=== PATIENT | male | born 1955 | race Caucasian/White ===

== ENCOUNTER 2021-03-26 07:12 | Emergency (ER) | payer MEDICARE, MEDICAID, SELFPAY ==
[2021-03-26 07:24] VITALS: BP 199/100; PULSE 78; RESP 20; TEMP 36.8; O2SAT 96; BMI 25.8
[2021-03-26 07:58] LABS: IDNOW Serial# 08D9AD1C; Strep A Nucleic Acid Negative (Negative)
--- NOTE | 2021-03-26 08:14 | ED_ITS ---
HPI - General Adult General Chief complaint: General Medical Stated complaint: Body aches/sore throat/fever Time Seen by Provider: 03/26/21 08:04 Source: patient Mode of arrival: ambulatory Limitations: no limitations History of Present Illness HPI narrative: 66 y/o male with history of HTN, noncompliant with medications who presents to the ER with body aches and pains along with sore throat that started yesterday. He lives at home with his who is COVID positive. He denies any shortness of breath or chest pain. He is here to be ?checked out? so he can maybe go to work today. complaint: Body aches and sore throat in the setting of COVID exposure. Onset (ago): day(s) (1) Location: head, mouth and back Radiation: non-radiation Severity: moderate Quality: aching Pain Consistency: constant Relieving factors: none and rest Associated symptoms: headaches and loss of appetite Treatments prior to arrival: none Related Data Allergies Allergy/AdvReac Type Severity Reaction Status Date / Time No Known Allergies Allergy Unverified 12/21/19 14:40 Review of Systems Review of Systems: Constitutional: No Fever, No Chills ENT/Mouth: + sore throat, No Rhinorrhea, No Swallowing Difficulty Eyes: No Eye Pain, No Swelling, + Redness Cardiovascular: No Chest Pain, No SOB, No Orthopnea, No Edema Respiratory: No Cough, No Sputum, No Wheezing, No dyspnea Gastrointestinal: No Nausea, No Vomiting, No Diarrhea, No abdominal Pain Genitourinary: No Dysuria, No Urinary Frequency, No Hematuria Musculoskeletal: + joint pain, + Myalgias Skin: No Skin Lesions, No rash Neuro: No Weakness, No Dizziness, + Headache Heme/Lymph: No Bruising, No Lymphadenopathy PMFSH Past Medical History Medical History (Updated 03/26/21 @ 09:19 by DMITRI Watkins) HTN (hypertension) Social History Social History Advance Directives: No Advance Directives Information Provided: No Physical Exam Vital Signs: Vital Signs: Last Vital Signs Temp 98.3 F 03/26/21 07:24 Pulse 78 03/26/21 08:15 Resp 20 03/26/21 07:24 BP 204/96 H 03/26/21 08:15 Pulse Ox 96 03/26/21 07:24 BMI result Body Mass Index 25.8 Appearance: Alert. Oriented X3. No acute distress. Eyes: Pupils equal, round and reactive to light. ENT: Pharynx with mild generalized erythema of the posterior oropharynx Neck: Normal inspection. Neck supple. CVS: Normal heart rate and rhythm. Pulses normal. Respiratory: No respiratory distress. Breath sounds normal. Skin: Skin warm and dry. Normal skin color. Normal skin turgor. No rashes. Extremities: No lower extremity edema. Neuro: Oriented X 3. No motor deficit. No sensory deficit. Course Course Course Narrative: 66-year-old male with history of hypertension, noncompliant with medications who presents to the ER with body aches and joint pains after being exposed his was COVID-19. His vital signs reveal significant hypertension with blood pressure 199/100. He is asymptomatic at this time with no chest pain, headache, vision changes. He states he does not take his blood pressure medication because he ?did note was that high. ? He does not see a doctor regularly. Repeat BP 204/96. He is stating he wants to leave and be called with the results of his COVID test. Explained the significance of his severely elevated blood pressure and need for compliance. He is declining a medical workup at this time. He states he will just take his blood pressure medication when he gets home. He was encourage follow-up with his primary care doctor. He is refusing to stay for additional workup and does not want any blood pressure medication right now. Will discharge home with plan to take his BP meds when he gets home and follow-up with his primary care doctor as soon as possible. Reevaluation(s) Reevaluation #1: Called patient with COVID positive result and result was provided to the patient. Work note provided. Medical Decision Making Lab Data Labs: Lab Results 03/26/21 03/26/21 Range/Units 07:32 07:32 Influenza Type A (PCR) NEGATIVE (Negative) Influenza Type B (PCR) NEGATIVE (Negative) RSV RNA Qual (PCR) NEGATIVE (Negative) SARS-CoV-2 RNA (RT-PCR) POSITIVE A (Negative) S. pyogenes GrpA TYLOR Negative (Negative) Critical Care Time Critical Care Time Critical Care Time: No Discharge Plan Discharge Clinical Impression: Poorly-controlled hypertension, COVID-19 Patient Disposition: Home, Self-Care Instructions: Covid-19 Viral Syndrome and Novel Coronavirus (ED) Hey/Ath, Hypertensive Crisis (ED) Additional Instructions: Given your known exposure to your who is positive for COVID, this is COVID- 19 until proven otherwise. We will call you with results of your PCR test. Do not go to work or in public while you're not feeling unwell. Take Motrin and/or Tylenol as needed for body aches and pains. Your blood pressure was extremely elevated in the emergency room today; it is very important that you take your blood pressure medications at home. Follow-up with your doctor soon as possible Stand Alone Forms: Work/School Release Interventions: ED Discharge Assessment Last Done: 03/26/21 08:20 Discharge Date/Time: 03/26/21 08:21
[2021-03-26 08:15] VITALS: BP 204/96; PULSE 78
--- NOTE | 2021-03-26 08:16 | PC.NURSE ---
denies canales or dizziness, states he takes bp meds inconsistently, education done re htn and meds and risks
[2021-03-26 08:18] LABS: Influenza A PCR NEGATIVE (Negative); Influenza B PCR NEGATIVE (Negative); Resp Syncy Virus RNA Qual PCR NEGATIVE (Negative); SARS COV2 PCR INHOUSE POSITIVE (Negative)
== END 2021-03-26 08:21 | disposition home or self-care (01) ==
PROVIDERS: Emergency Provider Emergency Medicine Emergency Medical Services; PCP Family Medicine
DX: U07.1 COVID-19 (principal); M79.10 Myalgia, unspecified site; R50.9 Fever, unspecified; M54.50 Low back pain, unspecified; R51.9 Headache, unspecified; I10 Essential (primary) hypertension
CPT/HCPCS: 0241U; 87651; 99282; 99283; 99284

== ENCOUNTER 2024-04-08 00:43 | Emergency (ER) | payer OTHER, SELFPAY ==
--- NOTE | 2024-04-08 | ECG_ITS ---
Test Reason : CHST PAIN Blood Pressure : / mmHG Vent. Rate : 076 BPM Atrial Rate : 076 BPM P-R Int : 164 ms QRS Dur : 080 ms QT Int : 410 ms P-R-T Axes : 074 021 021 degrees QTc Int : 461 ms Normal sinus rhythm Normal ECG When compared with ECG of 20-MAR-2009 21:02, No significant change was found Referred By: Generic ED Physician Electronically Signed By:XIOMY PARK MD
[2024-04-08 00:52] VITALS: BP 169/85; BP 220/120; PULSE 74; PULSE 89; RESP 14; TEMP 36.8; O2SAT 94; O2SAT 96; BMI 28.8
[2024-04-08 01:21] LABS: Basophils Absolute Auto 0.1 X10*3/uL (0.0-0.2); Eosinophils Absolute Auto 0.2 X10*3/uL (0.0-0.4); Eosinophils Percent Auto 3.4 % (0-4); Hematocrit 37.8 % (42.0-52.0); Hemoglobin 13.6 g/dl (14.0-18.0); Imm Gran Abs Auto 0.02 X10*3/uL (0.00-0.03); Imm Gran Pct Auto 0.3 % (0.0-0.4); Lymphocytes Absolute Auto 2.4 X10*3/uL (1.2-4.9); Lymphocytes Percent Auto 34.5 % (20-40); MANUAL DIFF FLAG NO; Mean Corpuscular Hemoglobin 35.2 pg (27.0-33.0); Mean Corpuscular Volume 97.9 fL (80.0-98.0); Mean Platelet Volume 9.8 fL (9.4-12.4); Monocytes Absolute Auto 0.8 X10*3/uL (0.1-1.2); Monocytes Percent Auto 11.4 % (2-11); Neutrophils Absolute Auto 3.4 x10*3/uL (2.0-8.3); Neutrophils Percent Auto 49.4 % (45-73); Platelet Count 225 X10*3/uL (160-400); Red Blood Count 3.86 X10*6/uL (4.60-5.80); Red Cell Distribution Width 12.5 % (11.0-16.0); White Blood Count 6.8 X10*3/uL (4.8-10.8)
[2024-04-08 01:43] LABS: Troponin-I High Sensitivity 4.8 ng/L (<3.5-35.0)
[2024-04-08 01:46] LABS: Albumin Level 4.1 g/dL (3.5-5.0); Anion Gap 14 (12-20); Aspartate Amino Transferase 40 U/L (5-37); Bilirubin Total 0.4 mg/dL (0.0-1.0); Blood Urea Nitrogen 19 mg/dL (9-16); Carbon Dioxide 27 mmol/L (22-29); Chloride 104 mmol/L (96-108); Creatinine Clr Calc Pharmacy 51.2; Estimated Glomerular Filt Rate 46; Glucose Random 92 mg/dL (60-115); Potassium 4.9 mmol/L (3.3-5.1); Sodium 140 mmol/L (135-145); Total Protein 8.1 g/dL (6.5-8.0)
[2024-04-08 01:52] LABS: Alanine Aminotransferase 19 U/L (0-40); Alkaline Phosphatase 67 U/L (39-117)
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
[2024-04-08 02:12] VITALS: BP 166/88; PULSE 70; RESP 16; TEMP 36.8; O2SAT 94
== END 2024-04-08 02:15 | disposition home or self-care (01) ==
PROVIDERS: Emergency Provider Internal Medicine; PCP Family Medicine
DX: I10 Essential (primary) hypertension (principal); R51.9 Headache, unspecified; F41.9 Anxiety disorder, unspecified; Z72.89 Other problems related to lifestyle; Z63.0 Problems in relationship with spouse or partner
CPT/HCPCS: 36415; 80053; 84484; 85025; 93005; 99283; 99285

== ENCOUNTER → 2024-04-08 00:57 | Outpatient (BNV) | payer OTHER, SELFPAY | PROVIDERS: Emergency Provider Internal Medicine; PCP Family Medicine; Visit Provider Internal Medicine Cardiovascular Disease | DX: R07.9 Chest pain, unspecified (principal) | CPT/HCPCS: 93010 ==

== ENCOUNTER → 2024-11-07 05:25 | Outpatient (BNV) | payer OTHER, SELFPAY | PROVIDERS: Admitting Provider Internal Medicine Pulmonary Disease; Emergency Provider Emergency Medicine; Visit Provider Radiology Diagnostic Radiology | DX: R91.8 Other nonspecific abnormal finding of lung field (principal) | CPT/HCPCS: 71045 ==

== ENCOUNTER 2024-11-07 06:10 | Inpatient (IN) | payer OTHER, SELFPAY ==
--- OUTSIDE RECORDS SUMMARY | 2024-09-14 08:24 | XMS_ITS | Continuity of Care Document ---
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 It does not include entries that were removed or entered in error. Problem Status Onset Date Problem Type Date of Resolution Comments Source Alcohol Dependence Active Condition [facility] Cocaine dependence Active Condition [facility] Delerium Tremens Active Condition [facility] Depression (SNOMED CT 10496105) Active Condition [facility] Housing adequate Active Condition [facility] Housing lack Active Condition [facility] Nicotine Dependence Active Condition [facility] Opioid Dependence Active Condition [facility] Seizure Active Condition Apr 30 04 Entered By: BARAK SANFORD Comment: alcohol WD [facility] Diagnosis: ICD-10-CM Z59.9 Problem related to housing and economic circumstances, unsp Active Diagnosis [facility] Encounters Combined list of: 1) Encounters from Department of Veterans Affairs facilities going backup to the last 18 months, not all VA inpatient encounters are included; 2) Encounters from the Department of Defense facilities going backup to 280 months. Location Location Details Encounter Type Encounter Number Reason For Visit Attending Provider ADM Date DC Date Status Disposition Source [facility] Outpatient Encounter [id number] 02/27 [facility] Outpatient [facility]counter [id number] 04/11 [facility] Out[facility]counter [id number] 05/10 [facility] PH1 ASSMT&MGMT NQHP 11-20 [id number] Diagnos is: ICD-10- CM Z59.9 Problem related to housing and economi c circums tances, unsp LUTSKY,PHY LLIS 05/11 [facility] [id number] 07/17 [facility] Out[facility]counter [id number] 08/08 [facility] CASE MANAGEMENT [id number] Diagnos is: ICD-10- CM Z59.9 Problem related to housing and economi c circums tances, unsp LUTSKY,PHY LLIS 09/01 [facility] En[facility] [id number] 09/14 [facility] CASE MANAGEMENT [id number] Diagnos is: ICD-10- CM Z59.9 Problem related to housing and economi c circums tances, unsp LUTSKY,PHY LLIS 09/14 [facility]
[2024-11-07] VITALS (47 sets, daily range): BP systolic 0–225; BP diastolic 0–136; PULSE 42–178; RESP 12–30; TEMP 33–38.6; O2SAT 51–99; BMI 23.3
--- NOTE | ~2024-11-07 | CT_ITS ---
EXAMINATION: CT CHEST WITHOUT CONTRAST CLINICAL INFORMATION: Intubated, Covid positive. Respiratory failure. COMPARISON: No prior CT. Chest x-ray dated prior day. TECHNIQUE: Multidetector volumetric CT imaging of the chest was done. Axial MIP volume rendering provided. Sagittal and coronal reformatted images were obtained. This CT examination was performed using dose optimization techniques as appropriate, variously including the following: *Automated exposure control *Adjustment of mA and/or kV according to patient size (this includes techniques or standardized protocols for targeted exams where dose is matched to indication/reason for exam; i.e. extremities or head) *Use of iterative reconstruction technique FINDINGS: Endotracheal tube is in good position, terminating approximately 5 cm above the chely. Enteric tube is in good position terminating in the gastric body. Right IJ central venous catheter is in good position with tip in the mid SVC. LUNGS: There are patchy consolidative opacities throughout both lungs, most confluent in the bilateral lower lobes where there is near complete consolidation of the right lower lobe and subtotal consolidation of the left lower lobe. There is a focus of cavitation in the superior segment of the right lower lobe measuring 1.8 cm (series 4, image 58). Patchy foci of consolidation and central cavitation are also present in the upper lobes bilaterally, numerous in number, the largest in the posterior segment left upper lobe. A prominent cavitary focus is also present in the right middle lobe, and small foci in the lingula. Notably, no pleural effusions are present. No pneumothorax is evident. The small airways appear patent within the upper lobes. There are air bronchograms in the proximal lower lobes. MEDIASTINUM: Normal thyroid, partially imaged. There are small mediastinal lymph nodes, likely reactive. The largest is a subcarinal lymph node, measuring 1.0 cm in short axis. The great vessels branch normally and the aorta is normal in caliber. The main pulmonary artery is normal in caliber. Heart size is normal. No pericardial effusion. CORONARY ARTERY CALCIFICATION: None visualized on this study. AXILLA/CHEST WALL: No lymphadenopathy. There is mild right male gynecomastia. UPPER ABDOMEN: There is a 3.8 cm cyst in the upper left kidney. There is a 3 mm nonobstructing calculus in the upper left kidney. OSSEOUS STRUCTURES: No suspicious lytic or blastic bone lesions. There are spinal degenerative changes. CT/CT chest wo IV con IMPRESSION: 1. Endotracheal tube and enteric tube in good position. 2. Extensive consolidative opacities throughout both lungs, with near complete opacification of the lower lobes bilaterally right greater than left. 3. There are numerous cavitary consolidative foci in the upper lungs, right middle lobe and lingula, as well as the superior segment right lower lobe. This would be atypical for COVID pneumonia, and most viral pneumonias in general. Consider bacterial etiologies such as Legionella, among others such as staph, Pseudomonas, Klebsiella, and atypical fungal infection such as aspergillosis. 4. There are no definite pleural effusions present, allowing for artifact on the exam. 5. There are small reactive lymph nodes in the mediastinum, also atypical for COVID pneumonia. Electronically signed by: Clarek Wyatt MD 11/08/2024 03:15 PM EDT
--- NOTE | ~2024-11-07 | XR_ITS ---
CLINICAL HISTORY: ETT placement 1 view chest x-ray Comparison: CR - XR CHEST 1V - 11/26/24 11:01 EDT CR/SR - XR CHEST 1 VIEW - 11/23/24 16:58 EDT Findings: Tip of ETT is 8 cm above the chely. Left-sided central venous catheter is present as before, tip of which is in the upper SVC. Moderate bibasilar airspace opacity is present as before. Heart size is normal. No acute fracture. IMPRESSION: Bibasilar pneumonia. This document has been electronically signed by: Kenia Padilla MD on 11/27/2024 20:31:40
--- NOTE | ~2024-11-07 | XR_ITS ---
EXAMINATION: XR CHEST (frontal view) at 16:37, 16:38 and 16:39 hours CLINICAL INFORMATION: confirm new OG tube placement COMPARISON: Radiographs on November 13, 2024 FINDINGS: Devices/Tubes/Lines: Distal sidehole marker and distal end of the orogastric tube project in the expected location of the stomach in the left upper quadrant on the last image at 1639 hours. Right and left internal jugular central venous catheters are in similar position. Endotracheal tube is partially included. Lungs: Bilateral patchy airspace opacities are similar. Pleura: No pleural effusion or pneumothorax. Heart/Mediastinum: Unchanged cardiomediastinal silhouette. Bones/Soft Tissues: No acute findings. XR/XR chest 1V IMPRESSION: 1. Distal segment of the orogastric tube projects at the expected location of the gastric lumen in the left upper quadrant on the last image at 1639 hours. 2. Similar patchy bilateral airspace opacities consistent with pneumonia. Electronically signed by: Katrin Kearney MD 11/15/2024 05:07 PM EDT
--- NOTE | ~2024-11-07 | MR_ITS ---
CLINICAL HISTORY: Persistent encephalopathy after cardiac arrest MR brain without contrast. COMPARISON: None provided. FINDINGS: Diffusion restricting ischemia present within the bilateral superior frontal lobes. There is associated increased T2/FLAIR signal. Small amount of gradient blooming present wi adjacent to the most anterior lesion on the right and left suggestive of microhemorrhage/blood products. Gradient blooming within the posterior left occipital lobe measuring 1.6 x 1.2 cm (series 10, image 29) with the adjacent increased T2/FLAIR signal. The ventricles are proportional with the degree of mild cerebral volume loss without evidence of hydrocephalus. Basilar cisterns are patent. Patchy hyperintense T2/FLAIR areas within the periventricular white matter and galarza radiata compatible with mild white matter small vessel disease. Cerebellar hemispheres and cerebellar vermis are normal. Fourth ventricle is normal. No brainstem abnormality is identified. Intracranial flow voids are patent. Visualized paranasal sinuses are clear. Fluid present within the mastoid air cells bilaterally. IMPRESSION: 1. Several foci of acute ischemia present within the superior frontal lobes bilaterally. Small amount of microhemorrhage versus hemosiderin deposition present within a couple of these lesions. 2. Lesion with internal blood products (favored) within the posterior left occipital lobe with mild adjacent T2/FLAIR increased signal. This could represent another age-indeterminate infarct although intracranial mass can not be excluded. Recommend comparison with recent CT of the head. Additional contrast enhanced MR sequences may be helpful for further characterization. This document has been electronically signed by: Yung Willson MD on 11/18/2024 14:22:49
--- NOTE | ~2024-11-07 | XR_ITS ---
CLINICAL HISTORY: PT SHOT IN LEG, UNKNOWN WHEN, clearance needed to proceed with MRI 2 view left tibia-fibula Comparison: None provided Findings No acute fracture or dislocation is identified. No metallic foreign body is seen. IMPRESSION: 1. No metallic foreign body is identified. This document has been electronically signed by: Karol Gutierrez on 11/18/2024 12:33:44
--- NOTE | ~2024-11-07 | XR_ITS ---
EXAMINATION: XR CHEST 1 VIEW HISTORY: ET tube was moved COMPARISON: Comparison is made with the prior examination dated 11/07/2024. FINDINGS: A single AP portable view of the chest performed at 8:00 AM is submitted. An endotracheal tube is noted with its tip approximately 7 cm above the chely. An orogastric tube terminates below the diaphragm. Again seen is airspace opacity in both lower lung zones. There is no pleural effusion, pneumothorax, or pulmonary vascular congestion. The heart is normal in size. The bones are intact. XR/XR chest 1V IMPRESSION: 1. Lines and tubes in place as described. 2. Airspace opacities in both lower lung zones consistent with pneumonia. Electronically signed by: Master Long MD 11/07/2024 08:26 AM EDT
--- NOTE | ~2024-11-07 | IR_ITS ---
PROCEDURE: IR INSERTION OF CENTRAL VENOUS CATHETER CLINICAL INFORMATION: Renal failure. Needs dialysis catheter. COMPARISON: None available. TECHNIQUE: Following explaining ultrasound and fluoroscopy-guided placement of right temporary dialysis catheter procedure, benefits and risk, a written consent was obtained. Patient was placed supine on fluoroscopy table and preliminary ultrasound imaging through the right neck was obtained. An optimal site was selected and marked on the skin. Marked site was cleaned and draped in usual sterile manner. 1% lidocaine was injected at puncture site. Under sterile ultrasound guidance a singlewall needle was advanced and right jugular vein above the clavicle was punctured. After obtaining venous return, thin guidewire was placed through the needle into the SVC and needle withdrawn. A 5 [place] dilator was placed over the guidewire and the guidewire was exchanged for a 0.035 J-wire. The guidewire was advanced into the IVC under fluoroscopy and the 5 [place] dilator was removed. The catheter was dilated with a 8 [place] and a 10 [place] dilator. A 12 [place] dialysis catheter was advanced over the guidewire and placed into the SVC. A single image was obtained at guidewire and the catheter tip in the SVC. The guidewire was removed and the catheter was attached to skin with 3 0 nonabsorbable nylon sutures. Both ports of the catheter were flushed with heparinized. Simple dressing applied at the puncture site. Patient tolerated procedure extremely well. No conscious sedation was utilized during exam. All elements of maximal sterile barrier technique followed including use of cap, mask, sterile gown, sterile gloves, a sterile full body drape and hand hygiene. Also followed skin preparation with 2% chlorhexidine for cutaneous antisepsis, and sterile ultrasound preparation with sterile gel and probe cover when applicable. FINDINGS/ IR/IR cvc insert non tunnel IMPRESSION: On preliminary ultrasound imaging the jugular vein has slow flow with some clots. 12 [place] 20 cm long dialysis temporary dialysis catheter placement in distal right jugular vein. The catheter is ready for use. Fluoroscopy time: 0.7 minutes. Dose: 3.412 mGy/cm. Electronically signed by: Jemal Escalante MD 12/19/2024 04:48 PM EDT
--- NOTE | ~2024-11-07 | CT_ITS ---
CLINICAL HISTORY: mental status CT Head WO Contrast COMPARISON: None provided FINDINGS: Hyperdense right frontal and bilateral frontoparietal subarachnoid hemorrhages with mild associated local sulcal effacement in the right frontal lobe. Parenchymal hemorrhage versus mass in the left occipital lobe measuring 1.1 x 0.9 cm (series 15, image 115) with adjacent edema local sulcal effacement. Diffuse cortical volume loss. Nonspecific white matter hypodensities, most commonly associated with chronic microangiopathic changes. No midline shift. No hydrocephalus. Visualized orbits are normal. Fluid in the left maxillary sinus. Clear mastoid air cells. No acute fracture. Unremarkable soft tissues. ETT and orogastric tube in place. IMPRESSION: Acute bilateral subarachnoid hemorrhages with mild associated right frontal sulcal effacement. Parenchymal hemorrhage versus mass in the left occipital lobe with adjacent edema and local sulcal effacement. Consider follow-up enhanced MRI if not worked up in the past. Nonemergent/incidental findings in the report. This document has been electronically signed by: Jorge Luis Malcolm MD on 11/28/2024 01:42:43
--- NOTE | ~2024-11-07 | XR_ITS ---
EXAMINATION: XR CHEST CLINICAL INFORMATION: left IJ dialysis line COMPARISON: November 15, 2024 TECHNIQUE: Frontal view of the chest was obtained. FINDINGS: The left-sided central venous line catheter placed via left internal jugular vein and at the innominate/SVC junction. No pneumothorax. Right-sided central venous line ends at the right atrium region. Bilateral multifocal patchy and confluent opacities extending from the perihilar region to the lower hemithoraces pronounced on the right side. Bilateral pleural effusions, small volume. Cardiomediastinal silhouette size is normal. Calcified plaque thoracic aorta. Degenerative changes in the left acromioclavicular joint. Multilevel spondylosis. XR/XR chest 1V IMPRESSION: Left-sided central venous line dialysis catheter ends at the innominate/SVC junction. No pneumothorax. Persistent pulmonary edema and bilateral small pleural effusions, new since prior exam. Electronically signed by: Yang Brantley MD 11/24/2024 08:03 AM EDT
--- NOTE | ~2024-11-07 | US_ITS ---
EXAMINATION: US ABDOMEN LIMITED HISTORY: Elevated bilirubin, ? cholestasis TECHNIQUE: Real-time grayscale ultrasound imaging of the right upper quadrant was performed and images were reviewed. COMPARISON: Correlation is made with a CT of the abdomen with contrast dated 03/20/2009. FINDINGS: Liver: The right lobe of the liver measures 18.9 cm in size. The left lobe of the liver measures 11.8 cm in size. The liver demonstrates normal homogeneous echotexture. No focal mass or intrahepatic biliary ductal dilatation is identified. There is normal hepatopedal flow in the portal vein. Gallbladder and biliary tree: There is sludge in the gallbladder. No calculi are identified. There is mild gallbladder wall thickening measuring up to 4 mm in thickness. The patient is intubated and the sonographic Rivera sign cannot be determined. The common bile duct measures 10 mm in diameter. Right Kidney: The right kidney measures 10.9 cm in length. The right kidney is unremarkable, without evidence of masses, hydronephrosis, or calculi. Pancreas: The pancreatic head, neck, and body are unremarkable. The pancreatic tail is obscured by bowel gas. Abdominal aorta and inferior vena cava: The visualized portions of the abdominal aorta and inferior vena cava are normal in caliber. There is a small amount of perihepatic ascites. US/US abdomen limited IMPRESSION: 1. Hepatomegaly. 2. Gallbladder sludge and mild gallbladder wall thickening. No evidence of cholelithiasis. Electronically signed by: Master Long MD 11/10/2024 10:50 AM EDT
--- NOTE | ~2024-11-07 | CT_ITS ---
CLINICAL HISTORY: hypoxemia CT Angiography Chest W Contrast 3D Postprocessing COMPARISON: CR - XR CHEST 1V - 11/27/24 20:03 EDT FINDINGS: No pulmonary embolism. No thoracic aortic aneurysm or dissection. Cavitary and solid lesions in the right middle lobe, lingula, and bilateral lower lobes with the largest measuring up to 7.5 x 5.2 cm in the right lower lobe, with the largest lesions containing air-fluid levels. Patchy and confluent airspace disease with areas of consolidation in the bilateral mid to lower lungs, most pronounced in the bilateral lower lobes. Bilateral cystic bronchiectasis. No pleural effusion. No pneumothorax. No cardiomegaly. No pericardial effusion. No pathologically enlarged lymph nodes. No acute fracture. Degenerative changes in the spine. Endotracheal tube in place with tip 5.6 cm above the chely. Left internal jugular central line in place with tip in the mid SVC. Right internal jugular central line in place with tip in the mid SVC. Enteric tube in place with distal portion in the stomach as far as visible. IMPRESSION: No pulmonary embolism. Bilateral cavitary pulmonary lesions, which could be due to septic emboli, a neoplastic process, infected bullae, or other etiology. Follow-up recommended. Bilateral airspace disease with areas of consolidation consistent with pneumonia. Support devices as above. See separate CT Abdomen/Pelvis report. This document has been electronically signed by: Jorge Luis Malcolm MD on 11/28/2024 01:28:11
--- NOTE | ~2024-11-07 | XR_ITS ---
EXAMINATION: XR CHEST 1 VIEW HISTORY: Status post left IJ Ruy placement COMPARISON: Comparison is made with the prior examination dated 525. FINDINGS: Two AP portable views of the chest performed at 9:51 AM are submitted. Endotracheal tube, orogastric tube, and right internal jugular central venous catheter are unchanged in position. There is been interval placement of a left internal jugular central venous catheter with its tip in the superior vena cava. Again seen are patchy airspace opacities bilaterally consistent with pneumonia. There is no pneumothorax or pleural effusion. The heart is normal in size. There is degenerative disc disease of the spine. XR/XR chest 1V IMPRESSION: 1. Lines and tubes in place as described. 2. Patchy bilateral airspace opacities consistent with pneumonia. Electronically signed by: Master Long MD 11/13/2024 10:16 AM EDT
--- NOTE | ~2024-11-07 | XR_ITS ---
CLINICAL HISTORY: line placement 1 view chest x-ray Comparison: Chest x-ray from 11/07/2024 Findings: Worsening airspace disease of the both lungs with now severe bilateral pulmonary opacities. Likely small right pleural effusion partially imaged in the [id number]. Endotracheal tube terminates in the thoracic inlet. Enteric tube courses below the diaphragm. Multiple superficial opacities again noted. Mediastinum is mostly obscured. Degenerative changes include imaged shoulders and imaged AC joints. IMPRESSION: 1. Worsening bilateral pulmonary opacities and/or airspace disease. 2. The endotracheal tube terminates in the midthoracic trachea. This document has been electronically signed by: Josse Davis MD on 11/07/2024 22:35:36
--- NOTE | ~2024-11-07 | XR_ITS ---
CLINICAL HISTORY: PT SHOT IN LEG, UNKNOWN WHEN, clearance needed to proceed with MRI 2 view left femur Comparison: None provided Findings: No acute fracture or dislocation is identified. No metallic foreign body is seen. IMPRESSION: No metallic foreign body is identified. This document has been electronically signed by: Karol Gutierrez on 11/18/2024 12:33:13
--- NOTE | ~2024-11-07 | XR_ITS ---
CLINICAL HISTORY: post intubation 1 view chest x-ray Comparison: CR - XR CHEST 1V - 11/07/24 06:25 EDT Findings: Endotracheal tube terminates at the level of the clavicular heads approximately 8 cm above the chely. Enteric tube courses below the diaphragm. Bilateral airspace consolidation, greater on the right. No pneumothorax. IMPRESSION: 1. Findings concerning for multifocal pneumonia. Endotracheal tube 8 cm above the chely. Enteric tube courses below the diaphragm. This document has been electronically signed by: Irais Nixon MD on 11/07/2024 08:54:01
--- NOTE | ~2024-11-07 | XR_ITS ---
CLINICAL HISTORY: dyspnea 1 view chest x-ray Comparison: None provided Findings: Patchy bilateral airspace disease greatest in the lung bases and slightly greater on the right than the left. No effusion or pneumothorax. Normal heart size. No acute osseous findings. IMPRESSION: 1. Bilateral airspace disease concerning for multifocal pneumonia. This document has been electronically signed by: Irais Nixon MD on 11/07/2024 08:37:58
--- NOTE | ~2024-11-07 | CT_ITS ---
CLINICAL HISTORY: ? bleeding CT Abdomen and Pelvis W Contrast COMPARISON: US/SR - US ABDOMEN LIMITED - 11/10/24 10:13 EDT FINDINGS: Detail limited by artifacts. Normal liver. Normal spleen. Left renal cyst. Subcentimeter hypodensity in the right kidney, too small to accurately characterize. Nonobstructing left renal calculus. No visible ureteral calculi. No hydronephrosis. Normal adrenal glands. Normal pancreas. No visible cholelithiasis. No biliary dilation. No evidence of bowel obstruction or colitis. Enteric tube in place with tip in the proximal duodenum. The appendix is not identified, however, no secondary signs of acute appendicitis. Poorly distended bladder. Trace ascites. No pneumoperitoneum. No lymphadenopathy. No acute fracture. Chronic appearing L3 compression fracture. Degenerative changes in the spine and hips. No abdominal aortic aneurysm. Atherosclerosis. Bilateral fat-containing inguinal hernias. IMPRESSION: Trace ascites. Enteric tube as above. Nonemergent/incidental findings above. See separate CTA Chest report. This document has been electronically signed by: Jorge Luis Malcolm MD on 11/28/2024 01:32:49
--- NOTE | ~2024-11-07 | XR_ITS ---
CLINICAL HISTORY: pneumonia 1 view chest x-ray Comparison: CR/SR - XR CHEST 1 VIEW - 11/23/24 16:58 EDT Findings: Faint scattered airspace opacities of the lung bases, improved. Cardiac and mediastinal contours are stable. Left-sided temporary hemodialysis catheter tip appears adequately positioned. No acute fracture. IMPRESSION: Persistent faint scattered airspace opacities of the lung bases, improving. This document has been electronically signed by: Nilay Morejon MD on 11/26/2024 11:40:44
--- NOTE | ~2024-11-07 | CT_ITS ---
CLINICAL HISTORY: bleed CT angiography head and neck with contrast. 3D Postprocessing. Comparison: CT/REG/SR - CT HEAD/BRAIN WO IV CON - 11/28/24 00:26 EDT Findings: Aortic arch and cervical great vessels are patent with no aneurysm, dissection, hemodynamically significant stenoses, or occlusion. Intracranial arteries are patent. No aneurysm, dissection, hemodynamically significant stenoses, or occlusion. No abnormal intracranial enhancement. The visualized thyroid gland is unremarkable. No cervical mass or fluid collection. Lung apices clear. No acute fracture. ETT 4.5 cm above the chely. OG tube and esophageal temperature probe noted. Small left maxillary sinus fluid. Small amount of bilateral frontal subarachnoid hemorrhage is in a similar distribution to the prior exam and appears slightly increased. Bilateral internal jugular large-bore venous catheter is in the SVC. IMPRESSION: 1. Widely patent head and neck CTA. 2. Small amount of bilateral frontal lobe subarachnoid hemorrhage appears slightly more prominent than the prior exam. Recommend continued follow-up. This document has been electronically signed by: Kaye Wong MD on 11/28/2024 04:57:18
--- NOTE | 2024-11-07 06:21 | ECG_ITS ---
Test Reason : SOB Blood Pressure : */* mmHG Vent. Rate : 172 BPM Atrial Rate : * BPM P-R Int : * ms QRS Dur : 74 ms QT Int : 280 ms P-R-T Axes : * 55 -82 degrees QTcB Int : 473 ms Atrial fibrillation with rapid ventricular response Nonspecific ST and T wave abnormality Abnormal ECG When compared with ECG of 08-Apr-2024 00:57, Atrial fibrillation has replaced Sinus rhythm Vent. rate has increased by 96 bpm Nonspecific T wave abnormality, worse in Inferior leads Nonspecific T wave abnormality now evident in Lateral leads Referred By: Generic ED Physician Electronically Signed By: RYAN CRUZ
[2024-11-07] MEDS: Nitroglycerin 2 % Oint 1 GM Packet 1 INCH TRANSDERMA (06:27)
[2024-11-07 06:41] LABS: Venous Blood Gas Refer to POC result
[2024-11-07 06:42] LABS: VBG HCO3 15 mmol/L (22-26); VBG O2 % Saturation 74.0 %
[2024-11-07] MEDS: Ketamine HCl/NS 50 MG/5 ML SYRINGE 160 MG IVPUSH (06:42)
[2024-11-07 06:49] LABS: Hematocrit 42.6 % (42.0-52.0); Hemoglobin 15.6 g/dl (14.0-18.0); INTERNATIONAL NORM RATIO 1.4 (0.9-1.1); Mean Corpuscular HGB Conc 36.6 g/dl (31.0-36.0); Mean Corpuscular Hemoglobin 34.7 pg (27.0-33.0); Mean Corpuscular Volume 94.9 fL (80.0-98.0); NRBC Abs Auto 0.000 X10*3/uL (0.0-0.012); NRBC Pct Auto 0.0 /100WBC (0.0-0.2); Platelet Count 201 X10*3/uL (160-400); Prothrombin Time 15.8 SEC (10.9-12.4); Red Blood Count 4.49 X10*6/uL (4.60-5.80)
[2024-11-07 06:50] LABS: WBC ABN SCTR FOR CBC 1
[2024-11-07 07:06] LABS: B Type Natriuretic Peptide 642 pg/mL (<100)
[2024-11-07 07:09] LABS: Troponin-I High Sensitivity 12.3 ng/L (<3.5-35.0)
[2024-11-07 07:21] LABS: Resp Syncy Virus RNA Qual PCR NEGATIVE (Negative); SARS COV2 PCR INHOUSE POSITIVE (Negative)
[2024-11-07 07:32] LABS: Venous Blood Gas Refer to POC result
[2024-11-07 07:34] LABS: VBG HCO3 14 mmol/L (22-26); VBG O2 % Saturation 98.0 %
[2024-11-07 07:37] LABS: Atypical Lymphs Percent Manual 1 % (0-6); Lymphocytes Percent Manual 21 % (20-40); Metamyelocytes Percent 3 %; Monocytes Percent Manual 16 % (2-11); Neutrophils Percent Manual 34 % (45-73)
--- NOTE | 2024-11-07 07:38 | PC.NURSE ---
At arrival to room just after Rosc pt is still well sedated. moddled skin around pelvis and BLE. Pupils 3mm ST on monitor
--- OUTSIDE RECORDS SUMMARY | 2024-11-07 07:42 | XMS_ITS | Encounter Summary ---
Author Organization [facility] Address [address] [place] [address] Phone Care Team Providers Care Intranet Support Name Role Phone Ishan Pablo MD Primary Care Provider Encounter Details Date Type Department Care Team (Late st Contact Info) Description 04/29/2022 Documentation Only [facility], [address] [place] [phone] Ishan Pablo MD [address] [place] [address] Social History Tobacco Use Types Packs/Day Years Used Date Smoking Tobacco: Never Assessed Sex and Gender Information Value Date Recorded Sex Assigned at Not on file Legal Sex Male 12:39 PM EST Gender Identity Not on file Sexual Orientation Not on file documented as of this encounter Plan of Treatment Not on file documented as of this encounter Visit Diagnoses Not on filedocumented in this encounter Care Teams Intranet Support Relationship Specialty Start Date End Date Ishan Pablo MD [address] [place] [phone] PCP - General Family Medicine 04/29/22 documented as of this encounter
[2024-11-07 07:45] LABS: Band Neutrophils Percent 25 % (3-5)
[2024-11-07 07:46] LABS: Burr Cells 2+ (3-5) /OIF; Large Platelet PRESENT; RBC Morphology NOTED; Smudge Cells PRESENT; Toxic Granulation PRESENT; Toxic Vacuolation PRESENT
--- NOTE | 2024-11-07 07:46 | PC.NURSE ---
repeat portable chest ordred ET tube 25 at the lip but was intended to be at 23 per respiratory.
[2024-11-07 07:48] LABS: Atypical Lymph Absolute Manual 0.1 x10*3/uL; Lymphocytes Absolute Manual 2.8 X10*3/uL (1.2-4.9); Metamyelocytes Absolute 0.4 X10*3/uL; Monocytes Absolute Manual 2.2 X10*3/uL (0.1-1.2); Neutrophils Absolute Manual 8.0 X10*3/uL (2.0-8.3); White Blood Count 13.5 X10*3/uL (4.8-10.8)
--- NOTE | 2024-11-07 07:50 | ED.SOB ---
HPI - SOB/Dyspnea General Chief Complaint: Dyspnea Stated Complaint: SOB Time Seen by Provider: 11/07/24 06:31 Source: patient and old records reviewed Mode of arrival: EMS Limitations: physical limitation (dyspnea) History of Present Illness ED Provider: Dr. Milady Gale HPI Narrative: 69-year-old male with history of methadone use, tobacco use, denying other health history presenting via private vehicle, ambulatory into the emergency department with shortness of breath, cough, fevers ongoing for the last 4 days or so. Patient is unable to give much history secondary to his clinical condition. He is profoundly short of breath and is unable to make full sentences. He denies history of heart disease or heart failure. Denies any other illicit substance use. Denies vomiting. No further information able to be obtained at this time. Related Data Previous Rx's ?Medication ?Instructions ?Recorded lisinopril 20 mg tablet 20 mg PO DAILY #90 tabs 04/08/24 Allergies Allergy/AdvReac Type Severity Reaction Status Date / Time Penicillins Allergy Unknown Verified 11/07/24 06:19 ibuprofen AdvReac Difficulty Verified 11/07/24 06:19 Breathing Review of Systems Review of Systems: Yes Unobtainable due to mental condition (Profound dyspnea) [facility] Past Medical History Attestation statement: The following information was validated with the patient. [facility] Narrative: Methadone use, quit smoking 2 years ago, denies other illicit substance or alcohol use Source: old records reviewed and nursing notes reviewed Medical History HTN (hypertension) Social History Social History Alcohol intake: current Alcohol intake frequency: 0-2 drinks per day Advance Directives: No Advance Directives Information Provided: No Do you have a plan to hurt others: No Plan Physical Exam Exam: Exam: GENERAL: Chronically ill-appearing, severe respiratory distress. SKIN: Pale, mottled extremities, cool to the touch, diaphoretic, reticular, mottled extremities. HEENT: Normocephalic, atraumatic, no stridor, EOMI. NECK: Soft, supple, full ROM, midline structures nontender, no step-offs, no deformities, no lymphadenopathy. CHEST: Heart irregularly irregular tachycardia, symmetric chest rise and fall. PULMONARY: Coarse lung sounds bilaterally, diminished at the bases, severe respiratory distress with poor air movement, no wheezes. ABDOMINAL: Soft, protuberant nontender, quiet bowel sounds in all quadrants. : Deferred. MUSCULOSKELETAL: Normal tone, full range of motion, no deformities, 1+ peripheral edema bilaterally. NEURO: Alert and oriented to person, CN II through XII intact, no focal neurologic deficits. PSYCHIATRIC: Anxious affect, appropriate demeanor. Vital Signs: Vital Signs: Last Vital Signs Temp 101.4 F H 11/07/24 06:13 Pulse 116 H 11/07/24 07:38 Resp 18 11/07/24 07:38 BP 115/66 11/07/24 07:38 Pulse Ox 96 11/07/24 07:38 O2 Del Method Mechanical Ventil ation 11/07/24 07:38 FiO2 100 11/07/24 07:38 BMI result Body Mass Index 23.3 Medications Administered Discontinued Medications Generic Name Dose Route Start Last Admin Trade Name Freq PRN Reason Stop Dose Admin Nitroglycerin 1 inch 11/07/24 06:26 11/07/24 06:27 Nitroglycerin 2 % Oint 1 Gm Packet TRANSDERMA 11/07/24 06:27 1 inch ONCE ONE Administration Medical Decision Making Medical Decision Making MDM Narrative: Patient presents in respiratory distress. Differential diagnosis includes flash pulmonary edema, COPD exacerbation, pneumothorax, pneumonia, ACS, pulmonary embolism, metabolic acidosis, among many others. The serious nature of the patient's symptoms makes this presentation complex, with potential for significant, worsening morbidity and mortality without immediate treatment/intervention. 7:10 AM 11/07/2024 (Dr. Milady Gale, D.O.) patient presents with fever, tachycardia, hypoxia and tachypnea, concern for potential respiratory infection periods sepsis alert called. Clinical picture also consistent with a volume overload with significantly elevated blood pressures, concern for potential pulmonary edema. Holding off on IV fluid administration at this point. His blood pressures are extremely elevated. Vancomycin and cefepime ordered. Immediately prior to intubation, patient's blood pressures dropped precipitously with transdermal nitroglycerin and IV nitroglycerin. He only received about 2 minutes of the IV nitroglycerin when his blood pressure dropped to 90s over 50s. At that point, patient had become rather delirious, pulling at his BiPAP mask and was unable to tolerate this. Decision was made to emergently intubate. During intubation, patient began to go into bradyarrhythmia, ultimately lost pulses and CPR was initiated. Please see code sheet for exact times and medications given. He received 1 round of epi and 2 rounds of CPR and ultimately regained pulses. At that time he did receive 2 L of IV fluid for his now low blood pressure. After this, his blood pressures went high again. Chest x-ray shows bilateral patchy infiltrates, concern for ARDS versus bilateral pneumonia. Norepinephrine was placed on hold due to transiently high blood pressures. I suspect this is likely medication driven and he will ultimately need vasopressors however at this time he is maintaining a normal blood pressure. 8:05 AM 11/07/2024 (Dr. Milady Gale, D.O.) Patient testing positive for COVID-19. Magnesium is low. Lactic acid of 11.9 likely secondary to tissue hypoxia in the setting of respiratory failure, cardiac arrest and severe sepsis. Extremities are last mottled though he remains pale. Cardiac and lung exam are unchanged. Chest x-ray shows significant volume overload. Despite this, he did receive 2 L of IV crystalloid. Concern for potential pulmonary embolism given the level of hypoxia though I suspect this could be also due to the pulmonary edema and pneumonia. We will order a CTA to evaluate this further. Case discussed with Dr. Steel, ICU on-call who agrees with plan for transfer to ICU. Patient admitted to the ICU in critical condition. Differential Diagnosis Differential Diagnoses: The differential diagnosis associated with the presentation includes (As above) Admission/Observation Consideration of admission/observation: Escalation of care including admission/observation considered Consult Healthcare Provider Management of the patient was discussed with: Family Physician (Custodial Operations Manager) Lab Data [facility] Lab Attestation statement: I reviewed the patient's lab results. 11/07/24 06:31 Labs: Lab Results 11/07/24 11/07/24 11/07/24 Range/Units 06:31 06:32 06:37 WBC 13.5 H (4.8-10.8) X10*3/uL RBC 4.49 L (4.60-5.80) X10*6/uL Hgb 15.6 (14.0-18.0) g/dl Hct 42.6 (42.0-52.0) % MCV 94.9 (80.0-98.0) fL MCH 34.7 H (27.0-33.0) pg MCHC 36.6 H (31.0-36.0) g/dl RDW 11.7 (11.0-16.0) % Plt Count 201 (160-400) X10*3/uL MPV 10.8 (9.4-12.4) fL Immature Gran % (Auto) Cancelled Neut % (Auto) Cancelled Lymph % (Auto) Cancelled [place]ain % (Auto) Cancelled Eos % (Auto) Cancelled Baso % (Auto) Cancelled Lymph # (Auto) Cancelled [place] # (Auto) Cancelled Eos # (Auto) Cancelled Baso # (Auto) Cancelled Abs Immat Gran (auto) Cancelled Absolute Neuts (auto) Cancelled Absolute Nucleated RBC 0.000 (0.0-0.012) X10*3/uL Nucleated RBC % (auto) 0.0 (0.0-0.2) /100WBC Neutrophils % (Manual) 34 L (45-73) % Band Neutrophils % 25 H (3-5) % Lymphocytes % (Manual) 21 (20-40) % Atypical Lymphs % (Man) 1 (0-6) % Monocytes % (Manual) 16 H (2-11) % Metamyelocytes % 3 % Abs Neuts (Manual) 8.0 (2.0-8.3) X10*3/uL Lymphocytes # (Manual) 2.8 (1.2-4.9) X10*3/uL Atyp Lymphs # (Manual) 0.1 x10*3/uL Monocytes # (Manual) 2.2 H (0.1-1.2) X10*3/uL Metamyelocytes # 0.4 X10*3/uL Nucleated RBCs 1 H (0-0) /100WBC Smudge Cells PRESENT Toxic Granulation PRESENT Toxic Vacuolation PRESENT WBC Morphology Comment DYSMORPHIC Platelet Estimate NORMAL (NORMAL) Large Platelets PRESENT Plt Morphology Comment NOTED RBC Morphology NOTED Nuris Cells 2+ (3-5) /OIF PT 15.8 H (10.9-12.4) SEC INR 1.4 H (0.9-1.1) VBG pH 7.36 (7.32-7.43) VBG pCO2 27 mmHg VBG pO2 49 mmHg VBG HCO3 15 L (22-26) mmol/L VBG O2 Saturation 74.0 % VBG Base Excess -7.5 mmol/L Troponin I High Sens 12.3 D (<3.5-35.0) ng/L B-Natriuretic Peptide 642 H (<100) pg/mL Influenza Type A (PCR) NEGATIVE (Negative) Influenza Type B (PCR) NEGATIVE (Negative) RSV RNA Qual (PCR) NEGATIVE (Negative) SARS-CoV-2 RNA (RT-PCR) POSITIVE A (Negative) 11/07/24 Range/Units 07:27 WBC (4.8-10.8) X10*3/uL RBC (4.60-5.80) X10*6/uL Hgb (14.0-18.0) g/dl Hct (42.0-52.0) % MCV (80.0-98.0) fL MCH (27.0-33.0) pg MCHC (31.0-36.0) g/dl RDW (11.0-16.0) % Plt Count (160-400) X10*3/uL MPV (9.4-12.4) fL Immature Gran % (Auto) Neut % (Auto) Lymph % (Auto) Swain % (Auto) Eos % (Auto) Baso % (Auto) Lymph # (Auto) Swain # (Auto) Eos # (Auto) Baso # (Auto) Abs Immat Gran (auto) Absolute Neuts (auto) Absolute Nucleated RBC (0.0-0.012) X10*3/uL Nucleated RBC % (auto) (0.0-0.2) /100WBC Neutrophils % (Manual) (45-73) % Band Neutrophils % (3-5) % Lymphocytes % (Manual) (20-40) % Atypical Lymphs % (Man) (0-6) % Monocytes % (Manual) (2-11) % Metamyelocytes % % Abs Neuts (Manual) (2.0-8.3) X10*3/uL Lymphocytes # (Manual) (1.2-4.9) X10*3/uL Atyp Lymphs # (Manual) x10*3/uL Monocytes # (Manual) (0.1-1.2) X10*3/uL Metamyelocytes # X10*3/uL Nucleated RBCs (0-0) /100WBC Smudge Cells Toxic Granulation Toxic Vacuolation WBC Morphology Comment Platelet Estimate (NORMAL) Large Platelets Plt Morphology Comment RBC Morphology Nuris Cells /OIF PT (10.9-12.4) SEC INR (0.9-1.1) VBG pH 7.10 L* (7.32-7.43) VBG pCO2 44 mmHg VBG pO2 156 mmHg VBG HCO3 14 L (22-26) mmol/L VBG O2 Saturation 98.0 % VBG Base Excess -14.9 mmol/L Troponin I High Sens (<3.5-35.0) ng/L B-Natriuretic Peptide (<100) pg/mL Influenza Type A (PCR) (Negative) Influenza Type B (PCR) (Negative) RSV RNA Qual (PCR) (Negative) SARS-CoV-2 RNA (RT-PCR) (Negative) Independent Interpretation I performed an independent interpretation of an: EKG and Plain X-Ray Interpretation: EKG at 6:22 a.m. shows atrial fibrillation with a RVR rate of 172, QTC 473, normal axis, no ST elevations or depressions to suggest ischemia, no previous for comparison Initial chest x-ray shows patchy bibasilar infiltrates, pulmonary edema versus pneumonia. Post intubation chest x-ray shows ET tube that is approximately 6 cm above the chely, OG tube passes below the diaphragm, continued diffuse infiltrates versus pulmonary edema Chronic Conditions Patient?s care impacted by: Other (History of opioid use disorder) Critical Care Time Critical Care Time Critical Care Time: Yes Total Critical Care Time: 60 Attestation: CRITICAL CARE TIME: 60 minutes of critical care time was spent in direct patient care at the bedside or in the immediate area with this patient. Critical care was necessary to treat or prevent imminent or life-threatening deterioration of the following conditions acute respiratory failure, respiratory/metabolic acidosis, transient cardiac arrest due to COVID-19 pneumonia, flash pulmonary edema. This patient is high risk for decompensation and/or . This time was spent assessing and managing the patient, interpreting labs and imaging, coordinating care with other medical providers, gathering history from either the patient, their representatives, EMS or chart review, and discussing management with ICU team. Discharge Plan Discharge Clinical Impression: COVID-19, Acute hypoxemic respiratory failure, Severe sepsis, Acute respiratory distress syndrome (ARDS), Required emergent intubation, Metabolic acidosis, Bandemia, Bilateral pneumonia Patient Disposition: Admitted As Inpatient Print Language: Italian
--- NOTE | 2024-11-07 07:57 | PC.NURSE ---
noreip drip back up at 0.05 mcg/kg/min
[2024-11-07 07:59] LABS: Alanine Aminotransferase 43 U/L (0-40); Albumin Level 2.5 g/dL (3.5-5.0); Alkaline Phosphatase 64 U/L (39-117); Anion Gap 21 (12-20); Aspartate Amino Transferase 73 U/L (5-37); Blood Urea Nitrogen 32 mg/dL (9-16); Calcium 7.6 mg/dL (8.4-10.2); Carbon Dioxide 15 mmol/L (22-29); Chloride 100 mmol/L (96-108); Creatinine Clr Calc Pharmacy 39.5; Estimated Glomerular Filt Rate 33; Magnesium 1.4 mg/dL (1.6-2.6); Potassium 3.3 mmol/L (3.3-5.1); Sodium 133 mmol/L (135-145); Total Protein 5.5 g/dL (6.5-8.0)
[2024-11-07] MEDS: vancomycin/NS 2,000 MG/500 ML PLAST..BAG 250 MG IV (07:59)
[2024-11-07] MEDS: cefEPime HCl/D5W 2 GM/50 ML PIGGYBACK IV (07:59)
[2024-11-07] MEDS: Magnesium Sulfate/H2O 2 GM/50 ML PIGGYBACK IV (08:07)
--- NOTE | 2024-11-07 08:19 | PC.NURSE ---
Pt has not moved/bucked tube since propofol was D/C's over 30 minutes ago. Propofol ran for aprox 20-30 minutes at lowest rate.
--- NOTE | 2024-11-07 08:35 | PC.NURSE ---
Rn To RN kayy Spencer in ICU.
[2024-11-07] MEDS: Sodium Bicarbonate 8.4% 50 MEQ in Dextrose 5 % 950 ML 150 MEQ IV (08:46)
--- NOTE | 2024-11-07 09:06 | PHA.MEDREC ---
Addendum entered by Mike Pritchett [facility] 11/07/24 16:49: Med rec reviewed Original Note: Pharmacy Consult ? Medication Reconciliation Pharmacy has completed the medication reconciliation. Pt intubated and cannot be spoken too at this time and pt contacts (significant other- Riri and sister- Radha) numbers are both off. Utilized claims to confirm med rec.
[2024-11-07 09:25] LABS: Reflex Lactate? Lactic Acid Added
[2024-11-07 10:42] LABS: ~Lactic Acid-LAB USE ONLY 7.9 mmol/L (0.5-2.0)
[2024-11-07 10:52] LABS: ABG HCO3 20 mmol/L (22-26); ABG O2 % Saturation 88.0 %
[2024-11-07 11:20] LABS: ABG Refer to POC result
[2024-11-07] MEDS: Albumin Human 25 % 100 ML IV ×3 (11:52→23:23)
[2024-11-07 12:04] LABS: Reflex Lactate? 2 Y
--- NOTE | 2024-11-07 12:14 | P.HPCC_ITS ---
History of Present Illness Date of Service: 11/07/24 Chief Complaint: Cardiac arrest 69-year-old gentleman with underlying hypertension, anxiety, ? ADHD, substance abuse presented on 12/08/2024 with respiratory distress requiring immediate intubation complicated by pea re-intubation cardiac arrest with return of spontaneous circulation after 2 rounds of CPR. Initial workup significant for profound hypoxemia, lactic acidosis with acute renal failure, and COVID positivity. Patient started on empiric broad-spectrum antibiotics, pressor support, and dexamethasone and admitted to the intensive care unit. Review of Systems 2 Review of Systems: Yes unobtainable due to endotracheal tube and Unobtainable due to mental condition [facility] Past Medical History Medical History HTN (hypertension) Social History Social History Alcohol intake: current Alcohol intake frequency: 0-2 drinks per day Advance Directives: No Advance Directives Information Provided: No Do you have a plan to hurt others: No Plan Meds Allergies Allergy/AdvReac Type Severity Reaction Status Date / Time Penicillins Allergy Unknown Verified 11/07/24 06:19 ibuprofen AdvReac Difficulty Verified 11/07/24 06:19 Breathing Active Medications: Current Medications Dexamethasone Sodium Phosphate (Dexamethasone Sod Phosphate 4 Mg/Ml Vial) 6 mg IVPUSH DAILY [facility] Heparin Sodium (Porcine) (Heparin Sodium,Porcine 5,000 Unit/Ml Vial) 5,000 unit SUBCUT Q8H [facility] Last Admin: 11/07/24 11:51 Dose: 5,000 unit Propofol (Diprivan) 1,000 mg in 100 mls @ 0 mls/hr IVCONT .Q0M [facility]; Protocol Last Titration: 11/07/24 07:45 Dose: 0 mcg/kg/min, 0 mls/hr Norepinephrine Bitartrate (Levophed) 8 mg in 250 mls @ 0 mls/hr IVCONT .Q0M [facility]; Protocol Last Admin: 11/07/24 07:50 Dose: 0.05 mcg/kg/min, 7.5 mls/hr Albumin Human (Kedbumin 25 %) 100 mls @ 100 mls/hr IV Q6H [facility] Stop: 11/08/24 06:29 Last Admin: 11/07/24 11:52 Dose: 100 mls/hr Piperacillin Sod/Tazobactam (Sod 3.375 gm/ Sodium Chloride) 50 mls @ 100 mls/hr IV Q6H [facility] Last Admin: 11/07/24 11:52 Dose: 100 mls/hr Pharmacy Consult (Consult Rx Vancomycin Dosing) 1 each MISCELLANE DAILY PRN PRN Reason: Consult order Sodium Bicarbonate (Sodium Bicarbonate 8.4% 50 Meq/50 Ml Syringe) 50 meq IVPUSH Q4H [facility] Stop: 11/08/24 07:31 Last Admin: 11/07/24 11:52 Dose: 50 meq Home Medications ?Medication ?Instructions ?Recorded ?Confirmed ?Last Taken ?Type amlodipine 5 mg tablet 5 mg PO DAILY 11/07/2411/07 Unknown History clonazepam 1 mg tablet 1 mg PO TID anxiety 11/07/24 11/07/24 Unknown History dextroamphetamine-amphetamine 20 1 tab PO BID 11/07/24 11/07/24 Unknown History mg tablet Physical Exam 2 Vital Signs: Vital Signs: Last Vital Signs Temp 97.7 F 11/07/24 11:00 Pulse 88 11/07/24 11:00 Resp 28 H 11/07/24 11:00 BP 109/61 11/07/24 11:00 Pulse Ox 88 L 11/07/24 11:00 O2 Del Method Mechanical Ventil ation 11/07/24 11:00 FiO2 100 11/07/24 11:28 BMI result Body Mass Index 23.3 Const: General: no acute distress and other (Sedated on ventilatory support) Eyes: Sclerae: sclerae normal EOM: EOMs intact bilaterally Neck: Neck: Yes no lymphadenopathy, Yes trachea midline and Yes supple Resp: Auscultation: crackles (Diffuse bilateral) Cardio: Rate: regular rate Rhythm: regular rhythm Heart sounds: no gallops, no murmurs and no rubs GI: Palpation (GI): Soft to palpation and Other GI palpation findings present ( Nontender) Auscultation: normal bowel sounds Extrem: General: Yes no pedal edema, No clubbing and No cyanosis Results Labs 11/07/24 06:31 11/07/24 07:23 Labs: Laboratory Results - last 24 hr 11/07/24 11/07/24 11/07/24 06:31 06:32 06:37 MCV 94.9 MCH 34.7 H MCHC 36.6 H RDW 11.7 Plt Count 201 MPV 10.8 Immature Gran % (Auto) Cancelled Neut % (Auto) Cancelled Lymph % (Auto) Cancelled [place]ccre[place] % (Auto) Cancelled Eos % (Auto) Cancelled Baso % (Auto) Cancelled Lymph # (Auto) Cancelled [place] # (Auto) Cancelled Eos # (Auto) Cancelled Baso # (Auto) Cancelled Abs Immat Gran (auto) Cancelled Absolute Neuts (auto) Cancelled Absolute Nucleated RBC 0.000 Nucleated RBC % (auto) 0.0 Neutrophils % (Manual) 34 L Band Neutrophils % 25 H Lymphocytes % (Manual) 21 Atypical Lymphs % (Man) 1 Monocytes % (Manual) 16 H Metamyelocytes % 3 Abs Neuts (Manual) 8.0 Lymphocytes # (Manual) 2.8 Atyp Lymphs # (Manual) 0.1 Monocytes # (Manual) 2.2 H Metamyelocytes # 0.4 Nucleated RBCs 1 H Smudge Cells PRESENT Toxic Granulation PRESENT Toxic Vacuolation PRESENT WBC Morphology Comment DYSMORPHIC Platelet Estimate NORMAL Large Platelets PRESENT Plt Morphology Comment NOTED RBC Morphology NOTED [place] Cells 2+ (3-5) PT 15.8 H INR 1.4 H O2 Saturation ABG pH at Pt Temp ABG pCO2 at Pt Temp ABG pO2 at Pt Temp ABG HCO3 ABG Base Excess (Actual) VBG pH 7.36 VBG pCO2 27 VBG pO2 49 VBG HCO3 15 L VBG O2 Saturation 74.0 VBG Base Excess -7.5 Anion Gap Estim Creat Clear Calc Estimated GFR Random Glucose Lactic Acid Lactic Acid F/U @ 2Hr Calcium Magnesium Total Bilirubin AST ALT Alkaline Phosphatase B-Natriuretic Peptide 642 H Total Protein Albumin Ethyl Alcohol Influenza Type A (PCR) NEGATIVE Influenza Type B (PCR) NEGATIVE RSV RNA Qual (PCR) NEGATIVE SARS-CoV-2 RNA (RT-PCR) POSITIVE A 11/07/24 11/07/24 11/07/24 07:02 07:23 07:27 MCV MCH MCHC RDW Plt Count MPV Immature Gran % (Auto) Neut % (Auto) Lymph % (Auto) Mccreary % (Auto) Eos % (Auto) Baso % (Auto) Lymph # (Auto) [place] # (Auto) Eos # (Auto) Baso # (Auto) Abs Immat Gran (auto) Absolute Neuts (auto) Absolute Nucleated RBC Nucleated RBC % (auto) Neutrophils % (Manual) Band Neutrophils % Lymphocytes % (Manual) Atypical Lymphs % (Man) Monocytes % (Manual) Metamyelocytes % Abs Neuts (Manual) Lymphocytes # (Manual) Atyp Lymphs # (Manual) Monocytes # (Manual) Metamyelocytes # Nucleated RBCs Smudge Cells Toxic Granulation Toxic Vacuolation WBC Morphology Comment Platelet Estimate Large Platelets Plt Morphology Comment RBC Morphology Nuris Cells PT INR O2 Saturation ABG pH at Pt Temp ABG pCO2 at Pt Temp ABG pO2 at Pt Temp ABG HCO3 ABG Base Excess (Actual) VBG pH 7.10 L* VBG pCO2 44 VBG pO2 156 VBG HCO3 14 L VBG O2 Saturation 98.0 VBG Base Excess -14.9 Anion Gap 21 H Estim Creat Clear Calc 39.5 Estimated GFR 33 Random Glucose 228 H Lactic Acid 11.9 H* Lactic Acid F/U @ 2Hr Calcium 7.6 L D Magnesium 1.4 L* Total Bilirubin 2.4 H AST 73 H ALT 43 H Alkaline Phosphatase 64 B-Natriuretic Peptide Total Protein 5.5 L Albumin 2.5 L Ethyl Alcohol 11 Influenza Type A (PCR) Influenza Type B (PCR) RSV RNA Qual (PCR) SARS-CoV-2 RNA (RT-PCR) 11/07/24 11/07/24 10:00 10:48 MCV MCH MCHC RDW Plt Count MPV Immature Gran % (Auto) Neut % (Auto) Lymph % (Auto) Mccreary % (Auto) Eos % (Auto) Baso % (Auto) Lymph # (Auto) Mccreary # (Auto) Eos # (Auto) Baso # (Auto) Abs Immat Gran (auto) Absolute Neuts (auto) Absolute Nucleated RBC Nucleated RBC % (auto) Neutrophils % (Manual) Band Neutrophils % Lymphocytes % (Manual) Atypical Lymphs % (Man) Monocytes % (Manual) Metamyelocytes % Abs Neuts (Manual) Lymphocytes # (Manual) Atyp Lymphs # (Manual) Monocytes # (Manual) Metamyelocytes # Nucleated RBCs Smudge Cells Toxic Granulation Toxic Vacuolation WBC Morphology Comment Platelet Estimate Large Platelets Plt Morphology Comment RBC Morphology Nuris Cells PT INR O2 Saturation 88.0 ABG pH at Pt Temp 7.08 L* ABG pCO2 at Pt Temp 67 H* ABG pO2 at Pt Temp 78 L ABG HCO3 20 L ABG Base Excess (Actual) -10.3 VBG pH VBG pCO2 VBG pO2 VBG HCO3 VBG O2 Saturation VBG Base Excess Anion Gap Estim Creat Clear Calc Estimated GFR Random Glucose Lactic Acid Lactic Acid F/U @ 2Hr 7.9 H* Calcium Magnesium Total Bilirubin AST ALT Alkaline Phosphatase B-Natriuretic Peptide Total Protein Albumin Ethyl Alcohol Influenza Type A (PCR) Influenza Type B (PCR) RSV RNA Qual (PCR) SARS-CoV-2 RNA (RT-PCR) Imaging Radiologist's Impressions: Impressions Chest X-Ray 11/07/24 08:10 IMPRESSION: 1. Lines and tubes in place as described. 2. Airspace opacities in both lower lung zones consistent with pneumonia. Electronically signed by: Master Long MD 11/07/2024 08:26 AM EDT RP Assessment and Plan (1) Metabolic acidosis: Status: Acute (2) Cardiac arrest: Status: Acute (3) Acute hypoxemic respiratory failure: Status: Acute (4) Acute kidney injury: Status: Acute (5) Acute respiratory failure with hypoxia: Status: Acute Plan Assessment: 69-year-old gentleman admitted with acute hypoxic respiratory failure with metabolic acidosis status post cardiac arrest with return of spontaneous circulation after 2 rounds of CPR. Plan: Neuro: No acute issues. Cardiac: Cardiac arrest with return of spontaneous circulation after several rounds of CPR. 2D echo is pending. Pulmonary: Acute hypoxic respiratory failure requiring essentially maximum ventilatory support. Underlying COVID-19 and possible aspiration component. Continue to titrate off as tolerated. Empiric dexamethasone. Renal: Acute renal failure with lactic metabolic acidosis. Non oliguric. Continue to monitor renal indices and urine output. IV bicarbonate support. Endo: No acute issues. GI: No acute issues. ID: Empiric broad-spectrum antibiotics. Cultures are pending. Heme/Onc: No acute issues. Psych: No acute issues. Miscellaneous: No acute issues. Prophylaxis: Heparin, famotidine Diet: NPO Critical care time spent: 90 minutes
--- NOTE | 2024-11-07 12:14 | PHA.PROG ---
Admission Date/Time: November 07, 2024 08:23 Indication: EMPIRIC Weight in k kg Adjusted body weight in Kg: [place] body weight in Kg: Obesity Dosing Indication % IBW: Serum Creatinine - Last 168 Hours 11/07/24 07:23 Creatinine 2.02 H Estimated CrCl and GFR - Last 168 Hours 11/07/24 07:23 Estim Creat Clear Calc 39.5 Estimated GFR 33 Vancomycin Loading Dose: 2000 mg Current Vancomycin Dosing Regimen: 1000 mg q24h Vancomycin Monitoring using AUC goal of 400 - 600 range with trough as surrogate marker: omk=218 trough=17.1 Date and Time for next Vancomycin Level to be drawn: 11/09/24 @0600 Pharmacist Comments on Vancomycin Plan: START AGGRESSIVELY DUE TO INDICATION, MAY REDUCE LATER IF LEVEL COMES BACK SUPRATHERAPEUTIC OR RENAL WORSENS Vancomycin dosing will take advantage of [employer] as a clinical decision support tool that uses Bayesian modeling to calculate individual patient's pharmacokinetic parameters and forecast the patient's drug concentration time course with the target goal AUC 24 range of 400 - 600 mg/L/hr.
[2024-11-07 12:52] LABS: ~Lactic Acid-LAB USE ONLY 6.3 mmol/L (0.5-2.0)
[2024-11-07 13:57] LABS: Glucose, Whole Blood 104 mg/dL (60-115)
[2024-11-07 13:57] LABS: Glucose, Whole Blood 61 mg/dL (60-115)
[2024-11-07 13:58] LABS: Glucose, Whole Blood 210 mg/dL (60-115)
[2024-11-07 15:09] LABS: VBG HCO3 23 mmol/L (22-26); VBG O2 % Saturation 87.0 %
--- NOTE | 2024-11-07 15:22 | PM.CCN ---
Critical Care Event Note Summary Date of Service: 11/07/24 Code activated: Yes Narrative: At around 03:00 p.m. patient with sudden changing read more with bradycardia deteriorating to asystole with CPR started immediately and return of spontaneous circulation obtain after 1 round of CPR. On post cardiac arrest blood gas patient with worsening combined respiratory and metabolic acidosis. Attempted to reach patient's recorded contacts including significant other and sister, however both phone numbers are not accepting phone calls. Critical Care Time (minutes): 30
[2024-11-07 15:45] LABS: Troponin-I High Sensitivity 23.4 ng/L (<3.5-35.0)
--- NOTE | 2024-11-07 17:48 | PC.NURSE ---
The patient arrived at the ICU approx. at? 0930? from ED. Neuro/Resp: intubated in the ED. Pupils reactive, does not open eyes, does not follow commands, Flaccid extremities.? Cardiac: ?S/P Cardiac arrest. on norepinephrine gtt- see MAR GI/: Unknown? LBM , +bowel sounds, OGT in place/clamp, External catheter in place, Bladder scan for 100cc, no action required. Skin:Temp: Mottle skin, bloody great toe nail bed, blanchable redness to buttock (foam DGS applied) Infectious: IV abx, cultures pending. Temp: Low grade temp? Lines:? peripheral IVs x4, IO to left lower extremity? Approx. 1450 Patient Tan down to 40?s, unable to obtain an Sp02, ETC02 8, then down to 0, pulse lost. CPR initiated, ROCS achieved after 1 round of CPR.? Approx 1530 again Tan down to 40?s, unable to obtain an Sp02, ETC02 decreasing, pulse lost. ?CPR initiated, ROCS achieved after 1 round of CPR.?
[2024-11-07 18:52] LABS: Venous Blood Gas Refer to POC result
[2024-11-07 18:53] LABS: Alanine Aminotransferase 53 U/L (0-40); Albumin Level 2.7 g/dL (3.5-5.0); Alkaline Phosphatase 50 U/L (39-117); Anion Gap 27 (12-20); Aspartate Amino Transferase 132 U/L (5-37); Blood Urea Nitrogen 41 mg/dL (9-16); Calcium 8.6 mg/dL (8.4-10.2); Carbon Dioxide 17 mmol/L (22-29); Chloride 98 mmol/L (96-108); Creatinine Clr Calc Pharmacy 25.4; Estimated Glomerular Filt Rate 20; Potassium 4.4 mmol/L (3.3-5.1); Sodium 138 mmol/L (135-145); Total Protein 5.7 g/dL (6.5-8.0)
[2024-11-07] MEDS: Chlorhexidine Gluc Oral Rinse 15 ML MOUTHWASH BUCCAL (20:11)
[2024-11-07 20:17] LABS: Venous Blood Gas Refer to POC result
[2024-11-07 20:17] LABS: VBG HCO3 26 mmol/L (22-26); VBG O2 % Saturation 87.0 %
--- NOTE | 2024-11-07 21:41 | W.PM.CCHP ---
Procedures Date of Service Date of Service: 11/07/24 Central Line Placement Right IJ: Central Line Comments: The right neck was widely prepped and draped in full sterile fashion.? Under US? guidance, the right IJ vein was cannulated on the 1st pass of the 18 g thin wall needle, with return of dark, nonpulsatile blood. ? The wire was threaded without incident.? The 16 cm x 7 Occitan triple-lumen CVC was advanced into the vein up to the hub via the Seldinger technique without incident.? There was good blood return x3.? The catheter was sutured x2 and a Biopatch and dry sterile dressing were applied. The patient tolerated the procedure well with no complications. Postop chest x-ray showed the line in good position with no pneumothorax.? The patient tolerated the procedure well with no complications. Consent for Procedure: Emergent-no informed consent obtained Time out performed: Yes Sterile Technique Used: Yes Patient placed on monitor/pulse ox: Yes MD prep: mask, gown and gloves Central line prep: Chlorhexidine scrub and sterile drapes applied Ultrasound used for placement: Yes Central line lumen inserted: triple Post procedure: sutured in place, good blood return, all ports aspirated, flushed, capped and sterile dressing applied Post procedure x-ray: tip of catheter in good position and no pneumothorax seen Patient tolerated procedure: well and no complications Complications: none
[2024-11-07] MEDS: Norepinephrine Bitartrate/NS 16 MG/250 ML PLAST..BAG 45 MG IVCONT (22:13)
[2024-11-07 22:33] LABS: Cannabinoid Screen Urine Not Detected (Not Detect)
[2024-11-08] VITALS (46 sets, daily range): BP systolic 79–148; BP diastolic 47–82; PULSE 87–137; RESP 20–29; TEMP 34.6–37.5; O2SAT 88–96; BMI 23.3
[2024-11-08] MEDS: Norepinephrine Bitartrate/NS 16 MG/250 ML PLAST..BAG 42 MG IVCONT (02:35)
--- NOTE | 2024-11-08 03:05 | PM.EVENT ---
Documented by User: Yoko Cohen NP 11/08/24 03:07 Event Note Date of Service: 11/08/24 Event Note: One set of blood cultures reported positive at 20 hours for GPC in clusters. Patient presented with severe hypoxia requiring intubation and ventilatory support possibly due to pulmonary aspiration. Will continue broad-spectrum antibiotics and repeat blood cultures and lactate. Time Spent With Patient Time: Total time managing care of this patient today ____ minutes. Documented by User: Monty Steel MD 11/08/24 09:06 Event Note Date of Service: 11/08/24
--- NOTE | 2024-11-08 03:35 | PC.NURSE ---
Upon initial assessment at 1900- pt off sedation, not following commands/tracking but attempting to open eyes and moving extremities, reaching toward ETT with R arm, asynchronous with vent. COOKIE Cohen notified, ok to restart propofol gtt- see JUN. Afib on tele, HR 90-110s. TLC to R IJ inserted by SPRAY I PAINTER, placement confirmed by pCXR. Levophed gtt changed to 2x concentrated, titrated to maintain MAP > 65. +1 BLE edema. Palpable peripheral pulses x4 extremities. Slight mottling noted. ETT #7.5, 25 cm at lip, switched ACVC+ settings, SpO2 > 88%. OGT clamped, no BM. Anuric but indwelling catheter placed per order d/t need for urine sample, hemodynamic instability, and ARF. Tmax 101.3 rectally, ice bags applied to B/L axilla. Skin overall intact- foam dressing applied to coccyx for protection. Repositioned as tolerated with isotour bed, wedges, and pillows. Family called and updated on pt status/plan of care x2. See EMR/flowsheet for further details.
[2024-11-08] MEDS: Albumin Human 25 % 100 ML IV (04:13)
[2024-11-08 04:30] LABS: Venous Blood Gas Refer to POC result
[2024-11-08 04:32] LABS: VBG HCO3 29 mmol/L (22-26); VBG O2 % Saturation 98.0 %
[2024-11-08 04:42] LABS: Albumin Level 3.2 g/dL (3.5-5.0); Anion Gap 25 (12-20); Blood Urea Nitrogen 48 mg/dL (9-16); Calcium 8.7 mg/dL (8.4-10.2); Carbon Dioxide 25 mmol/L (22-29); Chloride 96 mmol/L (96-108); Creatinine Clr Calc Pharmacy 22.0; Estimated Glomerular Filt Rate 17; Magnesium 1.7 mg/dL (1.6-2.6); Potassium 3.1 mmol/L (3.3-5.1); Sodium 143 mmol/L (135-145)
[2024-11-08 04:50] LABS: Hematocrit 36.1 % (42.0-52.0); Hemoglobin 13.2 g/dl (14.0-18.0); Mean Corpuscular HGB Conc 36.6 g/dl (31.0-36.0); Mean Corpuscular Hemoglobin 34.2 pg (27.0-33.0); Mean Corpuscular Volume 93.5 fL (80.0-98.0); NRBC Abs Auto 0.070 X10*3/uL (0.0-0.012); NRBC Pct Auto 1.1 /100WBC (0.0-0.2); PLT CLUMP 1; Red Blood Count 3.86 X10*6/uL (4.60-5.80); WBC ABN SCTR FOR CBC 1
[2024-11-08] MEDS: Potassium Chloride/H20 40 MEQ/100 ML PIGGYBACK 50 MEQ IV (05:00)
[2024-11-08 05:45] LABS: Atypical Lymphs Percent Manual 2 % (0-6); Band Neutrophils Percent 39 % (3-5); Lymphocytes Percent Manual 5 % (20-40); Metamyelocytes Percent 2 %; Monocytes Percent Manual 3 % (2-11); Neutrophils Percent Manual 48 % (45-73); Promyelocytes Percent 1 %; RBC Morphology NORMAL
[2024-11-08 05:46] LABS: Burr Cells 1+ (0-2) /OIF; Large Platelet PRESENT; Schistocytes 1+ (0-2) /OIF
[2024-11-08 05:48] LABS: Toxic Granulation PRESENT; Toxic Vacuolation PRESENT
[2024-11-08 05:49] LABS: Dohle Bodies PRES; Smudge Cells PRES
[2024-11-08 05:50] LABS: Atypical Lymph Absolute Manual 0.1 x10*3/uL; Lymphocytes Absolute Manual 0.3 X10*3/uL (1.2-4.9); Metamyelocytes Absolute 0.1 X10*3/uL; Monocytes Absolute Manual 0.2 X10*3/uL (0.1-1.2); Neutrophils Absolute Manual 5.3 X10*3/uL (2.0-8.3); Platelet Count 134 X10*3/uL (160-400); Promyelocytes Absolute 0.1 X10*3/uL; White Blood Count 6.1 X10*3/uL (4.8-10.8)
[2024-11-08] MEDS: Bumetanide 1 MG/4 ML VIAL IVPUSH (05:58)
[2024-11-08 06:20] LABS: Reflex Lactate? Lactic Acid Added
--- NOTE | 2024-11-08 07:00 | CA_ITS ---
Transthoracic Echocardiogram Patient (Last, First, Middle): Josse Mcdermott S Gender: Male Date of : 1955 Age: 69 Procedure Date: 11/08/2024 Procedure Type: Transthoracic Echocardiogram Location: ICU Height: 185.42 cm Weight: 79.83 kg BSA: 2.04 m2 Heart Rate: bpm BP: 115 / 62 mmHg [employer] Supervisor: TO Referring MD: Monty Steel MD Symptoms: s/p cardiac arrest Study Quality: Technically Difficult/Contrast ECG Rhythm: Atrial Fibrillation Conclusions: - The left ventricular systolic function is mildly decreased. The visually estimated ejection fraction is between 45-50%. - No obvious valvular pathology seen on this study. Findings Procedure Information Contrast agent, definity, is being given per protocol without apparent complications. Left Ventricle Normal left ventricular cavity size. There is normal left ventricular wall thickness. The left ventricular systolic function is mildly decreased. The visually estimated ejection fraction is between 45-50%. There is no evidence of regional wall motion abnormalities. Diastolic function is indeterminate on the basis of available data. Right Ventricle Normal right ventricular cavity size. There is normal right ventricular systolic function. Atria Both atria are normal in size. Aortic Valve There is a normal trileaflet aortic valve. There is mild calcification of the aortic valve. There is no aortic valve stenosis. There is no aortic valve regurgitation. Mitral Valve The mitral valve appears normal. There is trace mitral valve regurgitation. There is no mitral valve stenosis. Pulmonic Valve The pulmonic valve is likely normal. Tricuspid Valve There is trace tricuspid valve regurgitation. The right ventricular systolic pressure is not calculated. Great Vessels The asc aorta is normal in size. Venous The inferior vena cava is dilated and does not collapse with inspiration. (intubated) Pericardium/Pleural There is no evidence of pericardial effusion. Prior Study Comparison No prior study available for comparison. Recommendations, Care & Conclusions No obvious valvular pathology seen on this study. Measurements 2D Linear Measurements IVSd: 0.99 0.6-0.9/0.6-1.0 cm LVIDd: 3.92 3.9-5.3/4.2-5.9 cm LVIDd Index: 1.92 2.4-3.2/2.2-3.1 cm/m2 LVPWd: 0.84 0.7-1.1 cm LV Mass: 135.38 67-162/88-224 g LV Mass Index: 66.36 43-95/49-115 g/m2 LVOT Diam: 2.30 3.0+(-)1.3 cm 2D Systolic Function EF 4C: 44.50 >55% EF 2C: 55.00 >55% EF BiP: 48.90 >55% Mitral Valve MV Pk E: 0.73 MV Decel Time: 201.00 E'Lateral: 12.60 E'Medial: 6.45 E/E' Med: 11.20 E/E' Lat: 5.80 PHT: 59.00 MVA PHT: 3.73 Decel [place]: 3.63 Aortic Valve AoV Pk [place]tar: 0.89 AoV Pk Grad: 3.00 LVOT LVOT Pk [place]tar: 0.75 LVOT Mn Avtar: 0.50 LVOT VTI: 0.09 LVOT Pk Grad: 2.00 LVOT Mn Grad: 1.00 LVOT Diam: 2.30 LVOT Area: 4.15 Diastolic Function MV Pk E: 0.73 E'Medial: 6.45 E/E' Med: 11.20 E' Laterial: 12.60 E/E' Lat: 5.80 Right Ventricle TAPSE (mm): 14.70 TVS' Avtar: 11.40 Tricuspid Valve TR Pk Avtar: 2.23 TR Pk Grad: 20.00 RA Press: 15.00 RVSP: 35.00 Great Vessels Aorta Sinus of Valsalva: 3.47 2.0-3.5 cm Ao Asc: 3.50 2.1-3.4 cm Updated in Other Vendor System with Status of Final Kirk España MD electronically signed on 11/08/2024 11:09:11 AM with status of Final
[2024-11-08 07:16] LABS: ~Lactic Acid-LAB USE ONLY 7.0 mmol/L (0.5-2.0)
[2024-11-08] MEDS: Chlorhexidine Gluc Oral Rinse 15 ML MOUTHWASH BUCCAL ×3 (08:32→20:59)
[2024-11-08] MEDS: 0.9 % Sodium Chloride Flush 3 ML SYRINGE IVFLUSH ×3 (08:33→23:47)
[2024-11-08] MEDS: Norepinephrine Bitartrate/NS 16 MG/250 ML PLAST..BAG 37.5 MG IVCONT ×2 (08:55→16:00)
[2024-11-08 08:56] LABS: Reflex Lactate? 2 Y
--- NOTE | 2024-11-08 09:33 | HE.PHANOTE ---
Re: DOROTHY SCr came back at 3.62 from 2.02. Called ICU to take down bag @0824. Per RN, bag infused for ~5 minutes. Trough to be drawn today @2100 to assess safety and efficacy.
[2024-11-08 10:59] LABS: ~Lactic Acid-LAB USE ONLY 6.7 mmol/L (0.5-2.0)
--- NOTE | 2024-11-08 11:14 | MHC.CLN ---
PT MAY REQUIRE TF FOR NUTRITION SUPPORT R/T PROLONGED NPO STATUS REMAINS NPO PT IS INTUBATED AND SEDATED DISCUSSED AT ROUNDS WITH MD IF TF NEEDED; RECOMMEND PROMOTE AT MAX GOAL RATE 70ML/HR WITH 240ML FREE WATER FLUSHES Q 6 HRS TO PROVIDE 1680KCALS (2060KCALS WITH SEDATION; 26KCALS/KG), 105G PROTEIN (1.3G/KG), 2369ML TOTAL FREE WATER FROM FORMULA (30ML/KG) MONITOR TOLERANCE AND LYTES FOLLOWING FOR DIET ADVANCEMENT SEE FULL ASSESSMENT
--- NOTE | 2024-11-08 11:18 | PM.CCPN ---
Subjective Subjective Date of Service: 11/08/24 Interval History: 69-year-old gentleman with underlying hypertension, anxiety, ? ADHD, substance abuse presented on 12/08/2024 with respiratory distress requiring immediate intubation complicated by pea re-intubation cardiac arrest with return of spontaneous circulation after 2 rounds of CPR. Initial workup significant for profound hypoxemia, lactic acidosis with acute renal failure, and COVID positivity. Patient started on empiric broad-spectrum antibiotics, pressor support, and dexamethasone and admitted to the intensive care unit. Patient with 3 additional cardiac arrests on 11/07/2024, with CPR started immediately and returned spontaneous circulation achieved with an 1-2 rounds of CPR each time. Overnight with improved metabolic acidosis and slowly improving ventilator support requirements. Critical Care Time (minutes): 90 Physical Exam Vital Signs: Vital Signs: Last Vital Signs Temp 97.7 F 11/08/24 08:00 Pulse 122 H 11/08/24 11:00 Resp 29 H 11/08/24 11:00 BP 126/71 11/08/24 11:00 Pulse Ox 89 L 11/08/24 11:00 O2 Del Method Mechanical Ventil ation 11/08/24 11:00 FiO2 90 11/08/24 11:00 BMI result Body Mass Index 23.3 Const: General: no acute distress Eyes: Sclerae: sclerae normal Neck: Neck: Yes no lymphadenopathy, Yes trachea midline and Yes supple Resp: Auscultation: crackles (Diffuse bilateral) Cardio: Rate: tachycardic Rhythm: abnormal rhythm Heart sounds: no gallops, no murmurs and no rubs GI: Palpation (GI): Soft to palpation and Other GI palpation findings present ( Nontender) Auscultation: normal bowel sounds Extrem: General: No clubbing, No cyanosis and Yes edema (1+ bilateral ) Objective Data Labs 11/08/24 04:10 11/08/24 04:10 Labs: Laboratory Results - last 24 hr 11/07/24 11/07/24 11/07/24 06:20 06:56 07:20 WBC RBC Hgb Hct MCV MCH MCHC RDW Plt Count MPV Immature Gran % (Auto) Neut % (Auto) Lymph % (Auto) [place] % (Auto) Eos % (Auto) Baso % (Auto) Lymph # (Auto) [place] # (Auto) Eos # (Auto) Baso # (Auto) Abs Immat Gran (auto) Absolute Neuts (auto) Absolute Nucleated RBC Nucleated RBC % (auto) Neutrophils % (Manual) Band Neutrophils % Lymphocytes % (Manual) Atypical Lymphs % (Man) Monocytes % (Manual) Metamyelocytes % Promyelocytes % Abs Neuts (Manual) Lymphocytes # (Manual) Atyp Lymphs # (Manual) Monocytes # (Manual) Metamyelocytes # Promyelocytes # Nucleated RBCs Smudge Cells Toxic Granulation Toxic Vacuolation Dohle Bodies Platelet Estimate Large Platelets Plt Morphology Comment RBC Morphology [place] Cells Schistocytes Smear Path Review Hold Purple Top VBG pH VBG pCO2 VBG pO2 VBG HCO3 VBG O2 Saturation VBG Base Excess Sodium Potassium Chloride Carbon Dioxide Anion Gap BUN Creatinine Estim Creat Clear Calc Estimated GFR POC Glucose 104 61 210 H Random Glucose Lactic Acid Lactic Acid F/U @ 2Hr Lactic Acid F/U @ 4Hr Calcium Phosphorus Magnesium Total Bilirubin AST ALT Alkaline Phosphatase Troponin I High Sens Total Protein Albumin Urine Opiates Screen Ur Buprenorphine Scrn Ur Oxycodone Screen Urine Methadone Screen Urine Fentanyl Screen Ur Barbiturates Screen Ur Phencyclidine Scrn Ur Amphetamines Screen U Benzodiazepines Scrn Urine Cocaine Screen U Marijuana (THC) Screen 11/07/24 11/07/24 11/07/24 12:23 15:03 15:05 WBC RBC Hgb Hct MCV MCH MCHC RDW Plt Count MPV Immature Gran % (Auto) Neut % (Auto) Lymph % (Auto) [place] % (Auto) Eos % (Auto) Baso % (Auto) Lymph # (Auto) [place] # (Auto) Eos # (Auto) Baso # (Auto) Abs Immat Gran (auto) Absolute Neuts (auto) Absolute Nucleated RBC Nucleated RBC % (auto) Neutrophils % (Manual) Band Neutrophils % Lymphocytes % (Manual) Atypical Lymphs % (Man) Monocytes % (Manual) Metamyelocytes % Promyelocytes % Abs Neuts (Manual) Lymphocytes # (Manual) Atyp Lymphs # (Manual) Monocytes # (Manual) Metamyelocytes # Promyelocytes # Nucleated RBCs Smudge Cells Toxic Granulation Toxic Vacuolation Dohle Bodies Platelet Estimate Large Platelets Plt Morphology Comment RBC Morphology Nuris Cells Schistocytes Smear Path Review Hold Purple Top SEE NOTE VBG pH 7.08 L* VBG pCO2 77 VBG pO2 73 VBG HCO3 23 VBG O2 Saturation 87.0 VBG Base Excess -7.7 Sodium Potassium Chloride Carbon Dioxide Anion Gap BUN Creatinine Estim Creat Clear Calc Estimated GFR POC Glucose Random Glucose Lactic Acid Lactic Acid F/U @ 2Hr Lactic Acid F/U @ 4Hr 6.3 H* Calcium Phosphorus Magnesium Total Bilirubin AST ALT Alkaline Phosphatase Troponin I High Sens 23.4 D Total Protein Albumin Urine Opiates Screen Ur Buprenorphine Scrn Ur Oxycodone Screen Urine Methadone Screen Urine Fentanyl Screen Ur Barbiturates Screen Ur Phencyclidine Scrn Ur Amphetamines Screen U Benzodiazepines Scrn Urine Cocaine Screen U Marijuana (THC) Screen 11/07/24 11/07/24 11/07/24 17:50 20:13 21:54 WBC RBC Hgb Hct MCV MCH MCHC RDW Plt Count MPV Immature Gran % (Auto) Neut % (Auto) Lymph % (Auto) [place] % (Auto) Eos % (Auto) Baso % (Auto) Lymph # (Auto) [place] # (Auto) Eos # (Auto) Baso # (Auto) Abs Immat Gran (auto) Absolute Neuts (auto) Absolute Nucleated RBC Nucleated RBC % (auto) Neutrophils % (Manual) Band Neutrophils % Lymphocytes % (Manual) Atypical Lymphs % (Man) Monocytes % (Manual) Metamyelocytes % Promyelocytes % Abs Neuts (Manual) Lymphocytes # (Manual) Atyp Lymphs # (Manual) Monocytes # (Manual) Metamyelocytes # Promyelocytes # Nucleated RBCs Smudge Cells Toxic Granulation Toxic Vacuolation Dohle Bodies Platelet Estimate Large Platelets Plt Morphology Comment RBC Morphology Nuris Cells Schistocytes Smear Path Review Hold Purple Top VBG pH 7.24 L VBG pCO2 60 VBG pO2 61 VBG HCO3 26 VBG O2 Saturation 87.0 VBG Base Excess -1.9 Sodium 138 Potassium 4.4 D Chloride 98 Carbon Dioxide 17 L Anion Gap 27 H BUN 41 H Creatinine 3.14 H Estim Creat Clear Calc 25.4 Estimated GFR 20 POC Glucose Random Glucose 178 H Lactic Acid Lactic Acid F/U @ 2Hr Lactic Acid F/U @ 4Hr Calcium 8.6 D Phosphorus Magnesium Total Bilirubin 3.5 H AST 132 H ALT 53 H Alkaline Phosphatase 50 Troponin I High Sens Total Protein 5.7 L Albumin 2.7 L Urine Opiates Screen Not Detected Ur Buprenorphine Scrn Not Detected Ur Oxycodone Screen Not Detected Urine Methadone Screen Positive H Urine Fentanyl Screen POSITIVE H Ur Barbiturates Screen Not Detected Ur Phencyclidine Scrn Not Detected Ur Amphetamines Screen Not Detected U Benzodiazepines Scrn Not Detected Urine Cocaine Screen POSITIVE H U Marijuana (THC) Screen Not Detected 11/08/24 11/08/24 11/08/24 04:10 04:22 06:52 WBC 6.1 RBC 3.86 L Hgb 13.2 L Hct 36.1 L MCV 93.5 MCH 34.2 H MCHC 36.6 H RDW 11.8 Plt Count 134 L D MPV 11.7 Immature Gran % (Auto) Cancelled Neut % (Auto) Cancelled Lymph % (Auto) Cancelled [place] % (Auto) Cancelled Eos % (Auto) Cancelled Baso % (Auto) Cancelled Lymph # (Auto) Cancelled [place] # (Auto) Cancelled Eos # (Auto) Cancelled Baso # (Auto) Cancelled Abs Immat Gran (auto) Cancelled Absolute Neuts (auto) Cancelled Absolute Nucleated RBC 0.070 H Nucleated RBC % (auto) 1.1 H Neutrophils % (Manual) 48 Band Neutrophils % 39 H Lymphocytes % (Manual) 5 L Atypical Lymphs % (Man) 2 Monocytes % (Manual) 3 Metamyelocytes % 2 Promyelocytes % 1 Abs Neuts (Manual) 5.3 Lymphocytes # (Manual) 0.3 L Atyp Lymphs # (Manual) 0.1 Monocytes # (Manual) 0.2 Metamyelocytes # 0.1 Promyelocytes # 0.1 Nucleated RBCs 2 H Smudge Cells PRES Toxic Granulation PRESENT Toxic Vacuolation PRESENT Dohle Bodies PRES Platelet Estimate DECREASED Large Platelets PRESENT Plt Morphology Comment NOTED RBC Morphology NORMAL [place] Cells 1+ (0-2) Schistocytes 1+ (0-2) Smear Path Review SEE NOTE Hold Purple Top VBG pH 7.36 VBG pCO2 50 VBG pO2 97 VBG HCO3 29 H VBG O2 Saturation 98.0 VBG Base Excess 3.0 Sodium 143 Potassium 3.1 L D Chloride 96 Carbon Dioxide 25 Anion Gap 25 H BUN 48 H Creatinine 3.62 H Estim Creat Clear Calc 22.0 Estimated GFR 17 POC Glucose Random Glucose 60 Lactic Acid 7.4 H* Lactic Acid F/U @ 2Hr 7.0 H* Lactic Acid F/U @ 4Hr Calcium 8.7 Phosphorus 5.5 H Magnesium 1.7 Total Bilirubin AST ALT Alkaline Phosphatase Troponin I High Sens Total Protein Albumin 3.2 L Urine Opiates Screen Ur Buprenorphine Scrn Ur Oxycodone Screen Urine Methadone Screen Urine Fentanyl Screen Ur Barbiturates Screen Ur Phencyclidine Scrn Ur Amphetamines Screen U Benzodiazepines Scrn Urine Cocaine Screen U Marijuana (THC) Screen 11/08/24 10:29 WBC RBC Hgb Hct MCV MCH MCHC RDW Plt Count MPV Immature Gran % (Auto) Neut % (Auto) Lymph % (Auto) [place] % (Auto) Eos % (Auto) Baso % (Auto) Lymph # (Auto) [place] # (Auto) Eos # (Auto) Baso # (Auto) Abs Immat Gran (auto) Absolute Neuts (auto) Absolute Nucleated RBC Nucleated RBC % (auto) Neutrophils % (Manual) Band Neutrophils % Lymphocytes % (Manual) Atypical Lymphs % (Man) Monocytes % (Manual) Metamyelocytes % Promyelocytes % Abs Neuts (Manual) Lymphocytes # (Manual) Atyp Lymphs # (Manual) Monocytes # (Manual) Metamyelocytes # Promyelocytes # Nucleated RBCs Smudge Cells Toxic Granulation Toxic Vacuolation Dohle Bodies Platelet Estimate Large Platelets Plt Morphology Comment RBC Morphology Nuris Cells Schistocytes Smear Path Review Hold Purple Top VBG pH VBG pCO2 VBG pO2 VBG HCO3 VBG O2 Saturation VBG Base Excess Sodium Potassium Chloride Carbon Dioxide Anion Gap BUN Creatinine Estim Creat Clear Calc Estimated GFR POC Glucose Random Glucose Lactic Acid Lactic Acid F/U @ 2Hr Lactic Acid F/U @ 4Hr 6.7 H* Calcium Phosphorus Magnesium Total Bilirubin AST ALT Alkaline Phosphatase Troponin I High Sens Total Protein Albumin Urine Opiates Screen Ur Buprenorphine Scrn Ur Oxycodone Screen Urine Methadone Screen Urine Fentanyl Screen Ur Barbiturates Screen Ur Phencyclidine Scrn Ur Amphetamines Screen U Benzodiazepines Scrn Urine Cocaine Screen U Marijuana (THC) Screen Microbiology Microbiology Results: Microbiology 11/07/24 07:01 Blood - Venous Blood Culture - Preliminary Prelim: GPC Gram Stain only 11/07/24 07:02 Blood - Venous Blood Culture - Preliminary Prelim: GPC Gram Stain only Progress Note: A&P Assessment and plan (1) Acute kidney injury: Status: Acute (2) Cardiac arrest: Status: Acute (3) Acute hypoxemic respiratory failure: Status: Acute (4) Polysubstance abuse: Status: Acute (5) Acute respiratory failure with hypoxia: Status: Acute (6) COVID-19: Status: Acute Plan Assessment: 69-year-old gentleman admitted with acute hypoxic respiratory failure with metabolic acidosis status post cardiac arrest with return of spontaneous circulation after 2 rounds of CPR, with hospital course complicated 3 additional cardiac arrest, all with successful resuscitation. Plan: Neuro: Likely underlying ischemic encephalopathy from multiple cardiac arrests, tolerating ventilatory support without sedation, intermittently moves all 4 extremities spontaneously. Cardiac: Multiple cardiac arrests with return of spontaneous circulation after several rounds of CPR. 2D echo is pending. Pulmonary: Acute hypoxic respiratory failure requiring essentially maximum ventilatory support. Underlying COVID-19 and possible aspiration component. Continue to titrate off as tolerated. Empiric dexamethasone. Renal: Acute renal failure with improved lactic metabolic acidosis, likely from ischemic ATN. Oliguric. Continue to monitor renal indices and urine output. Endo: No acute issues. GI: No acute issues. ID: Empiric broad-spectrum antibiotics. Cultures are pending. Heme/Onc: No acute issues. Psych: No acute issues. Miscellaneous: Underlying polysubstance abuse. Prophylaxis: Heparin, famotidine Diet: NPO Critical care time spent: 90 minutes Quality Stroke Does the patient have a stroke diagnosis?: No VTE Prior VTE?: No VTE Risk Level:: Medical - moderate - high VTE Device Contraindication: Treatment Not Indicated VTE Drug Contraindication: N/A - Med Ordered
--- NOTE | 2024-11-08 11:45 | HO.SKINPHOTO ---
Location: chest skin tear Location: Location:
[2024-11-08 12:34] LABS: Glucose, Whole Blood 61 mg/dL (60-115)
[2024-11-08 13:57] LABS: Glucose, Whole Blood 152 mg/dL (60-115)
--- NOTE | 2024-11-08 15:02 | MHC.CM.PN ---
Pt intubated, unable to engage in CM intake assessment. This CM placed call to pts significant other Riri, message left. Riri called back and said I am driving, I will call you back. No return call received from Riri for quite some time. This CM placed second call to Riri, message left, awaiting return call. EMR reviewed and per MD rounds, pt intubated and s/p cardiac arrest with code x 4, also covid +. No HCP on file.
--- NOTE | 2024-11-08 15:31 | PC.NURSE ---
Assumed care @ 0700? Neuro: Sedated,? propofol- per JUN. does not open eyes, does not follow commands, Moves lower extremities weakly (passive ROM performed). Resp: Ventilatory support? Cardiac: ?S/P Cardiac arrest 11/07. on norepinephrine 2x concentrated gtt per JUN GI/: Unknown? LBM, +bowel sounds, OGT in place/clamp, NPO, POC Q6HR, Approx. @ noon,? POC 61, one amp of D50 given,? rechecked POC 151. Goode catheter in place, No urine output for the last [address] Steel made aware.? Skin:Temp: Impaired skin integrity, see skin assessment (foam DGS applied) Infectious: IV abx Temp: Afebrile Lines: TLC right IJ, peripheral IVs
[2024-11-08] MEDS: fentaNYL citrate/NS 1,000 MCG/100 ML PLAST..BAG 5 MCG IVCONT (19:45)
[2024-11-08] MEDS: Norepinephrine Bitartrate/NS 16 MG/250 ML PLAST..BAG 45 MG IVCONT (20:59)
[2024-11-08 21:39] LABS: Anion Gap 25 (12-20); Blood Urea Nitrogen 60 mg/dL (9-16); Calcium 8.0 mg/dL (8.4-10.2); Carbon Dioxide 26 mmol/L (22-29); Chloride 98 mmol/L (96-108); Creatinine Clr Calc Pharmacy 18.4; Estimated Glomerular Filt Rate 14; Magnesium 1.9 mg/dL (1.6-2.6); Potassium 4.4 mmol/L (3.3-5.1); Sodium 145 mmol/L (135-145)
--- NOTE | 2024-11-08 21:43 | HE.PHANOTE ---
Re Vanco 1000mg dose was stopped after ~5min this morning once spike in SCr was noted. Not accounting for any residual vanc given, trough was 18.9 after ~37H from loading dose. Will start 500mg q24h for now, recheck tomorrow night at 2100.
[2024-11-08] MEDS: Calcium Chloride 1 GM/10 ML SYRINGE IVPUSH (21:56)
[2024-11-09] VITALS (37 sets, daily range): BP systolic 96–138; BP diastolic 56–75; PULSE 105–135; RESP 26–123; TEMP 35–36.7; O2SAT 92–95; BMI 23.3
[2024-11-09 00:09] LABS: Glucose, Whole Blood 59 mg/dL (60-115)
[2024-11-09 00:31] LABS: Glucose, Whole Blood 163 mg/dL (60-115)
[2024-11-09] MEDS: Norepinephrine Bitartrate/NS 16 MG/250 ML PLAST..BAG 45 MG IVCONT ×3 (01:57→12:24)
[2024-11-09 05:41] LABS: VBG HCO3 26 mmol/L (22-26); VBG O2 % Saturation 86.0 %
[2024-11-09 05:44] LABS: Venous Blood Gas Refer to POC result
[2024-11-09 05:49] LABS: Hematocrit 33.5 % (42.0-52.0); Hemoglobin 12.1 g/dl (14.0-18.0); Mean Corpuscular HGB Conc 36.1 g/dl (31.0-36.0); Mean Corpuscular Hemoglobin 34.8 pg (27.0-33.0); Mean Corpuscular Volume 96.3 fL (80.0-98.0); NRBC Abs Auto 0.280 X10*3/uL (0.0-0.012); Platelet Count 130 X10*3/uL (160-400); Red Blood Count 3.48 X10*6/uL (4.60-5.80)
[2024-11-09 05:59] LABS: NRBC Pct Auto 1.3 /100WBC (0.0-0.2); WBC ABN SCTR FOR CBC 1
[2024-11-09 06:09] LABS: Alanine Aminotransferase 59 U/L (0-40); Albumin Level 2.9 g/dL (3.5-5.0); Alkaline Phosphatase 31 U/L (39-117); Anion Gap 26 (12-20); Aspartate Amino Transferase 150 U/L (5-37); Blood Urea Nitrogen 68 mg/dL (9-16); Calcium 8.3 mg/dL (8.4-10.2); Carbon Dioxide 24 mmol/L (22-29); Chloride 99 mmol/L (96-108); Creatinine Clr Calc Pharmacy 16.8; Estimated Glomerular Filt Rate 12; Magnesium 1.9 mg/dL (1.6-2.6); Potassium 4.3 mmol/L (3.3-5.1); Sodium 145 mmol/L (135-145); Total Protein 5.7 g/dL (6.5-8.0)
[2024-11-09 06:14] LABS: Glucose, Whole Blood 82 mg/dL (60-115)
[2024-11-09 06:18] LABS: Band Neutrophils Percent 46 % (3-5); Lymphocytes Percent Manual 1 % (20-40); Monocytes Percent Manual 1 % (2-11); Neutrophils Percent Manual 52 % (45-73)
[2024-11-09 06:19] LABS: RBC Morphology NORMAL
[2024-11-09 06:20] LABS: Burr Cells 2+ (3-5) /OIF; Large Platelet PRESENT; Smudge Cells PRESENT; Tear Drop Cells 1+ (0-2) /OIF; Toxic Granulation PRESENT; Toxic Vacuolation PRESENT
[2024-11-09 06:21] LABS: Lymphocytes Absolute Manual 0.2 X10*3/uL (1.2-4.9); Monocytes Absolute Manual 0.2 X10*3/uL (0.1-1.2); Neutrophils Absolute Manual 21.9 X10*3/uL (2.0-8.3); White Blood Count 22.3 X10*3/uL (4.8-10.8)
[2024-11-09] MEDS: 0.9 % Sodium Chloride Flush 3 ML SYRINGE IVFLUSH ×3 (08:15→23:40)
[2024-11-09] MEDS: Chlorhexidine Gluc Oral Rinse 15 ML MOUTHWASH BUCCAL ×3 (08:23→21:08)
--- NOTE | 2024-11-09 10:09 | MHC.CM.PN ---
Pt intubated in ICU after cardiac arrest x 3. Pt's prognosis remains undetermined at this time. 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 CM to follow for finalization of d/c planning.
--- NOTE | 2024-11-09 10:46 | HO.WOUND ---
Addendum entered by Geraldine Melvin RN 11/09/24 10:52: Chest Skin Tear secondary to Manish during CPR. Clean and moist wound bed - current appropriate treatment in place with xeroform and gauze. Use skin prep prior to adhesive application to protect from further skin injury to fragile tissue given patient clinical picture. Chest skin Tear - Cleanse with normal saline, pat dry. ?Applyskin prep to periwound apply Xeroform secure with gauze and tape. Change Daily. ? Avoid Adhesive application to skin - when necessary, apply skin prep prior.? Original Note: Wound Consult: Initial 69yr old?male admitted to [facility] [place] [facility] on 11/07/24 - See progress notes and H&P for detailed history.? Wound consult placed for Bilateral great toes.? Patient is critically ill and remains in ICU. See chart for details but given patients current clinical picture he is a risk of acute skin failure and skin injury. All Pressure relief measures are currently employed and no pressure injury concerns per direct care team at this time. The bilateral toes are noted for thickened dry brittle nailes. The great toe nails appear to be missing unclear of causation. Bilateral Great Toes Etiology: ?Unclear causation Wound Bed: dried scabbed wound / nail beds Drainage / Odor: dried to edges Gloria wound: ?intact - dry brittle thickened toe nails Goals of Treatment: ? Keep covered and dry. Recommendations: 1. Turn and Reposition every 2 hours and as needed for patient comfort.? Use pillows or wedges to support off loading positions. Wedges and Heel boot protectors in use. 2. Off Load all bony prominences with use of pillows and heel boots if needed.? Apply Preventative foams where needed. ?Preventative foam to sacrum in place. 3. Monitor for incontinence and moisture control, use barrier creams when needed for prevention and treatment. 4. Provide adequate and supplemental nutrition.? Nutrition following. 5. Continue low air loss mattress - Isotour in use. 6. When applicable maintain blood glucose levels per Providers order. Bilateral Great Toes - Cleans with Betadine, allow to dry. Cover with dry gauze. Change every 3 days. Re-consult wound care Nurse for wound deterioration or wound changes.
[2024-11-09] MEDS: Albumin Human 25 % 100 ML IV ×3 (11:03→21:08)
[2024-11-09] MEDS: fentaNYL citrate/NS 1,000 MCG/100 ML PLAST..BAG 5 MCG IVCONT (11:05)
[2024-11-09 11:57] LABS: Glucose, Whole Blood 68 mg/dL (60-115)
--- NOTE | 2024-11-09 12:43 | PM.CCPN ---
Subjective Subjective Date of Service: 11/09/24 Interval History: 69-year-old gentleman with underlying hypertension, anxiety, ? ADHD, substance abuse presented on 12/08/2024 with respiratory distress requiring immediate intubation complicated by pea re-intubation cardiac arrest with return of spontaneous circulation after 2 rounds of CPR. Initial workup significant for profound hypoxemia, lactic acidosis with acute renal failure, and COVID positivity. Patient started on empiric broad-spectrum antibiotics, pressor support, and dexamethasone and admitted to the intensive care unit. Patient with 3 additional cardiac arrests on 11/07/2024, with CPR started immediately and returned spontaneous circulation achieved with an 1-2 rounds of CPR each time. CT chest with evidence of bibasilar pneumonia, cavitary on the right. Blood cultures growing MSSA. Now with stabilized, but still high ventilatory support requirements. No events overnight. Critical Care Time (minutes): 60 Physical Exam Vital Signs: Vital Signs: Last Vital Signs Temp 97.7 F 11/09/24 12:00 Pulse 125 H 11/09/24 12:24 Resp 28 H 11/09/24 12:00 BP 102/59 L 11/09/24 12:24 Pulse Ox 93 11/09/24 12:00 O2 Del Method Mechanical Ventil ation 11/09/24 12:00 FiO2 80 11/09/24 12:00 BMI result Body Mass Index 23.3 Const: General: no acute distress and other (Sedated on ventilatory support) Eyes: Sclerae: sclerae normal EOM: EOMs intact bilaterally Neck: Neck: Yes no lymphadenopathy, Yes trachea midline and Yes supple Resp: Auscultation: crackles (Bilateral) Cardio: Rate: tachycardic Rhythm: regular rhythm Heart sounds: no gallops, no murmurs and no rubs GI: Palpation (GI): Soft to palpation and Other GI palpation findings present ( Nontender) Auscultation: normal bowel sounds Extrem: General: No clubbing, No cyanosis and Yes edema (1+ bilateral) Objective Data Labs 11/09/24 05:33 11/09/24 05:33 Labs: Laboratory Results - last 24 hr 11/08/24 11/08/24 11/08/24 13:20 20:54 20:54 WBC RBC Hgb Hct MCV MCH MCHC RDW Plt Count MPV Immature Gran % (Auto) Neut % (Auto) Lymph % (Auto) [place] % (Auto) Eos % (Auto) Baso % (Auto) Lymph # (Auto) [place] # (Auto) Eos # (Auto) Baso # (Auto) Abs Immat Gran (auto) Absolute Neuts (auto) Absolute Nucleated RBC Nucleated RBC % (auto) Neutrophils % (Manual) Band Neutrophils % Lymphocytes % (Manual) Monocytes % (Manual) Abs Neuts (Manual) Lymphocytes # (Manual) Monocytes # (Manual) Smudge Cells Toxic Granulation Toxic Vacuolation Platelet Estimate Large Platelets Plt Morphology Comment RBC Morphology Tear Drop Cells Nuris Cells VBG pH VBG pCO2 VBG pO2 VBG HCO3 VBG O2 Saturation VBG Base Excess Sodium 145 Potassium 4.4 D Chloride 98 Carbon Dioxide 26 Anion Gap 25 H BUN 60 H Creatinine 4.34 H* Estim Creat Clear Calc 18.4 Estimated GFR 14 POC Glucose 152 H Random Glucose 83 Calcium 8.0 L D Phosphorus 6.7 H Magnesium 1.9 Cancelled Total Bilirubin AST ALT Alkaline Phosphatase Total Protein Albumin Random Vancomycin 18.9 11/09/24 11/09/24 11/09/24 00:06 00:27 05:33 WBC 22.3 H RBC 3.48 L Hgb 12.1 L Hct 33.5 L MCV 96.3 MCH 34.8 H MCHC 36.1 H RDW 12.5 Plt Count 130 L MPV 12.1 Immature Gran % (Auto) Cancelled Neut % (Auto) Cancelled Lymph % (Auto) Cancelled [place] % (Auto) Cancelled Eos % (Auto) Cancelled Baso % (Auto) Cancelled Lymph # (Auto) Cancelled [place] # (Auto) Cancelled Eos # (Auto) Cancelled Baso # (Auto) Cancelled Abs Immat Gran (auto) Cancelled Absolute Neuts (auto) Cancelled Absolute Nucleated RBC 0.280 H Nucleated RBC % (auto) 1.3 H Neutrophils % (Manual) 52 Band Neutrophils % 46 H Lymphocytes % (Manual) 1 L Monocytes % (Manual) 1 L Abs Neuts (Manual) 21.9 H Lymphocytes # (Manual) 0.2 L Monocytes # (Manual) 0.2 Smudge Cells PRESENT Toxic Granulation PRESENT Toxic Vacuolation PRESENT Platelet Estimate DECREASED Large Platelets PRESENT Plt Morphology Comment NOTED RBC Morphology NORMAL Tear Drop Cells 1+ (0-2) [place] Cells 2+ (3-5) VBG pH VBG pCO2 VBG pO2 VBG HCO3 VBG O2 Saturation VBG Base Excess Sodium 145 Potassium 4.3 Chloride 99 Carbon Dioxide 24 Anion Gap 26 H BUN 68 H Creatinine 4.74 H* Estim Creat Clear Calc 16.8 Estimated GFR 12 POC Glucose 59 L* 163 H Random Glucose 86 Calcium 8.3 L Phosphorus 5.8 H Magnesium 1.9 Total Bilirubin 5.6 H AST 150 H ALT 59 H Alkaline Phosphatase 31 L Total Protein 5.7 L Albumin 2.9 L Random Vancomycin 11/09/24 11/09/24 11/09/24 05:37 05:46 11:53 WBC RBC Hgb Hct MCV MCH MCHC RDW Plt Count MPV Immature Gran % (Auto) Neut % (Auto) Lymph % (Auto) [place] % (Auto) Eos % (Auto) Baso % (Auto) Lymph # (Auto) [place] # (Auto) Eos # (Auto) Baso # (Auto) Abs Immat Gran (auto) Absolute Neuts (auto) Absolute Nucleated RBC Nucleated RBC % (auto) Neutrophils % (Manual) Band Neutrophils % Lymphocytes % (Manual) Monocytes % (Manual) Abs Neuts (Manual) Lymphocytes # (Manual) Monocytes # (Manual) Smudge Cells Toxic Granulation Toxic Vacuolation Platelet Estimate Large Platelets Plt Morphology Comment RBC Morphology Tear Drop Cells [place] Cells VBG pH 7.36 VBG pCO2 46 VBG pO2 65 VBG HCO3 26 VBG O2 Saturation 86.0 VBG Base Excess 0.6 Sodium Potassium Chloride Carbon Dioxide Anion Gap BUN Creatinine Estim Creat Clear Calc Estimated GFR POC Glucose 82 68 Random Glucose Calcium Phosphorus Magnesium Total Bilirubin AST ALT Alkaline Phosphatase Total Protein Albumin Random Vancomycin Microbiology Microbiology Results: Microbiology 11/08/24 04:10 Blood - Venous Blood Culture - Preliminary Prelim: GPC Gram Stain only 11/07/24 07:02 Blood - Venous Blood Culture - Preliminary Staphylococcus aureus 11/07/24 07:01 Blood - Venous Blood Culture - Preliminary Staphylococcus aureus 11/08/24 04:10 Blood - Venous Blood Culture - Preliminary No growth after 24 hours. Progress Note: A&P Assessment and plan (1) MSSA bacteremia: Status: Acute (2) Acute respiratory failure with hypoxia: Status: Acute (3) Bilateral pneumonia: Status: Acute (4) Acute hypoxemic respiratory failure: Status: Acute (5) COVID-19: Status: Acute (6) Acute kidney injury: Status: Acute (7) Cardiac arrest: Status: Acute (8) Polysubstance abuse: Status: Acute Plan Assessment: 69-year-old gentleman admitted with acute hypoxic respiratory failure with metabolic acidosis status post cardiac arrest with return of spontaneous circulation after 2 rounds of CPR, with hospital course complicated 3 additional cardiac arrest, all with successful resuscitation. Plan: Neuro: Likely underlying ischemic encephalopathy from multiple cardiac arrests, tolerating ventilatory support without sedation, intermittently moves all 4 extremities spontaneously. Cardiac: Multiple cardiac arrests with return of spontaneous circulation after several rounds of CPR. 2D echo is pending. Pulmonary: Acute hypoxic respiratory failure requiring essentially maximum ventilatory support. Underlying COVID-19 and possible aspiration component. Continue to titrate off as tolerated. Empiric dexamethasone. Bibasilar pneumonia, cavitary on the right. Renal: Acute renal failure with improved lactic metabolic acidosis, likely from ischemic ATN. Essentially anuric. Continue to monitor renal indices and urine output. Endo: No acute issues. GI: No acute issues. ID: MSSA bacteremia, continue empiric antibiotics. Heme/Onc: No acute issues. Psych: No acute issues. Miscellaneous: Underlying polysubstance abuse. Prophylaxis: Heparin, famotidine Diet: NPO Critical care time spent: 60 minutes Quality Stroke Does the patient have a stroke diagnosis?: No VTE Prior VTE?: No VTE Risk Level:: Medical - moderate - high VTE Device Contraindication: Treatment Not Indicated VTE Drug Contraindication: N/A - Med Ordered
[2024-11-09] MEDS: NOREPINEPHRINE BITARTRATE IVCONT ×3 (13:40→23:40)
[2024-11-09] MEDS: DEXTROSE 5% IVCONT ×3 (13:40→23:40)
--- NOTE | 2024-11-09 14:33 | P.CDIM_ITS ---
PROVIDER RESPONSE TEXT: To clarify, the appropriate diagnosis supported by the clinical indicators: Acute QUERY TEXT: PHYSICIAN'S DOCUMENTATION REQUEST Date of Query: 11/09/2024 11:37 AM EDT Patient Name: Josse Mcdermott Admit Date: 11/07/2024 Dear Monty Steel MD, A review of the medical record indicates additional documentation may be needed. Please review below and update the documentation accordingly. Clinical Indicators: patient noted to have lactic metabolic acidosis Clarify which of the following accurately represents the acuity of the lactic acidosis. Possible options might include: Acute Acute on chronic Compensated Chronic stable condition Remission Other (explain) Clinically unable to determine (explain) Thank you, Fern Mendes RN Use of terms such as suspected, likely, concern for, or probable (associated with a specific diagnosis that is being evaluated, monitored, or treated as if it exists) are acceptable and can be coded in the inpatient setting, when documented at the time of discharge. Please use your independent medical judgment in providing your response. THIS QUERY IS PART OF THE PERMANENT MEDICAL RECORD
[2024-11-09 15:53] LABS: Glucose, Whole Blood 125 mg/dL (60-115)
[2024-11-09 18:29] LABS: Glucose, Whole Blood 131 mg/dL (60-115)
[2024-11-09 23:51] LABS: Glucose, Whole Blood 132 mg/dL (60-115)
[2024-11-10] VITALS (46 sets, daily range): BP systolic 112–157; BP diastolic 63–92; PULSE 98–129; RESP 21–28; TEMP 35–36.8; O2SAT 91–96; BMI 25.6
[2024-11-10] MEDS: Albumin Human 25 % 100 ML IV (03:30)
[2024-11-10] MEDS: NOREPINEPHRINE BITARTRATE IVCONT ×3 (05:13→21:08)
[2024-11-10] MEDS: fentaNYL citrate/NS 1,000 MCG/100 ML PLAST..BAG 5 MCG IVCONT (05:13)
[2024-11-10] MEDS: DEXTROSE 5% IVCONT ×3 (05:13→21:08)
[2024-11-10 05:37] LABS: Hematocrit 26.9 % (42.0-52.0); Mean Corpuscular Volume 94.4 fL (80.0-98.0); NRBC Abs Auto 0.350 X10*3/uL (0.0-0.012); Red Blood Count 2.85 X10*6/uL (4.60-5.80)
[2024-11-10 05:38] LABS: NRBC Pct Auto 1.1 /100WBC (0.0-0.2); WBC ABN SCTR FOR CBC 1; White Blood Count 30.6 X10*3/uL (4.8-10.8)
[2024-11-10 05:40] LABS: VBG HCO3 23 mmol/L (22-26); VBG O2 % Saturation 85.0 %
[2024-11-10 05:53] LABS: Hemoglobin 9.5 g/dl (14.0-18.0); Mean Corpuscular HGB Conc 35.3 g/dl (31.0-36.0); Mean Corpuscular Hemoglobin 33.3 pg (27.0-33.0); Platelet Count 95 X10*3/uL (160-400)
[2024-11-10 05:59] LABS: Band Neutrophils Percent 20 % (3-5); Lymphocytes Absolute Manual 1.2 X10*3/uL (1.2-4.9); Lymphocytes Percent Manual 4 % (20-40); Neutrophils Absolute Manual 29.4 X10*3/uL (2.0-8.3); Neutrophils Percent Manual 76 % (45-73)
[2024-11-10 06:01] LABS: Large Platelet PRESENT; RBC Morphology NOTED
[2024-11-10 06:02] LABS: Polychromasia 1+ (0-2) /OIF; Target Cells 1+ (5-14) /OIF; Tear Drop Cells 1+ (0-2) /OIF; Toxic Granulation PRESENT; Toxic Vacuolation PRESENT
[2024-11-10 06:04] LABS: Alanine Aminotransferase 41 U/L (0-40); Albumin Level 3.9 g/dL (3.5-5.0); Alkaline Phosphatase 49 U/L (39-117); Anion Gap 29 (12-20); Aspartate Amino Transferase 88 U/L (5-37); Blood Urea Nitrogen 99 mg/dL (9-16); Calcium 8.4 mg/dL (8.4-10.2); Carbon Dioxide 23 mmol/L (22-29); Chloride 97 mmol/L (96-108); Creatinine Clr Calc Pharmacy 14.2; Estimated Glomerular Filt Rate 10; Magnesium 2.4 mg/dL (1.6-2.6); Potassium 4.1 mmol/L (3.3-5.1); Sodium 145 mmol/L (135-145); Total Protein 6.4 g/dL (6.5-8.0)
--- NOTE | 2024-11-10 06:47 | HE.PHANOTE ---
RE: VANCO Patients renal function continues to decline. Trough came back at 23.3. Holding 11/10 dose. Will continue to monitor daily. Ordered trough for 11/11 @0600 to reevaluate.
[2024-11-10 07:37] LABS: Venous Blood Gas Refer to POC result
[2024-11-10] MEDS: 0.9 % Sodium Chloride Flush 3 ML SYRINGE IVFLUSH ×2 (08:00→15:30)
[2024-11-10] MEDS: Chlorhexidine Gluc Oral Rinse 15 ML MOUTHWASH BUCCAL ×3 (08:00→20:09)
--- NOTE | 2024-11-10 10:55 | P.CDIM_ITS ---
PROVIDER RESPONSE TEXT: To clarify, the appropriate diagnosis supported by the clinical indicators: Sepsis is/was present and is a clinical diagnosis QUERY TEXT: PHYSICIAN'S DOCUMENTATION REQUEST Date of Query: 11/10/2024 10:08 AM EDT Patient Name: Josse Mcdermott Admit Date: 11/07/2024 Dear Monty Steel MD, A review of the medical record indicates additional documentation may be needed. Please review below and update the documentation accordingly. Documentation on progress note dated 11/07/24 included the diagnosis of Severe Sepsis. The patient's infectious clinical indicators include: bands 20% WBC 13.5 temperature 101.4 pulse 116 respiratory rate 28 lactic acid 11.9 COVID + Critical Care Progress note 11/09/24 states MSSA bacteremia, continue empiric antibiotics Recognized standard criteria for this condition and other infectious definitions includes: Bacteremia Abnormal laboratory test - does not indicate a clinically ill patient Sepsis Systemic manifestations of infection, with 2 or more SIRS criteria which include: Fever > 100.4?F or hypothermia < 96.8?F Leukocytosis - WBC > 12,000 or leukopenia, WBC < 4,000, or > 10% bands Tachycardia- > 90 beats/minute Tachypnea- RR > 20 breaths/minute or PaCO2 < 32mmHg Source: [employer] Manual 2013 Documentation should include the known or suspected organism, and the underlying infection, such as UTI or pneumonia Severe Sepsis Sepsis with associated acute organ dysfunction, such as renal or respiratory failure Documentation should indicate the association between the sepsis and the organ dysfunction Septic Shock Severe sepsis with associated with circulatory failure, evidenced by hypotension and hypoperfusion Based on the above information and the recognized standard for sepsis, could you please clarify if this diagnoses is still accurate and reflective of the patient's condition to ensure quality of the medical record. Sepsis is/was present and is a clinical diagnosis After study, Sepsis has been ruled out Bacteremia Other (explain) Clinically unable to determine (explain) Thank you, Fern Mendes RN Use of terms such as suspected, likely, concern for, or probable (associated with a specific diagnosis that is being evaluated, monitored, or treated as if it exists) are acceptable and can be coded in the inpatient setting, when documented at the time of discharge. Please use your independent medical judgment in providing your response. THIS QUERY IS PART OF THE PERMANENT MEDICAL RECORD
[2024-11-10 11:23] LABS: Glucose, Whole Blood 162 mg/dL (60-115)
--- NOTE | 2024-11-10 12:09 | P.PNCC_ITS ---
Subjective Subjective Date of Service: 11/10/24 Interval History: 69-year-old gentleman with underlying hypertension, anxiety, ? ADHD, substance abuse presented on 12/08/2024 with respiratory distress requiring immediate intubation complicated by pea re-intubation cardiac arrest with return of spontaneous circulation after 2 rounds of CPR. Initial workup significant for profound hypoxemia, lactic acidosis with acute renal failure, and COVID positivity. Patient started on empiric broad-spectrum antibiotics, pressor support, and dexamethasone and admitted to the intensive care unit. Patient with 3 additional cardiac arrests on 11/07/2024, with CPR started immediately and returned spontaneous circulation achieved with an 1-2 rounds of CPR each time. CT chest with evidence of bibasilar pneumonia, cavitary on the right. Blood cultures growing MSSA. Now with stabilized, but still high ventilatory support requirements, though improving slowly. No events overnight. Worsening renal function and rising bilirubin. Critical Care Time (minutes): 60 Physical Exam 2 Vital Signs: Vital Signs: Last Vital Signs Temp 98.1 F 11/10/24 11:00 Pulse 112 H 11/10/24 11:00 Resp 23 H 11/10/24 11:00 BP 142/86 H 11/10/24 11:00 Pulse Ox 92 11/10/24 11:00 O2 Del Method Mechanical Ventil ation 11/10/24 11:00 FiO2 50 11/10/24 11:28 BMI result Body Mass Index 25.6 Const: General: no acute distress and other (Sedated on ventilatory support) Eyes: Sclerae: sclerae normal EOM: EOMs intact bilaterally Neck: Neck: Yes no lymphadenopathy, Yes trachea midline and Yes supple Resp: Auscultation: crackles (Bilateral) Cardio: Rate: tachycardic Rhythm: regular rhythm Heart sounds: no gallops, no murmurs and no rubs GI: Palpation (GI): Soft to palpation and Other GI palpation findings present ( Nontender) Auscultation: normal bowel sounds Extrem: General: No clubbing, No cyanosis and Yes edema (1+ bilateral) Objective Data Labs 11/10/24 05:30 11/10/24 05:30 Labs: Laboratory Results - last 24 hr 11/09/24 11/09/24 11/09/24 13:42 18:26 21:09 WBC RBC Hgb Hct MCV MCH MCHC RDW Plt Count MPV Immature Gran % (Auto) Neut % (Auto) Lymph % (Auto) [place] % (Auto) Eos % (Auto) Baso % (Auto) Lymph # (Auto) [place] # (Auto) Eos # (Auto) Baso # (Auto) Abs Immat Gran (auto) Absolute Neuts (auto) Absolute Nucleated RBC Nucleated RBC % (auto) Neutrophils % (Manual) Band Neutrophils % Lymphocytes % (Manual) Abs Neuts (Manual) Lymphocytes # (Manual) Toxic Granulation Toxic Vacuolation Platelet Estimate Large Platelets Plt Morphology Comment RBC Morphology Polychromasia Target Cells Tear Drop Cells VBG pH VBG pCO2 VBG pO2 VBG HCO3 VBG O2 Saturation VBG Base Excess Sodium Potassium Chloride Carbon Dioxide Anion Gap BUN Creatinine Estim Creat Clear Calc Estimated GFR POC Glucose 125 H 131 H Random Glucose Calcium Phosphorus Magnesium Total Bilirubin AST ALT Alkaline Phosphatase Total Protein Albumin Random Vancomycin 22.8 H 11/09/24 11/10/24 11/10/24 23:41 05:30 05:35 WBC 30.6 H* RBC 2.85 L Hgb 9.5 L D Hct 26.9 L MCV 94.4 MCH 33.3 H MCHC 35.3 RDW 12.9 Plt Count 95 L D MPV 11.9 Immature Gran % (Auto) Cancelled Neut % (Auto) Cancelled Lymph % (Auto) Cancelled [place] % (Auto) Cancelled Eos % (Auto) Cancelled Baso % (Auto) Cancelled Lymph # (Auto) Cancelled [place] # (Auto) Cancelled Eos # (Auto) Cancelled Baso # (Auto) Cancelled Abs Immat Gran (auto) Cancelled Absolute Neuts (auto) Cancelled Absolute Nucleated RBC 0.350 H Nucleated RBC % (auto) 1.1 H Neutrophils % (Manual) 76 H Band Neutrophils % 20 H Lymphocytes % (Manual) 4 L Abs Neuts (Manual) 29.4 H Lymphocytes # (Manual) 1.2 Toxic Granulation PRESENT Toxic Vacuolation PRESENT Platelet Estimate SLIGHTLY DECREASED Large Platelets PRESENT Plt Morphology Comment NOTED RBC Morphology NOTED Polychromasia 1+ (0-2) Target Cells 1+ (5-14) Tear Drop Cells 1+ (0-2) VBG pH 7.39 VBG pCO2 38 VBG pO2 65 VBG HCO3 23 VBG O2 Saturation 85.0 VBG Base Excess -0.8 Sodium 145 Potassium 4.1 Chloride 97 Carbon Dioxide 23 Anion Gap 29 H BUN 99 H Creatinine 5.59 H* Estim Creat Clear Calc 14.2 Estimated GFR 10 POC Glucose 132 H Random Glucose 155 H Calcium 8.4 Phosphorus 4.5 Magnesium 2.4 Total Bilirubin 7.1 H AST 88 H ALT 41 H Alkaline Phosphatase 49 Total Protein 6.4 L Albumin 3.9 Random Vancomycin 23.3 H 11/10/24 11:19 WBC RBC Hgb Hct MCV MCH MCHC RDW Plt Count MPV Immature Gran % (Auto) Neut % (Auto) Lymph % (Auto) [place] % (Auto) Eos % (Auto) Baso % (Auto) Lymph # (Auto) [place] # (Auto) Eos # (Auto) Baso # (Auto) Abs Immat Gran (auto) Absolute Neuts (auto) Absolute Nucleated RBC Nucleated RBC % (auto) Neutrophils % (Manual) Band Neutrophils % Lymphocytes % (Manual) Abs Neuts (Manual) Lymphocytes # (Manual) Toxic Granulation Toxic Vacuolation Platelet Estimate Large Platelets Plt Morphology Comment RBC Morphology Polychromasia Target Cells Tear Drop Cells VBG pH VBG pCO2 VBG pO2 VBG HCO3 VBG O2 Saturation VBG Base Excess Sodium Potassium Chloride Carbon Dioxide Anion Gap BUN Creatinine Estim Creat Clear Calc Estimated GFR POC Glucose 162 H Random Glucose Calcium Phosphorus Magnesium Total Bilirubin AST ALT Alkaline Phosphatase Total Protein Albumin Random Vancomycin Microbiology Microbiology Results: Microbiology 11/07/24 07:02 Blood - Venous Blood Culture - Final Staphylococcus aureus Coag negative Staphylococcus 11/08/24 04:10 Blood - Venous Blood Culture - Final Staphylococcus aureus 11/08/24 04:10 Blood - Venous Blood Culture - Final Staphylococcus aureus 11/07/24 07:01 Blood - Venous Blood Culture - Final Staphylococcus aureus Progress Note: A&P Assessment and plan (1) Polysubstance abuse: Status: Acute (2) Cardiac arrest: Status: Acute (3) Acute kidney injury: Status: Acute (4) COVID-19: Status: Acute (5) MSSA bacteremia: Status: Acute (6) Acute hypoxemic respiratory failure: Status: Acute (7) Bilateral pneumonia: Status: Acute Plan Assessment: 69-year-old gentleman admitted with acute hypoxic respiratory failure with metabolic acidosis status post cardiac arrest with return of spontaneous circulation after 2 rounds of CPR, with hospital course complicated 3 additional cardiac arrest, all with successful resuscitation. Plan: Neuro: Likely underlying ischemic encephalopathy from multiple cardiac arrests, tolerating ventilatory support without sedation, intermittently moves all 4 extremities spontaneously. Cardiac: Multiple cardiac arrests with return of spontaneous circulation after several rounds of CPR. 2D echo with mildly decreased systolic function. Pulmonary: Acute hypoxic respiratory failure initially requiring essentially maximum ventilatory support, now improving slowly. Underlying COVID-19 and possible aspiration component. Continue to titrate off as tolerated. Empiric dexamethasone. Bibasilar pneumonia, cavitary on the right. Renal: Acute renal failure with improved lactic metabolic acidosis, likely from ischemic ATN. Essentially anuric. Continue to monitor renal indices and urine output. Endo: No acute issues. GI: No acute issues. ID: MSSA bacteremia, continue empiric antibiotics. If cultures continue to remain positive, may require ANAMARIA for endocarditis evaluation. Heme/Onc: No acute issues. Psych: No acute issues. Miscellaneous: Underlying polysubstance abuse. Prophylaxis: Heparin, famotidine Diet: NPO Critical care time spent: 60 minutes Quality Stroke Does the patient have a stroke diagnosis?: No VTE Prior VTE?: No VTE Risk Level:: Medical - moderate - high VTE Device Contraindication: Treatment Not Indicated VTE Drug Contraindication: N/A - Med Ordered
--- NOTE | 2024-11-10 12:20 | MHC.CLN ---
F/U REMAINS NPO PT REMAINS INTUBATED AND SEDATED DISCUSSED AT ROUNDS WITH MD IF TF NEEDED; RECOMMEND NEPRO AT MAX GOAL RATE 30ML/HR WITH 240ML FREE WATER FLUSHES Q 4 HRS TO PROVIDE 1296KCALS (1930KCALS WITH SEDATION; 24KCALS/KG), 58G PROTEIN, 1963ML TOTAL FREE WATER FROM FORMULA AND FLUSHES (25ML/KG) MONITOR TOLERANCE AND LYTES FOLLOWING FOR DIET ADVANCEMENT
--- NOTE | 2024-11-10 14:36 | MHC.CM.PN ---
PT REMAINS IN ICU ON VENTILATORY/PRESSOR SUPPORT. CM WILL CONTINUE TO FOLLOW
[2024-11-10 17:50] LABS: Glucose, Whole Blood 143 mg/dL (60-115)
--- NOTE | 2024-11-10 18:35 | PC.NURSE ---
Assumed care of patient 0700. Patient is mechanically vented and sedated. FiO2 requirements decreasing and weaned from 60% down to 50% this shift. PEEP decreased from 12.0 to 10.0. Vasopressor requirements decreased - levophed 16mg/250ml gtt decreased from 0.5 mcg/kg/min to 0.3 mcg/kg/min. RUQ ultrasound completed. Significant other Riri updated via phone.
[2024-11-11] VITALS (58 sets, daily range): BP systolic 81–148; BP diastolic 49–91; PULSE 90–117; RESP 21–34; TEMP 34.6–36.8; O2SAT 90–11892; BMI 25.3
[2024-11-11 00:50] LABS: Glucose, Whole Blood 124 mg/dL (60-115)
[2024-11-11 05:32] LABS: VBG HCO3 22 mmol/L (22-26); VBG O2 % Saturation 81.0 %
[2024-11-11 05:33] LABS: Venous Blood Gas Refer to POC result
[2024-11-11 05:43] LABS: Hematocrit 29.1 % (42.0-52.0); Hemoglobin 10.7 g/dl (14.0-18.0); Mean Corpuscular HGB Conc 36.8 g/dl (31.0-36.0); Mean Corpuscular Hemoglobin 34.6 pg (27.0-33.0); Mean Corpuscular Volume 94.2 fL (80.0-98.0); NRBC Abs Auto 0.480 X10*3/uL (0.0-0.012); NRBC Pct Auto 1.9 /100WBC (0.0-0.2); Platelet Count 92 X10*3/uL (160-400); Red Blood Count 3.09 X10*6/uL (4.60-5.80); WBC ABN SCTR FOR CBC 1
[2024-11-11 05:44] LABS: White Blood Count 25.8 X10*3/uL (4.8-10.8)
[2024-11-11 06:02] LABS: Band Neutrophils Percent 5 % (3-5); Lymphocytes Absolute Manual 0.3 X10*3/uL (1.2-4.9); Lymphocytes Percent Manual 1 % (20-40); Monocytes Absolute Manual 0.5 X10*3/uL (0.1-1.2); Monocytes Percent Manual 2 % (2-11); Neutrophils Absolute Manual 25.0 X10*3/uL (2.0-8.3); Neutrophils Percent Manual 92 % (45-73)
[2024-11-11 06:03] LABS: Large Platelet PRESENT; RBC Morphology NOTED
[2024-11-11 06:04] LABS: Dohle Bodies PRESENT; Polychromasia 1+ (0-2) /OIF; Target Cells 1+ (5-14) /OIF; Tear Drop Cells 1+ (0-2) /OIF; Toxic Granulation PRESENT; Toxic Vacuolation PRESENT
[2024-11-11 06:16] LABS: Alanine Aminotransferase 45 U/L (0-40); Albumin Level 3.2 g/dL (3.5-5.0); Alkaline Phosphatase 91 U/L (39-117); Anion Gap 28 (12-20); Aspartate Amino Transferase 107 U/L (5-37); Calcium 8.4 mg/dL (8.4-10.2); Carbon Dioxide 22 mmol/L (22-29); Chloride 96 mmol/L (96-108); Creatinine Clr Calc Pharmacy 11.9; Estimated Glomerular Filt Rate 8; Magnesium 2.9 mg/dL (1.6-2.6); Potassium 4.9 mmol/L (3.3-5.1); Sodium 141 mmol/L (135-145); Total Protein 6.3 g/dL (6.5-8.0)
--- NOTE | 2024-11-11 06:26 | HE.ICUCC ---
ICU Critical Care Nursing Note Neuro: RASS -4. Weak cough, absent gag. Does not open eyes or?follow commands. Weakly grimaces with oral care. Flaccid extremities. Pupils 2mm equal/ reactive. Propofol and Fentanyl gtts titrated and infusing per JUN.? Cardiac: Afib on tele, HR 100-120s. Able to titrate down on Levophed gtt per JUN.? Resp: On ACVC+ settings. FiO2 50%. SpO2 >90%. Upon auscultation,? lungs diminished throughout?with inspiratory rhonchi to the right lower lobe. No inline secretions.? GI/: Tube feeds started at 0000 per COOKIE Cohen. Infusing at goal rate of 10mls/hr. No S/S of intolerance. Hypoactive bowel sounds. No BM.?Patient remains anuric, [employer] Noel aware. 0300 Bladder scan: 46mLs.?
[2024-11-11 06:31] LABS: Blood Urea Nitrogen 134 mg/dL (9-16)
--- NOTE | 2024-11-11 06:37 | HE.PHANOTE ---
VANCO DOSE ADJUSTMENT BASED ON SCR AND TROUGH OF 21.2 DOSE HELD FOR 11/11. FOLLOW UP LEVEL 11/12 @ 0700
[2024-11-11] MEDS: 0.9 % Sodium Chloride Flush 3 ML SYRINGE IVFLUSH ×4 (07:31→23:47)
[2024-11-11] MEDS: Chlorhexidine Gluc Oral Rinse 15 ML MOUTHWASH BUCCAL ×3 (08:49→20:00)
--- NOTE | 2024-11-11 10:50 | PM.CCPN ---
Subjective Subjective Date of Service: 11/11/24 Interval History: 69-year-old gentleman with underlying hypertension, anxiety, ? ADHD, substance abuse presented on 12/08/2024 with respiratory distress requiring immediate intubation complicated by pea re-intubation cardiac arrest with return of spontaneous circulation after 2 rounds of CPR. Initial workup significant for profound hypoxemia, lactic acidosis with acute renal failure, and COVID positivity. Patient started on empiric broad-spectrum antibiotics, pressor support, and dexamethasone and admitted to the intensive care unit. Patient with 3 additional cardiac arrests on 11/07/2024, with CPR started immediately and returned spontaneous circulation achieved with an 1-2 rounds of CPR each time. CT chest with evidence of bibasilar pneumonia, cavitary on the right. Blood cultures growing MSSA. Now with stabilized, but still high ventilatory support requirements, though improving slowly. No events overnight. Ventilator support requirements continue to improve. Critical Care Time (minutes): 60 Physical Exam Vital Signs: Vital Signs: Last Vital Signs Temp 97.9 F 11/11/24 10:00 Pulse 95 11/11/24 10:00 Resp 21 H 11/11/24 10:00 BP 118/63 11/11/24 10:00 Pulse Ox 93 11/11/24 10:00 O2 Del Method Mechanical Ventil ation 11/11/24 10:00 FiO2 50 11/11/24 10:00 BMI result Body Mass Index 25.3 Const: General: no acute distress and other (Sedated on ventilatory support) Eyes: Sclerae: sclerae normal EOM: EOMs intact bilaterally Neck: Neck: Yes no lymphadenopathy, Yes trachea midline and Yes supple Resp: Auscultation: crackles (Bilateral) Cardio: Rate: tachycardic Rhythm: regular rhythm Heart sounds: no gallops, no murmurs and no rubs GI: Palpation (GI): Soft to palpation and Other GI palpation findings present ( Nontender) Auscultation: normal bowel sounds Extrem: General: No clubbing, No cyanosis and Yes edema (1+ bilateral) Objective Data Labs 11/11/24 05:24 11/11/24 05:24 Labs: Laboratory Results - last 24 hr 11/10/24 11/10/24 11/10/24 11:19 17:45 23:57 WBC RBC Hgb Hct MCV MCH MCHC RDW Plt Count MPV Immature Gran % (Auto) Neut % (Auto) Lymph % (Auto) [place] % (Auto) Eos % (Auto) Baso % (Auto) Lymph # (Auto) [place] # (Auto) Eos # (Auto) Baso # (Auto) Abs Immat Gran (auto) Absolute Neuts (auto) Absolute Nucleated RBC Nucleated RBC % (auto) Neutrophils % (Manual) Band Neutrophils % Lymphocytes % (Manual) Monocytes % (Manual) Abs Neuts (Manual) Lymphocytes # (Manual) Monocytes # (Manual) Nucleated RBCs Toxic Granulation Toxic Vacuolation Dohle Bodies Platelet Estimate Large Platelets Plt Morphology Comment RBC Morphology Polychromasia Target Cells Tear Drop Cells VBG pH VBG pCO2 VBG pO2 VBG HCO3 VBG O2 Saturation VBG Base Excess Sodium Potassium Chloride Carbon Dioxide Anion Gap BUN Creatinine Estim Creat Clear Calc Estimated GFR POC Glucose 162 H 143 H 124 H Random Glucose Calcium Phosphorus Magnesium Total Bilirubin AST ALT Alkaline Phosphatase Total Protein Albumin Random Vancomycin 11/11/24 11/11/24 05:24 05:28 WBC 25.8 H RBC 3.09 L Hgb 10.7 L Hct 29.1 L MCV 94.2 MCH 34.6 H MCHC 36.8 H RDW 13.3 Plt Count 92 L MPV 12.3 Immature Gran % (Auto) Cancelled Neut % (Auto) Cancelled Lymph % (Auto) Cancelled [place] % (Auto) Cancelled Eos % (Auto) Cancelled Baso % (Auto) Cancelled Lymph # (Auto) Cancelled [place] # (Auto) Cancelled Eos # (Auto) Cancelled Baso # (Auto) Cancelled Abs Immat Gran (auto) Cancelled Absolute Neuts (auto) Cancelled Absolute Nucleated RBC 0.480 H Nucleated RBC % (auto) 1.9 H Neutrophils % (Manual) 92 H Band Neutrophils % 5 Lymphocytes % (Manual) 1 L Monocytes % (Manual) 2 Abs Neuts (Manual) 25.0 H Lymphocytes # (Manual) 0.3 L Monocytes # (Manual) 0.5 Nucleated RBCs 4 H Toxic Granulation PRESENT Toxic Vacuolation PRESENT Dohle Bodies PRESENT Platelet Estimate SLIGHTLY DECREASED Large Platelets PRESENT Plt Morphology Comment NOTED RBC Morphology NOTED Polychromasia 1+ (0-2) Target Cells 1+ (5-14) Tear Drop Cells 1+ (0-2) VBG pH 7.34 VBG pCO2 40 VBG pO2 62 VBG HCO3 22 VBG O2 Saturation 81.0 VBG Base Excess -3.0 Sodium 141 Potassium 4.9 Chloride 96 Carbon Dioxide 22 Anion Gap 28 H BUN 134 H Creatinine 6.70 H* Estim Creat Clear Calc 11.9 Estimated GFR 8 POC Glucose Random Glucose 151 H Calcium 8.4 Phosphorus 6.1 H Magnesium 2.9 H Total Bilirubin 9.7 H AST 107 H ALT 45 H Alkaline Phosphatase 91 Total Protein 6.3 L Albumin 3.2 L Random Vancomycin 21.2 H Microbiology Microbiology Results: Microbiology 11/07/24 07:02 Blood - Venous Blood Culture - Final Staphylococcus aureus Coag negative Staphylococcus 11/08/24 04:10 Blood - Venous Blood Culture - Final Staphylococcus aureus 11/08/24 04:10 Blood - Venous Blood Culture - Final Staphylococcus aureus 11/07/24 07:01 Blood - Venous Blood Culture - Final Staphylococcus aureus Progress Note: A&P Assessment and plan (1) Hyperbilirubinemia: Status: Acute (2) Polysubstance abuse: Status: Acute (3) Cardiac arrest: Status: Acute (4) Acute kidney injury: Status: Acute (5) MSSA bacteremia: Status: Acute (6) Acute hypoxemic respiratory failure: Status: Acute (7) Bilateral pneumonia: Status: Acute Plan Assessment: 69-year-old gentleman admitted with acute hypoxic respiratory failure with metabolic acidosis status post cardiac arrest with return of spontaneous circulation after 2 rounds of CPR, with hospital course complicated 3 additional cardiac arrest, all with successful resuscitation. Plan: Neuro: Likely underlying ischemic encephalopathy from multiple cardiac arrests, tolerating ventilatory support without sedation, intermittently moves all 4 extremities spontaneously. Cardiac: Multiple cardiac arrests with return of spontaneous circulation after several rounds of CPR. 2D echo with mildly decreased systolic function. Pulmonary: Acute hypoxic respiratory failure initially requiring essentially maximum ventilatory support, now improving slowly. Underlying COVID-19 and possible aspiration component. Continue to titrate off as tolerated. Empiric dexamethasone. Bibasilar pneumonia, cavitary on the right. Renal: Acute renal failure with improved lactic metabolic acidosis, likely from ischemic ATN. Essentially anuric. Continue to monitor renal indices and urine output. Endo: No acute issues. GI: Hyperbilirubinemia, likely secondary to cholestasis. Abdominal ultrasound with evidence of gallbladder sludge. ID: MSSA bacteremia, continue empiric antibiotics. If cultures continue to remain positive, may require ANAMARIA for endocarditis evaluation. Heme/Onc: No acute issues. Psych: No acute issues. Miscellaneous: Underlying polysubstance abuse. Prophylaxis: Heparin, famotidine Diet: Tube feeds Critical care time spent: 60 minutes Quality Stroke Does the patient have a stroke diagnosis?: No VTE Prior VTE?: No VTE Risk Level:: Medical - moderate - high VTE Device Contraindication: Treatment Not Indicated VTE Drug Contraindication: N/A - Med Ordered
[2024-11-11] MEDS: DEXTROSE 5% IVCONT ×2 (11:02→16:36)
[2024-11-11] MEDS: NOREPINEPHRINE BITARTRATE IVCONT ×2 (11:02→16:36)
--- NOTE | 2024-11-11 11:20 | PC.NURSE ---
Addendum entered by Adán Carey RN 11/11/24 15:36: Breathing trial cessation at 15:20 for patient rest related to tachypnea >30 respirations per min. Propofol and Fentanyl titrated per MAR for vent synchrony. Addendum entered by Adán Carey RN 11/11/24 11:59: Began awakening trial with first sedation titration at 11:07(see MAR). breathing trial initiated at 11:55, RT and RN at bedside. Patient taking spontaneous breaths satting 93%, end tidal 27, with sufficient tidal volumes greater than 450, and remains tachypneic (20-30 respirations/min). PSV on 01/12 at 50%. see vent assessment. Original Note: assumed care 0700 on 11/11/24, patient stable, mechanically vented and sedated, weak cough, minimal gag, flaccid extremities, PERRL at 3mm, facial grimaces with care. afib on tele (between 90s and 120), breathing is tachypneic but relaxed, abdomen is round and semi-firm with hypoactive bowels, anuric with male incontinence wrap, last bladder scanned earlier this morning with less then 50mls in bladder, see skin charting, unable to follow commands or make purposeful movement, maintaining tube feed at 10cc/hr, no gastric residual this morning at 0800. per MD patient not a candidate for extbation today, but attempt SAT and SBT. currently in the process of weening sedation for SAT and SBT, respiratory called to ICU. in last 24 hours patient pressor requirements with vast improvement (see MAR), O2 needs down to 50%, peep weened from 12 to 10.
--- NOTE | 2024-11-11 11:34 | HO.SKINPHOTO ---
Location: Right Upper Chest/Clavicle Category: Skin Tear Dressing: Xeroform, Dry Gauze, and Tegaderm
--- NOTE | 2024-11-11 12:53 | MHC.CM.PN ---
Pt continues care in ICU: on vent support following cardiac arrest x3: Renal status worsening - nephrology to follow. Pt from home prior to admission: d/c plan undetermined d/t pt's fragile condition. CM to follow
[2024-11-11 13:23] LABS: Glucose, Whole Blood 145 mg/dL (60-115)
[2024-11-11] MEDS: fentaNYL citrate/NS 1,000 MCG/100 ML PLAST..BAG 5 MCG IVCONT ×2 (16:50)
[2024-11-11 18:12] LABS: Glucose, Whole Blood 157 mg/dL (60-115)
[2024-11-12] VITALS (48 sets, daily range): BP systolic 80–141; BP diastolic 43–75; PULSE 89–112; RESP 20–34; TEMP 34.9–36.9; O2SAT 92–97; BMI 25.4
[2024-11-12 00:11] LABS: Glucose, Whole Blood 165 mg/dL (60-115)
[2024-11-12 05:42] LABS: VBG HCO3 16 mmol/L (22-26); VBG O2 % Saturation 86.0 %
[2024-11-12 05:46] LABS: Hematocrit 28.8 % (42.0-52.0); Hemoglobin 10.7 g/dl (14.0-18.0); Mean Corpuscular HGB Conc 37.2 g/dl (31.0-36.0); Mean Corpuscular Hemoglobin 35.1 pg (27.0-33.0); Mean Corpuscular Volume 94.4 fL (80.0-98.0); NRBC Abs Auto 0.390 X10*3/uL (0.0-0.012); Red Blood Count 3.05 X10*6/uL (4.60-5.80); White Blood Count 21.7 X10*3/uL (4.8-10.8)
[2024-11-12 05:58] LABS: NRBC Pct Auto 1.8 /100WBC (0.0-0.2); Platelet Count 93 X10*3/uL (160-400)
[2024-11-12 06:20] LABS: Alanine Aminotransferase 64 U/L (0-40); Albumin Level 2.9 g/dL (3.5-5.0); Alkaline Phosphatase 148 U/L (39-117); Anion Gap 34 (12-20); Aspartate Amino Transferase 148 U/L (5-37); Blood Urea Nitrogen 193 mg/dL (9-16); Calcium 8.0 mg/dL (8.4-10.2); Carbon Dioxide 17 mmol/L (22-29); Chloride 97 mmol/L (96-108); Creatinine Clr Calc Pharmacy 10.3; Estimated Glomerular Filt Rate 7; Magnesium 3.5 mg/dL (1.6-2.6); Potassium 6.0 mmol/L (3.3-5.1); Sodium 142 mmol/L (135-145); Total Protein 6.2 g/dL (6.5-8.0)
[2024-11-12 06:30] LABS: Venous Blood Gas Refer to POC result
--- NOTE | 2024-11-12 06:37 | PC.NURSE ---
Neuro:?RASS -4. Weak cough, absent gag. Does not open eyes or?follow commands. Weakly grimaces with oral care and repositioning. Flaccid extremities. Pupils 2mm equal/ reactive. Propofol and Fentanyl gtts titrated and infusing per JUN. Cardiac: Afib on tele, HR 90-120s. Able to titrate down on Levophed gtt per JUN.? Resp: On ACVC+ settings. FiO2 50%. SpO2 >90%. Tachpyneic, RR 22-28. Upon auscultation, lungs diminished throughout?with inspiratory rhonchi to the right lower lobe. No inline secretions. ETT mauro changed with RT. GI/: Tube feeds infusing at goal rate of 10mls/hr via OGT. No S/S of intolerance. Abd?round and semi-firm. Hypoactive bowel sounds. No BM, [employer] Noel notified, Dulcolax suppository given per JUN.? Male incontinence wrap?in place. Patient incontinent of small amount of bright yellow urine at approximately 2000. Bladder scanned at 0300 for 49mls.? Integumentary/Musculoskeletal: Patient cool, clammy and edematous. Interdry applied to bilateral axillary areas. Dressings to the chest and bilateral great toes changed.? See EMR for further details.?
[2024-11-12 06:46] LABS: Atypical Lymph Absolute Manual 0.2 x10*3/uL; Atypical Lymphs Percent Manual 1 % (0-6); Band Neutrophils Percent 6 % (3-5); Lymphocytes Absolute Manual 0.4 X10*3/uL (1.2-4.9); Lymphocytes Percent Manual 2 % (20-40); Monocytes Absolute Manual 0.4 X10*3/uL (0.1-1.2); Monocytes Percent Manual 2 % (2-11); Neutrophils Absolute Manual 20.2 X10*3/uL (2.0-8.3); Neutrophils Percent Manual 87 % (45-73); Promyelocytes Absolute 0.4 X10*3/uL; Promyelocytes Percent 2 %
[2024-11-12 06:47] LABS: Burr Cells 1+ (0-2) /OIF; Large Platelet PRESENT; RBC Morphology NOTED; Tear Drop Cells 2+ (3-5) /OIF
[2024-11-12 06:48] LABS: Dohle Bodies PRESENT; Polychromasia 1+ (0-2) /OIF; Smudge Cells PRESENT; Toxic Granulation PRESENT; Toxic Vacuolation PRESENT
[2024-11-12] MEDS: 0.9 % Sodium Chloride Flush 3 ML SYRINGE IVFLUSH ×3 (07:29→23:55)
[2024-11-12] MEDS: Albumin Human 25 % 50 ML 100 ML IV ×2 (07:30→08:01)
[2024-11-12] MEDS: Chlorhexidine Gluc Oral Rinse 15 ML MOUTHWASH BUCCAL ×3 (08:01→19:16)
[2024-11-12 08:03] LABS: Ammonia 54 umol/L (13-55)
--- NOTE | 2024-11-12 08:35 | HE.PHANOTE ---
VANCO DOSE HELD TROUGH STILL 20.4. DOSE HELD 11/12. NEXT LEVEL 11/13 @ 0600
--- NOTE | 2024-11-12 11:13 | PM.CCPN ---
Subjective Subjective Date of Service: 11/12/24 Interval History: 69-year-old gentleman with underlying hypertension, anxiety, ? ADHD, substance abuse presented on 12/08/2024 with respiratory distress requiring immediate intubation complicated by pea re-intubation cardiac arrest with return of spontaneous circulation after 2 rounds of CPR. Initial workup significant for profound hypoxemia, lactic acidosis with acute renal failure, and COVID positivity. Patient started on empiric broad-spectrum antibiotics, pressor support, and dexamethasone and admitted to the intensive care unit. Patient with 3 additional cardiac arrests on 11/07/2024, with CPR started immediately and returned spontaneous circulation achieved with an 1-2 rounds of CPR each time. CT chest with evidence of bibasilar pneumonia, cavitary on the right. Blood cultures growing MSSA. Now with stabilized, but still high ventilatory support requirements, though improving slowly. No events overnight. Renal function and hyperbilirubinemia continue to worsen. Critical Care Time (minutes): 60 Physical Exam Vital Signs: Vital Signs: Last Vital Signs Temp 98.2 F 11/12/24 11:00 Pulse 105 H 11/12/24 11:00 Resp 28 H 11/12/24 11:00 BP 122/65 11/12/24 11:00 Pulse Ox 94 11/12/24 11:00 O2 Del Method Mechanical Ventil ation 11/12/24 11:00 FiO2 50 11/12/24 11:02 BMI result Body Mass Index 25.4 Const: General: no acute distress and other (Sedated on ventilatory support) Eyes: Sclerae: sclerae normal Neck: Neck: Yes no lymphadenopathy, Yes trachea midline and Yes supple Resp: Auscultation: crackles (Bilateral) Cardio: Rate: tachycardic Rhythm: regular rhythm Heart sounds: no gallops, no murmurs and no rubs GI: Palpation (GI): Soft to palpation and Other GI palpation findings present ( Nontender) Auscultation: normal bowel sounds Extrem: General: No clubbing, No cyanosis and Yes edema (1+ bilateral) Objective Data Labs 11/12/24 05:36 11/12/24 05:36 Labs: Laboratory Results - last 24 hr 11/11/24 11/11/24 11/11/24 12:55 18:07 23:56 WBC RBC Hgb Hct MCV MCH MCHC RDW Plt Count MPV Immature Gran % (Auto) Neut % (Auto) Lymph % (Auto) [place] % (Auto) Eos % (Auto) Baso % (Auto) Lymph # (Auto) [place] # (Auto) Eos # (Auto) Baso # (Auto) Abs Immat Gran (auto) Absolute Neuts (auto) Absolute Nucleated RBC Nucleated RBC % (auto) Neutrophils % (Manual) Band Neutrophils % Lymphocytes % (Manual) Atypical Lymphs % (Man) Monocytes % (Manual) Promyelocytes % Abs Neuts (Manual) Lymphocytes # (Manual) Atyp Lymphs # (Manual) Monocytes # (Manual) Promyelocytes # Nucleated RBCs Smudge Cells Toxic Granulation Toxic Vacuolation Dohle Bodies Platelet Estimate Large Platelets Plt Morphology Comment RBC Morphology Polychromasia Tear Drop Cells [place] Cells VBG pH VBG pCO2 VBG pO2 VBG HCO3 VBG O2 Saturation VBG Base Excess Sodium Potassium Chloride Carbon Dioxide Anion Gap BUN Creatinine Estim Creat Clear Calc Estimated GFR POC Glucose 145 H 157 H 165 H Random Glucose Calcium Phosphorus Magnesium Total Bilirubin AST ALT Alkaline Phosphatase Ammonia Total Protein Albumin Random Vancomycin 11/12/24 11/12/24 11/12/24 05:36 05:38 07:13 WBC 21.7 H RBC 3.05 L Hgb 10.7 L Hct 28.8 L MCV 94.4 MCH 35.1 H MCHC 37.2 H RDW 13.6 Plt Count 93 L MPV 12.5 H Immature Gran % (Auto) Cancelled Neut % (Auto) Cancelled Lymph % (Auto) Cancelled [place] % (Auto) Cancelled Eos % (Auto) Cancelled Baso % (Auto) Cancelled Lymph # (Auto) Cancelled [place] # (Auto) Cancelled Eos # (Auto) Cancelled Baso # (Auto) Cancelled Abs Immat Gran (auto) Cancelled Absolute Neuts (auto) Cancelled Absolute Nucleated RBC 0.390 H Nucleated RBC % (auto) 1.8 H Neutrophils % (Manual) 87 H Band Neutrophils % 6 H Lymphocytes % (Manual) 2 L Atypical Lymphs % (Man) 1 Monocytes % (Manual) 2 Promyelocytes % 2 Abs Neuts (Manual) 20.2 H Lymphocytes # (Manual) 0.4 L Atyp Lymphs # (Manual) 0.2 Monocytes # (Manual) 0.4 Promyelocytes # 0.4 Nucleated RBCs 4 H Smudge Cells PRESENT Toxic Granulation PRESENT Toxic Vacuolation PRESENT Dohle Bodies PRESENT Platelet Estimate DECREASED Large Platelets PRESENT Plt Morphology Comment NOTED RBC Morphology NOTED Polychromasia 1+ (0-2) Tear Drop Cells 2+ (3-5) [place] Cells 1+ (0-2) VBG pH 7.34 VBG pCO2 30 VBG pO2 66 VBG HCO3 16 L VBG O2 Saturation 86.0 VBG Base Excess -7.9 Sodium 142 Potassium 6.0 H* D Chloride 97 Carbon Dioxide 17 L Anion Gap 34 H BUN 193 H Creatinine 7.72 H* Estim Creat Clear Calc 10.3 Estimated GFR 7 POC Glucose Random Glucose 181 H Calcium 8.0 L Phosphorus 8.3 H Magnesium 3.5 H* Total Bilirubin 10.6 H AST 148 H ALT 64 H Alkaline Phosphatase 148 H Ammonia 54 Total Protein 6.2 L Albumin 2.9 L Random Vancomycin 20.4 H Microbiology Microbiology Results: Microbiology 11/10/24 11:13 Blood - Venous Blood Culture - Preliminary No growth after 24 hours. 11/10/24 11:13 Blood - Venous Blood Culture - Preliminary No growth after 24 hours. 11/07/24 07:02 Blood - Venous Blood Culture - Final Staphylococcus aureus Coag negative Staphylococcus 11/08/24 04:10 Blood - Venous Blood Culture - Final Staphylococcus aureus 11/08/24 04:10 Blood - Venous Blood Culture - Final Staphylococcus aureus 11/07/24 07:01 Blood - Venous Blood Culture - Final Staphylococcus aureus Progress Note: A&P Assessment and plan (1) Polysubstance abuse: Status: Acute (2) Cardiac arrest: Status: Acute (3) Hyperbilirubinemia: Status: Acute (4) Acute kidney injury: Status: Acute (5) MSSA bacteremia: Status: Acute (6) Acute hypoxemic respiratory failure: Status: Acute (7) Bilateral pneumonia: Status: Acute Plan Assessment: 69-year-old gentleman admitted with acute hypoxic respiratory failure with metabolic acidosis status post cardiac arrest with return of spontaneous circulation after 2 rounds of CPR, with hospital course complicated 3 additional cardiac arrest, all with successful resuscitation. Plan: Neuro: Likely underlying ischemic encephalopathy from multiple cardiac arrests, tolerating ventilatory support without sedation, intermittently moves all 4 extremities spontaneously. Cardiac: Multiple cardiac arrests with return of spontaneous circulation after several rounds of CPR. 2D echo with mildly decreased systolic function. Pulmonary: Acute hypoxic respiratory failure initially requiring essentially maximum ventilatory support, now improving slowly. Underlying COVID-19 and possible aspiration component. Continue to titrate off as tolerated. Completed dexamethasone course. Bibasilar pneumonia, cavitary on the right. Renal: Acute renal failure with improved lactic metabolic acidosis, likely from ischemic ATN. Essentially anuric. Continue to monitor renal indices and urine output. Will likely require hemodialysis. Endo: No acute issues. GI: Hyperbilirubinemia, likely secondary to cholestasis. Abdominal ultrasound with evidence of gallbladder sludge. ID: MSSA bacteremia, switching antibiotics to ceftriaxone. If cultures continue to remain positive, may require ANAMARIA for endocarditis evaluation. Heme/Onc: No acute issues. Psych: No acute issues. Miscellaneous: Underlying polysubstance abuse. Prophylaxis: Heparin, famotidine Diet: Tube feeds Critical care time spent: 60 minutes Quality Stroke Does the patient have a stroke diagnosis?: No VTE Prior VTE?: No VTE Risk Level:: Medical - moderate - high VTE Device Contraindication: Treatment Not Indicated VTE Drug Contraindication: N/A - Med Ordered
[2024-11-12 12:07] LABS: Glucose, Whole Blood 159 mg/dL (60-115)
[2024-11-12] MEDS: fentaNYL citrate/NS 1,000 MCG/100 ML PLAST..BAG 5 MCG IVCONT (12:34)
[2024-11-12] MEDS: NOREPINEPHRINE BITARTRATE IVCONT (16:06)
[2024-11-12] MEDS: DEXTROSE 5% IVCONT (16:06)
[2024-11-12 18:14] LABS: Glucose, Whole Blood 175 mg/dL (60-115)
--- NOTE | 2024-11-12 19:14 | HO.SKINPHOTO ---
Location: Left Groin Category: MASD Location: Right Groin Category: MASD
[2024-11-12] MEDS: fentaNYL citrate/NS 1,000 MCG/100 ML PLAST..BAG 20 MCG IVCONT (19:15)
[2024-11-12 23:58] LABS: Glucose, Whole Blood 182 mg/dL (60-115)
[2024-11-13] VITALS (43 sets, daily range): BP systolic 76–154; BP diastolic 45–86; PULSE 66–117; RESP 20–26; TEMP 34.7–36.9; O2SAT 86–96; BMI 25.9
[2024-11-13] MEDS: fentaNYL citrate/NS 1,000 MCG/100 ML PLAST..BAG 7.5 MCG IVCONT ×2 (04:55→17:50)
[2024-11-13 05:52] LABS: VBG HCO3 14 mmol/L (22-26); VBG O2 % Saturation 93.0 %
[2024-11-13 05:55] LABS: Venous Blood Gas Refer to POC result
[2024-11-13 06:19] LABS: Hematocrit 28.3 % (42.0-52.0); Hemoglobin 10.5 g/dl (14.0-18.0); Mean Corpuscular HGB Conc 37.1 g/dl (31.0-36.0); Mean Corpuscular Hemoglobin 36.1 pg (27.0-33.0); Mean Corpuscular Volume 97.3 fL (80.0-98.0); NRBC Abs Auto 0.300 X10*3/uL (0.0-0.012); PLT CLUMP 1; Red Blood Count 2.91 X10*6/uL (4.60-5.80)
[2024-11-13 06:20] LABS: NRBC Pct Auto 1.2 /100WBC (0.0-0.2)
[2024-11-13 06:21] LABS: Platelet Count 110 X10*3/uL (160-400); White Blood Count 25.5 X10*3/uL (4.8-10.8)
[2024-11-13 06:28] LABS: Alanine Aminotransferase 88 U/L (0-40); Albumin Level 2.7 g/dL (3.5-5.0); Alkaline Phosphatase 230 U/L (39-117); Anion Gap 40 (12-20); Aspartate Amino Transferase 184 U/L (5-37); Calcium 8.0 mg/dL (8.4-10.2); Carbon Dioxide 11 mmol/L (22-29); Chloride 99 mmol/L (96-108); Creatinine Clr Calc Pharmacy 9.1; Estimated Glomerular Filt Rate 6; Magnesium 4.3 mg/dL (1.6-2.6); Potassium 7.7 mmol/L (3.3-5.1); Sodium 142 mmol/L (135-145); Total Protein 6.3 g/dL (6.5-8.0)
[2024-11-13 06:36] LABS: Blood Urea Nitrogen 242 mg/dL (9-16)
[2024-11-13] MEDS: Calcium Gluconate/NaCl,Iso-Osm 1 GM/50 ML PLAST..BAG IV (06:45)
[2024-11-13 06:59] LABS: Glucose, Whole Blood 173 mg/dL (60-115)
[2024-11-13 07:08] LABS: Band Neutrophils Percent 3 % (3-5); Lymphocytes Absolute Manual 0.5 X10*3/uL (1.2-4.9); Lymphocytes Percent Manual 2 % (20-40); Metamyelocytes Absolute 0.8 X10*3/uL; Metamyelocytes Percent 3 %; Monocytes Absolute Manual 0.5 X10*3/uL (0.1-1.2); Monocytes Percent Manual 2 % (2-11); Myelocytes Absolute 0.3 X10*/uL; Myelocytes Percent 1 %; Neutrophils Absolute Manual 23.5 X10*3/uL (2.0-8.3); Neutrophils Percent Manual 89 % (45-73)
[2024-11-13 07:15] LABS: Macrocytosis 1+ (5-14) /OIF; Polychromasia 1+ (0-2) /OIF; RBC Morphology NOTED
[2024-11-13 07:16] LABS: Large Platelet PRESENT; Toxic Vacuolation PRESENT
[2024-11-13] MEDS: 0.9 % Sodium Chloride Flush 3 ML SYRINGE IVFLUSH ×2 (08:15→15:43)
[2024-11-13] MEDS: Chlorhexidine Gluc Oral Rinse 15 ML MOUTHWASH BUCCAL ×3 (08:15→20:19)
--- NOTE | 2024-11-13 10:22 | PM.CCPN ---
Subjective Subjective Date of Service: 11/13/24 Interval History: 69-year-old gentleman with underlying hypertension, anxiety, ? ADHD, substance abuse presented on 12/08/2024 with respiratory distress requiring immediate intubation complicated by pea re-intubation cardiac arrest with return of spontaneous circulation after 2 rounds of CPR. Initial workup significant for profound hypoxemia, lactic acidosis with acute renal failure, and COVID positivity. Patient started on empiric broad-spectrum antibiotics, pressor support, and dexamethasone and admitted to the intensive care unit. Patient with 3 additional cardiac arrests on 11/07/2024, with CPR started immediately and returned spontaneous circulation achieved with an 1-2 rounds of CPR each time. CT chest with evidence of bibasilar pneumonia, cavitary on the right. Blood cultures growing MSSA. Now with stabilized, but still high ventilatory support requirements, though improving slowly. No events overnight. Renal function and hyperbilirubinemia continue to worsen. Requires hemodialysis today. Critical Care Time (minutes): 60 Physical Exam Vital Signs: Vital Signs: Last Vital Signs Temp 96.6 F L 11/13/24 09:00 Pulse 68 11/13/24 09:00 Resp 21 H 11/13/24 09:00 BP 128/54 L 11/13/24 09:00 Pulse Ox 94 11/13/24 09:00 O2 Del Method Mechanical Ventil ation 11/13/24 09:00 FiO2 45 11/13/24 09:00 BMI result Body Mass Index 25.9 Const: General: no acute distress and other (Sedated on ventilatory support) Eyes: Sclerae: sclerae normal Neck: Neck: Yes no lymphadenopathy, Yes trachea midline and Yes supple Resp: Auscultation: crackles (Bilateral) Cardio: Rate: regular rate Rhythm: regular rhythm Heart sounds: no gallops, no murmurs and no rubs GI: Palpation (GI): Soft to palpation and Other GI palpation findings present ( Nontender) Auscultation: normal bowel sounds Extrem: General: Yes no pedal edema, No clubbing and No cyanosis Objective Data Labs 11/13/24 05:36 11/13/24 05:36 Labs: Laboratory Results - last 24 hr 11/12/24 11/12/24 11/12/24 12:04 17:38 23:54 WBC RBC Hgb Hct MCV MCH MCHC RDW Plt Count MPV Immature Gran % (Auto) Neut % (Auto) Lymph % (Auto) [place] % (Auto) Eos % (Auto) Baso % (Auto) Lymph # (Auto) [place] # (Auto) Eos # (Auto) Baso # (Auto) Abs Immat Gran (auto) Absolute Neuts (auto) Absolute Nucleated RBC Nucleated RBC % (auto) Neutrophils % (Manual) Band Neutrophils % Lymphocytes % (Manual) Monocytes % (Manual) Metamyelocytes % Myelocytes % Abs Neuts (Manual) Lymphocytes # (Manual) Monocytes # (Manual) Metamyelocytes # Myelocytes # Nucleated RBCs Toxic Vacuolation Platelet Estimate Large Platelets Plt Morphology Comment RBC Morphology Polychromasia Macrocytosis VBG pH VBG pCO2 VBG pO2 VBG HCO3 VBG O2 Saturation VBG Base Excess Sodium Potassium Chloride Carbon Dioxide Anion Gap BUN Creatinine Estim Creat Clear Calc Estimated GFR POC Glucose 159 H 175 H 182 H Random Glucose Calcium Phosphorus Magnesium Total Bilirubin AST ALT Alkaline Phosphatase Total Protein Albumin 11/13/24 11/13/24 11/13/24 05:36 05:47 06:13 WBC 25.5 H RBC 2.91 L Hgb 10.5 L Hct 28.3 L MCV 97.3 MCH 36.1 H MCHC 37.1 H RDW 13.7 Plt Count 110 L MPV 13.5 H Immature Gran % (Auto) Cancelled Neut % (Auto) Cancelled Lymph % (Auto) Cancelled [place] % (Auto) Cancelled Eos % (Auto) Cancelled Baso % (Auto) Cancelled Lymph # (Auto) Cancelled [place] # (Auto) Cancelled Eos # (Auto) Cancelled Baso # (Auto) Cancelled Abs Immat Gran (auto) Cancelled Absolute Neuts (auto) Cancelled Absolute Nucleated RBC 0.300 H Nucleated RBC % (auto) 1.2 H Neutrophils % (Manual) 89 H Band Neutrophils % 3 Lymphocytes % (Manual) 2 L Monocytes % (Manual) 2 Metamyelocytes % 3 Myelocytes % 1 Abs Neuts (Manual) 23.5 H Lymphocytes # (Manual) 0.5 L Monocytes # (Manual) 0.5 Metamyelocytes # 0.8 Myelocytes # 0.3 Nucleated RBCs 1 H Toxic Vacuolation PRESENT Platelet Estimate DECREASED Large Platelets PRESENT Plt Morphology Comment NOTED RBC Morphology NOTED Polychromasia 1+ (0-2) Macrocytosis 1+ (5-14) VBG pH 7.28 L VBG pCO2 29 VBG pO2 80 VBG HCO3 14 L VBG O2 Saturation 93.0 VBG Base Excess -11.0 Sodium 142 Potassium 7.7 H* D Chloride 99 Carbon Dioxide 11 L Anion Gap 40 H BUN 242 H Creatinine 8.75 H* Estim Creat Clear Calc 9.1 Estimated GFR 6 POC Glucose 173 H Random Glucose 182 H Calcium 8.0 L Phosphorus 10.7 H Magnesium 4.3 H* Total Bilirubin 11.9 H AST 184 H ALT 88 H Alkaline Phosphatase 230 H Total Protein 6.3 L Albumin 2.7 L Microbiology Microbiology Results: Microbiology 11/10/24 11:13 Blood - Venous Blood Culture - Preliminary No growth after 48 hours. 11/10/24 11:13 Blood - Venous Blood Culture - Preliminary No growth after 48 hours. 11/07/24 07:02 Blood - Venous Blood Culture - Final Staphylococcus aureus Coag negative Staphylococcus 11/08/24 04:10 Blood - Venous Blood Culture - Final Staphylococcus aureus 11/08/24 04:10 Blood - Venous Blood Culture - Final Staphylococcus aureus 11/07/24 07:01 Blood - Venous Blood Culture - Final Staphylococcus aureus Progress Note: A&P Assessment and plan (1) Polysubstance abuse: Status: Acute (2) Cardiac arrest: Status: Acute (3) Hyperbilirubinemia: Status: Acute (4) Acute kidney injury: Status: Acute (5) MSSA bacteremia: Status: Acute (6) Acute hypoxemic respiratory failure: Status: Acute (7) Bilateral pneumonia: Status: Acute Plan Assessment: 69-year-old gentleman admitted with acute hypoxic respiratory failure with metabolic acidosis status post cardiac arrest with return of spontaneous circulation after 2 rounds of CPR, with hospital course complicated 3 additional cardiac arrest, all with successful resuscitation. Plan: Neuro: Likely underlying ischemic encephalopathy from multiple cardiac arrests, intermittently moves all 4 extremities spontaneously. Cardiac: Multiple cardiac arrests with return of spontaneous circulation after several rounds of CPR. 2D echo with mildly decreased systolic function. Pulmonary: Acute hypoxic respiratory failure initially requiring essentially maximum ventilatory support, now improving slowly. Underlying COVID-19 and possible aspiration component. Continue to titrate off as tolerated. Completed dexamethasone course. Bibasilar pneumonia, cavitary on the right. Renal: Acute renal failure with improved lactic metabolic acidosis, likely from ischemic ATN. Essentially anuric. Continue to monitor renal indices and urine output. Nephrology service care consulted for hemodialysis. Endo: No acute issues. GI: Hyperbilirubinemia, likely secondary to cholestasis. Abdominal ultrasound with evidence of gallbladder sludge. ID: MSSA bacteremia, switching antibiotics to ceftriaxone. If cultures continue to remain positive, may require ANAMARIA for endocarditis evaluation. Heme/Onc: No acute issues. Psych: No acute issues. Miscellaneous: Underlying polysubstance abuse. Prophylaxis: Heparin, famotidine Diet: Tube feeds Critical care time spent: 60 minutes excluding separately billable procedures Quality Stroke Does the patient have a stroke diagnosis?: No VTE Prior VTE?: No VTE Risk Level:: Medical - moderate - high VTE Device Contraindication: Treatment Not Indicated VTE Drug Contraindication: N/A - Med Ordered
--- NOTE | 2024-11-13 10:25 | W.PM.CCHP ---
Procedures Date of Service Date of Service: 11/13/24 Central Line Placement Left IJ: Central Line Comments: Patient with worsening metabolic acidosis and significant hyperkalemia requiring emergent hemodialysis. Emergent left internal jugular double-lumen hemodialysis catheter placed under ultrasound guidance and usual sterile conditions with no immediate complications. Line position verified on chest x-ray.
--- NOTE | 2024-11-13 10:56 | PM.CNNEP ---
History of Present Illness Reason for Consult Consult date: 11/13/24 Chief Complaint Chief complaint: Cardiac arrest History of Present Illness Narrative: 69 y/o male with a history of HTN, anxiety, substance abuse presented 11/07/24 with respiratory distress requiring intubation. Has had 4 cardiac arrests during this hospital stay, one prior to intubation, 1-3 rounds of CPR for each arrest before acheiving rosc. CT suggests right cavitary pneumonia; blood cultures +mssa. Nephrology consulted for acute renal failure requiring dialysis. creatinine 2.02 on presentation, previous creatinine available prior to hospitalization 1.52 in April 2024. Creatinine steadily increasing from presentation. Today, 11/13 is 8.75. BUN is 242. Hyperkalemia 7.7, magnesium 4.3, serum bicarb 11. Patient is not making urine. Per [facility] review patient has been making anywhere from 0ml to 40ml of urine daily since arrival. Has been incontinent of stool several times. remains intubated, sedated and on vasopressors. Review of Systems Review of Systems Yes unobtainable due to endotracheal tube, Unobtainable due to mental condition and Unobtainable due to mental status PMFSH Past Medical History Medical History HTN (hypertension) Social History Social History Household Members: Unknown / Unable to assess Housing: Unknown / Unable to assess Alcohol intake: current Alcohol intake frequency: 0-2 drinks per day Patient Tobacco Use Status: Tobacco use Unknown Currently Displaying Signs/Symptoms of Drug Intoxication Withdrawal: No Advance Directives: No Advance Directives Information Provided: No Do you have a plan to hurt others: No Plan Meds Allergies Allergy/AdvReac Type Severity Reaction Status Date / Time Penicillins Allergy Unknown Verified 11/07/24 06:19 ibuprofen AdvReac Difficulty Verified 11/07/24 06:19 Breathing Active Medications: Current Medications Ceftriaxone Sodium (Ceftriaxone Sodium 2 Gm Vial) 2 gm IVPUSH Q24H [facility] Last Admin: 11/13/24 10:41 Dose: 2 gm Chlorhexidine Gluconate (Chlorhexidine Gluc Oral Rinse 15 Ml Mouthwash) 15 ml BUCCAL TID [facility] Last Admin: 11/13/24 08:15 Dose: 15 ml Dextrose (Dextrose 50 % 25 Gm/50 Ml Syringe) 25 gm IVPUSH Q15M PRN PRN Reason: per Hypoglycemia Standing Ord. Last Admin: 11/09/24 12:24 Dose: 25 gm Famotidine (Famotidine/Pf 20 Mg/2 Ml Vial) 20 mg IVPUSH DAILY [facility] Last Admin: 11/13/24 08:15 Dose: 20 mg Heparin Sodium (Porcine) (Heparin Sodium,Porcine 5,000 Unit/Ml Vial) 5,000 unit SUBCUT Q8H [facility] Last Admin: 11/13/24 08:15 Dose: 5,000 unit Heparin Sodium (Porcine) (Heparin Sodium,Porcine 5,000 Unit/Ml Vial) 5,000 unit INTRACATH ONCE ONE Stop: 11/14/24 11:01 Propofol (Diprivan) 1,000 mg in 100 mls @ 0 mls/hr IVCONT .Q0M [facility]; Protocol Last Admin: 11/13/24 08:15 Dose: 30 mcg/kg/min, 14.4 mls/hr Fentanyl (Sublimaze/Ns) 1,000 mcg in 100 mls @ 0 mls/hr IVCONT .Q0M [facility]; Protocol Last Admin: 11/13/24 04:55 Dose: 75 mcg/hr, 7.5 mls/hr Norepinephrine Bitartrate 16 (mg/ Dextrose) 250 mls @ 0 mls/hr IVCONT .Q0M [facility]; Protocol Last Titration: 11/12/24 22:01 Dose: 0.15 mcg/kg/min, 11.25 mls/hr Naloxone HCl (Naloxone Hcl 0.4 Mg/Ml Vial) 0.2 mg IVPUSH Q2M PRN PRN Reason: Excessive sedation or RR < 8 Sodium Chloride (0.9 % Sodium Chloride Flush 3 Ml Syringe) 3 ml IVFLUSH QSHIFT [facility] Last Admin: 11/13/24 08:15 Dose: 3 ml Home Medications ?Medication ?Instructions ?Recorded ?Confirmed ?Last Taken ?Type amlodipine 5 mg tablet 5 mg PO DAILY 11/07/24 11/07/24 Unknown History clonazepam 1 mg tablet 1 mg PO TID anxiety 11/07/24 11/07/24 Unknown History dextroamphetamine-amphetamine 20 1 tab PO BID 11/07/24 11/07/24 Unknown History mg tablet Physical Exam Vital Signs: Last Vital Signs Temp 96.8 F 11/13/24 10:00 Pulse 66 11/13/24 10:00 Resp 21 H 11/13/24 10:00 BP 121/50 L 11/13/24 10:00 Pulse Ox 93 11/13/24 10:00 O2 Del Method Mechanical Ventilation 11/13/24 10:00 FiO2 45 11/13/24 10:00 BMI result Body Mass Index 25.9 Const Other: intubated and sedated. Resp Other: ventilator 45% fiO2 Auscultation: rhonchi Cardio Rate: regular rate Rhythm: regular rhythm Heart sounds: S1 normal heart sound present and S2 normal heart sound present GI Palpation (GI): Soft to palpation and nontender Skin Rashes: no rashes Extrem General: Yes edema (bilateral hand edema, no lower extremity edema. ) Results Lab Results 11/13/24 05:36 11/13/24 05:36 Lab results: Chemistry 11/11/24 11/12/24 11/13/24 05:24 05:36 05:36 Sodium 141 142 142 Potassium 4.9 6.0 H* D 7.7 H* D Carbon Dioxide 22 17 L 11 L BUN 134 H 193 H 242 H Creatinine 6.70 H* 7.72 H* 8.75 H* Calcium 8.4 8.0 L 8.0 L Phosphorus 6.1 H 8.3 H 10.7 H Hematology 11/11/24 11/12/24 11/13/24 05:24 05:36 05:36 WBC 25.8 H 21.7 H 25.5 H Hgb 10.7 L 10.7 L 10.5 L Plt Count 92 L 93 L 110 L Assessment and Plan (1) Acute renal failure: Qualifiers: Acute renal failure type: unspecified Qualified Code(s): N17.9 - Acute kidney failure, unspecified Status: Acute (2) Metabolic acidosis: Status: Acute (3) Hyperkalemia: Status: Acute Plan Acute renal failure likely multifactorial with severe metablic acidosis and hyperkalemia ischemic ATN from hypotension mssa bactermia and sepsis likely contributing as well to tubular injury vacomycin-related injury also likely given elevated levels of vancomycin cannot rule out GN, AIN- will check UA, urine protein/creatinine ratio and urine eosinophils if patient makes any urine; will also check serum complement levels will check CK to rule out rhabdomyolisis patient has anemia and thrombocytopenia- will check haptoglobin and LDH patient will need urgent dialysis for uremia, anuria, hyperkalemia and severe metabolic acidosis- patient has been given insulin, dextrose and calcium gluconate for immediate treatment of hyperkalemia. 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 Line has already been placed by ICU attending- left IJ. Will run even today, 3 hours of treatment at low blood flow rate as tolerated. Will dialyze again tomorrow morning. Discussed with Dr Brandon. Procedures Date of Service Date of Service: 11/13/24
--- NOTE | 2024-11-13 11:03 | MHC.CLN ---
F/U PT REMAINS INTUBATED AND SEDATED DISCUSSED AT ROUNDS WITH MARILUZ PENDING NEPRO TF RUNNING AT 10ML/HR RECOMMEND NEPRO AT MAX GOAL RATE 30ML/HR WITH 240ML FREE WATER FLUSHES Q 4 HRS TO PROVIDE 1296KCALS (1676KCALS WITH SEDATION; 21KCALS/KG), 58G PROTEIN, 1963ML TOTAL FREE WATER FROM FORMULA AND FLUSHES (25ML/KG) MONITOR TOLERANCE AND LYTES
[2024-11-13 11:20] LABS: Glucose, Whole Blood 158 mg/dL (60-115)
--- NOTE | 2024-11-13 15:37 | MHC.CM.PN ---
PT REMAINS IN ICU ON VENTILATORY SUPPORT AND REQUIRING NEW EMERGENT HD. CM WILL CONTINUE TO FOLLOW FOR PLAN.
[2024-11-13] MEDS: NOREPINEPHRINE BITARTRATE IVCONT (16:48)
[2024-11-13] MEDS: DEXTROSE 5% IVCONT (16:48)
[2024-11-13 18:14] LABS: Glucose, Whole Blood 120 mg/dL (60-115)
[2024-11-13 20:46] LABS: Mean Corpuscular Volume 95.3 fL (80.0-98.0)
[2024-11-13 20:48] LABS: Hematocrit 28.5 % (42.0-52.0); Hemoglobin 10.6 g/dl (14.0-18.0); Mean Corpuscular HGB Conc 37.2 g/dl (31.0-36.0); Mean Corpuscular Hemoglobin 35.5 pg (27.0-33.0); NRBC Abs Auto 0.360 X10*3/uL (0.0-0.012); PLT CLUMP 1; Red Blood Count 2.99 X10*6/uL (4.60-5.80)
[2024-11-13] MEDS: Norepinephrine Bitartrate/NS 16 MG/250 ML PLAST..BAG 17.54 MG IVCONT (20:54)
[2024-11-13 21:05] LABS: NRBC Pct Auto 1.4 /100WBC (0.0-0.2); PLT ABN DIST 1
[2024-11-13 21:06] LABS: Albumin Level 2.8 g/dL (3.5-5.0); Anion Gap 31 (12-20); Calcium 8.5 mg/dL (8.4-10.2); Carbon Dioxide 21 mmol/L (22-29); Chloride 97 mmol/L (96-108); Creatinine Clr Calc Pharmacy 11.9; Estimated Glomerular Filt Rate 8; Magnesium 3.1 mg/dL (1.6-2.6); Potassium 5.8 mmol/L (3.3-5.1); Sodium 143 mmol/L (135-145); White Blood Count 25.2 X10*3/uL (4.8-10.8)
[2024-11-13 21:07] LABS: Platelet Count 107 X10*3/uL (160-400)
[2024-11-13 21:24] LABS: Blood Urea Nitrogen 155 mg/dL (9-16)
[2024-11-14] VITALS (46 sets, daily range): BP systolic 77–161; BP diastolic 45–88; PULSE 74–141; RESP 12–122; TEMP 35–38.3; O2SAT 90–98; BMI 26.2
[2024-11-14 00:22] LABS: Glucose, Whole Blood 96 mg/dL (60-115)
[2024-11-14] MEDS: 0.9 % Sodium Chloride Flush 3 ML SYRINGE IVFLUSH ×3 (00:41→16:30)
[2024-11-14 05:29] LABS: VBG HCO3 20 mmol/L (22-26); VBG O2 % Saturation 74.0 %
[2024-11-14 05:53] LABS: Hematocrit 28.6 % (42.0-52.0); Hemoglobin 10.6 g/dl (14.0-18.0); Mean Corpuscular HGB Conc 37.1 g/dl (31.0-36.0); Mean Corpuscular Hemoglobin 35.1 pg (27.0-33.0); Mean Corpuscular Volume 94.7 fL (80.0-98.0); NRBC Abs Auto 0.340 X10*3/uL (0.0-0.012); Platelet Count 113 X10*3/uL (160-400); Red Blood Count 3.02 X10*6/uL (4.60-5.80); White Blood Count 23.1 X10*3/uL (4.8-10.8)
[2024-11-14 05:54] LABS: NRBC Pct Auto 1.5 /100WBC (0.0-0.2); PLT ABN DIST 1
[2024-11-14 06:17] LABS: Band Neutrophils Percent 2 % (3-5); Basophilic Stippling 1+ (0-2) /OIF; Lymphocytes Absolute Manual 1.2 X10*3/uL (1.2-4.9); Lymphocytes Percent Manual 5 % (20-40); Metamyelocytes Absolute 0.2 X10*3/uL; Metamyelocytes Percent 1 %; Monocytes Absolute Manual 0.9 X10*3/uL (0.1-1.2); Monocytes Percent Manual 4 % (2-11); Neutrophils Absolute Manual 20.8 X10*3/uL (2.0-8.3); Neutrophils Percent Manual 88 % (45-73); Ovalocytes 1+ (5-14) /OIF; Polychromasia 1+ (0-2) /OIF; RBC Morphology NOTED; Target Cells 1+ (5-14) /OIF; Tear Drop Cells 1+ (0-2) /OIF
[2024-11-14 06:18] LABS: Burr Cells 1+ (0-2) /OIF
[2024-11-14 06:19] LABS: Dohle Bodies PRESENT; Large Platelet PRESENT; Toxic Vacuolation PRESENT
[2024-11-14 06:29] LABS: Alanine Aminotransferase 120 U/L (0-40); Albumin Level 2.6 g/dL (3.5-5.0); Alkaline Phosphatase 363 U/L (39-117); Anion Gap 33 (12-20); Aspartate Amino Transferase 225 U/L (5-37); Calcium 8.1 mg/dL (8.4-10.2); Carbon Dioxide 18 mmol/L (22-29); Chloride 99 mmol/L (96-108); Creatinine Clr Calc Pharmacy 10.8; Estimated Glomerular Filt Rate 7; Magnesium 3.4 mg/dL (1.6-2.6); Potassium 6.5 mmol/L (3.3-5.1); Sodium 143 mmol/L (135-145); Total Protein 6.2 g/dL (6.5-8.0)
[2024-11-14 07:13] LABS: Blood Urea Nitrogen 173 mg/dL (9-16)
[2024-11-14] MEDS: fentaNYL citrate/NS 1,000 MCG/100 ML PLAST..BAG 10 MCG IVCONT ×2 (07:22→16:56)
[2024-11-14] MEDS: Albumin Human 25 % 100 ML IV ×3 (07:54→20:32)
[2024-11-14 08:28] LABS: Venous Blood Gas Refer to POC result
--- NOTE | 2024-11-14 09:40 | W.PM.DNNEP ---
Subjective Subjective Date of Service: 11/14/24 This patient was seen during dialysis. Interval history: Patient here with respiratory failure requiring intubation- cavitary penumonia, lactic acidosis, MSSA bacteremia, covid+, on vasopressor support. Following for renal failure requiring dialysis. patient is intubated/sedated on vasopressor support, dialysis session just started. received first session of HD yesterday afternoon, second this a.m.- K 6.5 this a.m. Pt remains anuric. Physical Exam Vital Signs: Vital Signs: Last Vital Signs Temp 100.4 F 11/14/24 08:00 Pulse 121 H 11/14/24 09:28 Resp 32 H 11/14/24 08:00 BP 87/51 L 11/14/24 09:28 Pulse Ox 97 11/14/24 08:00 O2 Del Method Mechanical Ventil ation 11/14/24 08:00 FiO2 50 11/14/24 08:07 BMI result Body Mass Index 26.2 Const: Other: intubated and sedated. Resp: Other: ventilator 45% fiO2 Auscultation: rhonchi Cardio: Rate: regular rate Rhythm: regular rhythm Heart sounds: S1 normal heart sound present and S2 normal heart sound present GI: Palpation (GI): Soft to palpation and nontender Skin: Rashes: no rashes Extrem: General: Yes edema (bilateral hand edema, no lower extremity edema. ) Assessment & Plan Assessment and plan (1) Acute renal failure: Status: Acute (2) Metabolic acidosis: Status: Acute (3) Hyperkalemia: Status: Acute Plan Acute renal failure likely multifactorial with severe metablic acidosis and hyperkalemia septic and ischemic ATN vacomycin-related injury also likely given elevated levels of vancomycin cannot rule out GN, AIN- will check UA, urine protein/creatinine ratio and urine eosinophils if patient makes any urine serum complement levels pending will check CK unremarkable patient has anemia and thrombocytopenia- LDH elevated at 588, though haptoglobin is normal, unlikely hemolytic anemia patient will need continued dialysis for uremia, anuria, hyperkalemia and management of metabolic acidosis. left IJ temporary HD catheter in place. H&H 10.6 & 28.6, no indication for procrit at this time patient fluid balance positive- have been running even given hypotension, will attempt to remove fluid tomorrow if blood pressure tolerates. metabolic acidosis correcting with HD Discussed with Dr Brandon. Time Spent With Patient Time: Total time managing care of this patient today ____ minutes. Procedures Date of Service Date of Service: 11/14/24
[2024-11-14] MEDS: Chlorhexidine Gluc Oral Rinse 15 ML MOUTHWASH BUCCAL ×3 (09:51→20:31)
--- NOTE | 2024-11-14 10:17 | PM.CCPN ---
Subjective Subjective Date of Service: 11/14/24 Interval History: 69-year-old gentleman with underlying hypertension, anxiety, ? ADHD, substance abuse presented on 12/08/2024 with respiratory distress requiring immediate intubation complicated by pea re-intubation cardiac arrest with return of spontaneous circulation after 2 rounds of CPR. Initial workup significant for profound hypoxemia, lactic acidosis with acute renal failure, and COVID positivity. Patient started on empiric broad-spectrum antibiotics, pressor support, and dexamethasone and admitted to the intensive care unit. Patient with 3 additional cardiac arrests on 11/07/2024, with CPR started immediately and returned spontaneous circulation achieved with an 1-2 rounds of CPR each time. CT chest with evidence of bibasilar pneumonia, cavitary on the right. Blood cultures growing MSSA. Now with improving ventilatory requirements, however with development of HARSH likely secondary to ATN initiated on hemodialysis on 11/13/2024. Also, with rising hyperbilirubinemia. No events overnight. Critical Care Time (minutes): 60 Physical Exam Vital Signs: Vital Signs: Last Vital Signs Temp 99.0 F 11/14/24 09:00 Pulse 121 H 11/14/24 09:28 Resp 25 H 11/14/24 09:00 BP 87/51 L 11/14/24 09:28 Pulse Ox 98 11/14/24 09:00 O2 Del Method Mechanical Ventil ation 11/14/24 09:00 FiO2 50 11/14/24 09:00 BMI result Body Mass Index 26.2 Const: General: no acute distress and other (Sedated on ventilatory support) HEENT: Head: Yes atraumatic Eyes: General: appearance normal, both eyes and all related structures Sclerae: sclerae normal Neck: Neck: Yes supple Lymphatic: no lymphadenopathy noted Resp: Auscultation: crackles (Mild bilateral) Cardio: Rate: tachycardic Rhythm: regular rhythm Heart sounds: no gallops, no murmurs and no rubs GI: Palpation (GI): Soft to palpation and Other GI palpation findings present ( Nontender) Auscultation: normal bowel sounds Skin: General skin exam: other ( warm) Extrem: General: No clubbing, No cyanosis and Yes edema (1+ bilateral) Objective Data Labs 11/14/24 05:10 11/14/24 05:10 Labs: Laboratory Results - last 24 hr 11/13/24 11/13/2411/13/25 11:14 12:56 17:59 WBC RBC Hgb Hct MCV MCH MCHC RDW Plt Count MPV Immature Gran % (Auto) Neut % (Auto) Lymph % (Auto) [place] % (Auto) Eos % (Auto) Baso % (Auto) Lymph # (Auto) [place] # (Auto) Eos # (Auto) Baso # (Auto) Abs Immat Gran (auto) Absolute Neuts (auto) Absolute Nucleated RBC Nucleated RBC % (auto) Neutrophils % (Manual) Band Neutrophils % Lymphocytes % (Manual) Monocytes % (Manual) Metamyelocytes % Abs Neuts (Manual) Lymphocytes # (Manual) Monocytes # (Manual) Metamyelocytes # Toxic Vacuolation Dohle Bodies Platelet Estimate Large Platelets Plt Morphology Comment RBC Morphology Polychromasia Basophilic Stippling Target Cells Tear Drop Cells Ovalocytes Nuris Cells VBG pH VBG pCO2 VBG pO2 VBG HCO3 VBG O2 Saturation VBG Base Excess Sodium Potassium Chloride Carbon Dioxide Anion Gap BUN Creatinine Estim Creat Clear Calc Estimated GFR POC Glucose 158 H 120 H Random Glucose Haptoglobin 226 Calcium Phosphorus Magnesium Total Bilirubin AST ALT Alkaline Phosphatase Lactate Dehydrogenase 588 H Total Creatine Kinase 94 Total Protein Albumin 11/13/24 11/14/24 11/14/24 20:01 00:18 05:10 WBC 25.2 H 23.1 H RBC 2.99 L 3.02 L Hgb 10.6 L 10.6 L Hct 28.5 L 28.6 L MCV 95.3 94.7 MCH 35.5 H 35.1 H MCHC 37.2 H 37.1 H RDW 14.4 13.9 Plt Count 107 L 113 L MPV 13.1 H 13.3 H Immature Gran % (Auto) Cancelled Neut % (Auto) Cancelled Lymph % (Auto) Cancelled [place] % (Auto) Cancelled Eos % (Auto) Cancelled Baso % (Auto) Cancelled Lymph # (Auto) Cancelled [place] # (Auto) Cancelled Eos # (Auto) Cancelled Baso # (Auto) Cancelled Abs Immat Gran (auto) Cancelled Absolute Neuts (auto) Cancelled Absolute Nucleated RBC 0.360 H 0.340 H Nucleated RBC % (auto) 1.4 H 1.5 H Neutrophils % (Manual) 88 H Band Neutrophils % 2 L Lymphocytes % (Manual) 5 L Monocytes % (Manual) 4 Metamyelocytes % 1 Abs Neuts (Manual) 20.8 H Lymphocytes # (Manual) 1.2 Monocytes # (Manual) 0.9 Metamyelocytes # 0.2 Toxic Vacuolation PRESENT Dohle Bodies PRESENT Platelet Estimate SLIGHTLY DECREASED Large Platelets PRESENT Plt Morphology Comment NOTED RBC Morphology NOTED Polychromasia 1+ (0-2) Basophilic Stippling 1+ (0-2) Target Cells 1+ (5-14) Tear Drop Cells 1+ (0-2) Ovalocytes 1+ (5-14) [place] Cells 1+ (0-2) VBG pH VBG pCO2 VBG pO2 VBG HCO3 VBG O2 Saturation VBG Base Excess Sodium 143 143 Potassium 5.8 H D 6.5 H* Chloride 97 99 Carbon Dioxide 21 L 18 L Anion Gap 31 H 33 H BUN 155 H 173 H Creatinine 6.67 H* 7.35 H* Estim Creat Clear Calc 11.9 10.8 Estimated GFR 8 7 POC Glucose 96 Random Glucose 121 H 99 Haptoglobin Calcium 8.5 D 8.1 L Phosphorus 8.1 H 8.2 H Magnesium 3.1 H 3.4 H Total Bilirubin 13.2 H AST 225 H ALT 120 H Alkaline Phosphatase 363 H Lactate Dehydrogenase Total Creatine Kinase Total Protein 6.2 L Albumin 2.8 L 2.6 L 11/14/24 05:26 WBC RBC Hgb Hct MCV MCH MCHC RDW Plt Count MPV Immature Gran % (Auto) Neut % (Auto) Lymph % (Auto) [place] % (Auto) Eos % (Auto) Baso % (Auto) Lymph # (Auto) [place] # (Auto) Eos # (Auto) Baso # (Auto) Abs Immat Gran (auto) Absolute Neuts (auto) Absolute Nucleated RBC Nucleated RBC % (auto) Neutrophils % (Manual) Band Neutrophils % Lymphocytes % (Manual) Monocytes % (Manual) Metamyelocytes % Abs Neuts (Manual) Lymphocytes # (Manual) Monocytes # (Manual) Metamyelocytes # Toxic Vacuolation Dohle Bodies Platelet Estimate Large Platelets Plt Morphology Comment RBC Morphology Polychromasia Basophilic Stippling Target Cells Tear Drop Cells Ovalocytes [place] Cells VBG pH 7.35 VBG pCO2 35 VBG pO2 51 VBG HCO3 20 L VBG O2 Saturation 74.0 VBG Base Excess -4.6 Sodium Potassium Chloride Carbon Dioxide Anion Gap BUN Creatinine Estim Creat Clear Calc Estimated GFR POC Glucose Random Glucose Haptoglobin Calcium Phosphorus Magnesium Total Bilirubin AST ALT Alkaline Phosphatase Lactate Dehydrogenase Total Creatine Kinase Total Protein Albumin Microbiology Microbiology Results: Microbiology 11/10/24 11:13 Blood - Venous Blood Culture - Preliminary No growth after 48 hours. 11/10/24 11:13 Blood - Venous Blood Culture - Preliminary No growth after 48 hours. 11/07/24 07:02 Blood - Venous Blood Culture - Final Staphylococcus aureus Coag negative Staphylococcus 11/08/24 04:10 Blood - Venous Blood Culture - Final Staphylococcus aureus 11/08/24 04:10 Blood - Venous Blood Culture - Final Staphylococcus aureus 11/07/24 07:01 Blood - Venous Blood Culture - Final Staphylococcus aureus Progress Note: A&P Assessment and plan (1) Polysubstance abuse: Status: Acute (2) Cardiac arrest: Status: Acute (3) Hyperbilirubinemia: Status: Acute (4) Acute kidney injury: Status: Acute (5) MSSA bacteremia: Status: Acute (6) Acute hypoxemic respiratory failure: Status: Acute (7) Bilateral pneumonia: Status: Acute Plan Assessment: 69-year-old gentleman admitted with acute hypoxic respiratory failure with metabolic acidosis status post cardiac arrest with return of spontaneous circulation after 2 rounds of CPR, with hospital course complicated 3 additional cardiac arrest, all with successful resuscitation. Plan: Neuro: Likely underlying ischemic encephalopathy from multiple cardiac arrests, intermittently moves all 4 extremities spontaneously. Cardiac: Multiple cardiac arrests with return of spontaneous circulation after several rounds of CPR. 2D echo with mildly decreased systolic function. Pulmonary: Acute hypoxic respiratory failure initially requiring essentially maximum ventilatory support, now improving slowly. Underlying COVID-19 and possible aspiration component. Continue to titrate off as tolerated. Completed dexamethasone course. Bibasilar pneumonia, cavitary on the right. Renal: Acute renal failure with improved lactic metabolic acidosis, likely from ischemic ATN. Essentially anuric. Continue to monitor renal indices and urine output. Nephrology service care appreciated. Continue hemodialysis support. Endo: No acute issues. GI: Hyperbilirubinemia, likely secondary to cholestasis. Abdominal ultrasound with evidence of gallbladder sludge. ID: MSSA bacteremia, continue ceftriaxone. Heme/Onc: No acute issues. Psych: No acute issues. Miscellaneous: Underlying polysubstance abuse. Prophylaxis: Heparin, famotidine Diet: Tube feeds Critical care time spent: 60 minutes Quality Stroke Does the patient have a stroke diagnosis?: No VTE Prior VTE?: No VTE Risk Level:: Medical - moderate - high VTE Device Contraindication: Treatment Not Indicated VTE Drug Contraindication: N/A - Med Ordered
--- NOTE | 2024-11-14 10:41 | MHC.CLN ---
F/U PT REMAINS INTUBATED AND SEDATED DISCUSSED AT ROUNDS WITH -HD STARTED YESTERDAY NEPRO TF RUNNING AT 10ML/HR RECOMMEND NEPRO AT MAX GOAL RATE 30ML/HR WITH 240ML FREE WATER FLUSHES Q 4 HRS TO PROVIDE 1296KCALS (1676KCALS WITH SEDATION; 21KCALS/KG), 58G PROTEIN, 1963ML TOTAL FREE WATER FROM FORMULA AND FLUSHES (25ML/KG) MONITOR TOLERANCE AND LYTES
[2024-11-14 11:31] LABS: Glucose, Whole Blood 101 mg/dL (60-115)
[2024-11-14] MEDS: Norepinephrine Bitartrate/NS 16 MG/250 ML PLAST..BAG 20.88 MG IVCONT (11:57)
--- NOTE | 2024-11-14 16:40 | PC.NURSE ---
Assumed care of patient at 15:00 pm. Titrated Levo down, see flow sheet, currently at 0.12 (MAP in goal range). O2 sat initially 95%. Spoke to MD regarding titrating oxygen down (goal 88-92%). He said that Resp could continue to do that. Spoke to RT Jose. He titrated FI02 from 40% to 30%. Sats 92%, within goal range. Repositioned, tolerated well.
[2024-11-14 17:45] LABS: Glucose, Whole Blood 108 mg/dL (60-115)
[2024-11-14] MEDS: Acetaminophen Oral Liquid 650 MG/20.3 ML SOLUTION PO (20:31)
[2024-11-14 20:39] LABS: Albumin Level 2.8 g/dL (3.5-5.0); Anion Gap 25 (12-20); Blood Urea Nitrogen 113 mg/dL (9-16); Calcium 8.1 mg/dL (8.4-10.2); Carbon Dioxide 24 mmol/L (22-29); Chloride 96 mmol/L (96-108); Creatinine Clr Calc Pharmacy 14.6; Estimated Glomerular Filt Rate 11; Magnesium 2.7 mg/dL (1.6-2.6); Potassium 6.1 mmol/L (3.3-5.1); Sodium 139 mmol/L (135-145)
[2024-11-15] VITALS (43 sets, daily range): BP systolic 88–159; BP diastolic 37–70; PULSE 87–107; RESP 22–108; TEMP 34.7–38.5; O2SAT 85–96; BMI 25.7
[2024-11-15 00:02] LABS: Glucose, Whole Blood 128 mg/dL (60-115)
[2024-11-15] MEDS: 0.9 % Sodium Chloride Flush 3 ML SYRINGE IVFLUSH ×3 (00:30→16:24)
[2024-11-15] MEDS: Albumin Human 25 % 100 ML IV ×4 (01:27→20:41)
[2024-11-15] MEDS: fentaNYL citrate/NS 1,000 MCG/100 ML PLAST..BAG 10 MCG IVCONT (01:54)
[2024-11-15 04:20] LABS: HBS Num1 0.16 mIU/mL (0-7.99); HBc Num1 11.04 S/CO (0.00-0.79); HBsAGNum1 0.29 S/CO (0.00-0.99); Hepatitis B Surface Antigen Negative (Negative); ~Hepatitis B Surface Antibody NONREACTIVE (Nonreactive)
[2024-11-15 05:13] LABS: HBc Num2 11.02 S/CO; HBc Num3 11.15 S/CO
[2024-11-15 05:56] LABS: Venous Blood Gas Refer to POC result
[2024-11-15 05:58] LABS: VBG HCO3 23 mmol/L (22-26)
[2024-11-15 06:22] LABS: Hematocrit 21.6 % (42.0-52.0); Imm Gran Abs Auto 0.81 X10*3/uL (0.00-0.03); Imm Gran Pct Auto 4.9 % (0.0-0.4); Lymphocytes Absolute Auto 0.9 X10*3/uL (1.2-4.9); MANUAL DIFF FLAG SCAN; Mean Corpuscular Volume 95.2 fL (80.0-98.0); NRBC Abs Auto 0.130 X10*3/uL (0.0-0.012); NRBC Pct Auto 0.8 /100WBC (0.0-0.2); PLT CLUMP 1; Red Blood Count 2.27 X10*6/uL (4.60-5.80); SCAN SMEAR FLAG 1
[2024-11-15 06:30] LABS: Alanine Aminotransferase 98 U/L (0-40); Albumin Level 3.0 g/dL (3.5-5.0); Alkaline Phosphatase 493 U/L (39-117); Anion Gap 30 (12-20); Aspartate Amino Transferase 218 U/L (5-37); Calcium 8.1 mg/dL (8.4-10.2); Carbon Dioxide 18 mmol/L (22-29); Chloride 98 mmol/L (96-108); Creatinine Clr Calc Pharmacy 12.8; Estimated Glomerular Filt Rate 9; Magnesium 3.0 mg/dL (1.6-2.6); Potassium 5.8 mmol/L (3.3-5.1); Sodium 140 mmol/L (135-145); Total Protein 6.3 g/dL (6.5-8.0)
[2024-11-15 06:44] LABS: Blood Urea Nitrogen 130 mg/dL (9-16)
[2024-11-15 07:05] LABS: Hemoglobin 7.3 g/dl (14.0-18.0)
[2024-11-15 07:06] LABS: Mean Corpuscular HGB Conc 33.8 g/dl (31.0-36.0); Mean Corpuscular Hemoglobin 32.2 pg (27.0-33.0)
[2024-11-15 07:07] LABS: Platelet Count 95 X10*3/uL (160-400); White Blood Count 16.5 X10*3/uL (4.8-10.8)
[2024-11-15] MEDS: Chlorhexidine Gluc Oral Rinse 15 ML MOUTHWASH BUCCAL ×3 (07:58→20:40)
--- NOTE | 2024-11-15 09:35 | W.PM.DNNEP ---
Subjective Subjective Date of Service: 11/15/24 This patient was seen during dialysis. Interval history: Patient here with respiratory failure requiring intubation- cavitary penumonia, lactic acidosis, MSSA bacteremia, covid+, on vasopressor support. Following for renal failure requiring dialysis, started 11/13. patient is intubated/sedated on vasopressor support, dialysis session just started. Patient receiving third dialysis session today, attempting to pull fluid off as BP tolerates. pt remains anuric. Physical Exam Vital Signs: Vital Signs: Last Vital Signs Temp 100.0 F 11/15/24 09:00 Pulse 100 11/15/24 09:00 Resp 26 H 11/15/24 09:00 BP 130/49 L 11/15/24 09:00 Pulse Ox 89 L 11/15/24 09:00 O2 Del Method Mechanical Ventil ation 11/15/24 09:00 O2 Flow Rate 30 11/15/24 09:00 FiO2 30 11/15/24 08:08 BMI result Body Mass Index 25.7 Const: Other: intubated and sedated. Resp: Auscultation: crackles Cardio: Rate: regular rate Rhythm: regular rhythm Heart sounds: S1 normal heart sound present and S2 normal heart sound present GI: Palpation (GI): Soft to palpation and nontender Skin: Rashes: no rashes Extrem: General: Yes edema (bilateral hand edema, trace LE edema. ) Assessment & Plan Assessment and plan (1) Acute renal failure: Status: Acute (2) Metabolic acidosis: Status: Acute (3) Hyperkalemia: Status: Acute Plan Acute renal failure likely multifactorial with severe metablic acidosis and hyperkalemia septic and ischemic ATN vacomycin-related injury also likely given elevated levels of vancomycin cannot rule out GN, AIN- will check UA, urine protein/creatinine ratio and urine eosinophils if patient makes any urine serum complement levels pending will check CK unremarkable patient has anemia and thrombocytopenia- LDH elevated at 588, though haptoglobin is normal will check for schistocytes given hyperbilirubinemia patient will need continued dialysis for uremia, anuria, hyperkalemia and management of metabolic acidosis. left IJ temporary HD catheter in place. H&H dropped to 7.3&21 from 10.6 & 28.6 yesterday; may be dilutional, consider bleeding workup patient fluid balance positive- will attempt to remove fluid today and tomorrow as blood pressure tolerates metabolic acidosis correcting with HD Discussed with Dr Brandon. Time Spent With Patient Time: Total time managing care of this patient today ____ minutes. Procedures Date of Service Date of Service: 11/15/24
[2024-11-15 09:53] LABS: Band Neutrophils Percent 1 % (3-5); Lymphocytes Absolute Manual 1.0 X10*3/uL (1.2-4.9); Lymphocytes Percent Manual 6 % (20-40); Monocytes Absolute Manual 0.7 X10*3/uL (0.1-1.2); Monocytes Percent Manual 4 % (2-11); Neutrophils Absolute Manual 14.9 X10*3/uL (2.0-8.3); Neutrophils Percent Manual 89 % (45-73)
--- NOTE | 2024-11-15 09:56 | P.PNCC_ITS ---
Subjective Subjective Date of Service: 11/15/24 Interval History: 69-year-old gentleman with underlying hypertension, anxiety, ? ADHD, substance abuse presented on 12/08/2024 with respiratory distress requiring immediate intubation complicated by pea re-intubation cardiac arrest with return of spontaneous circulation after 2 rounds of CPR. Initial workup significant for profound hypoxemia, lactic acidosis with acute renal failure, and COVID positivity. Patient started on empiric broad-spectrum antibiotics, pressor support, and dexamethasone and admitted to the intensive care unit. Patient with 3 additional cardiac arrests on 11/07/2024, with CPR started immediately and returned spontaneous circulation achieved with an 1-2 rounds of CPR each time. CT chest with evidence of bibasilar pneumonia, cavitary on the right. Blood cultures growing MSSA. Now with improving ventilatory requirements, however with development of HARSH likely secondary to ATN initiated on hemodialysis on 11/13/2024. Also, with rising hyperbilirubinemia. No events overnight. Ventilator support requirements continue to improve. Critical Care Time (minutes): 45 Physical Exam 2 Vital Signs: Vital Signs: Last Vital Signs Temp 100.0 F 11/15/24 09:00 Pulse 100 11/15/24 09:00 Resp 26 H 11/15/24 09:00 BP 130/49 L 11/15/24 09:00 Pulse Ox 89 L 11/15/24 09:00 O2 Del Method Mechanical Ventil ation 11/15/24 09:00 O2 Flow Rate 30 11/15/24 09:00 FiO2 30 11/15/24 08:08 BMI result Body Mass Index 25.7 Const: General: no acute distress and other (Sedated on ventilatory support) Eyes: Sclerae: scleral abnormal (Icteric) Neck: Neck: Yes no lymphadenopathy, Yes trachea midline and Yes supple Resp: Auscultation: crackles (Bilateral) Cardio: Rate: tachycardic Rhythm: regular rhythm Heart sounds: no gallops, no murmurs and no rubs GI: Palpation (GI): Soft to palpation and Other GI palpation findings present ( Nontender) Auscultation: normal bowel sounds Extrem: General: No clubbing, No cyanosis and Yes edema (1+ bilateral) Objective Data Labs 11/15/24 05:16 11/15/24 05:16 Labs: Laboratory Results - last 24 hr 11/13/24 11/14/24 11/14/24 12:56 05:10 11:25 WBC RBC Hgb Hct MCV MCH MCHC RDW Plt Count MPV Immature Gran % (Auto) Neut % (Auto) Lymph % (Auto) [place] % (Auto) Eos % (Auto) Baso % (Auto) Lymph # (Auto) [place] # (Auto) Eos # (Auto) Baso # (Auto) Abs Immat Gran (auto) Absolute Neuts (auto) Absolute Nucleated RBC Nucleated RBC % (auto) Smear Tech's Comments VBG pH VBG pCO2 VBG pO2 VBG HCO3 VBG O2 Saturation VBG Base Excess Sodium Potassium Chloride Carbon Dioxide Anion Gap BUN Creatinine 7.35 H* Estim Creat Clear Calc Estimated GFR POC Glucose 101 Random Glucose Calcium Phosphorus Magnesium Total Bilirubin AST ALT Alkaline Phosphatase Total Protein Albumin Complement C3 75 L Complement C4 16 Hep Bs Antigen Hep Bs Antibody Hep B Core Total Ab 11/14/24 11/14/24 11/14/24 14:22 17:35 19:45 WBC RBC Hgb Hct MCV MCH MCHC RDW Plt Count MPV Immature Gran % (Auto) Neut % (Auto) Lymph % (Auto) [place] % (Auto) Eos % (Auto) Baso % (Auto) Lymph # (Auto) [place] # (Auto) Eos # (Auto) Baso # (Auto) Abs Immat Gran (auto) Absolute Neuts (auto) Absolute Nucleated RBC Nucleated RBC % (auto) Smear Tech's Comments VBG pH VBG pCO2 VBG pO2 VBG HCO3 VBG O2 Saturation VBG Base Excess Sodium 139 Potassium 6.1 H* Chloride 96 Carbon Dioxide 24 Anion Gap 25 H BUN 113 H Creatinine 5.45 H* Estim Creat Clear Calc 14.6 Estimated GFR 11 POC Glucose 108 Random Glucose 111 Calcium 8.1 L Phosphorus 7.2 H Magnesium 2.7 H Total Bilirubin AST ALT Alkaline Phosphatase Total Protein Albumin 2.8 L Complement C3 Complement C4 Hep Bs Antigen Negative Hep Bs Antibody NONREACTIVE Hep B Core Total Ab Reactive 11/14/24 11/15/24 11/15/24 23:54 05:16 05:54 WBC 16.5 H RBC 2.27 L D Hgb 7.3 L D Hct 21.6 L D MCV 95.2 MCH 32.2 MCHC 33.8 RDW 13.2 Plt Count 95 L MPV 14.0 H Immature Gran % (Auto) 4.9 H Neut % (Auto) 85.9 H Lymph % (Auto) 5.5 L [place] % (Auto) 3.3 Eos % (Auto) 0.2 Baso % (Auto) 0.2 Lymph # (Auto) 0.9 L [place] # (Auto) 0.5 Eos # (Auto) 0.0 Baso # (Auto) 0.0 Abs Immat Gran (auto) 0.81 H Absolute Neuts (auto) 14.2 H Absolute Nucleated RBC 0.130 H Nucleated RBC % (auto) 0.8 H Smear Tech's Comments VERIFIED VBG pH 7.57 H VBG pCO2 25 VBG pO2 144 VBG HCO3 23 VBG O2 Saturation Not Reportable VBG Base Excess 2.4 Sodium 140 Potassium 5.8 H Chloride 98 Carbon Dioxide 18 L Anion Gap 30 H BUN 130 H Creatinine 6.23 H* Estim Creat Clear Calc 12.8 Estimated GFR 9 POC Glucose 128 H Random Glucose 115 Calcium 8.1 L Phosphorus 7.1 H Magnesium 3.0 H Total Bilirubin 14.1 H AST 218 H ALT 98 H Alkaline Phosphatase 493 H Total Protein 6.3 L Albumin 3.0 L Complement C3 Complement C4 Hep Bs Antigen Hep Bs Antibody Hep B Core Total Ab Microbiology Microbiology Results: Microbiology 11/10/24 11:13 Blood - Venous Blood Culture - Preliminary No growth after 48 hours. 11/10/24 11:13 Blood - Venous Blood Culture - Preliminary No growth after 48 hours. 11/07/24 07:02 Blood - Venous Blood Culture - Final Staphylococcus aureus Coag negative Staphylococcus 11/08/24 04:10 Blood - Venous Blood Culture - Final Staphylococcus aureus 11/08/24 04:10 Blood - Venous Blood Culture - Final Staphylococcus aureus 11/07/24 07:01 Blood - Venous Blood Culture - Final Staphylococcus aureus Progress Note: A&P Assessment and plan (1) Polysubstance abuse: Status: Acute (2) Cardiac arrest: Status: Acute (3) Hyperbilirubinemia: Status: Acute (4) Acute kidney injury: Status: Acute (5) COVID-19: Status: Acute (6) MSSA bacteremia: Status: Acute (7) Acute hypoxemic respiratory failure: Status: Acute (8) Bilateral pneumonia: Status: Acute Plan Assessment: 69-year-old gentleman admitted with acute hypoxic respiratory failure with metabolic acidosis status post cardiac arrest with return of spontaneous circulation after 2 rounds of CPR, with hospital course complicated 3 additional cardiac arrest, all with successful resuscitation. Plan: Neuro: Likely underlying ischemic encephalopathy from multiple cardiac arrests, intermittently moves all 4 extremities spontaneously. Cardiac: Multiple cardiac arrests with return of spontaneous circulation after several rounds of CPR. 2D echo with mildly decreased systolic function. Pulmonary: Acute hypoxic respiratory failure initially requiring essentially maximum ventilatory support. Underlying COVID-19 and possible aspiration component. Continue to titrate off as tolerated. Completed dexamethasone course. Bibasilar pneumonia, cavitary on the right. Ventilator support requirements continue to improve. Renal: Acute renal failure with improved lactic metabolic acidosis, likely from ischemic ATN. Essentially anuric. Continue to monitor renal indices and urine output. Nephrology service care appreciated. Continue hemodialysis support. Endo: No acute issues. GI: Hyperbilirubinemia, likely secondary to cholestasis. Abdominal ultrasound with evidence of gallbladder sludge. ID: MSSA bacteremia, continue ceftriaxone. Heme/Onc: No acute issues. Psych: No acute issues. Miscellaneous: Underlying polysubstance abuse. Prophylaxis: Heparin, famotidine Diet: Tube feeds Critical care time spent: 45 minutes Quality Stroke Does the patient have a stroke diagnosis?: No VTE Prior VTE?: No VTE Risk Level:: Medical - moderate - high VTE Device Contraindication: Treatment Not Indicated VTE Drug Contraindication: N/A - Med Ordered
--- NOTE | 2024-11-15 09:57 | MHC.CM.PN ---
EMR REVIEWED, PT W/MULTIPLE CARDIAC ARRESTS REMAINS VENTED, SEDATED AND ON PRESSORS, CM WILL CONT TO FOLLOW DC NEEDS.
[2024-11-15 09:59] LABS: Polychromasia 1+ (0-2) /OIF; RBC Morphology NOTED; Target Cells 1+ (5-14) /OIF
--- NOTE | 2024-11-15 10:21 | MHC.CLN ---
F/U PT REMAINS INTUBATED AND SEDATED DISCUSSED AT ROUNDS WITH MARILUZ TO CONTINUE NEPRO TF RUNNING AT 30ML/HR RECOMMEND NEPRO AT MAX GOAL RATE 40ML/HR WITH 300ML FREE WATER FLUSHES Q 6 HRS TO PROVIDE 1728KCALS (2108KCALS WITH SEDATION; 26KCALS/KG), 78G PROTEIN, 1898ML TOTAL FREE WATER FROM FORMULA AND FLUSHES (24ML/KG) MONITOR TOLERANCE AND LYTES
[2024-11-15 12:30] LABS: Glucose, Whole Blood 106 mg/dL (60-115)
[2024-11-15] MEDS: Norepinephrine Bitartrate/NS 16 MG/250 ML PLAST..BAG 2.51 MG IVCONT (15:40)
[2024-11-15 17:37] LABS: Glucose, Whole Blood 86 mg/dL (60-115)
--- NOTE | 2024-11-15 19:14 | PC.NURSE ---
Assumed care of patient 0700 Patient dialysis session ongoing. Levophed requirements increased during session but able to titrate back down per protocol when dialysis complete. 2.6 L fluid removed total. Session ended approx 09:40. ETT [place] changed with RT. ETT 7.5, 25@lip. FiO2 requirements increased to 40%. OG tube sluggish and feels occluded. Tube feeds paused 12:30. Notified MD and trouble shooting performed with warm water, push pull motion, without improvement. OG tube removed and New OG tube placed. CXR verified placement and okay to use per MD. Tube feeds resumed 16:30. Patient passed 2 large bowel movements today, dark brown and liquid. Turned and repositioned Q2HR, high fall precautions in place.
[2024-11-15 21:35] LABS: OBS Int Ctl Valid YES; OBS1 POSITIVE (NEGATIVE)
[2024-11-16] VITALS (42 sets, daily range): BP systolic 76–167; BP diastolic 41–73; PULSE 79–109; RESP 22–32; TEMP 34.6–38.7; O2SAT 81–100; BMI 25.7
[2024-11-16 00:12] LABS: Glucose, Whole Blood 92 mg/dL (60-115)
[2024-11-16] MEDS: 0.9 % Sodium Chloride Flush 3 ML SYRINGE IVFLUSH ×3 (00:26→15:18)
[2024-11-16] MEDS: Albumin Human 25 % 100 ML IV (01:56)
[2024-11-16 04:15] LABS: Resp Syncy Virus RNA Qual PCR NEGATIVE (Negative); SARS COV2 PCR INHOUSE POSITIVE (Negative)
[2024-11-16 05:43] LABS: VBG HCO3 23 mmol/L (22-26); VBG O2 % Saturation 76.0 %
[2024-11-16 05:45] LABS: Venous Blood Gas Refer to POC result
[2024-11-16 06:03] LABS: MANUAL DIFF FLAG NO
--- NOTE | 2024-11-16 06:15 | PM.EVENT ---
Documented by User: Selma Lyle NP 11/16/24 06:16 Event Note Date of Service: 11/16/24 Event Note: Hypotension related to dialysis. No evidence of septic shock Time Spent With Patient Time: Total time managing care of this patient today ____ minutes. Documented by User: Monty Steel MD 11/16/24 10:02 Event Note Date of Service: 11/16/24
[2024-11-16] MEDS: Acetaminophen Oral Liquid 650 MG/20.3 ML SOLUTION PO (06:23)
[2024-11-16 06:29] LABS: Alanine Aminotransferase 86 U/L (0-40); Albumin Level 3.5 g/dL (3.5-5.0); Alkaline Phosphatase 457 U/L (39-117); Anion Gap 27 (12-20); Aspartate Amino Transferase 171 U/L (5-37); Blood Urea Nitrogen 113 mg/dL (9-16); Calcium 8.7 mg/dL (8.4-10.2); Carbon Dioxide 22 mmol/L (22-29); Chloride 96 mmol/L (96-108); Creatinine Clr Calc Pharmacy 13.2; Estimated Glomerular Filt Rate 9; Magnesium 2.7 mg/dL (1.6-2.6); Potassium 4.5 mmol/L (3.3-5.1); Sodium 140 mmol/L (135-145); Total Protein 6.6 g/dL (6.5-8.0)
[2024-11-16 06:32] LABS: Hemoglobin 7.5 g/dl (14.0-18.0); Imm Gran Abs Auto 0.42 X10*3/uL (0.00-0.03); Imm Gran Pct Auto 2.8 % (0.0-0.4); Lymphocytes Absolute Auto 0.5 X10*3/uL (1.2-4.9); Mean Corpuscular HGB Conc 37.5 g/dl (31.0-36.0); Mean Corpuscular Hemoglobin 35.2 pg (27.0-33.0); Mean Corpuscular Volume 93.9 fL (80.0-98.0); NRBC Abs Auto 0.060 X10*3/uL (0.0-0.012); NRBC Pct Auto 0.4 /100WBC (0.0-0.2); Platelet Count 103 X10*3/uL (160-400); Red Blood Count 2.13 X10*6/uL (4.60-5.80); White Blood Count 14.9 X10*3/uL (4.8-10.8)
[2024-11-16 06:37] LABS: Hematocrit 20.0 % (42.0-52.0)
--- NOTE | 2024-11-16 07:12 | PC.NURSE ---
Upon initial assessment at approximately 1900: Patient intubated. Sedation remains off since 954. Positive cough, minimal gag. Spontaneously opens eyes, does not track speaker. Does not follow commands. Grimaces with care. Flaccid extremities. Pupils 4mm equal/ reactive, yellow sclera.?Afib on tele, HR 90-110s. MAP >65. Nonpitting edema to bilateral upper extremities. Levophed remains paused, MAP >65. On ACVC+ settings, FiO2 decreased from 40% to 30% to maintain SpO2 99-92% per order. Lungs diminished throughout with coarse crackles to the right lower lobe. Moderate amount of thin clear oral secretions. No inline secretions. Nepro infusing via OGT, no s/s of intolerance. Abd large/round, positive bowel sounds. Incontinent of liquid dark brown stool. Occult Stool positive, INSURANCE PRODUCER Valdo aware. Per INSURANCE PRODUCER, hold SubQ Heparin.?Anuric, male incontinent wrap in place.?TMax 101.3, ice packs in place, PO Tylenol given at approx. 0600. Patient jaundice. Multiple skin integrity concerns, see skin assessment. Approximately 0515: Patient incontinent of stool. When turning patient on side for patient care, SpO2 down to 70s, HR down to 70s, and SBP 80s. Patient placed supine and elevated HOB. COOKIE Lyle notified. Unable to perform patient care/ reposition due to hemodynamically instability. Levophed gtt restarted per JUN. Approximately 0530: Dialysis nurse at bedside to initiate iHD. Bed locked and in lowest position. See EMR/ Flowsheet for further details. Report given to oncoming RN at 0645.
[2024-11-16] MEDS: Chlorhexidine Gluc Oral Rinse 15 ML MOUTHWASH BUCCAL ×3 (08:06→20:03)
[2024-11-16 09:09] LABS: Hepatitis B Core Antibody IgM NON-REACTIVE (NON-REACTIVE)
--- NOTE | 2024-11-16 10:04 | W.PM.DNNEP ---
Subjective Subjective Date of Service: 11/16/24 This patient was seen during dialysis. Interval history: Patient here with respiratory failure requiring intubation- cavitary penumonia, lactic acidosis, MSSA bacteremia, covid+, on vasopressor support. Following for renal failure requiring dialysis, started 11/13. patient is intubated/sedated on vasopressor support, dialysis session just started. Patient receiving dialysis session today, pt remains hypervolemic so attempting to pull fluid off more fluid today as BP tolerates. pt remains anuric. Physical Exam Vital Signs: Vital Signs: Last Vital Signs Temp 100.0 F 11/16/24 09:00 Pulse 109 H 11/16/24 09:00 Resp 26 H 11/16/24 09:00 BP 118/56 L 11/16/24 09:00 Pulse Ox 87 L 11/16/24 09:00 O2 Del Method Mechanical Ventil ation 11/16/24 09:00 O2 Flow Rate 30 11/15/24 09:00 FiO2 30 11/16/24 09:00 BMI result Body Mass Index 25.7 Const: Other: intubated; sedation paused, eyes open but not responsive to verbal stimuli. Resp: Auscultation: crackles Cardio: Rate: regular rate Rhythm: regular rhythm Heart sounds: S1 normal heart sound present and S2 normal heart sound present GI: Palpation (GI): Soft to palpation and nontender Skin: Rashes: no rashes Extrem: General: Yes edema (bilateral trace hand edema, trace LE edema. ) Assessment & Plan Assessment and plan (1) Acute renal failure: Status: Acute (2) Metabolic acidosis: Status: Acute (3) Hyperkalemia: Status: Acute Plan Acute renal failure likely multifactorial with severe metablic acidosis and hyperkalemia septic and ischemic ATN vacomycin-related injury also likely given elevated levels of vancomycin cannot rule out GN, AIN- will check UA, urine protein/creatinine ratio and urine eosinophils if patient makes any urine will check CK unremarkable patient has anemia and thrombocytopenia, hyperbilirubinemia- LDH elevated at 588, though haptoglobin is normal. no schistocytes patient will need continued dialysis for continued uremia, anuria left IJ temporary HD catheter in place. H&H stable from yesterday 7.3&21 to today 7.5 & 20, though had dropped from 10.6 & 28.6 11/14; will give 20K units procrit today, though should consider bleeding workup as well, as renal failure unlikely to solely explain drop in H&H patient fluid balance positive- will attempt to remove fluid today and tomorrow as blood pressure tolerates metabolic acidosis and hyperkalemia correcting with HD Discussed with Dr Brandon. Time Spent With Patient Time: Total time managing care of this patient today ____ minutes. Procedures Date of Service Date of Service: 11/16/24
--- NOTE | 2024-11-16 10:18 | P.PNCC_ITS ---
Subjective Subjective Date of Service: 11/16/24 Interval History: 69-year-old gentleman with underlying hypertension, anxiety, ? ADHD, substance abuse presented on 12/08/2024 with respiratory distress requiring immediate intubation complicated by pea re-intubation cardiac arrest with return of spontaneous circulation after 2 rounds of CPR. Initial workup significant for profound hypoxemia, lactic acidosis with acute renal failure, and COVID positivity. Patient started on empiric broad-spectrum antibiotics, pressor support, and dexamethasone and admitted to the intensive care unit. Patient with 3 additional cardiac arrests on 11/07/2024, with CPR started immediately and returned spontaneous circulation achieved with an 1-2 rounds of CPR each time. CT chest with evidence of bibasilar pneumonia, cavitary on the right. Blood cultures growing MSSA. Now with improving ventilatory requirements, however with development of HARSH likely secondary to ATN initiated on hemodialysis on 11/13/2024. Also, with rising hyperbilirubinemia. No events overnight. Critical Care Time (minutes): 45 Physical Exam 2 Vital Signs: Vital Signs: Last Vital Signs Temp 100.6 F H 11/16/24 10:00 Pulse 93 11/16/24 10:00 Resp 27 H 11/16/24 10:00 BP 112/62 11/16/24 10:00 Pulse Ox 92 11/16/24 10:00 O2 Del Method Mechanical Ventil ation 11/16/24 10:00 O2 Flow Rate 30 11/15/24 09:00 FiO2 30 11/16/24 10:00 BMI result Body Mass Index 25.7 Const: General: no acute distress and other (Sedated on ventilatory support) Eyes: Sclerae: scleral abnormal (Icteric) Neck: Neck: Yes no lymphadenopathy, Yes trachea midline and Yes supple Resp: Auscultation: clear to auscultation bilaterally Cardio: Rate: tachycardic Rhythm: regular rhythm Heart sounds: no gallops, no murmurs and no rubs GI: Palpation (GI): Soft to palpation and Other GI palpation findings present ( Nontender) Auscultation: normal bowel sounds Extrem: General: No clubbing, No cyanosis and Yes edema (1+ bilateral) Objective Data Labs 11/16/24 05:33 11/16/24 05:33 Labs: Laboratory Results - last 24 hr 08/12/25 08/13/25 08/13/25 14:22 05:16 12:25 WBC RBC Hgb Hct MCV MCH MCHC RDW Plt Count MPV Immature Gran % (Auto) Neut % (Auto) Lymph % (Auto) [place] % (Auto) Eos % (Auto) Baso % (Auto) Lymph # (Auto) [place] # (Auto) Eos # (Auto) Baso # (Auto) Abs Immat Gran (auto) Absolute Neuts (auto) Absolute Nucleated RBC Nucleated RBC % (auto) Smear Path Review SEE NOTE VBG pH VBG pCO2 VBG pO2 VBG HCO3 VBG O2 Saturation VBG Base Excess Sodium Potassium Chloride Carbon Dioxide Anion Gap BUN Creatinine Estim Creat Clear Calc Estimated GFR POC Glucose 106 Random Glucose Calcium Phosphorus Magnesium Total Bilirubin AST ALT Alkaline Phosphatase Total Protein Albumin Stool Occult Blood Hep B Core IgM Ab NON-REACTIVE Influenza Type A (PCR) Influenza Type B (PCR) RSV RNA Qual (PCR) SARS-CoV-2 RNA (RT-PCR) Blood Type Antibody Screen 11/15/24 11/15/24 11/15/24 17:28 21:25 23:59 WBC RBC Hgb Hct MCV MCH MCHC RDW Plt Count MPV Immature Gran % (Auto) Neut % (Auto) Lymph % (Auto) [place] % (Auto) Eos % (Auto) Baso % (Auto) Lymph # (Auto) [place] # (Auto) Eos # (Auto) Baso # (Auto) Abs Immat Gran (auto) Absolute Neuts (auto) Absolute Nucleated RBC Nucleated RBC % (auto) Smear Path Review VBG pH VBG pCO2 VBG pO2 VBG HCO3 VBG O2 Saturation VBG Base Excess Sodium Potassium Chloride Carbon Dioxide Anion Gap BUN Creatinine Estim Creat Clear Calc Estimated GFR POC Glucose 86 92 Random Glucose Calcium Phosphorus Magnesium Total Bilirubin AST ALT Alkaline Phosphatase Total Protein Albumin Stool Occult Blood POSITIVE Hep B Core IgM Ab Influenza Type A (PCR) Influenza Type B (PCR) RSV RNA Qual (PCR) SARS-CoV-2 RNA (RT-PCR) Blood Type Antibody Screen 11/16/24 11/16/24 11/16/24 03:20 05:33 05:39 WBC 14.9 H RBC 2.13 L Hgb 7.5 L Hct 20.0 L* MCV 93.9 MCH 35.2 H MCHC 37.5 H RDW 14.1 Plt Count 103 L MPV 14.2 H Immature Gran % (Auto) 2.8 H Neut % (Auto) 89.9 H Lymph % (Auto) 3.3 L [place] % (Auto) 3.2 Eos % (Auto) 0.6 Baso % (Auto) 0.2 Lymph # (Auto) 0.5 L [place] # (Auto) 0.5 Eos # (Auto) 0.1 Baso # (Auto) 0.0 Abs Immat Gran (auto) 0.42 H Absolute Neuts (auto) 13.4 H Absolute Nucleated RBC 0.060 H Nucleated RBC % (auto) 0.4 H Smear Path Review VBG pH 7.50 H VBG pCO2 29 VBG pO2 51 VBG HCO3 23 VBG O2 Saturation 76.0 VBG Base Excess 0.8 Sodium 140 Potassium 4.5 D Chloride 96 Carbon Dioxide 22 Anion Gap 27 H BUN 113 H Creatinine 6.05 H* Estim Creat Clear Calc 13.2 Estimated GFR 9 POC Glucose Random Glucose 118 H Calcium 8.7 D Phosphorus 7.5 H Magnesium 2.7 H Total Bilirubin 16.5 H AST 171 H ALT 86 H Alkaline Phosphatase 457 H Total Protein 6.6 Albumin 3.5 Stool Occult Blood Hep B Core IgM Ab Influenza Type A (PCR) NEGATIVE Influenza Type B (PCR) NEGATIVE RSV RNA Qual (PCR) NEGATIVE SARS-CoV-2 RNA (RT-PCR) POSITIVE A Blood Type O Positive Antibody Screen NEGATIVE Microbiology Microbiology Results: Microbiology 11/10/24 11:13 Blood - Venous Blood Culture - Final No growth after 5 days. 11/10/24 11:13 Blood - Venous Blood Culture - Final No growth after 5 days. 11/07/24 07:02 Blood - Venous Blood Culture - Final Staphylococcus aureus Coag negative Staphylococcus 11/08/24 04:10 Blood - Venous Blood Culture - Final Staphylococcus aureus 11/08/24 04:10 Blood - Venous Blood Culture - Final Staphylococcus aureus 11/07/24 07:01 Blood - Venous Blood Culture - Final Staphylococcus aureus Progress Note: A&P Assessment and plan (1) Polysubstance abuse: Status: Acute (2) Cardiac arrest: Status: Acute (3) Hyperbilirubinemia: Status: Acute (4) Acute kidney injury: Status: Acute (5) COVID-19: Status: Acute (6) MSSA bacteremia: Status: Acute (7) Acute hypoxemic respiratory failure: Status: Acute (8) Bilateral pneumonia: Status: Acute (9) Acute respiratory failure with hypoxia: Status: Acute Plan Assessment: 69-year-old gentleman admitted with acute hypoxic respiratory failure with metabolic acidosis status post cardiac arrest with return of spontaneous circulation after 2 rounds of CPR, with hospital course complicated 3 additional cardiac arrest, all with successful resuscitation. Plan: Neuro: Likely underlying ischemic encephalopathy from multiple cardiac arrests, intermittently moves all 4 extremities spontaneously. Though, with no awakenings with pressure support 12 yet, if continues to remain encephalopathic with BUN under 100, will consider MRI brain. Cardiac: Multiple cardiac arrests with return of spontaneous circulation after several rounds of CPR. 2D echo with mildly decreased systolic function. Pulmonary: Acute hypoxic respiratory failure initially requiring essentially maximum ventilatory support. Underlying COVID-19 and possible aspiration component. Continue to titrate off as tolerated. Completed dexamethasone course. Bibasilar pneumonia, cavitary on the right. Ventilator support requirements continue to improve. Renal: Acute renal failure with improved lactic metabolic acidosis, likely from ischemic ATN. Essentially anuric. Continue to monitor renal indices and urine output. Nephrology service care appreciated. Continue hemodialysis support. Endo: No acute issues. GI: Hyperbilirubinemia, likely secondary to cholestasis. Abdominal ultrasound with evidence of gallbladder sludge. ID: MSSA bacteremia, continue ceftriaxone. Heme/Onc: No acute issues. Psych: No acute issues. Miscellaneous: Underlying polysubstance abuse. Prophylaxis: Heparin, famotidine Diet: Tube feeds Critical care time spent: 45 minutes Quality Stroke Does the patient have a stroke diagnosis?: No VTE Prior VTE?: No VTE Risk Level:: Medical - moderate - high VTE Device Contraindication: Treatment Not Indicated VTE Drug Contraindication: N/A - Med Ordered
[2024-11-16 12:08] LABS: Glucose, Whole Blood 147 mg/dL (60-115)
[2024-11-16 17:06] LABS: Glucose, Whole Blood 131 mg/dL (60-115)
[2024-11-16] MEDS: Norepinephrine Bitartrate/NS 16 MG/250 ML PLAST..BAG IVCONT (17:24)
[2024-11-16 18:26] LABS: Glucose, Whole Blood 138 mg/dL (60-115)
[2024-11-16 20:38] LABS: Albumin Level 3.2 g/dL (3.5-5.0); Anion Gap 23 (12-20); Blood Urea Nitrogen 78 mg/dL (9-16); Calcium 8.8 mg/dL (8.4-10.2); Carbon Dioxide 24 mmol/L (22-29); Chloride 95 mmol/L (96-108); Creatinine Clr Calc Pharmacy 16.5; Estimated Glomerular Filt Rate 12; Magnesium 2.5 mg/dL (1.6-2.6); Potassium 4.1 mmol/L (3.3-5.1); Sodium 138 mmol/L (135-145)
[2024-11-16 20:47] LABS: Hemoglobin 8.0 g/dl (14.0-18.0); NRBC Abs Auto 0.030 X10*3/uL (0.0-0.012); NRBC Pct Auto 0.2 /100WBC (0.0-0.2); SCAN SMEAR FLAG 1
[2024-11-16 20:49] LABS: Hematocrit 21.4 % (42.0-52.0); Imm Gran Abs Auto 0.37 X10*3/uL (0.00-0.03); Imm Gran Pct Auto 2.1 % (0.0-0.4); Lymphocytes Absolute Auto 0.5 X10*3/uL (1.2-4.9); MANUAL DIFF FLAG SCAN; Mean Corpuscular HGB Conc 37.4 g/dl (31.0-36.0); Mean Corpuscular Hemoglobin 34.9 pg (27.0-33.0); Mean Corpuscular Volume 93.4 fL (80.0-98.0); PLT CLUMP 1; Red Blood Count 2.29 X10*6/uL (4.60-5.80)
[2024-11-16 21:19] LABS: PLT ABN DIST 1
[2024-11-16 21:21] LABS: Platelet Count 132 X10*3/uL (160-400); White Blood Count 17.2 X10*3/uL (4.8-10.8)
[2024-11-17] VITALS (43 sets, daily range): BP systolic 71–144; BP diastolic 42–76; PULSE 82–115; RESP 21–31; TEMP 34.3–38.6; O2SAT 90–97
[2024-11-17 00:01] LABS: Glucose, Whole Blood 147 mg/dL (60-115)
[2024-11-17] MEDS: 0.9 % Sodium Chloride Flush 3 ML SYRINGE IVFLUSH ×4 (00:22→20:15)
[2024-11-17 04:41] LABS: VBG HCO3 24 mmol/L (22-26); VBG O2 % Saturation 71.0 %
[2024-11-17 04:43] LABS: Venous Blood Gas Refer to POC result
[2024-11-17 04:59] LABS: Hemoglobin 8.0 g/dl (14.0-18.0); Mean Corpuscular Hemoglobin 34.8 pg (27.0-33.0); NRBC Abs Auto 0.020 X10*3/uL (0.0-0.012); NRBC Pct Auto 0.1 /100WBC (0.0-0.2); Red Blood Count 2.30 X10*6/uL (4.60-5.80); SCAN SMEAR FLAG 1
[2024-11-17 05:01] LABS: Hematocrit 21.5 % (42.0-52.0); Imm Gran Abs Auto 0.51 X10*3/uL (0.00-0.03); Imm Gran Pct Auto 2.7 % (0.0-0.4); Lymphocytes Absolute Auto 0.6 X10*3/uL (1.2-4.9); MANUAL DIFF FLAG SCAN; Mean Corpuscular HGB Conc 37.2 g/dl (31.0-36.0); Mean Corpuscular Volume 93.5 fL (80.0-98.0); Platelet Count 156 X10*3/uL (160-400); White Blood Count 18.7 X10*3/uL (4.8-10.8)
[2024-11-17 05:22] LABS: PLT ABN DIST 1
[2024-11-17 05:25] LABS: Alanine Aminotransferase 96 U/L (0-40); Albumin Level 3.0 g/dL (3.5-5.0); Alkaline Phosphatase 485 U/L (39-117); Anion Gap 25 (12-20); Aspartate Amino Transferase 159 U/L (5-37); Blood Urea Nitrogen 95 mg/dL (9-16); Calcium 8.7 mg/dL (8.4-10.2); Carbon Dioxide 21 mmol/L (22-29); Chloride 94 mmol/L (96-108); Creatinine Clr Calc Pharmacy 14.6; Estimated Glomerular Filt Rate 10; Magnesium 2.6 mg/dL (1.6-2.6); Potassium 4.1 mmol/L (3.3-5.1); Sodium 136 mmol/L (135-145); Total Protein 6.8 g/dL (6.5-8.0)
[2024-11-17] MEDS: Chlorhexidine Gluc Oral Rinse 15 ML MOUTHWASH BUCCAL ×3 (08:05→20:14)
--- NOTE | 2024-11-17 10:32 | P.PNCC_ITS ---
Subjective Subjective Date of Service: 11/17/24 Interval History: 69-year-old gentleman with underlying hypertension, anxiety, ? ADHD, substance abuse presented on 12/08/2024 with respiratory distress requiring immediate intubation complicated by pea re-intubation cardiac arrest with return of spontaneous circulation after 2 rounds of CPR. Initial workup significant for profound hypoxemia, lactic acidosis with acute renal failure, and COVID positivity. Patient started on empiric broad-spectrum antibiotics, pressor support, and dexamethasone and admitted to the intensive care unit. Patient with 3 additional cardiac arrests on 11/07/2024, with CPR started immediately and returned spontaneous circulation achieved with an 1-2 rounds of CPR each time. CT chest with evidence of bibasilar pneumonia, cavitary on the right. Blood cultures growing MSSA. Now with improving ventilatory requirements, however with development of HARSH likely secondary to ATN initiated on hemodialysis on 11/13/2024. Hyperbilirubinemia appears to have plateaued. Now with poor arousal with sedation vacation. Critical Care Time (minutes): 60 Physical Exam 2 Vital Signs: Vital Signs: Last Vital Signs Temp 96.8 F 11/17/24 10:00 Pulse 109 H 11/17/24 10:00 Resp 24 H 11/17/24 10:00 BP 103/57 L 11/17/24 10:00 Pulse Ox 91 L 11/17/24 10:00 O2 Del Method Mechanical Ventil ation 11/17/24 10:00 O2 Flow Rate 30 11/15/24 09:00 FiO2 35 11/17/24 10:00 BMI result Body Mass Index 25.7 Const: General: no acute distress and other (Sedated on ventilatory support) Eyes: Sclerae: sclerae normal Neck: Neck: Yes no lymphadenopathy, Yes trachea midline and Yes supple Resp: Auscultation: clear to auscultation bilaterally Cardio: Rate: regular rate Rhythm: regular rhythm Heart sounds: no gallops, no murmurs and no rubs GI: Palpation (GI): Soft to palpation and Other GI palpation findings present ( Nontender) Auscultation: normal bowel sounds Extrem: General: No clubbing, No cyanosis and Yes edema (Trace bilateral) Objective Data Labs 11/17/24 04:34 11/17/24 04:34 Labs: Laboratory Results - last 24 hr 11/16/24 11/16/24 11/16/24 12:03 16:45 18:22 WBC RBC Hgb Hct MCV MCH MCHC RDW Plt Count MPV Immature Gran % (Auto) Neut % (Auto) Lymph % (Auto) [place] % (Auto) Eos % (Auto) Baso % (Auto) Lymph # (Auto) [place] # (Auto) Eos # (Auto) Baso # (Auto) Abs Immat Gran (auto) Absolute Neuts (auto) Absolute Nucleated RBC Nucleated RBC % (auto) Smear Tech's Comments VBG pH VBG pCO2 VBG pO2 VBG HCO3 VBG O2 Saturation VBG Base Excess Sodium Potassium Chloride Carbon Dioxide Anion Gap BUN Creatinine Estim Creat Clear Calc Estimated GFR POC Glucose 147 H 131 H 138 H Random Glucose Calcium Phosphorus Magnesium Total Bilirubin AST ALT Alkaline Phosphatase Total Protein Albumin 11/16/24 11/16/24 11/17/24 20:05 23:53 04:34 WBC 17.2 H 18.7 H RBC 2.29 L 2.30 L Hgb 8.0 L 8.0 L Hct 21.4 L 21.5 L MCV 93.4 93.5 MCH 34.9 H 34.8 H MCHC 37.4 H 37.2 H RDW 14.8 15.5 Plt Count 132 L D 156 L MPV 13.3 H 13.6 H Immature Gran % (Auto) 2.1 H 2.7 H Neut % (Auto) 90.6 H 89.7 H Lymph % (Auto) 3.0 L 3.3 L [place] % (Auto) 3.4 3.4 Eos % (Auto) 0.8 0.7 Baso % (Auto) 0.1 0.2 Lymph # (Auto) 0.5 L 0.6 L [place] # (Auto) 0.6 0.6 Eos # (Auto) 0.1 0.1 Baso # (Auto) 0.0 0.0 Abs Immat Gran (auto) 0.37 H 0.51 H Absolute Neuts (auto) 15.6 H 16.8 H Absolute Nucleated RBC 0.030 H 0.020 H Nucleated RBC % (auto) 0.2 0.1 Smear Tech's Comments VERIFIED VERIFIED VBG pH VBG pCO2 VBG pO2 VBG HCO3 VBG O2 Saturation VBG Base Excess Sodium 138 136 Potassium 4.1 4.1 Chloride 95 L 94 L Carbon Dioxide 24 21 L Anion Gap 23 H 25 H BUN 78 H 95 H Creatinine 4.82 H* 5.46 H* Estim Creat Clear Calc 16.5 14.6 Estimated GFR 12 10 POC Glucose 147 H Random Glucose 143 H 128 H Calcium 8.8 8.7 Phosphorus 6.8 H 8.2 H Magnesium 2.5 2.6 Total Bilirubin 15.9 H AST 159 H ALT 96 H Alkaline Phosphatase 485 H Total Protein 6.8 Albumin 3.2 L 3.0 L 11/17/24 04:37 WBC RBC Hgb Hct MCV MCH MCHC RDW Plt Count MPV Immature Gran % (Auto) Neut % (Auto) Lymph % (Auto) [place] % (Auto) Eos % (Auto) Baso % (Auto) Lymph # (Auto) [place] # (Auto) Eos # (Auto) Baso # (Auto) Abs Immat Gran (auto) Absolute Neuts (auto) Absolute Nucleated RBC Nucleated RBC % (auto) Smear Tech's Comments VBG pH 7.54 H VBG pCO2 27 VBG pO2 46 VBG HCO3 24 VBG O2 Saturation 71.0 VBG Base Excess 2.4 Sodium Potassium Chloride Carbon Dioxide Anion Gap BUN Creatinine Estim Creat Clear Calc Estimated GFR POC Glucose Random Glucose Calcium Phosphorus Magnesium Total Bilirubin AST ALT Alkaline Phosphatase Total Protein Albumin Microbiology Microbiology Results: Microbiology 11/10/24 11:13 Blood - Venous Blood Culture - Final No growth after 5 days. 11/10/24 11:13 Blood - Venous Blood Culture - Final No growth after 5 days. 11/07/24 07:02 Blood - Venous Blood Culture - Final Staphylococcus aureus Coag negative Staphylococcus 11/08/24 04:10 Blood - Venous Blood Culture - Final Staphylococcus aureus 11/08/24 04:10 Blood - Venous Blood Culture - Final Staphylococcus aureus 11/07/24 07:01 Blood - Venous Blood Culture - Final Staphylococcus aureus Progress Note: A&P Assessment and plan (1) Polysubstance abuse: Status: Acute (2) Cardiac arrest: Status: Acute (3) Hyperbilirubinemia: Status: Acute (4) Acute kidney injury: Status: Acute (5) MSSA bacteremia: Status: Acute (6) Acute hypoxemic respiratory failure: Status: Acute (7) Bilateral pneumonia: Status: Acute Plan Assessment: 69-year-old gentleman admitted with acute hypoxic respiratory failure with metabolic acidosis status post cardiac arrest with return of spontaneous circulation after 2 rounds of CPR, with hospital course complicated 3 additional cardiac arrest, all with successful resuscitation. Plan: Neuro: Likely underlying ischemic encephalopathy from multiple cardiac arrests, intermittently moves all 4 extremities spontaneously. Though, with no awakenings with pressure support 12 yet, if continues to remain encephalopathic with BUN under 100, will consider MRI brain. Cardiac: Multiple cardiac arrests with return of spontaneous circulation after several rounds of CPR. 2D echo with mildly decreased systolic function. Pulmonary: Acute hypoxic respiratory failure initially requiring essentially maximum ventilatory support. Underlying COVID-19 and possible aspiration component. Continue to titrate off as tolerated. Completed dexamethasone course. Bibasilar pneumonia, cavitary on the right. Ventilator support requirements continue to improve. Renal: Acute renal failure with improved lactic metabolic acidosis, likely from ischemic ATN. Essentially anuric. Continue to monitor renal indices and urine output. Nephrology service care appreciated. Continue hemodialysis support. Endo: No acute issues. GI: Hyperbilirubinemia, likely secondary to cholestasis, appears to have plateaued. Abdominal ultrasound with evidence of gallbladder sludge. ID: MSSA bacteremia, continue ceftriaxone. Heme/Onc: No acute issues. Psych: No acute issues. Miscellaneous: Underlying polysubstance abuse. Prophylaxis: Heparin, famotidine Diet: Tube feeds Critical care time spent: 60 minutes Quality Stroke Does the patient have a stroke diagnosis?: No VTE Prior VTE?: No VTE Risk Level:: Medical - moderate - high VTE Device Contraindication: Treatment Not Indicated VTE Drug Contraindication: N/A - Med Ordered
--- NOTE | 2024-11-17 10:51 | MHC.CLN ---
F/U PT REMAINS INTUBATED AND SEDATED DISCUSSED AT ROUNDS WITH MARILUZ TO CONTINUE CONTINUE NEPRO AT MAX GOAL RATE 40ML/HR WITH 300ML FREE WATER FLUSHES Q 6 HRS TO PROVIDE 1728KCALS (2108KCALS WITH SEDATION; 26KCALS/KG), 78G PROTEIN, 1898ML TOTAL FREE WATER FROM FORMULA AND FLUSHES (24ML/KG) MONITOR TOLERANCE AND LYTES RD CAN BE REACHED DURING OFF HOURS VIA TIGER CONNECT IF NEEDED
[2024-11-17 12:06] LABS: Glucose, Whole Blood 106 mg/dL (60-115)
--- NOTE | 2024-11-17 12:59 | P.PNNPD_ITS ---
Subjective Subjective Date of Service: 11/17/24 This patient was seen during dialysis. Interval history: Patient here with respiratory failure requiring intubation- cavitary penumonia, lactic acidosis, MSSA bacteremia, covid+, on vasopressor support. Following for renal failure requiring dialysis, started 11/13. patient is intubated, sedation has been off, pt's eyes are open but is not responsive to voice. Pt receiving dialysis session today, and plan for HD t omorrow, off Wednesday. pt remains hypervolemic so attempting to pull fluid off more fluid today as BP tolerates. pt remains anuric. Though of note had 600mL of stool output. Physical Exam Vital Signs: Vital Signs: Last Vital Signs Temp 95.7 F L 11/17/24 12:00 Pulse 100 11/17/24 12:05 Resp 25 H 11/17/24 12:00 BP 71/47 L 11/17/24 12:05 Pulse Ox 93 11/17/24 12:00 O2 Del Method Mechanical Ventil ation 11/17/24 12:00 O2 Flow Rate 30 11/15/24 09:00 FiO2 35 11/17/24 12:00 BMI result Body Mass Index 25.7 Const: Other: intubated; sedation paused, eyes open but not responsive to verbal stimuli. Resp: Auscultation: crackles Cardio: Rate: regular rate Rhythm: regular rhythm Heart sounds: S1 normal heart sound present and S2 normal heart sound present GI: Palpation (GI): Soft to palpation and nontender Skin: Rashes: no rashes Extrem: General: Yes edema (bilateral trace hand edema, no LE edema. ) Assessment & Plan Assessment and plan (1) Acute renal failure: Status: Acute (2) Metabolic acidosis: Status: Acute (3) Hyperkalemia: Status: Acute Plan Acute renal failure likely multifactorial with severe metablic acidosis and hyperkalemia septic and ischemic ATN vacomycin-related injury also likely given elevated levels of vancomycin cannot rule out GN, AIN- will check UA, urine protein/creatinine ratio and urine eosinophils if patient makes any urine will check CK unremarkable patient has anemia and thrombocytopenia, hyperbilirubinemia- LDH elevated at 588, though haptoglobin is normal. no schistocytes complements fairly unremarkable patient will need continued dialysis for continued uremia, anuria - will dialyze today, and tomorrow, 11/18. Will take HD break on Wednesday, 11/19 and re-evaluate Wednesday. left IJ temporary HD catheter in place. H&H stable from yesterday 8.0 &21, 20K units of procrit yesterday patient fluid balance positive- will attempt to remove fluid today and tomorrow as blood pressure tolerates metabolic acidosis and hyperkalemia correcting with HD Discussed with Dr Brandon. Time Spent With Patient Time: Total time managing care of this patient today ____ minutes. Procedures Date of Service Date of Service: 11/17/24
--- NOTE | 2024-11-17 16:17 | MHC.CM.PN ---
EMR REVIEWED, PT W/MULTIPLE CARDIAC ARRESTS REMAINS VENTED, SEDATED AND ON PRESSORS, NOW RECEIVING DAILY HD, CM WILL CONT TO FOLLOW DC NEEDS.
[2024-11-17] MEDS: Norepinephrine Bitartrate/NS 16 MG/250 ML PLAST..BAG 5.85 MG IVCONT (17:13)
[2024-11-17 17:54] LABS: Glucose, Whole Blood 151 mg/dL (60-115)
--- NOTE | 2024-11-17 19:31 | PC.NURSE ---
Assumed care of patient 0700. Patient had dialysis session and increasing vasopressor requirements in session. Levophed gtt titrated per protocol, see MAR. Pt remains neurologically unchanged. Positive cough, positive gag, does not track, does not follow commands, eyes open at baseline PERRLA. Fecal managment system in place and patent. Stool color looks improved to light brown color, no signs of GI bleeding this shift. Patient is tolerating tube feeds well per orders.
[2024-11-17 19:50] LABS: MANUAL DIFF FLAG NO
[2024-11-17 19:58] LABS: Hematocrit 22.1 % (42.0-52.0); Hemoglobin 8.2 g/dl (14.0-18.0); Imm Gran Abs Auto 0.46 X10*3/uL (0.00-0.03); Imm Gran Pct Auto 2.4 % (0.0-0.4); Lymphocytes Absolute Auto 0.8 X10*3/uL (1.2-4.9); Mean Corpuscular HGB Conc 37.1 g/dl (31.0-36.0); Mean Corpuscular Hemoglobin 34.2 pg (27.0-33.0); Mean Corpuscular Volume 92.1 fL (80.0-98.0); NRBC Abs Auto 0.030 X10*3/uL (0.0-0.012); NRBC Pct Auto 0.2 /100WBC (0.0-0.2); Platelet Count 193 X10*3/uL (160-400); Red Blood Count 2.40 X10*6/uL (4.60-5.80); White Blood Count 18.9 X10*3/uL (4.8-10.8)
[2024-11-17 20:19] LABS: Albumin Level 3.1 g/dL (3.5-5.0); Anion Gap 21 (12-20); Blood Urea Nitrogen 58 mg/dL (9-16); Calcium 8.6 mg/dL (8.4-10.2); Carbon Dioxide 22 mmol/L (22-29); Chloride 95 mmol/L (96-108); Creatinine Clr Calc Pharmacy 19.9; Estimated Glomerular Filt Rate 15; Magnesium 2.4 mg/dL (1.6-2.6); Potassium 4.3 mmol/L (3.3-5.1); Sodium 134 mmol/L (135-145)
[2024-11-17] MEDS: Albumin Human 25 % 100 ML IV (20:41)
--- NOTE | 2024-11-17 22:00 | PC.NURSE ---
Addendum entered by Jessie Monk RN 11/18/24 06:21: per MANAGER SOLUTION stop prop at 0530, pt resting eyes closed. plan of care continues. Original Note: Pt intubated without sedation, desating to 86-87%, RR 30, pt moving head opening eyes, PRN Fent admin as order with little effect cont to desat, RT to bedside pt lavaged no secretions back, MANAGER SOLUTION made aware, new order 1 MG versed admin as ordered, Rt increased peep to 10 O2 to 40%, with little effect pt continues to desat and move head with increased WOB. Repo for comfort with no effect. Per MANAGER SOLUTION give Fent and new order for additional 1 MG versed, admin as ordered, pt remains 86-87% per MANAGER SOLUTION start Prop at 10. admin as ordered with good effect pt resting with eyes closed, sats 90-92% plan of care continues.
[2024-11-18] VITALS (40 sets, daily range): BP systolic 76–166; BP diastolic 48–73; PULSE 76–121; RESP 20–33; TEMP 35–38.7; O2SAT 90–98; BMI 25.9
[2024-11-18 00:21] LABS: Glucose, Whole Blood 108 mg/dL (60-115)
[2024-11-18] MEDS: Albumin Human 25 % 100 ML IV ×3 (01:52→14:16)
[2024-11-18 04:37] LABS: VBG HCO3 23 mmol/L (22-26); VBG O2 % Saturation 67.0 %
[2024-11-18 04:52] LABS: Hemoglobin 7.3 g/dl (14.0-18.0); NRBC Abs Auto 0.020 X10*3/uL (0.0-0.012); NRBC Pct Auto 0.1 /100WBC (0.0-0.2); SCAN SMEAR FLAG 1
[2024-11-18 04:54] LABS: Imm Gran Abs Auto 0.27 X10*3/uL (0.00-0.03); Imm Gran Pct Auto 1.7 % (0.0-0.4); Lymphocytes Absolute Auto 0.8 X10*3/uL (1.2-4.9); MANUAL DIFF FLAG SCAN; Mean Corpuscular HGB Conc 37.1 g/dl (31.0-36.0); Mean Corpuscular Hemoglobin 34.9 pg (27.0-33.0); Mean Corpuscular Volume 94.3 fL (80.0-98.0); PLT CLUMP 1; Red Blood Count 2.09 X10*6/uL (4.60-5.80)
[2024-11-18 05:22] LABS: Albumin Level 3.6 g/dL (3.5-5.0); Alkaline Phosphatase 420 U/L (39-117); Anion Gap 29 (12-20); Aspartate Amino Transferase 130 U/L (5-37); Blood Urea Nitrogen 78 mg/dL (9-16); Calcium 8.8 mg/dL (8.4-10.2); Carbon Dioxide 20 mmol/L (22-29); Chloride 91 mmol/L (96-108); Creatinine Clr Calc Pharmacy 16.1; Estimated Glomerular Filt Rate 12; Magnesium 2.5 mg/dL (1.6-2.6); PLT ABN DIST 1; Platelet Count 188 X10*3/uL (160-400); Potassium 4.3 mmol/L (3.3-5.1); Sodium 136 mmol/L (135-145); Total Protein 7.8 g/dL (6.5-8.0); White Blood Count 15.9 X10*3/uL (4.8-10.8)
[2024-11-18 05:23] LABS: Hematocrit 19.7 % (42.0-52.0)
[2024-11-18 06:05] LABS: Alanine Aminotransferase 87 U/L (0-40)
[2024-11-18] MEDS: 0.9 % Sodium Chloride Flush 3 ML SYRINGE IVFLUSH ×3 (08:00→23:56)
[2024-11-18] MEDS: Chlorhexidine Gluc Oral Rinse 15 ML MOUTHWASH BUCCAL ×3 (08:02→20:23)
[2024-11-18 08:58] LABS: Venous Blood Gas Refer to POC result
--- NOTE | 2024-11-18 10:13 | P.PNCC_ITS ---
Subjective Subjective Date of Service: 11/18/24 Interval History: 69-year-old gentleman with underlying hypertension, anxiety, ? ADHD, substance abuse presented on 12/08/2024 with respiratory distress requiring immediate intubation complicated by pea re-intubation cardiac arrest with return of spontaneous circulation after 2 rounds of CPR. Initial workup significant for profound hypoxemia, lactic acidosis with acute renal failure, and COVID positivity. Patient started on empiric broad-spectrum antibiotics, pressor support, and dexamethasone and admitted to the intensive care unit. Patient with 3 additional cardiac arrests on 11/07/2024, with CPR started immediately and returned spontaneous circulation achieved with an 1-2 rounds of CPR each time. CT chest with evidence of bibasilar pneumonia, cavitary on the right. Blood cultures growing MSSA. Now with improving ventilatory requirements, however with development of HARSH likely secondary to ATN initiated on hemodialysis on 11/13/2024. Hyperbilirubinemia appears to have plateaued. Now with poor arousal with sedation vacation. Critical Care Time (minutes): 60 Physical Exam 2 Vital Signs: Vital Signs: Last Vital Signs Temp 100.0 F 11/18/24 09:00 Pulse 91 11/18/24 09:00 Resp 22 H 11/18/24 09:00 BP 148/58 H 11/18/24 09:00 Pulse Ox 96 11/18/24 09:00 O2 Del Method Mechanical Ventil ation 11/18/24 09:00 O2 Flow Rate 30 11/15/24 09:00 FiO2 40 11/18/24 09:00 BMI result Body Mass Index 25.9 Const: General: no acute distress and other (Sedated on ventilatory support) Eyes: Sclerae: sclerae normal EOM: EOMs intact bilaterally Neck: Neck: Yes no lymphadenopathy, Yes trachea midline and Yes supple Resp: Auscultation: clear to auscultation bilaterally Cardio: Rate: regular rate Rhythm: regular rhythm Heart sounds: no gallops, no murmurs and no rubs GI: Palpation (GI): Soft to palpation and Other GI palpation findings present ( Nontender) Auscultation: normal bowel sounds Extrem: General: No clubbing, No cyanosis and Yes edema (Trace bilateral) Objective Data Labs 11/18/24 04:24 11/18/24 04:24 Labs: Laboratory Results - last 24 hr 11/17/24 11/17/24 11/17/24 12:01 17:47 19:37 WBC 18.9 H RBC 2.40 L Hgb 8.2 L Hct 22.1 L MCV 92.1 MCH 34.2 H MCHC 37.1 H RDW 15.9 Plt Count 193 MPV 13.4 H Immature Gran % (Auto) 2.4 H Neut % (Auto) 87.8 H Lymph % (Auto) 4.2 L [place] % (Auto) 4.8 Eos % (Auto) 0.6 Baso % (Auto) 0.2 Lymph # (Auto) 0.8 L [place] # (Auto) 0.9 Eos # (Auto) 0.1 Baso # (Auto) 0.0 Abs Immat Gran (auto) 0.46 H Absolute Neuts (auto) 16.6 H Absolute Nucleated RBC 0.030 H Nucleated RBC % (auto) 0.2 Smear Tech's Comments VBG pH VBG pCO2 VBG pO2 VBG HCO3 VBG O2 Saturation VBG Base Excess Sodium 134 L Potassium 4.3 Chloride 95 L Carbon Dioxide 22 Anion Gap 21 H BUN 58 H Creatinine 4.01 H* Estim Creat Clear Calc 19.9 Estimated GFR 15 POC Glucose 106 151 H Random Glucose 138 H Calcium 8.6 Phosphorus 7.6 H Magnesium 2.4 Total Bilirubin AST ALT Alkaline Phosphatase Total Protein Albumin 3.1 L 11/18/24 11/18/24 11/18/24 00:15 04:24 04:32 WBC 15.9 H RBC 2.09 L Hgb 7.3 L Hct 19.7 L* MCV 94.3 MCH 34.9 H MCHC 37.1 H RDW 16.3 H Plt Count 188 MPV 13.1 H Immature Gran % (Auto) 1.7 H Neut % (Auto) 87.4 H Lymph % (Auto) 4.7 L [place] % (Auto) 5.2 Eos % (Auto) 0.9 Baso % (Auto) 0.1 Lymph # (Auto) 0.8 L [place] # (Auto) 0.8 Eos # (Auto) 0.2 Baso # (Auto) 0.0 Abs Immat Gran (auto) 0.27 H Absolute Neuts (auto) 13.9 H Absolute Nucleated RBC 0.020 H Nucleated RBC % (auto) 0.1 Smear Tech's Comments VERIFIED VBG pH 7.58 H VBG pCO2 25 VBG pO2 42 VBG HCO3 23 VBG O2 Saturation 67.0 VBG Base Excess 2.8 Sodium 136 Potassium 4.3 Chloride 91 L Carbon Dioxide 20 L Anion Gap 29 H BUN 78 H Creatinine 4.96 H* Estim Creat Clear Calc 16.1 Estimated GFR 12 POC Glucose 108 Random Glucose 129 H Calcium 8.8 Phosphorus 8.6 H Magnesium 2.5 Total Bilirubin 12.8 H AST 130 H ALT 87 H Alkaline Phosphatase 420 H Total Protein 7.8 Albumin 3.6 Microbiology Microbiology Results: Microbiology 11/10/24 11:13 Blood - Venous Blood Culture - Final No growth after 5 days. 11/10/24 11:13 Blood - Venous Blood Culture - Final No growth after 5 days. 11/07/24 07:02 Blood - Venous Blood Culture - Final Staphylococcus aureus Coag negative Staphylococcus 11/08/24 04:10 Blood - Venous Blood Culture - Final Staphylococcus aureus 11/08/24 04:10 Blood - Venous Blood Culture - Final Staphylococcus aureus 11/07/24 07:01 Blood - Venous Blood Culture - Final Staphylococcus aureus Progress Note: A&P Assessment and plan (1) Polysubstance abuse: Status: Acute (2) Cardiac arrest: Status: Acute (3) Hyperbilirubinemia: Status: Acute (4) Acute kidney injury: Status: Acute (5) MSSA bacteremia: Status: Acute (6) Acute hypoxemic respiratory failure: Status: Acute (7) Bilateral pneumonia: Status: Acute Plan Assessment: 69-year-old gentleman admitted with acute hypoxic respiratory failure with metabolic acidosis status post cardiac arrest with return of spontaneous circulation after 2 rounds of CPR, with hospital course complicated 3 additional cardiac arrest, all with successful resuscitation. Plan: Neuro: Likely underlying ischemic encephalopathy from multiple cardiac arrests, intermittently moves all 4 extremities spontaneously. Poor arousal with sedation vacation, will obtain MRI brain. Cardiac: Multiple cardiac arrests with return of spontaneous circulation after several rounds of CPR. 2D echo with mildly decreased systolic function. Pulmonary: Acute hypoxic respiratory failure initially requiring essentially maximum ventilatory support. Underlying COVID-19 and possible aspiration component. Continue to titrate off as tolerated. Completed dexamethasone course. Bibasilar pneumonia, cavitary on the right. Ventilator support requirements continue to improve. Renal: Acute renal failure with improved lactic metabolic acidosis, likely from ischemic ATN. Essentially anuric. Continue to monitor renal indices and urine output. Nephrology service care appreciated. Continue hemodialysis support. Endo: No acute issues. GI: Hyperbilirubinemia, likely secondary to cholestasis, improving. Abdominal ultrasound with evidence of gallbladder sludge. ID: MSSA bacteremia, continue ceftriaxone. Heme/Onc: No acute issues. Psych: No acute issues. Miscellaneous: Underlying polysubstance abuse. Prophylaxis: Heparin, famotidine Diet: Tube feeds Critical care time spent: 60 minutes Quality Stroke Does the patient have a stroke diagnosis?: No VTE Prior VTE?: No VTE Risk Level:: Medical - moderate - high VTE Device Contraindication: Treatment Not Indicated VTE Drug Contraindication: N/A - Med Ordered
[2024-11-18 13:29] LABS: Glucose, Whole Blood 123 mg/dL (60-115)
[2024-11-18] MEDS: Norepinephrine Bitartrate/NS 16 MG/250 ML PLAST..BAG 4.18 MG IVCONT (17:19)
[2024-11-18 18:13] LABS: Glucose, Whole Blood 112 mg/dL (60-115)
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
[2024-11-18 20:37] LABS: Hematocrit 21.7 % (42.0-52.0); Hemoglobin 8.0 g/dl (14.0-18.0); Imm Gran Abs Auto 0.27 X10*3/uL (0.00-0.03); Imm Gran Pct Auto 1.5 % (0.0-0.4); Lymphocytes Absolute Auto 0.5 X10*3/uL (1.2-4.9); Mean Corpuscular HGB Conc 36.9 g/dl (31.0-36.0); Mean Corpuscular Hemoglobin 34.5 pg (27.0-33.0); Mean Corpuscular Volume 93.5 fL (80.0-98.0); NRBC Abs Auto 0.000 X10*3/uL (0.0-0.012); NRBC Pct Auto 0.0 /100WBC (0.0-0.2); Platelet Count 223 X10*3/uL (160-400); Red Blood Count 2.32 X10*6/uL (4.60-5.80); SCAN SMEAR FLAG 1; White Blood Count 17.9 X10*3/uL (4.8-10.8)
[2024-11-18 20:38] LABS: MANUAL DIFF FLAG SCAN
[2024-11-18 21:00] LABS: Anion Gap 23 (12-20); Blood Urea Nitrogen 26 mg/dL (9-16); Calcium 9.5 mg/dL (8.4-10.2); Carbon Dioxide 24 mmol/L (22-29); Chloride 94 mmol/L (96-108); Creatinine Clr Calc Pharmacy 37.1; Estimated Glomerular Filt Rate 31; Magnesium 2.2 mg/dL (1.6-2.6); Potassium 3.4 mmol/L (3.3-5.1); Sodium 138 mmol/L (135-145)
[2024-11-19] VITALS (47 sets, daily range): BP systolic 89–137; BP diastolic 45–68; PULSE 79–106; RESP 14–32; TEMP 34.7–38.8; O2SAT 92–98; BMI 25.5
[2024-11-19 00:27] LABS: Glucose, Whole Blood 168 mg/dL (60-115)
[2024-11-19 04:41] LABS: MANUAL DIFF FLAG NO
[2024-11-19 04:43] LABS: Hemoglobin 7.3 g/dl (14.0-18.0); Imm Gran Abs Auto 0.24 X10*3/uL (0.00-0.03); Imm Gran Pct Auto 1.6 % (0.0-0.4); Lymphocytes Absolute Auto 0.5 X10*3/uL (1.2-4.9); Mean Corpuscular HGB Conc 35.3 g/dl (31.0-36.0); Mean Corpuscular Hemoglobin 33.8 pg (27.0-33.0); Mean Corpuscular Volume 95.8 fL (80.0-98.0); NRBC Abs Auto 0.020 X10*3/uL (0.0-0.012); NRBC Pct Auto 0.1 /100WBC (0.0-0.2); Platelet Count 247 X10*3/uL (160-400); Red Blood Count 2.16 X10*6/uL (4.60-5.80); White Blood Count 14.7 X10*3/uL (4.8-10.8)
[2024-11-19 04:46] LABS: VBG HCO3 29 mmol/L (22-26); VBG O2 % Saturation 60.0 %
[2024-11-19 05:05] LABS: Hematocrit 20.7 % (42.0-52.0)
[2024-11-19 05:08] LABS: Alanine Aminotransferase 79 U/L (0-40); Albumin Level 4.0 g/dL (3.5-5.0); Alkaline Phosphatase 415 U/L (39-117); Anion Gap 23 (12-20); Aspartate Amino Transferase 107 U/L (5-37); Blood Urea Nitrogen 50 mg/dL (9-16); Calcium 9.1 mg/dL (8.4-10.2); Carbon Dioxide 23 mmol/L (22-29); Chloride 96 mmol/L (96-108); Creatinine Clr Calc Pharmacy 22.1; Estimated Glomerular Filt Rate 17; Magnesium 2.4 mg/dL (1.6-2.6); Potassium 3.8 mmol/L (3.3-5.1); Sodium 138 mmol/L (135-145); Total Protein 8.7 g/dL (6.5-8.0)
[2024-11-19 07:16] LABS: Venous Blood Gas Refer to POC result
[2024-11-19] MEDS: 0.9 % Sodium Chloride Flush 3 ML SYRINGE IVFLUSH ×2 (08:38→17:59)
[2024-11-19] MEDS: Chlorhexidine Gluc Oral Rinse 15 ML MOUTHWASH BUCCAL ×3 (08:38→21:06)
--- NOTE | 2024-11-19 10:10 | PM.CCPN ---
Subjective Subjective Date of Service: 11/19/24 Interval History: 69-year-old gentleman with underlying hypertension, anxiety, ? ADHD, substance abuse presented on 12/08/2024 with respiratory distress requiring immediate intubation complicated by pea re-intubation cardiac arrest with return of spontaneous circulation after 2 rounds of CPR. Initial workup significant for profound hypoxemia, lactic acidosis with acute renal failure, and COVID positivity. Patient started on empiric broad-spectrum antibiotics, pressor support, and dexamethasone and admitted to the intensive care unit. Patient with 3 additional cardiac arrests on 11/07/2024, with CPR started immediately and returned spontaneous circulation achieved with an 1-2 rounds of CPR each time. CT chest with evidence of bibasilar pneumonia, cavitary on the right. Blood cultures growing MSSA. Now with improving ventilatory requirements, however with development of HARSH likely secondary to ATN initiated on hemodialysis on 11/13/2024. Hyperbilirubinemia appears to have plateaued. Now with poor arousal with sedation vacation - MRI brain on 11/18/2024 subacute/acute bilateral infarcts. Anoro events overnight. Critical Care Time (minutes): 60 Physical Exam Vital Signs: Vital Signs: Last Vital Signs Temp 96.6 F L 11/19/24 09:00 Pulse 95 11/19/24 09:00 Resp 24 H 11/19/24 09:00 BP 118/54 L 11/19/24 09:00 Pulse Ox 92 11/19/24 09:00 O2 Del Method Mechanical Ventil ation 11/19/24 09:00 O2 Flow Rate 30 11/15/24 09:00 FiO2 40 11/19/24 09:00 BMI result Body Mass Index 25.5 Const: General: no acute distress Eyes: Sclerae: sclerae normal Neck: Neck: Yes no lymphadenopathy, Yes trachea midline and Yes supple Resp: Auscultation: clear to auscultation bilaterally Cardio: Rate: regular rate Rhythm: regular rhythm Heart sounds: no gallops, no murmurs and no rubs GI: Palpation (GI): Soft to palpation and Other GI palpation findings present ( Nontender) Auscultation: normal bowel sounds Extrem: General: Yes no pedal edema, No clubbing and No cyanosis Objective Data Labs 11/19/24 04:13 11/19/24 04:13 Labs: Laboratory Results - last 24 hr 11/18/24 11/18/2425 13:26 18:10 20:29 WBC 17.9 H RBC 2.32 L Hgb 8.0 L Hct 21.7 L MCV 93.5 MCH 34.5 H MCHC 36.9 H RDW 17.0 H Plt Count 223 MPV 12.8 H Immature Gran % (Auto) 1.5 H Neut % (Auto) 90.1 H Lymph % (Auto) 3.0 L [place] % (Auto) 4.7 Eos % (Auto) 0.6 Baso % (Auto) 0.1 Lymph # (Auto) 0.5 L [place] # (Auto) 0.8 Eos # (Auto) 0.1 Baso # (Auto) 0.0 Abs Immat Gran (auto) 0.27 H Absolute Neuts (auto) 16.2 H Absolute Nucleated RBC 0.000 Nucleated RBC % (auto) 0.0 Smear Tech's Comments VERIFIED VBG pH VBG pCO2 VBG pO2 VBG HCO3 VBG O2 Saturation VBG Base Excess Sodium 138 Potassium 3.4 D Chloride 94 L Carbon Dioxide 24 Anion Gap 23 H BUN 26 H Creatinine 2.15 H Estim Creat Clear Calc 37.1 Estimated GFR 31 POC Glucose 123 H 112 Random Glucose 123 H Calcium 9.5 D Phosphorus 3.5 Magnesium 2.2 Total Bilirubin AST ALT Alkaline Phosphatase Total Protein Albumin 11/19/24 11/19/24 11/19/24 00:23 04:13 04:43 WBC 14.7 H RBC 2.16 L Hgb 7.3 L Hct 20.7 L* MCV 95.8 MCH 33.8 H MCHC 35.3 RDW 17.3 H Plt Count 247 MPV 12.5 H Immature Gran % (Auto) 1.6 H Neut % (Auto) 86.9 H Lymph % (Auto) 3.7 L [place] % (Auto) 7.1 Eos % (Auto) 0.5 Baso % (Auto) 0.2 Lymph # (Auto) 0.5 L [place] # (Auto) 1.1 Eos # (Auto) 0.1 Baso # (Auto) 0.0 Abs Immat Gran (auto) 0.24 H Absolute Neuts (auto) 12.8 H Absolute Nucleated RBC 0.020 H Nucleated RBC % (auto) 0.1 Smear Tech's Comments VBG pH 7.47 H VBG pCO2 39 VBG pO2 43 VBG HCO3 29 H VBG O2 Saturation 60.0 VBG Base Excess 5.4 Sodium 138 Potassium 3.8 Chloride 96 Carbon Dioxide 23 Anion Gap 23 H BUN 50 H Creatinine 3.61 H Estim Creat Clear Calc 22.1 Estimated GFR 17 POC Glucose 168 H Random Glucose 145 H Calcium 9.1 Phosphorus 7.0 H Magnesium 2.4 Total Bilirubin 9.7 H AST 107 H ALT 79 H Alkaline Phosphatase 415 H Total Protein 8.7 H Albumin 4.0 Microbiology Microbiology Results: Microbiology 11/10/24 11:13 Blood - Venous Blood Culture - Final No growth after 5 days. 11/10/24 11:13 Blood - Venous Blood Culture - Final No growth after 5 days. 11/07/24 07:02 Blood - Venous Blood Culture - Final Staphylococcus aureus Coag negative Staphylococcus 11/08/24 04:10 Blood - Venous Blood Culture - Final Staphylococcus aureus 11/08/24 04:10 Blood - Venous Blood Culture - Final Staphylococcus aureus 11/07/24 07:01 Blood - Venous Blood Culture - Final Staphylococcus aureus Progress Note: A&P Assessment and plan (1) CVA (cerebral vascular accident): Status: Acute (2) Polysubstance abuse: Status: Acute (3) Cardiac arrest: Status: Acute (4) Hyperbilirubinemia: Status: Acute (5) Acute kidney injury: Status: Acute (6) MSSA bacteremia: Status: Acute (7) Acute hypoxemic respiratory failure: Status: Acute (8) Bilateral pneumonia: Status: Acute Plan Assessment: 69-year-old gentleman admitted with acute hypoxic respiratory failure with metabolic acidosis status post cardiac arrest with return of spontaneous circulation after 2 rounds of CPR, with hospital course complicated 3 additional cardiac arrest, all with successful resuscitation. Plan: Neuro: Likely underlying ischemic encephalopathy from multiple cardiac arrests, intermittently moves all 4 extremities spontaneously. Poor arousal with sedation vacation, MRI brain with bilateral acute/subacute infarcts. Will request Neurology input. Cardiac: Multiple cardiac arrests with return of spontaneous circulation after several rounds of CPR. 2D echo with mildly decreased systolic function. Pulmonary: Acute hypoxic respiratory failure initially requiring essentially maximum ventilatory support. Underlying COVID-19 and possible aspiration component. Continue to titrate off as tolerated. Completed dexamethasone course. Bibasilar pneumonia, cavitary on the right. Ventilator support requirements continue to improve. Renal: Acute renal failure with improved lactic metabolic acidosis, likely from ischemic ATN. Essentially anuric. Continue to monitor renal indices and urine output. Nephrology service care appreciated. Continue hemodialysis support. Endo: No acute issues. GI: Hyperbilirubinemia, likely secondary to cholestasis, improving. Abdominal ultrasound with evidence of gallbladder sludge. ID: MSSA bacteremia, continue ceftriaxone. Heme/Onc: No acute issues. Psych: No acute issues. Miscellaneous: Underlying polysubstance abuse. Prophylaxis: Heparin, famotidine Diet: Tube feeds Critical care time spent: 60 minutes Quality Stroke Does the patient have a stroke diagnosis?: No VTE Prior VTE?: No VTE Risk Level:: Medical - moderate - high VTE Device Contraindication: Treatment Not Indicated VTE Drug Contraindication: N/A - Med Ordered
[2024-11-19 12:08] LABS: Glucose, Whole Blood 156 mg/dL (60-115)
[2024-11-19] MEDS: Norepinephrine Bitartrate/NS 16 MG/250 ML PLAST..BAG 10.86 MG IVCONT (16:42)
--- NOTE | 2024-11-19 17:34 | PC.NURSE ---
Assumed care at 0700. Upon initial assessment, pt remains intubated with levophed drip. Pt responds to painful stimuli, opens eyes spontaneously but does not track and does not follow commands. Extremities flaccid. At 1200 assessment, pt appears more responsive: raising eyebrows, opening/closing mouth upon command, appears to occasionally answer yes/no questions with nods and shakes of head. At 1600, pt was unresponsive to questions and did not follow commands. See assessments and MAR for further details. Pt repositioned q2hr as tolerated. Fall & safety precautions in place. Care plan continues.
[2024-11-19 17:44] LABS: Glucose, Whole Blood 145 mg/dL (60-115)
[2024-11-19 18:24] LABS: Glucose, Whole Blood 145 mg/dL (60-115)
[2024-11-19 19:39] LABS: MANUAL DIFF FLAG NO
[2024-11-19 19:42] LABS: Imm Gran Abs Auto 0.21 X10*3/uL (0.00-0.03); Imm Gran Pct Auto 1.8 % (0.0-0.4); Lymphocytes Absolute Auto 0.8 X10*3/uL (1.2-4.9); Mean Corpuscular HGB Conc 35.1 g/dl (31.0-36.0); Mean Corpuscular Hemoglobin 34.0 pg (27.0-33.0); Mean Corpuscular Volume 97.0 fL (80.0-98.0); NRBC Abs Auto 0.000 X10*3/uL (0.0-0.012); NRBC Pct Auto 0.0 /100WBC (0.0-0.2); Platelet Count 276 X10*3/uL (160-400); Red Blood Count 2.00 X10*6/uL (4.60-5.80); White Blood Count 11.5 X10*3/uL (4.8-10.8)
[2024-11-19 19:47] LABS: Hematocrit 19.4 % (42.0-52.0); Hemoglobin 6.8 g/dl (14.0-18.0)
[2024-11-19 20:02] LABS: Albumin Level 3.5 g/dL (3.5-5.0); Anion Gap 25 (12-20); Blood Urea Nitrogen 82 mg/dL (9-16); Calcium 8.9 mg/dL (8.4-10.2); Carbon Dioxide 20 mmol/L (22-29); Chloride 95 mmol/L (96-108); Creatinine Clr Calc Pharmacy 16.1; Estimated Glomerular Filt Rate 12; Magnesium 2.4 mg/dL (1.6-2.6); Potassium 4.3 mmol/L (3.3-5.1); Sodium 136 mmol/L (135-145)
--- NOTE | 2024-11-19 20:03 | PM.EVENT ---
Documented by User: Selma Lyle NP 11/19/24 20:07 Event Note Date of Service: 11/19/24 Event Note: Patient H&H 6.8/19.4, no blood consent in chart, attempted to contact partner Riri Menezes [phone] voicemail full, not accepting call/ disconnected. Contact sister Radha Mcgee listed as secondary contact, , but unable to leave voicemail. Will order x 1 unit pRBC per emergency protocol Time Spent With Patient Time: Total time managing care of this patient today ____ minutes. Documented by User: Monty Steel MD 11/20/24 13:20 Event Note Date of Service: 11/20/24
[2024-11-20] VITALS (32 sets, daily range): BP systolic 99–138; BP diastolic 44–83; PULSE 81–103; RESP 21–34; TEMP 34.7–38.6; O2SAT 91–97; BMI 23.0
[2024-11-20] MEDS: 0.9 % Sodium Chloride Flush 3 ML SYRINGE IVFLUSH ×3 (00:09→15:29)
[2024-11-20 05:14] LABS: VBG HCO3 19 mmol/L (22-26); VBG O2 % Saturation 74.0 %
[2024-11-20 05:15] LABS: Venous Blood Gas Refer to POC result
[2024-11-20 05:26] LABS: MANUAL DIFF FLAG NO
[2024-11-20 05:29] LABS: Hematocrit 22.3 % (42.0-52.0); Hemoglobin 7.8 g/dl (14.0-18.0); Imm Gran Abs Auto 0.20 X10*3/uL (0.00-0.03); Imm Gran Pct Auto 1.9 % (0.0-0.4); Lymphocytes Absolute Auto 0.8 X10*3/uL (1.2-4.9); Mean Corpuscular HGB Conc 35.0 g/dl (31.0-36.0); Mean Corpuscular Hemoglobin 33.6 pg (27.0-33.0); Mean Corpuscular Volume 96.1 fL (80.0-98.0); NRBC Abs Auto 0.000 X10*3/uL (0.0-0.012); NRBC Pct Auto 0.0 /100WBC (0.0-0.2); Platelet Count 284 X10*3/uL (160-400); Red Blood Count 2.32 X10*6/uL (4.60-5.80); White Blood Count 10.5 X10*3/uL (4.8-10.8)
[2024-11-20 05:44] LABS: Glucose, Whole Blood 113 mg/dL (60-115)
[2024-11-20 05:51] LABS: Alanine Aminotransferase 68 U/L (0-40); Albumin Level 3.4 g/dL (3.5-5.0); Alkaline Phosphatase 387 U/L (39-117); Anion Gap 27 (12-20); Aspartate Amino Transferase 92 U/L (5-37); Blood Urea Nitrogen 100 mg/dL (9-16); Calcium 8.6 mg/dL (8.4-10.2); Carbon Dioxide 18 mmol/L (22-29); Chloride 95 mmol/L (96-108); Creatinine Clr Calc Pharmacy 13.9; Estimated Glomerular Filt Rate 10; Magnesium 2.5 mg/dL (1.6-2.6); Potassium 4.0 mmol/L (3.3-5.1); Sodium 136 mmol/L (135-145); Total Protein 8.5 g/dL (6.5-8.0)
--- NOTE | 2024-11-20 06:34 | PC.NURSE ---
Critical Care Nursing Note Assumed care of the patient at 1900. Patient mechanically ventilated, sedation vacation, RASS -1.? The patient with a positive cough and gag, grimaces and clamps down when oral care is performed, tracks intermittently, does not follow commands. AFib on telemetry. Levophed gtt titrated to maintain MAP goal >65. Tube feeding running at goal rate of 40ml/hr. One unit PRBC administered during shift.
--- NOTE | 2024-11-20 08:37 | PM.CCPN ---
Subjective Subjective Date of Service: 11/20/24 Interval History: No new events, continues to be on ventilator support Critical Care Time (minutes): 35 Physical Exam Vital Signs: Vital Signs: Last Vital Signs Temp 100.9 F H 11/20/24 08:00 Pulse 97 11/20/24 08:00 Resp 27 H 11/20/24 08:00 BP 117/57 L 11/20/24 08:00 Pulse Ox 93 11/20/24 08:00 O2 Del Method Mechanical Ventil ation 11/20/24 08:00 O2 Flow Rate 30 11/15/24 09:00 FiO2 35 11/20/24 08:00 BMI result Body Mass Index 23.0 General: acute distress, ill appearing and tired appearing Nutritional Appearance: well nourished and overweight Eyes: appearance normal, both eyes and all related structures; Alignment and Position: alignment normal and position normal Neck: No lymphadenopathy, no thyromegaly Resp: bilateral air entry equal, occasional added sounds present Cardio: Regular rate, regular rhythm; Heart sounds: S1 normal heart sound present and S2 normal heart sound present GI: soft, nontender, no guarding, no hepatosplenomegaly : bladder normal to inspection, bladder normal to palpation, no renal angle tenderness Skin: no rashes or lesions noted and elasticity normal Neuro: might be possibly tracking, mild movement of the leg Objective Data Labs 11/20/24 05:06 11/20/24 05:07 Labs: Laboratory Results - last 24 hr 11/19/24 11/19/24 11/19/24 12:01 17:37 18:16 WBC RBC Hgb Hct MCV MCH MCHC RDW Plt Count MPV Immature Gran % (Auto) Neut % (Auto) Lymph % (Auto) [place] % (Auto) Eos % (Auto) Baso % (Auto) Lymph # (Auto) [place] # (Auto) Eos # (Auto) Baso # (Auto) Abs Immat Gran (auto) Absolute Neuts (auto) Absolute Nucleated RBC Nucleated RBC % (auto) VBG pH VBG pCO2 VBG pO2 VBG HCO3 VBG O2 Saturation VBG Base Excess Sodium Potassium Chloride Carbon Dioxide Anion Gap BUN Creatinine Estim Creat Clear Calc Estimated GFR POC Glucose 156 H 145 H 145 H Random Glucose Calcium Phosphorus Magnesium Total Bilirubin AST ALT Alkaline Phosphatase Total Protein Albumin Blood Type Antibody Screen Crossmatch 11/19/24 11/19/24 11/20/24 19:33 20:24 00:12 WBC 11.5 H RBC 2.00 L Hgb 6.8 L* Hct 19.4 L* MCV 97.0 MCH 34.0 H MCHC 35.1 RDW 17.5 H Plt Count 276 MPV 12.3 Immature Gran % (Auto) 1.8 H Neut % (Auto) 82.3 H Lymph % (Auto) 6.7 L [place] % (Auto) 8.3 Eos % (Auto) 0.7 Baso % (Auto) 0.2 Lymph # (Auto) 0.8 L [place] # (Auto) 1.0 Eos # (Auto) 0.1 Baso # (Auto) 0.0 Abs Immat Gran (auto) 0.21 H Absolute Neuts (auto) 9.5 H Absolute Nucleated RBC 0.000 Nucleated RBC % (auto) 0.0 VBG pH VBG pCO2 VBG pO2 VBG HCO3 VBG O2 Saturation VBG Base Excess Sodium 136 Potassium 4.3 Chloride 95 L Carbon Dioxide 20 L Anion Gap 25 H BUN 82 H Creatinine 4.94 H* Estim Creat Clear Calc 16.1 Estimated GFR 12 POC Glucose 113 Random Glucose 122 H Calcium 8.9 Phosphorus 9.9 H Magnesium 2.4 Total Bilirubin AST ALT Alkaline Phosphatase Total Protein Albumin 3.5 Blood Type O Positive Antibody Screen NEGATIVE Crossmatch See Detail 11/20/24 11/20/24 11/20/24 05:06 05:07 05:10 WBC 10.5 RBC 2.32 L Hgb 7.8 L Hct 22.3 L MCV 96.1 MCH 33.6 H MCHC 35.0 RDW 17.1 H Plt Count 284 MPV 12.1 Immature Gran % (Auto) 1.9 H Neut % (Auto) 79.1 H Lymph % (Auto) 7.8 L [place] % (Auto) 9.8 Eos % (Auto) 1.3 Baso % (Auto) 0.1 Lymph # (Auto) 0.8 L [place] # (Auto) 1.0 Eos # (Auto) 0.1 Baso # (Auto) 0.0 Abs Immat Gran (auto) 0.20 H Absolute Neuts (auto) 8.3 Absolute Nucleated RBC 0.000 Nucleated RBC % (auto) 0.0 VBG pH 7.49 H VBG pCO2 25 VBG pO2 48 VBG HCO3 19 L VBG O2 Saturation 74.0 VBG Base Excess -2.1 Sodium 136 Potassium 4.0 Chloride 95 L Carbon Dioxide 18 L Anion Gap 27 H BUN 100 H Creatinine 5.68 H* Estim Creat Clear Calc 13.9 Estimated GFR 10 POC Glucose Random Glucose 123 H Calcium 8.6 Phosphorus 10.7 H Magnesium 2.5 Total Bilirubin 6.3 H AST 92 H ALT 68 H Alkaline Phosphatase 387 H Total Protein 8.5 H Albumin 3.4 L Blood Type Antibody Screen Crossmatch Microbiology Microbiology Results: Microbiology 11/10/24 11:13 Blood - Venous Blood Culture - Final No growth after 5 days. 11/10/24 11:13 Blood - Venous Blood Culture - Final No growth after 5 days. 11/07/24 07:02 Blood - Venous Blood Culture - Final Staphylococcus aureus Coag negative Staphylococcus 11/08/24 04:10 Blood - Venous Blood Culture - Final Staphylococcus aureus 11/08/24 04:10 Blood - Venous Blood Culture - Final Staphylococcus aureus 11/07/24 07:01 Blood - Venous Blood Culture - Final Staphylococcus aureus Progress Note: A&P Assessment and plan (1) Polysubstance abuse: Status: Acute (2) Cardiac arrest: Status: Acute (3) Acute kidney injury: Status: Acute (4) Acute hypoxemic respiratory failure: Status: Acute (5) CVA (cerebral vascular accident): Status: Acute (6) Bilateral pneumonia: Status: Acute Plan 69-year-old gentleman with underlying hypertension, anxiety, ? ADHD, substance abuse presented on 12/08/2024 with respiratory distress requiring immediate intubation complicated by pea re-intubation cardiac arrest with return of spontaneous circulation after 2 rounds of CPR. Initial workup significant for profound hypoxemia, lactic acidosis with acute renal failure, and COVID positivity. Patient started on empiric broad-spectrum antibiotics, pressor support, and dexamethasone and admitted to the intensive care unit. Patient with 3 additional cardiac arrests on 11/07/2024, with CPR started immediately and returned spontaneous circulation achieved with an 1-2 rounds of CPR each time. CT chest with evidence of bibasilar pneumonia, cavitary on the right. Blood cultures growing MSSA. Now with improving ventilatory requirements, however with development of HARSH likely secondary to ATN initiated on hemodialysis on 11/13/2024. Hyperbilirubinemia appears to have plateaued. Now with poor arousal with sedation vacation - MRI brain on 11/18/2024 subacute/acute bilateral infarcts. Neuro: Acute encephalopathy possibly due to bilateral infarcts unsure if embolic or secondary to COVID off sedation since 11/15/2024, very mildly responsive UDS positive for cocaine, fentanyl, methadone Close neurological status monitoring in the ICU every hour Cardiac: Cardiogenic Shock: Possibly secondary to postive pressure ventilation On Levophed support, titrate Levophed to keep map above 65 mm Hg Respiratory: Acute hypoxemic respiratory failure due to pulmonary infarcts, bibasilar pneumonia Currently on ventilator support On PRVC mode FiO2 35%,PEEP 8, TV 420, RR 20 Peak pressures and plateau pressures are under the curve Ventilator management bundle with head end elevation, aspiration precaution, chlorhexidine mouthwash, daily awakening trials, daily spontaneous breathing trials GI: on tube feeds Renal: Acute kidney injury possibly secondary to ATN from cardiac arrest Receiving renal replacement therapy almost every day since the past week We will closely monitor I's and O's Avoid nephrotoxic medications Heme: Chronic anemia, closely monitor H&H, transfuse for hemoglobin less than 7 grams/deciliter received an unit of PRBC transfusion overnight Endocrine: Blood sugars under control Sliding scale insulin as needed Infectious disease: Initial 2 sets of blood cultures positive for MSSA, repeat blood culture negative on 11/10/2024 Musculoskeletal: Decubitus ulcer prevention protocol Lines: Right IJ TLC placed on 11/07/2024 - will take it off once we have peripherals Left IJ hemodialysis on 11/13/2024 Prophylaxis: Heparin, famotidine Quality Stroke Does the patient have a stroke diagnosis?: No VTE Prior VTE?: No VTE Risk Level:: Medical - moderate - high VTE Device Contraindication: Treatment Not Indicated VTE Drug Contraindication: N/A - Med Ordered
[2024-11-20] MEDS: Chlorhexidine Gluc Oral Rinse 15 ML MOUTHWASH BUCCAL ×3 (08:44→20:58)
--- NOTE | 2024-11-20 09:57 | MHC.CLN ---
F/U PT REMAINS INTUBATED DISCUSSED AT ROUNDS WITH MARILUZ TO CONTINUE CONTINUE NEPRO AT MAX GOAL RATE 40ML/HR WITH 300ML FREE WATER FLUSHES Q 6 HRS TO PROVIDE 1728KCALS (22KCALS/KG), 78G PROTEIN, 1898ML TOTAL FREE WATER FROM FORMULA AND FLUSHES (24ML/KG) MONITOR TOLERANCE AND LYTES
--- NOTE | 2024-11-20 10:06 | PM.NEUROCN ---
History of Present Illness Data of Consult Service Date: 11/20/24 Primary Care Provider: Ishan Pablo MD [facility] Reason for consult: Abnormal MRI of brain 69-year-old gentleman with underlying hypertension, anxiety, ? ADHD, substance abuse presented on 12/08/2024 with respiratory distress requiring immediate intubation complicated by pea re-intubation cardiac arrest with return of spontaneous circulation after 2 rounds of CPR. Initial workup significant for profound hypoxemia, lactic acidosis with acute renal failure, and COVID positivity. An MRI of brain was done that revealed abnormalities prompting this consultation. Patient was still intubated. Review of Systems Review of Systems: Could not be done with him PMFSH Past Medical History Medical History HTN (hypertension) Social History Social History Household Members: Unknown / Unable to assess Housing: Unknown / Unable to assess Alcohol intake: current Alcohol intake frequency: 0-2 drinks per day Patient Tobacco Use Status: Tobacco use Unknown Currently Displaying Signs/Symptoms of Drug Intoxication Withdrawal: No Advance Directives: No Advance Directives Information Provided: No Do you have a plan to hurt others: No Plan Meds Allergies Allergy/AdvReac Type Severity Reaction Status Date / Time Penicillins Allergy Unknown Verified 11/07/24 06:19 ibuprofen AdvReac Difficulty Verified 11/07/24 06:19 Breathing Active Medications: Current Medications Ceftriaxone Sodium (Ceftriaxone Sodium 2 Gm Vial) 2 gm IVPUSH Q24H [facility] Last Admin: 11/19/24 11:52 Dose: 2 gm Chlorhexidine Gluconate (Chlorhexidine Gluc Oral Rinse 15 Ml Mouthwash) 15 ml BUCCAL TID [facility] Last Admin: 11/20/24 08:44 Dose: 15 ml Dextrose (Dextrose 50 % 25 Gm/50 Ml Syringe) 25 gm IVPUSH Q15M PRN PRN Reason: per Hypoglycemia Standing Ord. Last Admin: 11/09/24 12:24 Dose: 25 gm Famotidine (Famotidine/Pf 20 Mg/2 Ml Vial) 20 mg IVPUSH DAILY [facility] Last Admin: 11/20/24 08:44 Dose: 20 mg Fentanyl (Fentanyl Citrate/Pf 100 Mcg/2 Ml Vial) 50 mcg IVPUSH Q2H PRN; Protocol PRN Reason: Ventilator synchrony Last Admin: 11/18/24 20:24 Dose: 50 mcg Heparin Sodium (Porcine) (Heparin Sodium,Porcine 5,000 Unit/Ml Vial) 5,000 unit SUBCUT Q8H [facility] Last Admin: 11/20/24 08:43 Dose: 5,000 unit Norepinephrine Bitartrate (Levophed) 16 mg in 250 mls @ 0 mls/hr IVCONT .Q0M [facility]; Protocol Last Titration: 11/19/24 23:36 Dose: 0.11 mcg/kg/min, 9.19 mls/hr Modafinil (Modafinil 100 Mg Tablet) 200 mg PO DAILY [facility] Naloxone HCl (Naloxone Hcl 0.4 Mg/Ml Vial) 0.2 mg IVPUSH Q2M PRN PRN Reason: Excessive sedation or RR < 8 Sodium Chloride (0.9 % Sodium Chloride Flush 3 Ml Syringe) 3 ml IVFLUSH QSHIFT [facility] Last Admin: 11/20/24 07:58 Dose: 3 ml Home Medications ?Medication ?Instructions ?Recorded ?Confirmed ?Last Taken ?Type amlodipine 5 mg tablet 5 mg PO DAILY 11/07/24 11/07/24 Unknown History clonazepam 1 mg tablet 1 mg PO TID anxiety 11/07/24 11/07/24 Unknown History dextroamphetamine-amphetamine 20 1 tab PO BID 11/07/24 11/07/24 Unknown History mg tablet Physical Exam Vital Signs: Vital Signs: Last Vital Signs Temp 100.9 F H 11/20/24 08:00 Pulse 97 11/20/24 08:00 Resp 27 H 11/20/24 08:00 BP 117/57 L 11/20/24 08:00 Pulse Ox 93 11/20/24 08:00 O2 Del Method Mechanical Ventil ation 11/20/24 08:00 O2 Flow Rate 30 11/15/24 09:00 FiO2 35 11/20/24 09:58 BMI result Body Mass Index 23.0 Neuro: Other: He is little bit drowsy with eyes open. He did not make particular eye contact. There were spontaneous eye movements in horizontal direction. Visual newell could not be reliably checked. He was not responding to verbal or painful stimuli in in any meaningful way. There was no abnormal posturing. Plantars were flexor. Deep tendon reflexes were absent. Pupils were about 3-4 mm round reactive. Results Labs 11/20/24 05:06 11/20/24 05:07 Labs: Short CBC 11/19/24 11/20/24 Range/Units 19:33 05:06 WBC 11.5 H 10.5 (4.8-10.8) X10*3/uL Hgb 6.8 L* 7.8 L (14.0-18.0) g/dl Hct 19.4 L* 22.3 L (42.0-52.0) % Plt Count 276 284 (160-400) X10*3/uL BMP 11/19/24 11/20/24 19:33 05:07 Sodium 136 136 Potassium 4.3 4.0 Chloride 95 L 95 L Carbon Dioxide 20 L 18 L BUN 82 H 100 H Creatinine 4.94 H* 5.68 H* Calcium 8.9 8.6 Liver Function 11/19/24 11/20/24 Range/Units 19:33 05:07 Total Bilirubin 6.3 H (0.0-1.0) mg/dL AST 92 H (5-37) U/L ALT 68 H (0-40) U/L Alkaline Phosphatase 387 H (39-117) U/L Albumin 3.5 3.4 L (3.5-5.0) g/dL MRI of brain revealed patchy area of bilateral border zone supra tentorial areas of restricted diffusion. Microbiology Microbiology Results: Microbiology 11/10/24 11:13 Blood - Venous Blood Culture - Final No growth after 5 days. 11/10/24 11:13 Blood - Venous Blood Culture - Final No growth after 5 days. 11/07/24 07:02 Blood - Venous Blood Culture - Final Staphylococcus aureus Coag negative Staphylococcus 11/08/24 04:10 Blood - Venous Blood Culture - Final Staphylococcus aureus 11/08/24 04:10 Blood - Venous Blood Culture - Final Staphylococcus aureus 11/07/24 07:01 Blood - Venous Blood Culture - Final Staphylococcus aureus Assessment and Plan (1) Encephalopathy: Qualifiers: Encephalopathy type: anoxic Qualified Code(s): G93.1 - Anoxic brain damage, not elsewhere classified Status: Acute 69 years old man who probably has multifactorial encephalopathy with major component from anoxic injury. As far as areas of abnormalities are noted on brain MRI, there are in border zone area and relatively mild, typically happening with hypoperfusion of brain. There real significance is that they indicate level of hypoperfusion brain was exposed to, which typically could result in anoxic brain injury. His examination does not correspond to these lesions in his worse than what is noted on MRI. No specific treatment for these lesion is available and maintenance of perfusion and other medical care is recommended. Procedures Date of Service Date of Service: 11/20/24
[2024-11-20 12:15] LABS: Glucose, Whole Blood 142 mg/dL (60-115)
--- NOTE | 2024-11-20 13:17 | MHC.CM.PN ---
Pt continues care in ICU: now on HD: 11/18 MRI showed multiple infarcts vs mass. No sedation: plan is to trial extubation in 24 - 48 hours. Pt will likely need placement following extubation. CM to follow for finalization of d/c needs.
[2024-11-20] MEDS: Norepinephrine Bitartrate/NS 16 MG/250 ML PLAST..BAG 9.19 MG IVCONT (17:59)
--- NOTE | 2024-11-20 19:54 | PC.NURSE ---
Patient status unchanged today. Still off sedation. Showing some purposeful movements via nodding and shaking head. extremities totally flaccid. Able to track finger on patients right side of vision, but unable to track finger on patients left side of head.
[2024-11-21] VITALS (52 sets, daily range): BP systolic 77–150; BP diastolic 37–96; PULSE 89–134; RESP 17–31; TEMP 34.6–38.7; O2SAT 89–100; BMI 23.1
[2024-11-21 00:10] LABS: Glucose, Whole Blood 103 mg/dL (60-115)
[2024-11-21] MEDS: 0.9 % Sodium Chloride Flush 3 ML SYRINGE IVFLUSH ×3 (00:58→14:46)
[2024-11-21 04:40] LABS: VBG HCO3 15 mmol/L (22-26); VBG O2 % Saturation 82.0 %
[2024-11-21 04:44] LABS: MANUAL DIFF FLAG NO
[2024-11-21 04:45] LABS: Hematocrit 21.9 % (42.0-52.0); Hemoglobin 7.5 g/dl (14.0-18.0); Imm Gran Abs Auto 0.10 X10*3/uL (0.00-0.03); Imm Gran Pct Auto 1.1 % (0.0-0.4); Lymphocytes Absolute Auto 0.8 X10*3/uL (1.2-4.9); Mean Corpuscular HGB Conc 34.2 g/dl (31.0-36.0); Mean Corpuscular Hemoglobin 33.5 pg (27.0-33.0); Mean Corpuscular Volume 97.8 fL (80.0-98.0); NRBC Abs Auto 0.000 X10*3/uL (0.0-0.012); NRBC Pct Auto 0.0 /100WBC (0.0-0.2); Platelet Count 312 X10*3/uL (160-400); Red Blood Count 2.24 X10*6/uL (4.60-5.80); White Blood Count 9.1 X10*3/uL (4.8-10.8)
[2024-11-21 04:51] LABS: Venous Blood Gas Refer to POC result
[2024-11-21 07:16] LABS: Alanine Aminotransferase 70 U/L (0-40); Albumin Level 2.9 g/dL (3.5-5.0); Alkaline Phosphatase 380 U/L (39-117); Anion Gap 31 (12-20); Aspartate Amino Transferase 127 U/L (5-37); Blood Urea Nitrogen 130 mg/dL (9-16); Calcium 8.1 mg/dL (8.4-10.2); Carbon Dioxide 13 mmol/L (22-29); Chloride 93 mmol/L (96-108); Creatinine Clr Calc Pharmacy 10.6; Estimated Glomerular Filt Rate 7; Magnesium 2.7 mg/dL (1.6-2.6); Potassium 5.7 mmol/L (3.3-5.1); Sodium 131 mmol/L (135-145); Total Protein 8.6 g/dL (6.5-8.0)
[2024-11-21 08:08] LABS: HIV Num 1 0.08 S/CO (0.00-0.99)
[2024-11-21 08:18] LABS: Syphilis Screen Nonreactive (Nonreactive)
--- NOTE | 2024-11-21 08:39 | PM.CCPN ---
Subjective Subjective Date of Service: 11/21/24 Interval History: No new events overnight; mental status slightly improved On ventilator support, pressure support since yesterday Critical Care Time (minutes): 35 Physical Exam Vital Signs: Vital Signs: Last Vital Signs Temp 100.9 F H 11/21/24 08:00 Pulse 101 H 11/21/24 08:00 Resp 28 H 11/21/24 08:00 BP 106/55 L 11/21/24 08:00 Pulse Ox 94 11/21/24 08:00 O2 Del Method Mechanical Ventil ation 11/21/24 08:00 O2 Flow Rate 30 11/15/24 09:00 FiO2 35 11/21/24 08:00 BMI result Body Mass Index 23.1 General: Elderly male in severe acute distress, ill appearing and tired appearing Nutritional Appearance: well nourished and overweight Eyes: appearance normal, both eyes and all related structures; Alignment and Position: alignment normal and position normal Neck: No lymphadenopathy, no thyromegaly Resp: bilateral air entry equal, occasional added sounds present Cardio: Regular rate, regular rhythm; Heart sounds: S1 normal heart sound present and S2 normal heart sound present GI: soft, nontender, no guarding, no hepatosplenomegaly : bladder normal to inspection, bladder normal to palpation, no renal angle tenderness Skin: no rashes or lesions noted and elasticity normal Neuro: Significant hemineglect, opens eyes and possibly tracks Objective Data Labs 11/21/24 04:01 11/21/24 06:08 Labs: Laboratory Results - last 24 hr 11/20/24 11/20/24 11/21/24 12:00 23:52 04:01 WBC 9.1 RBC 2.24 L Hgb 7.5 L Hct 21.9 L MCV 97.8 MCH 33.5 H MCHC 34.2 RDW 16.9 H Plt Count 312 MPV 11.7 Immature Gran % (Auto) 1.1 H Neut % (Auto) 80.5 H Lymph % (Auto) 8.6 L [place] % (Auto) 8.5 Eos % (Auto) 1.2 Baso % (Auto) 0.1 Lymph # (Auto) 0.8 L [place] # (Auto) 0.8 Eos # (Auto) 0.1 Baso # (Auto) 0.0 Abs Immat Gran (auto) 0.10 H Absolute Neuts (auto) 7.3 Absolute Nucleated RBC 0.000 Nucleated RBC % (auto) 0.0 VBG pH VBG pCO2 VBG pO2 VBG HCO3 VBG O2 Saturation VBG Base Excess Sodium Potassium Chloride Carbon Dioxide Anion Gap BUN Creatinine Estim Creat Clear Calc Estimated GFR POC Glucose 142 H 103 Random Glucose Calcium Phosphorus Magnesium Total Bilirubin AST ALT Alkaline Phosphatase Total Protein Albumin T.pallidum Ab (EIA) Nonreactive HIV 1&2 Ab/P24 Ag 4thGn Nonreactive 11/21/24 11/21/24 04:36 06:08 WBC RBC Hgb Hct MCV MCH MCHC RDW Plt Count MPV Immature Gran % (Auto) Neut % (Auto) Lymph % (Auto) [place] % (Auto) Eos % (Auto) Baso % (Auto) Lymph # (Auto) [place] # (Auto) Eos # (Auto) Baso # (Auto) Abs Immat Gran (auto) Absolute Neuts (auto) Absolute Nucleated RBC Nucleated RBC % (auto) VBG pH 7.44 H VBG pCO2 23 VBG pO2 56 VBG HCO3 15 L VBG O2 Saturation 82.0 VBG Base Excess -6.6 Sodium 131 L Potassium 5.7 H D Chloride 93 L Carbon Dioxide 13 L Anion Gap 31 H BUN 130 H Creatinine 7.45 H* Estim Creat Clear Calc 10.6 Estimated GFR 7 POC Glucose Random Glucose 116 H Calcium 8.1 L Phosphorus 13.0 H Magnesium 2.7 H Total Bilirubin 4.3 H AST 127 H ALT 70 H Alkaline Phosphatase 380 H Total Protein 8.6 H Albumin 2.9 L T.pallidum Ab (EIA) HIV 1&2 Ab/P24 Ag 4thGn Microbiology Microbiology Results: Microbiology 11/10/24 11:13 Blood - Venous Blood Culture - Final No growth after 5 days. 11/10/24 11:13 Blood - Venous Blood Culture - Final No growth after 5 days. 11/07/24 07:02 Blood - Venous Blood Culture - Final Staphylococcus aureus Coag negative Staphylococcus 11/08/24 04:10 Blood - Venous Blood Culture - Final Staphylococcus aureus 11/08/24 04:10 Blood - Venous Blood Culture - Final Staphylococcus aureus 11/07/24 07:01 Blood - Venous Blood Culture - Final Staphylococcus aureus Progress Note: A&P Assessment and plan (1) Polysubstance abuse: Status: Acute (2) Hyperbilirubinemia: Status: Acute (3) Acute kidney injury: Status: Acute (4) Acute hypoxemic respiratory failure: Status: Acute (5) Acute respiratory distress syndrome (ARDS): Status: Acute (6) Bilateral pneumonia: Status: Acute Plan 69-year-old gentleman with underlying hypertension, anxiety, ? ADHD, substance abuse presented on 12/08/2024 with respiratory distress requiring immediate intubation complicated by pea re-intubation cardiac arrest with return of spontaneous circulation after 2 rounds of CPR. Initial workup significant for profound hypoxemia, lactic acidosis with acute renal failure, and COVID positivity. Patient started on empiric broad-spectrum antibiotics, pressor support, and dexamethasone and admitted to the intensive care unit. Patient with 3 additional cardiac arrests on 11/07/2024, with CPR started immediately and returned spontaneous circulation achieved with an 1-2 rounds of CPR each time. CT chest with evidence of bibasilar pneumonia, cavitary on the right. Blood cultures growing MSSA. Now with improving ventilatory requirements, however with development of HARSH likely secondary to ATN initiated on hemodialysis on 11/13/2024. Hyperbilirubinemia appears to have plateaued. Now with poor arousal with sedation vacation - MRI brain on 11/18/2024 subacute/acute bilateral infarcts. Neuro: Acute encephalopathy possibly due to bilateral infarcts unsure if embolic or secondary to COVID off sedation since 11/15/2024, opens eyes and possibly tracts, has significant neuro deficit including vera-neglect. We will know once he is extubated On modafinil for neurostimulation UDS positive for cocaine, fentanyl, methadone Close neurological status monitoring in the ICU every hour Cardiac: Cardiogenic Shock: Possibly secondary to postive pressure ventilation On Levophed support, titrate Levophed to keep map above 65 mm Hg Respiratory: Acute hypoxemic respiratory failure due to pulmonary infarcts, bibasilar pneumonia Currently on ventilator support On pressure support 17/08 since yesterday, will reduce the support and get weaning parameters and possibly extubate today. No secretions. Peak pressures and plateau pressures are under the curve Ventilator management bundle with head end elevation, aspiration precaution, chlorhexidine mouthwash, daily awakening trials, daily spontaneous breathing trials GI: on tube feeds Transaminitis: Possibly part of multiorgan failure from cardiac arrest bilirubin 4.3, down from peak of 16.3 Hepatitis panel, HIV negative We will monitor Renal: Acute kidney injury possibly secondary to ATN from cardiac arrest Undergoing hemodialysis session this morning with UF of about 4-5 L. he received 5 sessions of hemodialysis last week We will closely monitor I's and O's Avoid nephrotoxic medications Hyperkalemia: Should improve with renal replacement therapy Heme: Chronic anemia, closely monitor H&H, transfuse for hemoglobin less than 7 grams/deciliter received an unit of PRBC transfusion overnight on 11/20/2024 Endocrine: Blood sugars under control Sliding scale insulin as needed Infectious disease: Initial 2 sets of blood cultures positive for MSSA, repeat blood culture negative on 11/10/2024 Musculoskeletal: Decubitus ulcer prevention protocol Lines: Right IJ TLC placed on 11/07/2024 - we will place Left IJ hemodialysis on 11/13/2024 Prophylaxis: Heparin, famotidine Total critical care time spent is about 40 minutes on managing this critically ill patient with multiple organ failures. Time spent is on ventilator management, sedation management, vasopressor management, managing patient's hemodialysis in this hemodynamically unstable patient, review of labs and images at this time is excluding any procedural time Quality Stroke Does the patient have a stroke diagnosis?: No VTE Prior VTE?: No VTE Risk Level:: Medical - moderate - high VTE Device Contraindication: Treatment Not Indicated VTE Drug Contraindication: N/A - Med Ordered
[2024-11-21] MEDS: Chlorhexidine Gluc Oral Rinse 15 ML MOUTHWASH BUCCAL ×3 (10:09→20:34)
--- NOTE | 2024-11-21 11:41 | MHC.CLN ---
F/U PT REMAINS INTUBATED DISCUSSED AT ROUNDS WITH -HD TO CONTINUE REVIEWED LABS-NOTED HYPONATREMIA CONTINUE NEPRO AT MAX GOAL RATE 40ML/HR WITH TO PROVIDE 1728KCALS (22KCALS/KG), 78G PROTEIN, 698ML FREE WATER FROM FORMULA D/C 300ML FREE WATER FLUSHES Q 6 HRS R/T LOW NA MONITOR TOLERANCE AND LYTES
[2024-11-21 11:57] LABS: Glucose, Whole Blood 117 mg/dL (60-115)
[2024-11-21] MEDS: Norepinephrine Bitartrate/NS 16 MG/250 ML PLAST..BAG 35.92 MG IVCONT (14:04)
--- NOTE | 2024-11-21 15:50 | MHC.CM.PN ---
Pt remains on vent support and HD: mental status slightly improved: pt will need STR following prolonged ICU stay: Referrals to be made once his condition and prognosis are better known.
[2024-11-21 18:23] LABS: Glucose, Whole Blood 218 mg/dL (60-115)
[2024-11-21] MEDS: Norepinephrine Bitartrate/NS 16 MG/250 ML PLAST..BAG 24.22 MG IVCONT (21:51)
[2024-11-22] VITALS (41 sets, daily range): BP systolic 88–137; BP diastolic 51–70; PULSE 94–115; RESP 20–35; TEMP 34.8–37.7; O2SAT 90–97; BMI 22.7
[2024-11-22 00:06] LABS: Glucose, Whole Blood 184 mg/dL (60-115)
[2024-11-22] MEDS: 0.9 % Sodium Chloride Flush 3 ML SYRINGE IVFLUSH ×4 (00:20→22:36)
--- NOTE | 2024-11-22 01:08 | HO.SKINPHOTO ---
Location: Left [place]ekbone Location: Right Cheekbone
[2024-11-22 05:16] LABS: VBG HCO3 23 mmol/L (22-26); VBG O2 % Saturation 71.0 %
[2024-11-22 05:18] LABS: MANUAL DIFF FLAG NO
[2024-11-22 05:19] LABS: Hematocrit 22.5 % (42.0-52.0); Hemoglobin 7.7 g/dl (14.0-18.0); Imm Gran Abs Auto 0.08 X10*3/uL (0.00-0.03); Imm Gran Pct Auto 0.9 % (0.0-0.4); Lymphocytes Absolute Auto 0.8 X10*3/uL (1.2-4.9); Mean Corpuscular HGB Conc 34.2 g/dl (31.0-36.0); Mean Corpuscular Hemoglobin 34.5 pg (27.0-33.0); Mean Corpuscular Volume 100.9 fL (80.0-98.0); NRBC Abs Auto 0.000 X10*3/uL (0.0-0.012); NRBC Pct Auto 0.0 /100WBC (0.0-0.2); Platelet Count 351 X10*3/uL (160-400); Red Blood Count 2.23 X10*6/uL (4.60-5.80); White Blood Count 8.9 X10*3/uL (4.8-10.8)
[2024-11-22 05:32] LABS: Venous Blood Gas Refer to POC result
[2024-11-22 05:40] LABS: Alanine Aminotransferase 67 U/L (0-40); Albumin Level 3.2 g/dL (3.5-5.0); Alkaline Phosphatase 357 U/L (39-117); Anion Gap 27 (12-20); Aspartate Amino Transferase 83 U/L (5-37); Blood Urea Nitrogen 89 mg/dL (9-16); Calcium 8.6 mg/dL (8.4-10.2); Carbon Dioxide 21 mmol/L (22-29); Chloride 94 mmol/L (96-108); Creatinine Clr Calc Pharmacy 14.2; Estimated Glomerular Filt Rate 10; Magnesium 2.5 mg/dL (1.6-2.6); Potassium 3.8 mmol/L (3.3-5.1); Sodium 138 mmol/L (135-145); Total Protein 9.4 g/dL (6.5-8.0)
--- NOTE | 2024-11-22 06:28 | PC.NURSE ---
Assumed care 0, pt remains intubated. Off sedation, tolerating with some discomfort. On PSV settings - see vent assessment. RR 20-30s, pt thrashing head from side to side with care.? Dilaudid 0.5 mg IVP administered with some effectiveness?- see MAR.? MAP > 65, Levophed titrated per JUN. New skin injury noted to bilateral cheekbones, see wound photo. ETT securement?device changed?and repositioned?by RT.?
--- NOTE | 2024-11-22 08:34 | PM.CCPN ---
Subjective Subjective Date of Service: 11/22/24 Interval History: Continues to be on ventilator support, pressure support for the past 48 hours Critical Care Time (minutes): 35 Physical Exam Vital Signs: Vital Signs: Last Vital Signs Temp 97.2 F 11/22/24 08:00 Pulse 104 H 11/22/24 08:00 Resp 31 H 11/22/24 08:00 BP 134/64 11/22/24 08:00 Pulse Ox 92 11/22/24 08:00 O2 Del Method Mechanical Ventil ation 11/22/24 08:00 O2 Flow Rate 30 11/15/24 09:00 FiO2 35 11/22/24 08:00 BMI result Body Mass Index 22.7 General: Elderly male in save acute distress, ill appearing and tired appearing Nutritional Appearance: well nourished and under weight Eyes: appearance normal, both eyes and all related structures; Alignment and Position: alignment normal and position normal Neck: No lymphadenopathy, no thyromegaly Resp: bilateral air entry equal, occasional added sounds present Cardio: Regular rate, regular rhythm; Heart sounds: S1 normal heart sound present and S2 normal heart sound present GI: soft, nontender, no guarding, no hepatosplenomegaly : bladder normal to inspection, bladder normal to palpation, no renal angle tenderness Skin: no rashes or lesions noted and elasticity normal Neuro: Opens eyes, tracks people but does not follow commands Objective Data Labs 11/22/24 04:58 11/22/24 04:58 Labs: Laboratory Results - last 24 hr 11/21/24 11/21/24 11/21/24 11:53 18:13 23:54 WBC RBC Hgb Hct MCV MCH MCHC RDW Plt Count MPV Immature Gran % (Auto) Neut % (Auto) Lymph % (Auto) [place] % (Auto) Eos % (Auto) Baso % (Auto) Lymph # (Auto) [place] # (Auto) Eos # (Auto) Baso # (Auto) Abs Immat Gran (auto) Absolute Neuts (auto) Absolute Nucleated RBC Nucleated RBC % (auto) VBG pH VBG pCO2 VBG pO2 VBG HCO3 VBG O2 Saturation VBG Base Excess Sodium Potassium Chloride Carbon Dioxide Anion Gap BUN Creatinine Estim Creat Clear Calc Estimated GFR POC Glucose 117 H 218 H 184 H Random Glucose Calcium Phosphorus Magnesium Total Bilirubin AST ALT Alkaline Phosphatase Total Protein Albumin 11/22/24 11/22/24 04:58 05:12 WBC 8.9 RBC 2.23 L Hgb 7.7 L Hct 22.5 L MCV 100.9 H MCH 34.5 H MCHC 34.2 RDW 16.7 H Plt Count 351 MPV 11.4 Immature Gran % (Auto) 0.9 H Neut % (Auto) 79.1 H Lymph % (Auto) 8.4 L [place] % (Auto) 10.4 Eos % (Auto) 1.0 Baso % (Auto) 0.2 Lymph # (Auto) 0.8 L [place] # (Auto) 0.9 Eos # (Auto) 0.1 Baso # (Auto) 0.0 Abs Immat Gran (auto) 0.08 H Absolute Neuts (auto) 7.1 Absolute Nucleated RBC 0.000 Nucleated RBC % (auto) 0.0 VBG pH 7.51 H VBG pCO2 29 VBG pO2 46 VBG HCO3 23 VBG O2 Saturation 71.0 VBG Base Excess 1.5 Sodium 138 Potassium 3.8 D Chloride 94 L Carbon Dioxide 21 L Anion Gap 27 H BUN 89 H Creatinine 5.55 H* Estim Creat Clear Calc 14.2 Estimated GFR 10 POC Glucose Random Glucose 184 H Calcium 8.6 D Phosphorus 9.8 H Magnesium 2.5 Total Bilirubin 3.7 H AST 83 H ALT 67 H Alkaline Phosphatase 357 H Total Protein 9.4 H Albumin 3.2 L Microbiology Microbiology Results: Microbiology 11/10/24 11:13 Blood - Venous Blood Culture - Final No growth after 5 days. 11/10/24 11:13 Blood - Venous Blood Culture - Final No growth after 5 days. 11/07/24 07:02 Blood - Venous Blood Culture - Final Staphylococcus aureus Coag negative Staphylococcus 11/08/24 04:10 Blood - Venous Blood Culture - Final Staphylococcus aureus 11/08/24 04:10 Blood - Venous Blood Culture - Final Staphylococcus aureus 11/07/24 07:01 Blood - Venous Blood Culture - Final Staphylococcus aureus Progress Note: A&P Assessment and plan (1) Polysubstance abuse: Status: Acute (2) Cardiac arrest: Status: Acute (3) Acute kidney injury: Status: Acute (4) Acute hypoxemic respiratory failure: Status: Acute (5) Acute respiratory distress syndrome (ARDS): Status: Acute Plan 69-year-old gentleman with underlying hypertension, anxiety, ? ADHD, substance abuse presented on 11/07/2024 with respiratory distress requiring immediate intubation complicated by pea re-intubation cardiac arrest with return of spontaneous circulation after 2 rounds of CPR. Initial workup significant for profound hypoxemia, lactic acidosis with acute renal failure, and COVID positivity. Patient started on empiric broad-spectrum antibiotics, pressor support, and dexamethasone and admitted to the intensive care unit. Patient with 3 additional cardiac arrests on 11/07/2024, with CPR started immediately and returned spontaneous circulation achieved with an 1-2 rounds of CPR each time. CT chest with evidence of bibasilar pneumonia, cavitary on the right. Blood cultures growing MSSA. Now with improving ventilatory requirements, however with development of HARSH likely secondary to ATN initiated on hemodialysis on 11/13/2024. Hyperbilirubinemia appears to have plateaued. Now with poor arousal with sedation vacation - MRI brain on 11/18/2024 subacute/acute bilateral infarcts. Neuro: Acute encephalopathy possibly due to bilateral infarcts unsure if embolic or secondary to COVID off sedation since 11/15/2024, opens eyes and possibly tracts, has significant neuro deficit including vera-neglect. We will know once he is extubated On modafinil for neurostimulation UDS positive for cocaine, fentanyl, methadone Close neurological status monitoring in the ICU every hour Cardiac: Cardiogenic Shock: Possibly secondary to postive pressure ventilation On Levophed support, titrate Levophed to keep map above 65 mm Hg Respiratory: Acute hypoxemic respiratory failure due to pulmonary infarcts, bibasilar pneumonia Currently on ventilator support On pressure support 15/5 since past 48 hours. Given his very poor neurological status he we will always be a high-risk for intubation. He will never be perfectly ready for extubation, however we might try giving him a trial of extubation. Peak pressures and plateau pressures are under the curve Ventilator management bundle with head end elevation, aspiration precaution, chlorhexidine mouthwash, daily awakening trials, daily spontaneous breathing trials GI: on tube feeds, free water flushes witheld due to anuria and volume status Transaminitis: Possibly part of multiorgan failure from cardiac arrest- all the liver function slowly improving with every passing day bilirubin 3.7 down from peak of 16.3 Hepatitis panel, HIV negative We will monitor Renal: Acute kidney injury possibly secondary to ATN from cardiac arrest Received hemodialysis with 4 L UF yesterday still remains anuric We will closely monitor I's and O's Avoid nephrotoxic medications Heme: Chronic anemia, closely monitor H&H, transfuse for hemoglobin less than 7 grams/deciliter received an unit of PRBC transfusion overnight on 11/20/2024 Endocrine: Blood sugars under control Sliding scale insulin as needed Infectious disease: Initial 2 sets of blood cultures positive for MSSA, repeat blood culture negative on 11/10/2024 Musculoskeletal: Decubitus ulcer prevention protocol Lines: Right IJ TLC placed on 11/07/2024 Left IJ hemodialysis on 11/13/2024 Prophylaxis: Heparin, famotidine Quality Stroke Does the patient have a stroke diagnosis?: No VTE Prior VTE?: No VTE Risk Level:: Medical - moderate - high VTE Device Contraindication: Treatment Not Indicated VTE Drug Contraindication: N/A - Med Ordered
[2024-11-22] MEDS: Chlorhexidine Gluc Oral Rinse 15 ML MOUTHWASH BUCCAL (08:51)
[2024-11-22] MEDS: Norepinephrine Bitartrate/NS 16 MG/250 ML PLAST..BAG 17.54 MG IVCONT (10:27)
--- NOTE | 2024-11-22 10:31 | MHC.CLN ---
F/U PT REMAINS INTUBATED DISCUSSED AT ROUNDS WITH MARILUZ TO CONTINUE CONTINUE NEPRO AT MAX GOAL RATE 40ML/HR PROVIDEs 1728KCALS (22KCALS/KG), 78G PROTEIN, 698ML FREE WATER FROM FORMULA HOLDING FREE WATER FLUSHES AT THIS TIME MONITOR TOLERANCE AND LYTES
--- NOTE | 2024-11-22 11:02 | MHC.CM.PN ---
EMR REVIEWED, PT REMAINS ON [facility]ENT AND PRESSORS, PT MAY NEED GUARDIANSHIP/CONSERVATORSHIP, CM WILL CONT TO FOLLOW DC NEEDS.
[2024-11-22 12:11] LABS: Glucose, Whole Blood 140 mg/dL (60-115)
--- NOTE | 2024-11-22 13:57 | PC.RT ---
Pt control extubated by RT. Pt completed weaning parameters over the last 2 days. Pt had a positive cuff leak and was able to track with eyes and nod head. MD order verified. No stridor noted post extubation. Pt on 3L NC, SATs 92%. Pt appears comfortable at this time, will continue to monitor in ICU.
--- NOTE | 2024-11-22 14:58 | PC.NURSE ---
Assumed care of patient 0700. Patient on PSV overnight and sedation vacation. PSV weaned to PSV 5, PEEP 5.0, FiO2 30%. Patient nods yes/no to answer some questions. Tracks voices, makes eye contact to right and left of his body. Extremities remain flaccid. Per MD, patient extubated 13:55 to 3L NC. Patient sitting up high fowlers in bed for aspiration precautions. High fall precautions in place. Patient able to state name Josse and water. Patient does not follow eyes in 6 cardinal newell of gaze on command upon extubation. TLC right IJ and dialysis cathter Left IJ dressings changed with sterile technique.
[2024-11-22 17:44] LABS: Glucose, Whole Blood 122 mg/dL (60-115)
[2024-11-22] MEDS: Norepinephrine Bitartrate/NS 16 MG/250 ML PLAST..BAG 12.53 MG IVCONT (22:33)
[2024-11-23] VITALS (40 sets, daily range): BP systolic 74–134; BP diastolic 36–74; PULSE 100–125; RESP 23–31; TEMP 36.2–37.4; O2SAT 82–98; BMI 22.6
[2024-11-23 00:02] LABS: Glucose, Whole Blood 107 mg/dL (60-115)
[2024-11-23 04:27] LABS: VBG HCO3 19 mmol/L (22-26); VBG O2 % Saturation 62.0 %
[2024-11-23 04:59] LABS: MANUAL DIFF FLAG NO
[2024-11-23 05:01] LABS: Hematocrit 22.0 % (42.0-52.0); Hemoglobin 7.3 g/dl (14.0-18.0); Imm Gran Abs Auto 0.06 X10*3/uL (0.00-0.03); Imm Gran Pct Auto 0.7 % (0.0-0.4); Lymphocytes Absolute Auto 0.9 X10*3/uL (1.2-4.9); Mean Corpuscular HGB Conc 33.2 g/dl (31.0-36.0); Mean Corpuscular Hemoglobin 34.0 pg (27.0-33.0); Mean Corpuscular Volume 102.3 fL (80.0-98.0); NRBC Abs Auto 0.000 X10*3/uL (0.0-0.012); NRBC Pct Auto 0.0 /100WBC (0.0-0.2); Platelet Count 376 X10*3/uL (160-400); Red Blood Count 2.15 X10*6/uL (4.60-5.80); White Blood Count 8.6 X10*3/uL (4.8-10.8)
[2024-11-23 05:25] LABS: Venous Blood Gas Refer to POC result
[2024-11-23 05:40] LABS: Alanine Aminotransferase 56 U/L (0-40); Albumin Level 2.9 g/dL (3.5-5.0); Alkaline Phosphatase 239 U/L (39-117); Anion Gap 32 (12-20); Aspartate Amino Transferase 85 U/L (5-37); Blood Urea Nitrogen 120 mg/dL (9-16); Calcium 8.5 mg/dL (8.4-10.2); Carbon Dioxide 16 mmol/L (22-29); Chloride 97 mmol/L (96-108); Creatinine Clr Calc Pharmacy 10.6; Estimated Glomerular Filt Rate 7; Magnesium 2.8 mg/dL (1.6-2.6); Potassium 5.1 mmol/L (3.3-5.1); Sodium 140 mmol/L (135-145); Total Protein 9.6 g/dL (6.5-8.0)
[2024-11-23 05:54] LABS: Glucose, Whole Blood 102 mg/dL (60-115)
--- NOTE | 2024-11-23 08:38 | P.PNCC_ITS ---
Subjective Subjective Date of Service: 11/23/24 Interval History: Extubated yesterday, on Levophed for vasopressor support Critical Care Time (minutes): 35 Physical Exam 2 Vital Signs: Vital Signs: Last Vital Signs Temp 99.4 F 11/23/24 04:00 Pulse 108 H 11/23/24 08:00 Resp 25 H 11/23/24 08:00 BP 123/58 L 11/23/24 08:00 Pulse Ox 90 L 11/23/24 08:00 O2 Del Method Oxymask 11/23/24 08:00 O2 Flow Rate 4 11/23/24 08:00 FiO2 90 11/22/24 18:00 BMI result Body Mass Index 22.6 General: Elderly male, in severe distress, poorly responsive Nutritional Appearance: Chronically malnourished and underweight Eyes: appearance normal, both eyes and all related structures; Alignment and Position: alignment normal and position normal Neck: No lymphadenopathy, no thyromegaly Resp: bilateral air entry equal, occasional added sounds present Cardio: Regular rate, regular rhythm; Heart sounds: S1 normal heart sound present and S2 normal heart sound present GI: soft, nontender, no guarding, no hepatosplenomegaly : bladder normal to inspection, bladder normal to palpation, no renal angle tenderness Skin: no rashes or lesions noted and elasticity normal Neuro: Opens his eyes, tracks, does not move his extremities Objective Data Labs 11/23/24 04:06 11/23/24 04:06 Labs: Laboratory Results - last 24 hr 11/22/24 11/22/24 11/22/24 12:07 17:32 23:54 WBC RBC Hgb Hct MCV MCH MCHC RDW Plt Count MPV Immature Gran % (Auto) Neut % (Auto) Lymph % (Auto) [place] % (Auto) Eos % (Auto) Baso % (Auto) Lymph # (Auto) [place] # (Auto) Eos # (Auto) Baso # (Auto) Abs Immat Gran (auto) Absolute Neuts (auto) Absolute Nucleated RBC Nucleated RBC % (auto) VBG pH VBG pCO2 VBG pO2 VBG HCO3 VBG O2 Saturation VBG Base Excess Sodium Potassium Chloride Carbon Dioxide Anion Gap BUN Creatinine Estim Creat Clear Calc Estimated GFR POC Glucose 140 H 122 H 107 Random Glucose Calcium Phosphorus Magnesium Total Bilirubin AST ALT Alkaline Phosphatase Total Protein Albumin 11/23/24 11/23/24 11/23/24 04:06 04:22 05:39 WBC 8.6 RBC 2.15 L Hgb 7.3 L Hct 22.0 L MCV 102.3 H MCH 34.0 H MCHC 33.2 RDW 15.9 Plt Count 376 MPV 11.2 Immature Gran % (Auto) 0.7 H Neut % (Auto) 78.5 H Lymph % (Auto) 10.1 L [place] % (Auto) 9.1 Eos % (Auto) 1.4 Baso % (Auto) 0.2 Lymph # (Auto) 0.9 L [place] # (Auto) 0.8 Eos # (Auto) 0.1 Baso # (Auto) 0.0 Abs Immat Gran (auto) 0.06 H Absolute Neuts (auto) 6.8 Absolute Nucleated RBC 0.000 Nucleated RBC % (auto) 0.0 VBG pH 7.51 H VBG pCO2 24 VBG pO2 44 VBG HCO3 19 L VBG O2 Saturation 62.0 VBG Base Excess -2.1 Sodium 140 Potassium 5.1 D Chloride 97 Carbon Dioxide 16 L Anion Gap 32 H BUN 120 H Creatinine 7.31 H* Estim Creat Clear Calc 10.6 Estimated GFR 7 POC Glucose 102 Random Glucose 101 Calcium 8.5 Phosphorus 11.9 H Magnesium 2.8 H Total Bilirubin 3.2 H AST 85 H ALT 56 H Alkaline Phosphatase 239 H Total Protein 9.6 H Albumin 2.9 L Microbiology Microbiology Results: Microbiology 11/10/24 11:13 Blood - Venous Blood Culture - Final No growth after 5 days. 11/10/24 11:13 Blood - Venous Blood Culture - Final No growth after 5 days. 11/07/24 07:02 Blood - Venous Blood Culture - Final Staphylococcus aureus Coag negative Staphylococcus 11/08/24 04:10 Blood - Venous Blood Culture - Final Staphylococcus aureus 11/08/24 04:10 Blood - Venous Blood Culture - Final Staphylococcus aureus 11/07/24 07:01 Blood - Venous Blood Culture - Final Staphylococcus aureus Progress Note: A&P Assessment and plan (1) Polysubstance abuse: Status: Acute (2) Cardiac arrest: Status: Acute (3) Acute kidney injury: Status: Acute (4) Acute renal failure: Status: Acute (5) Acute respiratory distress syndrome (ARDS): Status: Acute (6) Acute hypoxemic respiratory failure: Status: Acute Plan 69-year-old gentleman with underlying hypertension, anxiety, ? ADHD, substance abuse presented on 11/07/2024 with respiratory distress requiring immediate intubation complicated by pea re-intubation cardiac arrest with return of spontaneous circulation after 2 rounds of CPR. Initial workup significant for profound hypoxemia, lactic acidosis with acute renal failure, and COVID positivity. Patient started on empiric broad-spectrum antibiotics, pressor support, and dexamethasone and admitted to the intensive care unit. Patient with 3 additional cardiac arrests on 11/07/2024, with CPR started immediately and returned spontaneous circulation achieved with an 1-2 rounds of CPR each time. CT chest with evidence of bibasilar pneumonia, cavitary on the right. Blood cultures growing MSSA. Now with improving ventilatory requirements, however with development of HARSH likely secondary to ATN initiated on hemodialysis on 11/13/2024. Hyperbilirubinemia appears to have plateaued. Now with poor arousal with sedation vacation - MRI brain on 11/18/2024 subacute/acute bilateral infarcts. Neuro: Acute encephalopathy possibly due to bilateral infarcts unsure if embolic or secondary to COVID off sedation since 11/15/2024, opens eyes and possibly tracts, has significant neuro deficit including vera-neglect. On modafinil for neurostimulation UDS positive for cocaine, fentanyl, methadone Close neurological status monitoring in the ICU every hour Cardiac: Cardiogenic Shock: We will give him albumin 200 cc, would not give him more fluid as he is oliguric and needing renal replacement therapy. On Levophed support, titrate Levophed to keep map above 65 mm Hg Respiratory: Acute hypoxemic respiratory failure due to pulmonary cavitations, bibasilar pneumonia Extubated yesterday, remains a high-risk for aspiration and re-intubation GI: on tube feeds, free water flushes witheld due to anuria and volume status Transaminitis: Possibly part of multiorgan failure from cardiac arrest- all the liver function slowly improving everyday bilirubin 3.2 down from peak of 16.3 Hepatitis panel, HIV negative We will monitor Renal: Acute kidney injury possibly secondary to ATN from cardiac arrest We will plan for hemodialysis session today with 4 L UF still remains anuric, continues to need renal replacement therapy We will closely monitor I's and O's Avoid nephrotoxic medications Heme: Chronic anemia, closely monitor H&H, transfuse for hemoglobin less than 7 grams/deciliter We will transfuse a unit of blood with dialysis as it might help him weaning off pressors received an unit of PRBC transfusion overnight on 11/20/2024 Endocrine: Blood sugars under control Sliding scale insulin as needed Infectious disease: Initial 2 sets of blood cultures positive for MSSA, repeat blood culture negative on 11/10/2024 Musculoskeletal: Decubitus ulcer prevention protocol Lines: Right IJ TLC placed on 11/07/2024 Left IJ hemodialysis on 11/13/2024 Prophylaxis: Heparin, famotidine Quality Stroke Does the patient have a stroke diagnosis?: No VTE Prior VTE?: No VTE Risk Level:: Medical - moderate - high VTE Device Contraindication: Treatment Not Indicated VTE Drug Contraindication: N/A - Med Ordered
[2024-11-23] MEDS: 0.9 % Sodium Chloride Flush 3 ML SYRINGE IVFLUSH ×2 (08:46→16:29)
[2024-11-23] MEDS: Albumin Human 25 % 100 ML 133.33 ML IV ×2 (09:28→10:40)
[2024-11-23 11:58] LABS: Glucose, Whole Blood 92 mg/dL (60-115)
[2024-11-23] MEDS: Alteplase Cath Clear 2 MG/2 ML VIAL 2.4 MG INTRACATH (14:10)
--- NOTE | 2024-11-23 14:27 | P.CDIM_ITS ---
PROVIDER RESPONSE TEXT: To clarify, the appropriate diagnosis supported by the clinical indicators: Clinically unable to determine (explain): normal BMI QUERY TEXT: PHYSICIAN'S DOCUMENTATION REQUEST Date of Query: 11/23/2024 02:12 PM EDT Patient Name: Josse Mcdermott Admit Date: 11/07/2024 Dear Navdeep Farrell MD, A review of the medical record indicates additional documentation may be needed. Please review below and update the documentation accordingly. Documentation includes the diagnosis of malnourished. Additional clinical indicators from the record include: underweight and malnourished per Critical care progress note 11/23/24 BMI 22.6 If possible, please provide additional specificity regarding the severity of the malnutrition using the above information: Mild Moderate Severe Other (explain) Clinically unable to determine (explain) Thank you, Fern Mendes RN Use of terms such as suspected, likely, concern for, or probable (associated with a specific diagnosis that is being evaluated, monitored, or treated as if it exists) are acceptable and can be coded in the inpatient setting, when documented at the time of discharge. Please use your independent medical judgment in providing your response. THIS QUERY IS PART OF THE PERMANENT MEDICAL RECORD
--- NOTE | 2024-11-23 14:48 | MHC.CM.PN ---
Pt has been extubated and is able to follow some commands but remains a poor historian at this time. Pt will be referred to SNF for post acute care needs including HD and post CVA rehab. He may require a guardian if he does not regain the ability to state his needs/appoint a proxy. CM to follow.
[2024-11-23] MEDS: Acetylcysteine 10 % 400 MG/4 ML VIAL INHALE ×2 (15:13→20:48)
[2024-11-23] MEDS: Albuterol Sulfate (0.083%) 2.5 MG/3 ML VIAL.NEB INHALE ×2 (15:13→20:48)
--- NOTE | 2024-11-23 15:42 | MHC.SLORD ---
Speech Language Pathology Order Status: MAGNETO SPECIALIST attempted X2 s/p 24 hr. extubation (>13:00) to complete initial swallow assessment. Per RN, RT patient requiring ample suctioning/not managing secretions/ not doing well today. Recommended deferring Eval to 11/24. MAGNETO SPECIALIST will continue to follow.
--- NOTE | 2024-11-23 16:00 | HE.ICUCC ---
ICU Critical Care Nursing Note: Shift eval 7am - 4pm ? Neuro: Alert, garbled/mumbled speech. Only oriented to self. Will nod/shake head to questions, not appropriately. Occasional right upward gaze. Patient flaccid, but when manipulating arms, patient does become slightly rigid. Will not follow directions. Weak cough/gag. Cardiac/GI//Respiratory: Resp: Patient was on 4 liters oxymask throughout day, but at approx 1330, when dialysis started, patient desat to low 80's and increase RR, increase WOB - had to go up to 15 liters for approx an hour. RT called to bedside, nasal trumpet inserted, nasopharyngeal suctioned for copious amt clear sputum with good effect. Titrated O2 back down to 4 liters. Provider aware of respiratory status. AM labs, Low H&H - Plan to give one unit RBC during dialysis - unable to contact sister (next of kin) for consent - Dr Farrell ordered as med nec/emergency release. Sister phone not in service at this time. Ok to give via central line while waiting for dialysis to restart. Increase need for vasopressor: HR 90s to 120's afib. Had to titrate levophed up at start of dialysis (approx 1340 - see MAR for titrations)in order to maintain map > 65. Dr Farrell aware of increase pressor need and episode of hypoxia during dialysis. Dialysis cath issue: Order for dialysis today, but temp dialysis catheter in left IJ did not work. cash teller attempted to use cathflo to fix catheter issue, but did not work. Dr Farrell plan to replace central line in RIJ and dialysis cath with a new temp catheter with pigtail. Patient anuric. Patient remains NPO, pending swallow eval from speech and hearing. Patient not managing secretions. Good cough. Speech and hearing came to see patient, but agreed to come back to reassess tomorrow r/t respiratory decompensation and mental status. Dr Farrell order to keep NPO. Fecal mgmt system in place. Skin intact around rectum. Integumentary/Musculoskeletal: Repos Q2H when stable. Full bath and linen change done. During respiratory decomp, unable to reposition. Psychosocial (family etc.): Significant other, Riri, called unit - updated about mental status and current health condition. See above about inability to contact sister. Report given to Es REYES at change of shift.
--- NOTE | 2024-11-23 16:49 | W.PM.CCHP ---
Procedures Date of Service Date of Service: 11/23/24 Central Line Placement triple lumen Hemodialysis catheter placement: Consent for Procedure: Emergent-no informed consent obtained Time out performed: Yes Sterile Technique Used: Yes Patient placed on monitor/pulse ox: Yes prep: mask, gown and gloves Central line prep: Povidone-Iodine 1% and Chlorhexidine scrub Local anesthesia used: lidocaine 1% Amount of anesthesia used (ml): 10 Ultrasound used for placement: Yes Central line lumen inserted: triple Post procedure: sutured in place, good blood return, all ports aspirated, flushed, capped and sterile dressing applied Post procedure x-ray: tip of catheter in good position and no pneumothorax seen Patient tolerated procedure: well and no complications
[2024-11-23 17:38] LABS: Glucose, Whole Blood 121 mg/dL (60-115)
[2024-11-23 18:23] LABS: Glucose, Whole Blood 115 mg/dL (60-115)
--- NOTE | 2024-11-23 19:14 | PC.NURSE ---
Assumed care of this patient at 16:00. Pt remains afib on tele, sustaining 90's to 110's. MD aware. No distress noted. Continues on levophed, titrated per MAR. Shortly after assuming care, Dr. Farrell presented to bedside to replace dialysis catheter. Time out and safety measures performed. placed a 20cm/12fr HD catheter with pigtail to the left IJ. CXR was obtained with MD verbal order given to this contract technical writer okay to use. Once MD okay to use was given, washer carcass resumed dialysis, currently ongoing at 19:00 shift change. PRBC infusing on assuming care. Transfusion completed without issue. Pt continues on oxymask with spo2 maintained per co2 retaininer protocol per MD order in place. Pt continues to require frequent suctioning via recently placed left nasal trumpet. Continues with patent and intact fecal management tube system. Brown liquid stool noted in appliance. Anuric on HD. Safety measures in place. Please see shift assessment, worklist, and MAR for full details. Handoff report given to oncoming RN.
[2024-11-23 21:58] LABS: Resp Syncy Virus RNA Qual PCR NEGATIVE (Negative); SARS COV2 PCR INHOUSE NEGATIVE (Negative)
[2024-11-23] MEDS: Norepinephrine Bitartrate/NS 16 MG/250 ML PLAST..BAG 10.86 MG IVCONT (23:57)
[2024-11-24] VITALS (30 sets, daily range): BP systolic 91–133; BP diastolic 53–73; PULSE 105–131; RESP 17–39; TEMP 36.3–37.9; O2SAT 91–98; BMI 20.6
[2024-11-24 00:09] LABS: Glucose, Whole Blood 110 mg/dL (60-115)
[2024-11-24] MEDS: Albuterol Sulfate (0.083%) 2.5 MG/3 ML VIAL.NEB INHALE ×4 (03:16→20:51)
[2024-11-24] MEDS: Acetylcysteine 10 % 400 MG/4 ML VIAL INHALE ×4 (03:16→20:51)
[2024-11-24 04:44] LABS: VBG HCO3 20 mmol/L (22-26); VBG O2 % Saturation 70.0 %
[2024-11-24 04:59] LABS: MANUAL DIFF FLAG NO
[2024-11-24 05:00] LABS: Hematocrit 25.0 % (42.0-52.0); Hemoglobin 8.1 g/dl (14.0-18.0); Imm Gran Abs Auto 0.07 X10*3/uL (0.00-0.03); Imm Gran Pct Auto 0.8 % (0.0-0.4); Lymphocytes Absolute Auto 0.8 X10*3/uL (1.2-4.9); Mean Corpuscular HGB Conc 32.4 g/dl (31.0-36.0); Mean Corpuscular Hemoglobin 32.5 pg (27.0-33.0); Mean Corpuscular Volume 100.4 fL (80.0-98.0); NRBC Abs Auto 0.020 X10*3/uL (0.0-0.012); NRBC Pct Auto 0.2 /100WBC (0.0-0.2); Platelet Count 330 X10*3/uL (160-400); Red Blood Count 2.49 X10*6/uL (4.60-5.80); White Blood Count 8.9 X10*3/uL (4.8-10.8)
[2024-11-24 05:09] LABS: Venous Blood Gas Refer to POC result
[2024-11-24 05:23] LABS: Alanine Aminotransferase 47 U/L (0-40); Albumin Level 3.7 g/dL (3.5-5.0); Alkaline Phosphatase 188 U/L (39-117); Anion Gap 27 (12-20); Aspartate Amino Transferase 63 U/L (5-37); Blood Urea Nitrogen 103 mg/dL (9-16); Calcium 9.1 mg/dL (8.4-10.2); Carbon Dioxide 18 mmol/L (22-29); Chloride 99 mmol/L (96-108); Creatinine Clr Calc Pharmacy 11.9; Estimated Glomerular Filt Rate 9; Magnesium 2.5 mg/dL (1.6-2.6); Potassium 4.1 mmol/L (3.3-5.1); Sodium 140 mmol/L (135-145); Total Protein 9.7 g/dL (6.5-8.0)
[2024-11-24 06:07] LABS: Glucose, Whole Blood 117 mg/dL (60-115)
--- NOTE | 2024-11-24 08:33 | P.PNCC_ITS ---
Subjective Subjective Date of Service: 11/24/24 Interval History: No new events, underwent hemodialysis yesterday On Levophed for vasopressor support Critical Care Time (minutes): 35 Physical Exam 2 Vital Signs: Vital Signs: Last Vital Signs Temp 100.1 F 11/24/24 08:00 Pulse 131 H 11/24/24 08:00 Resp 35 H 11/24/24 08:00 BP 122/72 11/24/24 08:00 Pulse Ox 96 11/24/24 08:00 O2 Del Method Oxymask 11/24/24 08:00 O2 Flow Rate 6 11/24/24 08:00 FiO2 90 11/22/24 18:00 BMI result Body Mass Index 20.6 General: Elderly male acute distress, ill appearing and tired appearing Nutritional Appearance: well nourished and overweight Eyes: appearance normal, both eyes and all related structures; Alignment and Position: alignment normal and position normal Neck: No lymphadenopathy, no thyromegaly Resp: bilateral air entry equal, occasional added sounds present Cardio: Regular rate, regular rhythm; Heart sounds: S1 normal heart sound present and S2 normal heart sound present GI: soft, nontender, no guarding, no hepatosplenomegaly : bladder normal to inspection, bladder normal to palpation, no renal angle tenderness Skin: no rashes or lesions noted and elasticity normal Neuro: Moves his head track around, has hemianopia Objective Data Labs 11/24/24 04:42 11/24/24 04:42 Labs: Laboratory Results - last 24 hr 11/23/24 11/23/24 11/23/24 08:20 11:54 16:59 WBC RBC Hgb Hct MCV MCH MCHC RDW Plt Count MPV Immature Gran % (Auto) Neut % (Auto) Lymph % (Auto) [place] % (Auto) Eos % (Auto) Baso % (Auto) Lymph # (Auto) [place] # (Auto) Eos # (Auto) Baso # (Auto) Abs Immat Gran (auto) Absolute Neuts (auto) Absolute Nucleated RBC Nucleated RBC % (auto) VBG pH VBG pCO2 VBG pO2 VBG HCO3 VBG O2 Saturation VBG Base Excess Sodium Potassium Chloride Carbon Dioxide Anion Gap BUN Creatinine Estim Creat Clear Calc Estimated GFR POC Glucose 92 121 H Random Glucose Calcium Phosphorus Magnesium Total Bilirubin AST ALT Alkaline Phosphatase Total Protein Albumin Influenza Type A (PCR) Influenza Type B (PCR) RSV RNA Qual (PCR) SARS-CoV-2 RNA (RT-PCR) Blood Type O Positive Antibody Screen NEGATIVE Crossmatch See Detail 11/23/24 11/23/24 11/23/24 18:17 21:00 23:54 WBC RBC Hgb Hct MCV MCH MCHC RDW Plt Count MPV Immature Gran % (Auto) Neut % (Auto) Lymph % (Auto) [place] % (Auto) Eos % (Auto) Baso % (Auto) Lymph # (Auto) [place] # (Auto) Eos # (Auto) Baso # (Auto) Abs Immat Gran (auto) Absolute Neuts (auto) Absolute Nucleated RBC Nucleated RBC % (auto) VBG pH VBG pCO2 VBG pO2 VBG HCO3 VBG O2 Saturation VBG Base Excess Sodium Potassium Chloride Carbon Dioxide Anion Gap BUN Creatinine Estim Creat Clear Calc Estimated GFR POC Glucose 115 110 Random Glucose Calcium Phosphorus Magnesium Total Bilirubin AST ALT Alkaline Phosphatase Total Protein Albumin Influenza Type A (PCR) NEGATIVE Influenza Type B (PCR) NEGATIVE RSV RNA Qual (PCR) NEGATIVE SARS-CoV-2 RNA (RT-PCR) NEGATIVE Blood Type Antibody Screen Crossmatch 11/24/24 11/24/24 11/24/24 04:40 04:42 05:53 WBC 8.9 RBC 2.49 L Hgb 8.1 L Hct 25.0 L MCV 100.4 H MCH 32.5 MCHC 32.4 RDW 16.5 H Plt Count 330 MPV 10.7 Immature Gran % (Auto) 0.8 H Neut % (Auto) 80.1 H Lymph % (Auto) 9.0 L [place] % (Auto) 9.0 Eos % (Auto) 0.9 Baso % (Auto) 0.2 Lymph # (Auto) 0.8 L [place] # (Auto) 0.8 Eos # (Auto) 0.1 Baso # (Auto) 0.0 Abs Immat Gran (auto) 0.07 H Absolute Neuts (auto) 7.1 Absolute Nucleated RBC 0.020 H Nucleated RBC % (auto) 0.2 VBG pH 7.47 H VBG pCO2 27 VBG pO2 48 VBG HCO3 20 L VBG O2 Saturation 70.0 VBG Base Excess -2.1 Sodium 140 Potassium 4.1 Chloride 99 Carbon Dioxide 18 L Anion Gap 27 H BUN 103 H Creatinine 6.48 H* Estim Creat Clear Calc 11.9 Estimated GFR 9 POC Glucose 117 H Random Glucose 117 H Calcium 9.1 D Phosphorus 9.1 H Magnesium 2.5 Total Bilirubin 3.4 H AST 63 H ALT 47 H Alkaline Phosphatase 188 H Total Protein 9.7 H Albumin 3.7 Influenza Type A (PCR) Influenza Type B (PCR) RSV RNA Qual (PCR) SARS-CoV-2 RNA (RT-PCR) Blood Type Antibody Screen Crossmatch Microbiology Microbiology Results: Microbiology 11/10/24 11:13 Blood - Venous Blood Culture - Final No growth after 5 days. 11/10/24 11:13 Blood - Venous Blood Culture - Final No growth after 5 days. 11/07/24 07:02 Blood - Venous Blood Culture - Final Staphylococcus aureus Coag negative Staphylococcus 11/08/24 04:10 Blood - Venous Blood Culture - Final Staphylococcus aureus 11/08/24 04:10 Blood - Venous Blood Culture - Final Staphylococcus aureus 11/07/24 07:01 Blood - Venous Blood Culture - Final Staphylococcus aureus Progress Note: A&P Assessment and plan (1) Polysubstance abuse: Status: Acute (2) Cardiac arrest: Status: Acute (3) Acute kidney injury: Status: Acute (4) Acute renal failure: Status: Acute (5) CVA (cerebral vascular accident): Status: Acute (6) Acute hypoxemic respiratory failure: Status: Acute (7) Acute respiratory distress syndrome (ARDS): Status: Acute Plan 69-year-old gentleman with underlying hypertension, anxiety, ? ADHD, substance abuse presented on 11/07/2024 with respiratory distress requiring immediate intubation complicated by pea re-intubation cardiac arrest with return of spontaneous circulation after 2 rounds of CPR. Initial workup significant for profound hypoxemia, lactic acidosis with acute renal failure, and COVID positivity. Patient started on empiric broad-spectrum antibiotics, pressor support, and dexamethasone and admitted to the intensive care unit. Patient with 3 additional cardiac arrests on 11/07/2024, with CPR started immediately and returned spontaneous circulation achieved with an 1-2 rounds of CPR each time. CT chest with evidence of bibasilar pneumonia, cavitary on the right. Blood cultures growing MSSA. Now with improving ventilatory requirements, however with development of HARSH likely secondary to ATN initiated on hemodialysis on 11/13/2024. Hyperbilirubinemia appears to have plateaued. Now with poor arousal with sedation vacation - MRI brain on 11/18/2024 subacute/acute bilateral infarcts. Neuro: Acute encephalopathy possibly due to bilateral infarcts unsure if embolic or secondary to COVID opens eyes and possibly tracts, has significant neuro deficit including vera- neglect, doesnt speak anything On modafinil for neurostimulation UDS positive for cocaine, fentanyl, methadone Close neurological status monitoring in the ICU every hour Cardiac: Cardiogenic Shock: On Levophed support, titrate Levophed to keep map above 65 mm Hg Bedside echo showing close to normal LV systolic function, small RV, collapsing IVCs. So UF on dialysis was reduced yesterday Respiratory: Acute hypoxemic respiratory failure due to pulmonary cavitations, bibasilar pneumonia Extubated on 11/22/2024, remains a high-risk for aspiration and re-intubation GI: poor swallow will do NG tube and add tube feeds Hyperphosphatemia: will add sevelamer 1600mg TID will reduce phos in diet Transaminitis: Possibly part of multiorgan failure from cardiac arrest- all the liver function slowly improving everyday bilirubin 3.2 down from peak of 16.3 Hepatitis panel, HIV negative We will monitor Renal: Acute kidney injury possibly secondary to ATN from cardiac arrest still remains anuric, continues to need renal replacement therapy T//. We will closely monitor I's and O's Avoid nephrotoxic medications Heme: Chronic anemia, closely monitor H&H, transfuse for hemoglobin less than 7 grams/deciliter received an unit of PRBC transfusion overnight on 11/20/2024 and on 11/23/2024 Endocrine: Blood sugars under control Sliding scale insulin as needed Infectious disease: Initial 2 sets of blood cultures positive for MSSA, repeat blood culture negative on 11/10/2024 Musculoskeletal: Decubitus ulcer prevention protocol Lines: Right IJ TLC placed on 11/07/2024- will take out Left IJ triple lumen hemodialysis on 11/23/2024 Prophylaxis: Heparin, famotidine Quality Stroke Does the patient have a stroke diagnosis?: No VTE Prior VTE?: No VTE Risk Level:: Medical - moderate - high VTE Device Contraindication: Treatment Not Indicated VTE Drug Contraindication: N/A - Med Ordered
[2024-11-24] MEDS: 0.9 % Sodium Chloride Flush 3 ML SYRINGE IVFLUSH ×3 (08:38→15:39)
--- NOTE | 2024-11-24 10:37 | MHC.CLN ---
F/U PT EXTUBATED 11/22 DISCUSSED AT ROUNDS WITH MD-PLAN FOR NGT PLACEMENT TODAY RECOMMEND NEPRO AT MAX GOAL RATE 50ML/HR TO PROVIDE 2160KCALS (27KCALS/KG), 97.2G PROTEIN (1.2G/KG), 872ML FREE WATER FROM FORMULA HOLDING FREE WATER FLUSHES AT THIS TIME MONITOR TOLERANCE AND LYTES
[2024-11-24 12:11] LABS: Glucose, Whole Blood 119 mg/dL (60-115)
--- NOTE | 2024-11-24 13:16 | PC.NURSE ---
P: Alteration in Gastrointestinal Function I: See nursing documentation and MD orders E: Pt lethargic and not following commands. Unable to participate in swallow eval by nursing. Attempt made to place NG tube with negative affect. Dr Farrell aware; PPN ordered. P: Alteration in Tissue Perfusion I: See nursing documentation and MD orders E: Pt on levo for MAP goals. Unable to give midodrine as pt is NPO and unable to place NG tube. Continue to assess BP goals and needs.
--- NOTE | 2024-11-24 14:01 | MHC.CM.PN ---
Addendum entered by Jennifer Roblero 11/24/24 14:04: Received call from Riri, pt's partner requesting a letter to be sent to [place] [address] stating the dates pt has been inpatient. Pt failed to show on 11/21 and a warrant has been issued. Letter faxed to [phone] Original Note: Pt continues on pressor support and HD: alert not oriented x4 : vera neglect and not able to consistently follow commands or track. Pt will need guardianship as he has no HCP on file. Pt has a girl friend, Riri who has been involved that may be able to serve : pt reportedly has an estranged sister: unknown name/address/contact info. D/C plan will involve placement to STR vs LTACH. Will pursue legal guardianship as part of pt's d/c plan.
[2024-11-24 17:51] LABS: Glucose, Whole Blood 113 mg/dL (60-115)
--- NOTE | 2024-11-24 18:19 | MHC.SLORD ---
Speech Language Pathology Order Status: Swallow eval deferred. Per RN, patient lethargic, not following commands, and not consistently tracking. Paitent was unable to participate in swallow eval by nursing. RN attempted to place NG tube with negative affect therefore PPN was ordered. CHECKROOM CHIEF to evaluate when appropriate.
[2024-11-24 23:58] LABS: Glucose, Whole Blood 106 mg/dL (60-115)
[2024-11-25] VITALS (42 sets, daily range): BP systolic 79–140; BP diastolic 37–81; PULSE 110–146; RESP 20–34; TEMP 36.1–38.6; O2SAT 92–100; BMI 20.6
[2024-11-25] MEDS: Norepinephrine Bitartrate/NS 16 MG/250 ML PLAST..BAG 4.18 MG IVCONT (00:11)
[2024-11-25] MEDS: Albuterol Sulfate (0.083%) 2.5 MG/3 ML VIAL.NEB INHALE ×4 (03:24→20:52)
[2024-11-25] MEDS: Acetylcysteine 10 % 400 MG/4 ML VIAL INHALE ×4 (03:24→20:52)
[2024-11-25 05:18] LABS: VBG HCO3 15 mmol/L (22-26); VBG O2 % Saturation 84.0 %
[2024-11-25 05:20] LABS: Venous Blood Gas Refer to POC result
[2024-11-25 05:38] LABS: MANUAL DIFF FLAG NO
[2024-11-25 05:41] LABS: Hematocrit 26.0 % (42.0-52.0); Hemoglobin 8.4 g/dl (14.0-18.0); Imm Gran Abs Auto 0.07 X10*3/uL (0.00-0.03); Imm Gran Pct Auto 0.8 % (0.0-0.4); Lymphocytes Absolute Auto 1.2 X10*3/uL (1.2-4.9); Mean Corpuscular HGB Conc 32.3 g/dl (31.0-36.0); Mean Corpuscular Hemoglobin 33.1 pg (27.0-33.0); Mean Corpuscular Volume 102.4 fL (80.0-98.0); NRBC Abs Auto 0.000 X10*3/uL (0.0-0.012); NRBC Pct Auto 0.0 /100WBC (0.0-0.2); Platelet Count 321 X10*3/uL (160-400); Red Blood Count 2.54 X10*6/uL (4.60-5.80); White Blood Count 9.0 X10*3/uL (4.8-10.8)
[2024-11-25 06:06] LABS: Alanine Aminotransferase 45 U/L (0-40); Albumin Level 3.5 g/dL (3.5-5.0); Alkaline Phosphatase 169 U/L (39-117); Anion Gap 33 (12-20); Aspartate Amino Transferase 65 U/L (5-37); Calcium 9.2 mg/dL (8.4-10.2); Carbon Dioxide 15 mmol/L (22-29); Chloride 102 mmol/L (96-108); Creatinine Clr Calc Pharmacy 7.8; Estimated Glomerular Filt Rate 6; Magnesium 3.0 mg/dL (1.6-2.6); Potassium 4.5 mmol/L (3.3-5.1); Sodium 145 mmol/L (135-145); Total Protein 9.8 g/dL (6.5-8.0)
[2024-11-25 06:09] LABS: Blood Urea Nitrogen 149 mg/dL (9-16)
--- NOTE | 2024-11-25 12:05 | P.PNCC_ITS ---
Subjective Subjective Date of Service: 11/25/24 Interval History: No new complaints, remains on Levophed for vasopressor support Critical Care Time (minutes): 35 Physical Exam 2 Vital Signs: Vital Signs: Last Vital Signs Temp 97.0 F 11/25/24 08:00 Pulse 136 H 11/25/24 11:00 Resp 26 H 11/25/24 11:00 BP 110/70 11/25/24 11:00 Pulse Ox 96 11/25/24 11:00 O2 Del Method Room Air 11/25/24 11:00 O2 Flow Rate 5 11/25/24 10:00 FiO2 90 11/22/24 18:00 BMI result Body Mass Index 20.6 General: Elderly male in acute distress, ill appearing and tired appearing Nutritional Appearance: well nourished and overweight Eyes: appearance normal, both eyes and all related structures; Alignment and Position: alignment normal and position normal Neck: No lymphadenopathy, no thyromegaly Resp: bilateral air entry equal, occasional added sounds present Cardio: Regular rate, regular rhythm; Heart sounds: S1 normal heart sound present and S2 normal heart sound present GI: soft, nontender, no guarding, no hepatosplenomegaly : bladder normal to inspection, bladder normal to palpation, no renal angle tenderness Skin: no rashes or lesions noted and elasticity normal Neuro: Dysphasic, can track around but can not speak, does not follow commands Objective Data Labs 11/25/24 05:12 11/25/24 05:12 Labs: Laboratory Results - last 24 hr 11/24/24 11/24/24 11/24/24 12:07 17:47 23:54 WBC RBC Hgb Hct MCV MCH MCHC RDW Plt Count MPV Immature Gran % (Auto) Neut % (Auto) Lymph % (Auto) [place] % (Auto) Eos % (Auto) Baso % (Auto) Lymph # (Auto) [place] # (Auto) Eos # (Auto) Baso # (Auto) Abs Immat Gran (auto) Absolute Neuts (auto) Absolute Nucleated RBC Nucleated RBC % (auto) VBG pH VBG pCO2 VBG pO2 VBG HCO3 VBG O2 Saturation VBG Base Excess Sodium Potassium Chloride Carbon Dioxide Anion Gap BUN Creatinine Estim Creat Clear Calc Estimated GFR POC Glucose 119 H 113 106 Random Glucose Calcium Phosphorus Magnesium Total Bilirubin AST ALT Alkaline Phosphatase Total Protein Albumin 11/25/24 11/25/24 05:12 05:14 WBC 9.0 RBC 2.54 L Hgb 8.4 L Hct 26.0 L MCV 102.4 H MCH 33.1 H MCHC 32.3 RDW 17.1 H Plt Count 321 MPV 10.7 Immature Gran % (Auto) 0.8 H Neut % (Auto) 74.5 H Lymph % (Auto) 12.8 L [place] % (Auto) 10.4 Eos % (Auto) 1.2 Baso % (Auto) 0.3 Lymph # (Auto) 1.2 [place] # (Auto) 0.9 Eos # (Auto) 0.1 Baso # (Auto) 0.0 Abs Immat Gran (auto) 0.07 H Absolute Neuts (auto) 6.7 Absolute Nucleated RBC 0.000 Nucleated RBC % (auto) 0.0 VBG pH 7.48 H VBG pCO2 20 VBG pO2 59 VBG HCO3 15 L VBG O2 Saturation 84.0 VBG Base Excess -6.0 Sodium 145 Potassium 4.5 Chloride 102 Carbon Dioxide 15 L Anion Gap 33 H BUN 149 H Creatinine 8.99 H* Estim Creat Clear Calc 7.8 Estimated GFR 6 POC Glucose Random Glucose 106 Calcium 9.2 Phosphorus 12.2 H Magnesium 3.0 H Total Bilirubin 2.8 H AST 65 H ALT 45 H Alkaline Phosphatase 169 H Total Protein 9.8 H Albumin 3.5 Microbiology Microbiology Results: Microbiology 11/10/24 11:13 Blood - Venous Blood Culture - Final No growth after 5 days. 11/10/24 11:13 Blood - Venous Blood Culture - Final No growth after 5 days. 11/07/24 07:02 Blood - Venous Blood Culture - Final Staphylococcus aureus Coag negative Staphylococcus 11/08/24 04:10 Blood - Venous Blood Culture - Final Staphylococcus aureus 11/08/24 04:10 Blood - Venous Blood Culture - Final Staphylococcus aureus 11/07/24 07:01 Blood - Venous Blood Culture - Final Staphylococcus aureus Progress Note: A&P Assessment and plan (1) Polysubstance abuse: Status: Acute (2) Cardiac arrest: Status: Acute (3) Hyperbilirubinemia: Status: Acute (4) Acute kidney injury: Status: Acute (5) Acute renal failure: Status: Acute (6) Metabolic acidosis: Status: Acute (7) Acute respiratory distress syndrome (ARDS): Status: Acute (8) Acute hypoxemic respiratory failure: Status: Acute (9) Bilateral pneumonia: Status: Acute (10) Acute respiratory failure with hypoxia: Status: Acute Plan 69-year-old gentleman with underlying hypertension, anxiety, ? ADHD, substance abuse presented on 11/07/2024 with respiratory distress requiring immediate intubation complicated by pea re-intubation cardiac arrest with return of spontaneous circulation after 2 rounds of CPR. Initial workup significant for profound hypoxemia, lactic acidosis with acute renal failure, and COVID positivity. Patient started on empiric broad-spectrum antibiotics, pressor support, and dexamethasone and admitted to the intensive care unit. Patient with 3 additional cardiac arrests on 11/07/2024, with CPR started immediately and returned spontaneous circulation achieved with an 1-2 rounds of CPR each time. CT chest with evidence of bibasilar pneumonia, cavitary on the right. Blood cultures growing MSSA. He is extuabted on 11/22/2024. HARSH likely secondary to ATN initiated on hemodialysis since 11/13/2024. continues to have poor mental status, MRI brain on 11/18/2024 subacute/acute bilateral infarcts. Neuro: Acute encephalopathy possibly due to bilateral infarcts unsure if embolic or secondary to COVID opens eyes and possibly tracts, has significant neuro deficit including vera- neglect, doesnt speak anything On modafinil for neurostimulation MRI of brain showing several foci of acute ischemia in bilateral frontal lobes, large lesion in the left occipital lobe possibly ischemic versus mass. UDS positive for cocaine, fentanyl, methadone Close neurological status monitoring in the ICU every hour Cardiac: Cardiogenic Shock: On Levophed support, titrate Levophed to keep map above 65 mm Hg Bedside echo showing close to normal LV systolic function, small RV, collapsing IVCs. So UF on dialysis was reduced yesterday Respiratory: Acute hypoxemic respiratory failure due to pulmonary cavitations, bibasilar pneumonia Extubated on 11/22/2024, remains a high-risk for aspiration and re-intubation GI: poor swallow will do NG tube and add tube feeds Hyperphosphatemia: Continue sevelamer 1600mg TID Tube feeding adjusted Transaminitis: Possibly part of multiorgan failure from cardiac arrest- all the liver function slowly improving everyday bilirubin 2.8 down from peak of 16.3, transaminases down trending Hepatitis panel, HIV negative We will monitor Renal: Acute kidney injury possibly secondary to ATN from cardiac arrest still remains anuric, continues to need renal replacement therapy T//. We will closely monitor I's and O's Avoid nephrotoxic medications Heme: Chronic anemia, closely monitor H&H, transfuse for hemoglobin less than 7 grams/deciliter received an unit of PRBC transfusion overnight on 11/20/2024 and on 11/23/2024 Endocrine: Blood sugars under control Sliding scale insulin as needed Infectious disease: Initial 2 sets of blood cultures positive for MSSA, repeat blood culture negative on 11/10/2024 Musculoskeletal: Decubitus ulcer prevention protocol Lines: Left IJ triple lumen hemodialysis on 11/23/2024 Prophylaxis: Heparin, famotidine Quality Stroke Does the patient have a stroke diagnosis?: No VTE Prior VTE?: No VTE Risk Level:: Medical - moderate - high VTE Device Contraindication: Treatment Not Indicated VTE Drug Contraindication: N/A - Med Ordered
[2024-11-25 12:45] LABS: Glucose, Whole Blood 120 mg/dL (60-115)
[2024-11-25] MEDS: Norepinephrine Bitartrate/NS 16 MG/250 ML PLAST..BAG 25.06 MG IVCONT (14:49)
[2024-11-25 19:59] LABS: Glucose, Whole Blood 115 mg/dL (60-115)
[2024-11-25 21:49] LABS: COVID-19 Test Negative (Negative); IDNOW Serial# 58CA691E
[2024-11-26] VITALS (33 sets, daily range): BP systolic 97–132; BP diastolic 35–78; PULSE 11–135; RESP 20–34; TEMP 36.2–37.2; O2SAT 85–100; BMI 20.6
[2024-11-26 00:06] LABS: Glucose, Whole Blood 120 mg/dL (60-115)
[2024-11-26] MEDS: 0.9 % Sodium Chloride Flush 3 ML SYRINGE IVFLUSH ×3 (00:53→16:36)
[2024-11-26] MEDS: Acetylcysteine 10 % 400 MG/4 ML VIAL INHALE ×4 (03:11→19:20)
[2024-11-26] MEDS: Albuterol Sulfate (0.083%) 2.5 MG/3 ML VIAL.NEB INHALE ×4 (03:11→19:20)
[2024-11-26 04:39] LABS: VBG HCO3 17 mmol/L (22-26); VBG O2 % Saturation 70.0 %
[2024-11-26 05:01] LABS: MANUAL DIFF FLAG NO
[2024-11-26 05:04] LABS: Hematocrit 25.0 % (42.0-52.0); Hemoglobin 7.9 g/dl (14.0-18.0); Imm Gran Abs Auto 0.08 X10*3/uL (0.00-0.03); Imm Gran Pct Auto 0.8 % (0.0-0.4); Lymphocytes Absolute Auto 1.2 X10*3/uL (1.2-4.9); Mean Corpuscular HGB Conc 31.6 g/dl (31.0-36.0); Mean Corpuscular Hemoglobin 32.8 pg (27.0-33.0); Mean Corpuscular Volume 103.7 fL (80.0-98.0); NRBC Abs Auto 0.020 X10*3/uL (0.0-0.012); NRBC Pct Auto 0.2 /100WBC (0.0-0.2); Platelet Count 296 X10*3/uL (160-400); Red Blood Count 2.41 X10*6/uL (4.60-5.80); White Blood Count 9.5 X10*3/uL (4.8-10.8)
[2024-11-26 05:38] LABS: Alanine Aminotransferase 43 U/L (0-40); Albumin Level 3.3 g/dL (3.5-5.0); Alkaline Phosphatase 149 U/L (39-117); Anion Gap 32 (12-20); Aspartate Amino Transferase 61 U/L (5-37); Blood Urea Nitrogen 136 mg/dL (9-16); Calcium 9.2 mg/dL (8.4-10.2); Carbon Dioxide 14 mmol/L (22-29); Chloride 101 mmol/L (96-108); Creatinine Clr Calc Pharmacy 8.7; Estimated Glomerular Filt Rate 7; Magnesium 2.9 mg/dL (1.6-2.6); Potassium 4.8 mmol/L (3.3-5.1); Sodium 142 mmol/L (135-145); Total Protein 9.9 g/dL (6.5-8.0)
[2024-11-26] MEDS: Norepinephrine Bitartrate/NS 16 MG/250 ML PLAST..BAG 8.35 MG IVCONT (08:41)
--- NOTE | 2024-11-26 11:15 | PM.CCPN ---
Subjective Subjective Date of Service: 11/26/24 Interval History: Continues to be on Levophed support Mental status slightly better, following some commands, asking for soda Critical Care Time (minutes): 35 Physical Exam Vital Signs: Vital Signs: Last Vital Signs Temp 97.6 F 11/26/24 08:00 Pulse 128 H 11/26/24 11:00 Resp 33 H 11/26/24 11:00 BP 111/66 11/26/24 11:00 Pulse Ox 97 11/26/24 11:00 O2 Del Method Room Air 11/26/24 11:00 O2 Flow Rate 5 11/25/24 10:00 FiO2 90 11/22/24 18:00 BMI result Body Mass Index 20.6 General: Elderly male in acute distress, ill appearing and tired appearing Nutritional Appearance: well nourished and overweight Eyes: appearance normal, both eyes and all related structures; Alignment and Position: alignment normal and position normal Neck: No lymphadenopathy, no thyromegaly Resp: bilateral air entry equal, occasional added sounds present Cardio: Regular rate, regular rhythm; Heart sounds: S1 normal heart sound present and S2 normal heart sound present GI: soft, nontender, no guarding, no hepatosplenomegaly : bladder normal to inspection, bladder normal to palpation, no renal angle tenderness Skin: no rashes or lesions noted and elasticity normal Neuro: Follows some commands, talks more than before, significantly under deficit present Objective Data Labs 11/26/24 04:25 11/26/24 04:25 Labs: Laboratory Results - last 24 hr 11/25/24 11/25/24 11/25/24 12:42 17:58 21:30 WBC RBC Hgb Hct MCV MCH MCHC RDW Plt Count MPV Immature Gran % (Auto) Neut % (Auto) Lymph % (Auto) [place] % (Auto) Eos % (Auto) Baso % (Auto) Lymph # (Auto) [place] # (Auto) Eos # (Auto) Baso # (Auto) Abs Immat Gran (auto) Absolute Neuts (auto) Absolute Nucleated RBC Nucleated RBC % (auto) VBG pH VBG pCO2 VBG pO2 VBG HCO3 VBG O2 Saturation VBG Base Excess Sodium Potassium Chloride Carbon Dioxide Anion Gap BUN Creatinine Estim Creat Clear Calc Estimated GFR POC Glucose 120 H 115 Random Glucose Calcium Phosphorus Magnesium Total Bilirubin AST ALT Alkaline Phosphatase Total Protein Albumin COVID-19 (HERIBERTO) Negative COVID-19 Clin Com See Note 11/25/24 11/26/24 11/26/24 23:50 04:25 04:35 WBC 9.5 RBC 2.41 L Hgb 7.9 L Hct 25.0 L MCV 103.7 H MCH 32.8 MCHC 31.6 RDW 17.1 H Plt Count 296 MPV 10.8 Immature Gran % (Auto) 0.8 H Neut % (Auto) 74.2 H Lymph % (Auto) 13.0 L [place] % (Auto) 10.7 Eos % (Auto) 0.9 Baso % (Auto) 0.4 Lymph # (Auto) 1.2 [place] # (Auto) 1.0 Eos # (Auto) 0.1 Baso # (Auto) 0.0 Abs Immat Gran (auto) 0.08 H Absolute Neuts (auto) 7.0 Absolute Nucleated RBC 0.020 H Nucleated RBC % (auto) 0.2 VBG pH 7.53 H VBG pCO2 20 VBG pO2 51 VBG HCO3 17 L VBG O2 Saturation 70.0 VBG Base Excess -3.3 Sodium 142 Potassium 4.8 Chloride 101 Carbon Dioxide 14 L Anion Gap 32 H BUN 136 H Creatinine 8.06 H* Estim Creat Clear Calc 8.7 Estimated GFR 7 POC Glucose 120 H Random Glucose 115 Calcium 9.2 Phosphorus 11.6 H Magnesium 2.9 H Total Bilirubin 2.6 H AST 61 H ALT 43 H Alkaline Phosphatase 149 H Total Protein 9.9 H Albumin 3.3 L COVID-19 (HERIBERTO) COVID-19 Clin Com Microbiology Microbiology Results: Microbiology 11/10/24 11:13 Blood - Venous Blood Culture - Final No growth after 5 days. 11/10/24 11:13 Blood - Venous Blood Culture - Final No growth after 5 days. 11/07/24 07:02 Blood - Venous Blood Culture - Final Staphylococcus aureus Coag negative Staphylococcus 11/08/24 04:10 Blood - Venous Blood Culture - Final Staphylococcus aureus 11/08/24 04:10 Blood - Venous Blood Culture - Final Staphylococcus aureus 11/07/24 07:01 Blood - Venous Blood Culture - Final Staphylococcus aureus Progress Note: A&P Assessment and plan (1) Polysubstance abuse: Status: Acute (2) Cardiac arrest: Status: Acute (3) Hyperbilirubinemia: Status: Acute (4) Acute kidney injury: Status: Acute (5) Acute hypoxemic respiratory failure: Status: Acute (6) Acute respiratory distress syndrome (ARDS): Status: Acute Plan 69-year-old gentleman with underlying hypertension, anxiety, ? ADHD, substance abuse presented on 11/07/2024 with respiratory distress requiring immediate intubation complicated by pea re-intubation cardiac arrest with return of spontaneous circulation after 2 rounds of CPR. Initial workup significant for profound hypoxemia, lactic acidosis with acute renal failure, and COVID positivity. Patient started on empiric broad-spectrum antibiotics, pressor support, and dexamethasone and admitted to the intensive care unit. Patient with 3 additional cardiac arrests on 11/07/2024, with CPR started immediately and returned spontaneous circulation achieved with an 1-2 rounds of CPR each time. CT chest with evidence of bibasilar pneumonia, cavitary on the right. Blood cultures growing MSSA. He is extuabted on 11/22/2024. HARSH likely secondary to ATN initiated on hemodialysis since 11/13/2024. continues to have poor mental status, MRI brain on 11/18/2024 subacute/acute bilateral infarcts. Neuro: Acute encephalopathy possibly due to bilateral infarcts unsure if embolic or secondary to COVID, possibly also a component of drug withdrawal Mental status is better this morning, is talking a few words, has significant neuro deficit including vera-neglect On modafinil for neurostimulation MRI of brain showing several foci of acute ischemia in bilateral frontal lobes, large lesion in the left occipital lobe possibly ischemic versus mass. UDS positive for cocaine, fentanyl, methadone Close neurological status monitoring in the ICU every hour Cardiac: Cardiogenic Shock: On Levophed support, titrate Levophed to keep map above 65 mm Hg Bedside echo showing close to normal LV systolic function, small RV, collapsing IVCs. So UF on dialysis was reduced yesterday Respiratory: Acute hypoxemic respiratory failure due to pulmonary cavitations, bibasilar pneumonia Extubated on 11/22/2024, remains a high-risk for aspiration and re-intubation On Mucomyst nebulization and chest percussion therapy twice daily to help with secretions GI: poor swallow We will order speech and swallow eval Hyperphosphatemia: Continue sevelamer 1600mg TID Tube feeding adjusted Transaminitis: Possibly part of multiorgan failure from cardiac arrest- all the liver function slowly improving everyday bilirubin 2.8 down from peak of 16.3, transaminases down trending Hepatitis panel, HIV negative We will monitor Renal: Acute kidney injury possibly secondary to ATN from cardiac arrest still remains anuric, continues to need renal replacement therapy T//. We will closely monitor I's and O's Avoid nephrotoxic medications Heme: Chronic anemia, closely monitor H&H, transfuse for hemoglobin less than 7 grams/deciliter received an unit of PRBC transfusion overnight on 11/20/2024 and on 11/23/2024 Endocrine: Blood sugars under control Sliding scale insulin as needed Infectious disease: Initial 2 sets of blood cultures positive for MSSA, repeat blood culture negative on 11/10/2024 Musculoskeletal: Decubitus ulcer prevention protocol Lines: Left IJ triple lumen hemodialysis on 11/23/2024 Completed course of antibiotics, currently not on any antibiotics Prophylaxis: Heparin, famotidine Quality Stroke Does the patient have a stroke diagnosis?: No VTE Prior VTE?: No VTE Risk Level:: Medical - moderate - high VTE Device Contraindication: Treatment Not Indicated VTE Drug Contraindication: N/A - Med Ordered
[2024-11-26 12:23] LABS: Glucose, Whole Blood 96 mg/dL (60-115)
[2024-11-26 15:45] LABS: Venous Blood Gas Refer to POC result
[2024-11-26 18:36] LABS: Glucose, Whole Blood 97 mg/dL (60-115)
--- NOTE | 2024-11-26 19:30 | PC.NURSE ---
Assumed Care @ 0700 Neuro:? Drowsy, follows simple commands, Flaccid extremities (Passive ROM performed) Respiratory: Currently on RA. Rhoncurous Bl throughout. Deep suction x2.? Cardiac: Afib on tele, Levophed 2x gtt-per JUN. GI/: LBM 11/26, NPO; Anuric? Skin: Impaired skin integrity- see skin assessment (reposition maintained) Temp: Afebrile Lines: HD cath L IJ, peripheral IV x2.
[2024-11-27] VITALS (50 sets, daily range): BP systolic 63–154; BP diastolic 38–100; PULSE 102–151; RESP 20–33; TEMP 32–37; O2SAT 88–100; BMI 22.6; BMI 22.7
[2024-11-27 00:17] LABS: Glucose, Whole Blood 103 mg/dL (60-115)
[2024-11-27] MEDS: 0.9 % Sodium Chloride Flush 3 ML SYRINGE IVFLUSH ×3 (00:30→15:37)
[2024-11-27] MEDS: Acetylcysteine 10 % 400 MG/4 ML VIAL INHALE ×2 (01:21→07:41)
[2024-11-27] MEDS: Albuterol Sulfate (0.083%) 2.5 MG/3 ML VIAL.NEB INHALE ×3 (01:21→20:53)
[2024-11-27 04:59] LABS: VBG HCO3 13 mmol/L (22-26); VBG O2 % Saturation 93.0 %
[2024-11-27 05:06] LABS: MANUAL DIFF FLAG NO
[2024-11-27 05:20] LABS: Hematocrit 30.1 % (42.0-52.0); Hemoglobin 9.0 g/dl (14.0-18.0); Imm Gran Abs Auto 0.14 X10*3/uL (0.00-0.03); Imm Gran Pct Auto 1.5 % (0.0-0.4); Lymphocytes Absolute Auto 1.1 X10*3/uL (1.2-4.9); Mean Corpuscular HGB Conc 29.9 g/dl (31.0-36.0); Mean Corpuscular Hemoglobin 33.2 pg (27.0-33.0); NRBC Abs Auto 0.030 X10*3/uL (0.0-0.012); NRBC Pct Auto 0.3 /100WBC (0.0-0.2); Platelet Count 308 X10*3/uL (160-400); Red Blood Count 2.71 X10*6/uL (4.60-5.80); White Blood Count 9.3 X10*3/uL (4.8-10.8)
[2024-11-27 05:55] LABS: Alanine Aminotransferase 41 U/L (0-40); Albumin Level 3.2 g/dL (3.5-5.0); Alkaline Phosphatase 139 U/L (39-117); Anion Gap 38 (12-20); Aspartate Amino Transferase 61 U/L (5-37); Blood Urea Nitrogen 171 mg/dL (9-16); Calcium 9.4 mg/dL (8.4-10.2); Carbon Dioxide 10 mmol/L (22-29); Chloride 103 mmol/L (96-108); Creatinine Clr Calc Pharmacy 7.9; Estimated Glomerular Filt Rate 5; Magnesium 3.2 mg/dL (1.6-2.6); Potassium 5.8 mmol/L (3.3-5.1); Sodium 145 mmol/L (135-145); Total Protein 10.3 g/dL (6.5-8.0)
[2024-11-27 06:14] LABS: Mean Corpuscular Volume 111.1 fL (80.0-98.0)
--- NOTE | 2024-11-27 08:07 | PM.CCPN ---
Subjective Subjective Date of Service: 11/27/24 Critical Care Time (minutes): 60 Physical Exam Vital Signs: Vital Signs: Last Vital Signs Temp 97.5 F 11/27/24 04:00 Pulse 117 H 11/27/24 07:50 Resp 29 H 11/27/24 07:45 BP 128/76 11/27/24 07:50 Pulse Ox 91 L 11/27/24 07:00 O2 Del Method Room Air 11/27/24 07:00 O2 Flow Rate 5 11/25/24 10:00 FiO2 90 11/22/24 18:00 BMI result Body Mass Index 22.6 Const: Other: cachectic, chronically ill-appearing General: comfortable, no acute distress, alert and awake Orientation/consciousness: oriented to person, oriented to place and No oriented to time HEENT: Head: Yes normal to inspection, Yes normocephalic and Yes atraumatic Eyes: General: appearance normal, both eyes and all related structures Neck: Other: L IJ catheter clean, dry, intact Neck: Yes normal visual inspection, Yes full ROM, Yes no meningeal signs, Yes trachea midline and Yes supple Chest: Chest palpation & inspection: normal inspection of the chest Resp: Other: appreciable rhonchi throughout, no appreciable rales, wheezing Effort & Inspection: normal respiratory effort Cardio: Rate: tachycardic Rhythm: regular rhythm GI: Other: soft, no appreciable tenderness to palpation throughout Inspection: Yes normal to inspection, No Abdominal wall edema and No distended Skin: General skin exam: no rashes or lesions noted Neuro: Other: follows commands, wiggles toes, unable to squeeze palms bilaterally General: oriented to person, oriented to place, No oriented to time and no meningeal signs Extrem: General: Yes normal to inspection, Yes full ROM and Yes capillary refill normal Psych: Appearance: grossly normal Objective Data Labs 11/27/24 04:49 11/27/24 04:49 Labs: Laboratory Results - last 24 hr 11/26/24 11/26/24 11/27/24 12:17 18:33 00:08 WBC RBC Hgb Hct MCV MCH MCHC RDW Plt Count MPV Immature Gran % (Auto) Neut % (Auto) Lymph % (Auto) [place] % (Auto) Eos % (Auto) Baso % (Auto) Lymph # (Auto) [place] # (Auto) Eos # (Auto) Baso # (Auto) Abs Immat Gran (auto) Absolute Neuts (auto) Absolute Nucleated RBC Nucleated RBC % (auto) VBG pH VBG pCO2 VBG pO2 VBG HCO3 VBG O2 Saturation VBG Base Excess Sodium Potassium Chloride Carbon Dioxide Anion Gap BUN Creatinine Estim Creat Clear Calc Estimated GFR POC Glucose 96 97 103 Random Glucose Calcium Phosphorus Magnesium Total Bilirubin AST ALT Alkaline Phosphatase Total Protein Albumin 11/27/24 11/27/24 04:49 04:55 WBC 9.3 RBC 2.71 L Hgb 9.0 L Hct 30.1 L D MCV 111.1 H D MCH 33.2 H MCHC 29.9 L RDW 17.2 H Plt Count 308 MPV 10.9 Immature Gran % (Auto) 1.5 H Neut % (Auto) 78.7 H Lymph % (Auto) 11.3 L [place] % (Auto) 7.9 Eos % (Auto) 0.1 Baso % (Auto) 0.5 Lymph # (Auto) 1.1 L [place] # (Auto) 0.7 Eos # (Auto) 0.0 Baso # (Auto) 0.1 Abs Immat Gran (auto) 0.14 H Absolute Neuts (auto) 7.3 Absolute Nucleated RBC 0.030 H Nucleated RBC % (auto) 0.3 H VBG pH 7.49 H VBG pCO2 17 VBG pO2 78 VBG HCO3 13 L VBG O2 Saturation 93.0 VBG Base Excess -7.7 Sodium 145 Potassium 5.8 H D Chloride 103 Carbon Dioxide 10 L* D Anion Gap 38 H BUN 171 H Creatinine 9.79 H* Estim Creat Clear Calc 7.9 Estimated GFR 5 POC Glucose Random Glucose 104 Calcium 9.4 Phosphorus 13.7 H Magnesium 3.2 H Total Bilirubin 2.4 H AST 61 H ALT 41 H Alkaline Phosphatase 139 H Total Protein 10.3 H Albumin 3.2 L Microbiology Microbiology Results: Microbiology 11/10/24 11:13 Blood - Venous Blood Culture - Final No growth after 5 days. 11/10/24 11:13 Blood - Venous Blood Culture - Final No growth after 5 days. 11/07/24 07:02 Blood - Venous Blood Culture - Final Staphylococcus aureus Coag negative Staphylococcus 11/08/24 04:10 Blood - Venous Blood Culture - Final Staphylococcus aureus 11/08/24 04:10 Blood - Venous Blood Culture - Final Staphylococcus aureus 11/07/24 07:01 Blood - Venous Blood Culture - Final Staphylococcus aureus Progress Note: A&P Assessment and plan (1) Acute hypoxemic respiratory failure: Status: Acute (2) Pneumonia due to COVID-19 virus: Status: Acute (3) Cardiac arrest: Status: Acute (4) Acute renal failure: Status: Acute (5) Encephalopathy: Status: Acute Plan Patient is a 69 Y M w/ hypertension, substance misuse initially presenting to ED on 11/07 w/ hypoxic respiratory failure d/t COVID, intubated; ED course c/b cardiac arrest; hospital?course c/b multiple cardiac arrests on 11/07, acute renal failure initiated on hemodialysis on 11/13, encephalopathy, c/f acute vs subacute b/l infarcts, and MSSA bacteremia N: encephalopathy, likely multifactorial, anoxic, c/f acute vs subacute b/l infarcts, to closely monitor CV: multiple prior cardiac arrests; shock, likely multifactorial, norepinephrine gtt, wean as tolerated R: intubated 11/07, extubated 11/22, c/f aspiration in setting of encephalopathy, to closely monitor GI: NPO d/t encephalopathy, NGT and tube feeds, speech/swallow when appropriate : acute renal failure initiated on hemodialysis on 11/13 H: no acute issues; chemical DVT prophylaxis ID: COVID pneumonia s/p dexamethasone, MSSA bacteremia, s/p ceftriaxone E: to monitor hyper-/hypo-glycemia S: polysubstance misuse, addiction medicine when appropriate Quality Stroke Does the patient have a stroke diagnosis?: Yes Reason for No Anti-thrombotic by Day Two: Drug intolerance VTE Prior VTE?: No VTE Risk Level:: Medical - moderate - high VTE Device Contraindication: N/A - Device Ordered VTE Drug Contraindication: N/A - Med Ordered
[2024-11-27 09:19] LABS: Venous Blood Gas Refer to POC result
--- NOTE | 2024-11-27 09:24 | PM.PNNEP ---
Subjective Subjective Date of Service: 11/27/24 Interval history: Patient here with respiratory failure requiring intubation- cavitary penumonia (extubated 11/22), lactic acidosis, MSSA bacteremia, covid+, on vasopressor support. Following for renal failure requiring dialysis, started 11/13. patient remains anuric. Physical Exam Vital Signs: Vital Signs: Last Vital Signs Temp 97.5 F 11/27/24 04:00 Pulse 117 H 11/27/24 07:50 Resp 29 H 11/27/24 07:45 BP 128/76 11/27/24 07:50 Pulse Ox 91 L 11/27/24 07:00 O2 Del Method Room Air 11/27/24 07:00 O2 Flow Rate 5 11/25/24 10:00 FiO2 90 11/22/24 18:00 BMI result Body Mass Index 22.6 Const: General: no acute distress and awake Resp: Effort & Inspection: tachypneic Auscultation: rhonchi Cardio: Rate: tachycardic Rhythm: regular rhythm Heart sounds: S1 normal heart sound present and S2 normal heart sound present GI: Palpation (GI): Soft to palpation and nontender Skin: Rashes: no rashes Extrem: General: No edema Objective Data Labs 11/27/24 04:49 11/27/24 04:49 Labs: Laboratory Results - last 24 hr 11/26/24 11/26/24 11/27/24 12:17 18:33 00:08 WBC RBC Hgb Hct MCV MCH MCHC RDW Plt Count MPV Immature Gran % (Auto) Neut % (Auto) Lymph % (Auto) Hemphill % (Auto) Eos % (Auto) Baso % (Auto) Lymph # (Auto) Hemphill # (Auto) Eos # (Auto) Baso # (Auto) Abs Immat Gran (auto) Absolute Neuts (auto) Absolute Nucleated RBC Nucleated RBC % (auto) VBG pH VBG pCO2 VBG pO2 VBG HCO3 VBG O2 Saturation VBG Base Excess Sodium Potassium Chloride Carbon Dioxide Anion Gap BUN Creatinine Estim Creat Clear Calc Estimated GFR POC Glucose 96 97 103 Random Glucose Calcium Phosphorus Magnesium Total Bilirubin AST ALT Alkaline Phosphatase Total Protein Albumin 11/27/24 11/27/24 04:49 04:55 WBC 9.3 RBC 2.71 L Hgb 9.0 L Hct 30.1 L D MCV 111.1 H D MCH 33.2 H MCHC 29.9 L RDW 17.2 H Plt Count 308 MPV 10.9 Immature Gran % (Auto) 1.5 H Neut % (Auto) 78.7 H Lymph % (Auto) 11.3 L Hemphill % (Auto) 7.9 Eos % (Auto) 0.1 Baso % (Auto) 0.5 Lymph # (Auto) 1.1 L Hemphill # (Auto) 0.7 Eos # (Auto) 0.0 Baso # (Auto) 0.1 Abs Immat Gran (auto) 0.14 H Absolute Neuts (auto) 7.3 Absolute Nucleated RBC 0.030 H Nucleated RBC % (auto) 0.3 H VBG pH 7.49 H VBG pCO2 17 VBG pO2 78 VBG HCO3 13 L VBG O2 Saturation 93.0 VBG Base Excess -7.7 Sodium 145 Potassium 5.8 H D Chloride 103 Carbon Dioxide 10 L* D Anion Gap 38 H BUN 171 H Creatinine 9.79 H* Estim Creat Clear Calc 7.9 Estimated GFR 5 POC Glucose Random Glucose 104 Calcium 9.4 Phosphorus 13.7 H Magnesium 3.2 H Total Bilirubin 2.4 H AST 61 H ALT 41 H Alkaline Phosphatase 139 H Total Protein 10.3 H Albumin 3.2 L Microbiology Microbiology Results: Microbiology 11/10/24 11:13 Blood - Venous Blood Culture - Final No growth after 5 days. 11/10/24 11:13 Blood - Venous Blood Culture - Final No growth after 5 days. 11/07/24 07:02 Blood - Venous Blood Culture - Final Staphylococcus aureus Coag negative Staphylococcus 11/08/24 04:10 Blood - Venous Blood Culture - Final Staphylococcus aureus 11/08/24 04:10 Blood - Venous Blood Culture - Final Staphylococcus aureus 11/07/24 07:01 Blood - Venous Blood Culture - Final Staphylococcus aureus Procedures Date of Service Date of Service: 11/27/24 Assessment & Plan Assessment and plan (1) Acute renal failure: Status: Acute (2) Metabolic acidosis: Status: Acute (3) Hyperkalemia: Status: Acute Plan Acute failure likely multifactorial with severe metablic acidosis and hyperkalemia. Now on dialysis TTS. septic and ischemic ATN vacomycin-related injury also likely given elevated levels of vancomycin Patient remains dialysis dependent. LEft temprorary catheter in place. Per HD RN, due to patient movement, treatments have been prolonged, difficult to get good blood flow due to patient's mental status and movement. Will discuss permcath placement with ICU. Patient remains on vasopressor support H&H 9.0 &30 - no indication for procrit at this time K is 5.8, serum bicab is 10- will check beta hydroxybuterate and lactic acid. Will get dialysis today- should use sodium bicarb dialysate of 40 until numbers improve Will plan for daily dialysis for now Discussed with Dr Yap Time Spent With Patient Time: Total time managing care of this patient today ____ minutes. Progress Note: Quality Stroke Does the patient have a stroke diagnosis?: Yes Reason for No Anti-thrombotic by Day Two: Drug intolerance
--- NOTE | 2024-11-27 11:54 | MHC.SL.SWA ---
Speech Pathologist Impression: Moderate to significant dysphagia, aphonia, generalized weakness Risk of Aspiration Due to: Deconditioning Weakness Recent extubation 11/22 Dysphasia Diet Status: Liquid Consistency and Strategies for Safe Swallow: Liquid Intake Recommendation: NPO Liquid Intake Strategies: Solid Food Consistency: Dietary Recommendations: NPO Additional Modifications to Solid Foods: Oral Medication Intake: NPO Please contact the pharmacy regarding appropriate crushable or liquid drug formulations that are available whenever modified delivery is recommended. Compensatory Strategies and Precautions to be Taken for Safe Swallow: Supervision While Eating and Drinking for Safe Swallow: PO with CERTIFIED LACTATION COUNSELOR Foods to Avoid: Swallowing Recommended Treatments: Recommendation for Speech: Inpatient Speech Therapy Comment: 11/26 Ice chips only presented after oral clearance as pt is at high risk for aspiration at this time. No other PO trials attempted. Pt positioned in bed with HOB elevated to 80 degrees, head supported on R side with rolled towel. port on L side of neck. Pt is contracted. Pt alert, responsive, able to follow simple cues, requesting something to drink. Pt aphonic since extubation11/22. ROM of jaw and tongue limited. Dried blood visualized on posterior wall of pt throat. Elevation of uvula and labial closure/containment of mucous WNL. Volitional pharyngeal swallow moderately delayed. Oral swabbing removed dried mucous. Minimal trials of ice chips presented. Oral phase of swallow WFL. Manipulation of ice and containment/posterior propulsion of fluid adequate. Laryngeal elevation reduced, trigger of pharyngeal swallow delayed. Cough occurred s/p approximately 5 ice chip trials (5cc liquid each). Trials discontinued d/t overt evidence of airway penetration. RN consulted, last CERTIFIED LACTATION COUNSELOR note indicated pt will need alternative nutrition. RN reported that NG insertion failed x2 this weekend. RD ordered PPN today. Frequency/Duration: Daily M-F Date Range for Service Req: Timeline to reassess: [employer] Internship Clinican/Clinical Fellow: No Supervisory Statement: I have reviewed and agree with the student/clinical fellow's documentation: N/A Speech Language Pathologist: Rafaela Ontiveros M.S., CCC-CERTIFIED LACTATION COUNSELOR
[2024-11-27 12:39] LABS: Glucose, Whole Blood 85 mg/dL (60-115)
[2024-11-27] MEDS: Norepinephrine Bitartrate/NS 16 MG/250 ML PLAST..BAG 2.51 MG IVCONT (12:40)
--- NOTE | 2024-11-27 13:48 | HO.WOUND ---
Wound Consult: follow up 69yr old male admitted to [facility] [place] on 11/07/24- See progress notes and H&P for detailed history. Wound consult placed for rectal area, bilateral cheeks. Patient agreeable to assessment and photo documentation. previous flexiseal in place, now removed. 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 open, irregular Gloria wound: ? mild Induration, no Fluctuance or no Warmth noted, moisture noted Pain: patient endorsed mild pain with assessment Goals of Treatment: ?wound healing, moisture balance in the setting of incontinence. Etiology: left cheek, medical adhesive related skin injury (MARSI) Measurements: 1 cm x 2cm x 0.1cm Wound Bed: dry flaking thin scab Drainage / Odor: none , no odor Edges: ? open, irregular Gloria wound: ? no Induration, no Fluctuance or no Warmth noted Pain: none Goals of Treatment: ?wound healing right cheek- healed Recommendations: 1. Turn and Reposition every 2 hours and as needed for patient comfort. Use pillows or wedges to support off loading positions. 2. Off Load all bony prominences with use of pillows and heel boots if needed. Apply Preventative foams where needed. 3. Monitor for incontinence and moisture control, use barrier creams when needed for prevention and treatment. 4. Provide adequate and supplemental nutrition. 5. Order or Continue low air loss mattress. 6. When applicable maintain blood glucose levels per Providers order. Rectum: Off Load Pressure with Q2 hr turns and use of pillows - Cleanse with PH balance spray or wipes, pat dry. ?Apply thin layer of Triad to wound bed - only pat and dab no scrub and rub when soiling occurs. Reapply thin layer PRN after each episode of incontinence. bilateral cheeks: leave open to air Re-consult wound care Nurse for wound deterioration or wound changes.
--- NOTE | 2024-11-27 14:37 | MHC.CM.PN ---
Pt alert, mouthing words and able to nod head yes and no. Pt asked about choosing a HCP - he was able to mouth my sister and said she lives in [place] with witness present. Shook head no when asked about his significant other, Riri. Search initiated for family: was able to reach Naida Ewing, pt's sister [phone], who states she will contact pt's siblings (3 brothers and another sister). Updated ICU staff - waiting for family to return call. Pt will need SNF/HD placement: referrals made
[2024-11-27 17:53] LABS: Hematocrit 27.6 % (42.0-52.0); Hemoglobin 8.7 g/dl (14.0-18.0); Mean Corpuscular HGB Conc 31.5 g/dl (31.0-36.0); Mean Corpuscular Hemoglobin 33.1 pg (27.0-33.0); Mean Corpuscular Volume 104.9 fL (80.0-98.0); NRBC Abs Auto 0.020 X10*3/uL (0.0-0.012); NRBC Pct Auto 0.2 /100WBC (0.0-0.2); Platelet Count 373 X10*3/uL (160-400); Red Blood Count 2.63 X10*6/uL (4.60-5.80); White Blood Count 8.8 X10*3/uL (4.8-10.8)
[2024-11-27 17:58] LABS: INTERNATIONAL NORM RATIO 1.3 (0.9-1.1); Prothrombin Time 14.8 SEC (10.9-12.4)
[2024-11-27 18:02] LABS: PTT Heparin Drip 21.1 SEC (53-77.9)
[2024-11-27] MEDS: Heparin Sodium,Porcine/1/2NS 25,000 UNIT/250 ML IV.SOLN 10.86 UNIT IVCONT (18:09)
[2024-11-27 18:14] LABS: Glucose, Whole Blood 87 mg/dL (60-115)
[2024-11-27] MEDS: Vasopressin 20 UNIT/100 ML INFUS..BTL 12 UNIT IVCONT (19:09)
[2024-11-27] MEDS: Amiodarone/Dextrose 150 MG/100 ML PLAST..BAG 600 MG IV (19:34)
--- NOTE | 2024-11-27 19:44 | PC.NURSE ---
Assumed Care @ 0700 ?Upon initial assessment? Neuro:? Drowsy, follows simple commands, Flaccid extremities (Passive ROM performed) Respiratory: on RA. Rhoncurous Bl throughout.? Cardiac: Afib on tele, Levophed 2x gtt and Heparin gtt-per JUN. GI/: LBM 11/26, NPO; speech therapist following. Anuric, 1 episode of unmeasured urine.? Skin: Impaired skin integrity- see skin assessment (reposition maintained) Temp: Afebrile ?Lines: HD catch to BL IJ, unable to removed left HD due to pt inability to tolerate supine position peripheral IV x2. ?Hemodialysis attempted early in the afternoon, treatment unable to be completed HD cath not having blood return. New HD cath placed in IR. Hemodialysis initiated approx @ 1700.? Pressor support and 02 requirements increased.? Approx. @ 1905 pt Sp02 sat 83 on 15L oxymask, pt transition to a non rebreather NC, oral and deep suctioning performed.? 02 Sp02 improved to 90s, HR increased to 170?s, Yoko COAT MAKER and RT at bedside.
[2024-11-27 19:55] LABS: MANUAL DIFF FLAG NO
[2024-11-27 19:56] LABS: Hematocrit 25.7 % (42.0-52.0); Hemoglobin 8.3 g/dl (14.0-18.0); Imm Gran Abs Auto 0.62 X10*3/uL (0.00-0.03); Imm Gran Pct Auto 3.8 % (0.0-0.4); Lymphocytes Absolute Auto 1.0 X10*3/uL (1.2-4.9); Mean Corpuscular HGB Conc 32.3 g/dl (31.0-36.0); Mean Corpuscular Hemoglobin 33.6 pg (27.0-33.0); Mean Corpuscular Volume 104.0 fL (80.0-98.0); NRBC Abs Auto 0.080 X10*3/uL (0.0-0.012); NRBC Pct Auto 0.5 /100WBC (0.0-0.2); Platelet Count 342 X10*3/uL (160-400); Red Blood Count 2.47 X10*6/uL (4.60-5.80); White Blood Count 16.3 X10*3/uL (4.8-10.8)
--- NOTE | 2024-11-27 20:00 | W.PM.CCHP ---
Procedures Date of Service Date of Service: 11/27/24 Intubation Intubation Comments: The patient developed progressive respiratory fatigue, somnolence, and hypoxemia.? He was preoxygenated with Ambu-bag 100%. ? RSI was carried out with the meds above.? The glottis was easily visualized with 4 GlideScope, and the trachea was intubated with a 7.5 ETT via? indirect video visualization, atraumatic.? BSBE, +CO2, SpO2 maintained.? The tube was secured at 25 cm at the upper lip. The patient tolerated the procedure well with no complications.? Placement confirmed with chest x-ray. Consent for Procedure: Emergent-no informed consent obtained Time out performed: Yes Sedative: propofol Mg given: 100 Laryngoscope: fiber optic video scope ET tube size: 7.5 ET tube uncuffed: No Tube secured depth (cm): 25 Tube secured location: lips Tube placement confirmation: visualized tube passing through cords, equal breath sounds bilaterally, no breath sounds over epigastrium and confirmation by capnometry Patient tolerated procedure: well and no complications Intubation complications: none
[2024-11-27 20:17] LABS: Albumin Level 3.3 g/dL (3.5-5.0); Anion Gap 27 (12-20); Blood Urea Nitrogen 87 mg/dL (9-16); Calcium 8.8 mg/dL (8.4-10.2); Carbon Dioxide 23 mmol/L (22-29); Chloride 96 mmol/L (96-108); Creatinine Clr Calc Pharmacy 14.4; Estimated Glomerular Filt Rate 11; Magnesium 2.2 mg/dL (1.6-2.6); Potassium 3.8 mmol/L (3.3-5.1); Sodium 142 mmol/L (135-145)
[2024-11-27] MEDS: vancomycin/NS 2,000 MG/500 ML PLAST..BAG 250 MG IV (20:39)
--- NOTE | 2024-11-27 21:21 | PM.EVENT ---
Documented by User: Yoko Cohen NP 11/27/24 22:08 Event Note Date of Service: 11/27/24 Event Note: Patient developed progressive respiratory fatigue, somnolence, hypoxemia, tachycardia, while receiving hemodialysis. He was unable to manage his secretions and required deep suctioning which yielded minimal results. The patient was emergently intubated for airway protection. The patient?s sister Radha was notified of the patient?s condition. Time Spent With Patient Time: Total time managing care of this patient today ____ minutes. Documented by User: Irais Negro MD 11/28/24 06:23 Event Note Date of Service: 11/28/24
[2024-11-27 21:47] LABS: Reflex Lactate? Lactic Acid Added
[2024-11-27 22:37] LABS: ~Lactic Acid-LAB USE ONLY 2.4 mmol/L (0.5-2.0)
[2024-11-28] VITALS (34 sets, daily range): BP systolic 84–149; BP diastolic 51–95; PULSE 97–120; RESP 21–32; TEMP 32–36.7; O2SAT 87–100; BMI 22.8
[2024-11-28 00:02] LABS: Glucose, Whole Blood 149 mg/dL (60-115)
[2024-11-28 00:07] LABS: Reflex Lactate? 2 Y
[2024-11-28 00:37] LABS: ~Lactic Acid-LAB USE ONLY 1.9 mmol/L (0.5-2.0)
[2024-11-28] MEDS: iohexoL 350 MG/ML 100 ML INFUS..BTL IV (00:37)
[2024-11-28] MEDS: 0.9 % Sodium Chloride Flush 3 ML SYRINGE IVFLUSH ×2 (01:00→08:01)
[2024-11-28] MEDS: levETIRAcetam in NaCl (iso-os) 1,000 MG/100 ML PIGGYBACK 400 MG IV (02:37)
[2024-11-28] MEDS: Albuterol Sulfate (0.083%) 2.5 MG/3 ML VIAL.NEB INHALE ×2 (02:48→08:01)
[2024-11-28] MEDS: Acetylcysteine 10 % 400 MG/4 ML VIAL INHALE ×2 (02:48→08:02)
[2024-11-28] MEDS: Norepinephrine Bitartrate/NS 16 MG/250 ML PLAST..BAG 17.54 MG IVCONT (02:57)
[2024-11-28] MEDS: iohexoL 350 MG/ML 100 ML INFUS..BTL 70 ML IV (03:32)
[2024-11-28 03:50] LABS: Anion Gap 28 (12-20); Blood Urea Nitrogen 104 mg/dL (9-16); Calcium 8.1 mg/dL (8.4-10.2); Carbon Dioxide 21 mmol/L (22-29); Chloride 97 mmol/L (96-108); Creatinine Clr Calc Pharmacy 12.2; Estimated Glomerular Filt Rate 9; Potassium 5.4 mmol/L (3.3-5.1); Sodium 141 mmol/L (135-145)
--- NOTE | 2024-11-28 04:28 | PC.NURSE ---
upon initial assessment pt found to be in afib rvr 150s-180s, increasing levo requirements (see MAR) sats in the 80s and agonally breathing and minimally responsive to verbal stimuli and sternal rub. pt deep suctioned and placed on non rebreather, with good effect. FLOWER MACHINE OPERATOR to bedside, new order for amio gtt vasopressin and decision to stop dialysis heparin gtt and intubate. pt started on prop for sedation(see mar). Pt to CT with this RN and RT. Per FLOWER MACHINE OPERATOR CT shows brain bleed. pupils responsive, pt grimaces to oral care positve cough and gag. new order for protamine iv push and back to CT with this RN and RT. bed bath provided, medical devices assessed . repo q2 hours. plan of care continues
[2024-11-28 05:16] LABS: Venous Blood Gas Refer to POC result
[2024-11-28 05:22] LABS: VBG HCO3 24 mmol/L (22-26); VBG O2 % Saturation 80.0 %
[2024-11-28 05:55] LABS: Hematocrit 23.6 % (42.0-52.0); Hemoglobin 7.3 g/dl (14.0-18.0); Imm Gran Abs Auto 0.34 X10*3/uL (0.00-0.03); Imm Gran Pct Auto 3.0 % (0.0-0.4); Lymphocytes Absolute Auto 0.4 X10*3/uL (1.2-4.9); MANUAL DIFF FLAG SCAN; Mean Corpuscular HGB Conc 30.9 g/dl (31.0-36.0); Mean Corpuscular Hemoglobin 32.7 pg (27.0-33.0); Mean Corpuscular Volume 105.8 fL (80.0-98.0); NRBC Abs Auto 0.040 X10*3/uL (0.0-0.012); NRBC Pct Auto 0.4 /100WBC (0.0-0.2); Platelet Count 311 X10*3/uL (160-400); Red Blood Count 2.23 X10*6/uL (4.60-5.80); SCAN SMEAR FLAG 1; White Blood Count 11.4 X10*3/uL (4.8-10.8)
[2024-11-28 06:11] LABS: Anion Gap 26 (12-20); Blood Urea Nitrogen 112 mg/dL (9-16); Calcium 8.1 mg/dL (8.4-10.2); Carbon Dioxide 22 mmol/L (22-29); Chloride 96 mmol/L (96-108); Creatinine Clr Calc Pharmacy 11.8; Estimated Glomerular Filt Rate 8; Magnesium 2.2 mg/dL (1.6-2.6); Potassium 5.3 mmol/L (3.3-5.1); Sodium 139 mmol/L (135-145); Triglycerides 272 mg/dL (<150)
[2024-11-28] MEDS: Calcium Chloride 1 GM/10 ML SYRINGE IVPUSH (06:53)
--- NOTE | 2024-11-28 08:24 | P.PNCC_ITS ---
Subjective Subjective Date of Service: 11/28/24 Interval History: unable to perform HD 11/27 AM, s/p HD catheter placement w/ IR, found to have subclavian DVT, started on heparin gtt; patient w/ significant clinical decline 11/27 PM, marked by worsening shock necessitating 2 vasopressors, stress-dose steroids, obtundation, emergently intubated; CT H c/f acute b/l frontoparietal subarachnoid hemorrhage, though CTA H/N not suggestive of anuersym; CTA C not suggestive of pulmonary embolism, CT A/P not suggestive of acute process; [facility] contacted regarding neurological care Critical Care Time (minutes): 60 Physical Exam 2 Vital Signs: Vital Signs: Last Vital Signs Temp 97.3 F 11/28/24 08:00 Pulse 103 H 11/28/24 08:05 Resp 28 H 11/28/24 08:05 BP 89/54 L 11/28/24 08:05 Pulse Ox 87 L 11/28/24 08:00 O2 Del Method Mechanical Ventil ation 11/28/24 08:00 O2 Flow Rate 15 11/27/24 19:00 FiO2 25 11/28/24 08:00 BMI result Body Mass Index 22.8 Const: Other: intubated, minimally sedated; pupiles equal, round, reactive bilaterally; grimaces, moves bilateral hands spontaneous, though does not withdraw to noxious stimulus; no appreciable abnormal posturing General: no acute distress HEENT: Head: Yes normal to inspection, Yes normocephalic and Yes atraumatic Eyes: General: appearance normal, both eyes and all related structures Neck: Neck: Yes normal visual inspection, Yes full ROM, Yes no meningeal signs, Yes trachea midline and Yes supple Chest: Chest palpation & inspection: normal inspection of the chest Resp: Other: appreciable diffuse rhonchi; no appreciable overt rales, wheezing Cardio: Rate: regular rate Rhythm: abnormal rhythm GI: Inspection: Yes normal to inspection, No Abdominal wall edema and No distended Palpation (GI): Soft to palpation Skin: General skin exam: no rashes or lesions noted Neuro: Other: as described above General: tone normal and no meningeal signs Extrem: Other: appreciable trace pitting edema to bilateral shins General: Yes normal to inspection, Yes full ROM and Yes capillary refill normal Psych: Other: unable to assess Objective Data Labs 11/28/24 05:04 11/28/24 05:04 Labs: Laboratory Results - last 24 hr 11/27/24 11/27/24 11/27/24 04:49 10:12 12:12 WBC RBC Hgb Hct MCV MCH MCHC RDW Plt Count MPV Immature Gran % (Auto) Neut % (Auto) Lymph % (Auto) [place] % (Auto) Eos % (Auto) Baso % (Auto) Lymph # (Auto) [place] # (Auto) Eos # (Auto) Baso # (Auto) Abs Immat Gran (auto) Absolute Neuts (auto) Absolute Nucleated RBC Nucleated RBC % (auto) Smear Tech's Comments Smear Path Review SEE NOTE PT INR aPTT Heparin Protocol VBG pH VBG pCO2 VBG pO2 VBG HCO3 VBG O2 Saturation VBG Base Excess Sodium Potassium Chloride Carbon Dioxide Anion Gap BUN Creatinine Estim Creat Clear Calc Estimated GFR POC Glucose 85 Random Glucose Lactic Acid 1.5 Lactic Acid F/U @ 2Hr Lactic Acid F/U @ 4Hr Calcium Phosphorus Magnesium Albumin Triglycerides Beta-Hydroxybutyrate 1.36 H Blood Type Antibody Screen 11/27/24 11/27/24 11/27/24 17:31 18:11 19:42 WBC 8.8 Cancelled RBC 2.63 L Hgb 8.7 L Hct 27.6 L MCV 104.9 H D MCH 33.1 H MCHC 31.5 RDW 17.1 H Plt Count 373 MPV 10.6 Immature Gran % (Auto) Neut % (Auto) Lymph % (Auto) [place] % (Auto) Eos % (Auto) Baso % (Auto) Lymph # (Auto) [place] # (Auto) Eos # (Auto) Baso # (Auto) Abs Immat Gran (auto) Absolute Neuts (auto) Absolute Nucleated RBC 0.020 H Nucleated RBC % (auto) 0.2 Smear Tech's Comments Smear Path Review PT 14.8 H INR 1.3 H aPTT Heparin Protocol 21.1 L VBG pH VBG pCO2 VBG pO2 VBG HCO3 VBG O2 Saturation VBG Base Excess Sodium Potassium Chloride Carbon Dioxide Anion Gap BUN Creatinine Estim Creat Clear Calc Estimated GFR POC Glucose 87 Random Glucose Lactic Acid Lactic Acid F/U @ 2Hr Lactic Acid F/U @ 4Hr Calcium Phosphorus Magnesium Albumin Triglycerides Beta-Hydroxybutyrate Blood Type Antibody Screen 11/27/24 11/27/24 11/27/24 19:42 19:42 19:42 WBC 16.3 H RBC Cancelled 2.47 L Hgb Cancelled 8.3 L Hct Cancelled MCV MCH MCHC RDW Plt Count MPV Immature Gran % (Auto) Neut % (Auto) Lymph % (Auto) [place] % (Auto) Eos % (Auto) Baso % (Auto) Lymph # (Auto) [place] # (Auto) Eos # (Auto) Baso # (Auto) Abs Immat Gran (auto) Absolute Neuts (auto) Absolute Nucleated RBC Nucleated RBC % (auto) Smear Tech's Comments Smear Path Review PT INR aPTT Heparin Protocol VBG pH VBG pCO2 VBG pO2 VBG HCO3 VBG O2 Saturation VBG Base Excess Sodium Potassium Chloride Carbon Dioxide Anion Gap BUN Creatinine Estim Creat Clear Calc Estimated GFR POC Glucose Random Glucose Lactic Acid Lactic Acid F/U @ 2Hr Lactic Acid F/U @ 4Hr Calcium Phosphorus Magnesium Albumin Triglycerides Beta-Hydroxybutyrate Blood Type Antibody Screen 11/27/24 11/27/24 11/27/24 19:42 19:42 19:42 WBC RBC Hgb Hct 25.7 L MCV Cancelled 104.0 H MCH Cancelled 33.6 H MCHC Cancelled RDW Plt Count MPV Immature Gran % (Auto) Neut % (Auto) Lymph % (Auto) [place] % (Auto) Eos % (Auto) Baso % (Auto) Lymph # (Auto) [place] # (Auto) Eos # (Auto) Baso # (Auto) Abs Immat Gran (auto) Absolute Neuts (auto) Absolute Nucleated RBC Nucleated RBC % (auto) Smear Tech's Comments Smear Path Review PT INR aPTT Heparin Protocol VBG pH VBG pCO2 VBG pO2 VBG HCO3 VBG O2 Saturation VBG Base Excess Sodium Potassium Chloride Carbon Dioxide Anion Gap BUN Creatinine Estim Creat Clear Calc Estimated GFR POC Glucose Random Glucose Lactic Acid Lactic Acid F/U @ 2Hr Lactic Acid F/U @ 4Hr Calcium Phosphorus Magnesium Albumin Triglycerides Beta-Hydroxybutyrate Blood Type Antibody Screen 11/27/24 11/27/24 11/27/24 19:42 19:42 19:42 WBC RBC Hgb Hct MCV MCH MCHC 32.3 RDW Cancelled 17.1 H Plt Count Cancelled 342 MPV Cancelled Immature Gran % (Auto) Neut % (Auto) Lymph % (Auto) [place] % (Auto) Eos % (Auto) Baso % (Auto) Lymph # (Auto) [place] # (Auto) Eos # (Auto) Baso # (Auto) Abs Immat Gran (auto) Absolute Neuts (auto) Absolute Nucleated RBC Nucleated RBC % (auto) Smear Tech's Comments Smear Path Review PT INR aPTT Heparin Protocol VBG pH VBG pCO2 VBG pO2 VBG HCO3 VBG O2 Saturation VBG Base Excess Sodium Potassium Chloride Carbon Dioxide Anion Gap BUN Creatinine Estim Creat Clear Calc Estimated GFR POC Glucose Random Glucose Lactic Acid Lactic Acid F/U @ 2Hr Lactic Acid F/U @ 4Hr Calcium Phosphorus Magnesium Albumin Triglycerides Beta-Hydroxybutyrate Blood Type Antibody Screen 11/27/24 11/27/24 11/27/24 19:42 19:42 19:42 WBC RBC Hgb Hct MCV MCH MCHC RDW Plt Count MPV 10.5 Immature Gran % (Auto) Cancelled 3.8 H Neut % (Auto) Cancelled 80.8 H Lymph % (Auto) Cancelled [place] % (Auto) Eos % (Auto) Baso % (Auto) Lymph # (Auto) [place] # (Auto) Eos # (Auto) Baso # (Auto) Abs Immat Gran (auto) Absolute Neuts (auto) Absolute Nucleated RBC Nucleated RBC % (auto) Smear Tech's Comments Smear Path Review PT INR aPTT Heparin Protocol VBG pH VBG pCO2 VBG pO2 VBG HCO3 VBG O2 Saturation VBG Base Excess Sodium Potassium Chloride Carbon Dioxide Anion Gap BUN Creatinine Estim Creat Clear Calc Estimated GFR POC Glucose Random Glucose Lactic Acid Lactic Acid F/U @ 2Hr Lactic Acid F/U @ 4Hr Calcium Phosphorus Magnesium Albumin Triglycerides Beta-Hydroxybutyrate Blood Type Antibody Screen 11/27/24 11/27/24 11/27/24 19:42 19:42 19:42 WBC RBC Hgb Hct MCV MCH MCHC RDW Plt Count MPV Immature Gran % (Auto) Neut % (Auto) Lymph % (Auto) 6.3 L [place] % (Auto) Cancelled 8.1 Eos % (Auto) Cancelled 0.8 Baso % (Auto) Cancelled Lymph # (Auto) [place] # (Auto) Eos # (Auto) Baso # (Auto) Abs Immat Gran (auto) Absolute Neuts (auto) Absolute Nucleated RBC Nucleated RBC % (auto) Smear Tech's Comments Smear Path Review PT INR aPTT Heparin Protocol VBG pH VBG pCO2 VBG pO2 VBG HCO3 VBG O2 Saturation VBG Base Excess Sodium Potassium Chloride Carbon Dioxide Anion Gap BUN Creatinine Estim Creat Clear Calc Estimated GFR POC Glucose Random Glucose Lactic Acid Lactic Acid F/U @ 2Hr Lactic Acid F/U @ 4Hr Calcium Phosphorus Magnesium Albumin Triglycerides Beta-Hydroxybutyrate Blood Type Antibody Screen 11/27/24 11/27/24 11/27/24 19:42 19:42 19:42 WBC RBC Hgb Hct MCV MCH MCHC RDW Plt Count MPV Immature Gran % (Auto) Neut % (Auto) Lymph % (Auto) [place] % (Auto) Eos % (Auto) Baso % (Auto) 0.2 Lymph # (Auto) Cancelled 1.0 L [place] # (Auto) Cancelled 1.3 H Eos # (Auto) Cancelled Baso # (Auto) Abs Immat Gran (auto) Absolute Neuts (auto) Absolute Nucleated RBC Nucleated RBC % (auto) Smear Tech's Comments Smear Path Review PT INR aPTT Heparin Protocol VBG pH VBG pCO2 VBG pO2 VBG HCO3 VBG O2 Saturation VBG Base Excess Sodium Potassium Chloride Carbon Dioxide Anion Gap BUN Creatinine Estim Creat Clear Calc Estimated GFR POC Glucose Random Glucose Lactic Acid Lactic Acid F/U @ 2Hr Lactic Acid F/U @ 4Hr Calcium Phosphorus Magnesium Albumin Triglycerides Beta-Hydroxybutyrate Blood Type Antibody Screen 11/27/24 11/27/24 11/27/24 19:42 19:42 19:42 WBC RBC Hgb Hct MCV MCH MCHC RDW Plt Count MPV Immature Gran % (Auto) Neut % (Auto) Lymph % (Auto) [place] % (Auto) Eos % (Auto) Baso % (Auto) Lymph # (Auto) [place] # (Auto) Eos # (Auto) 0.1 Baso # (Auto) Cancelled 0.0 Abs Immat Gran (auto) Cancelled 0.62 H Absolute Neuts (auto) Cancelled Absolute Nucleated RBC Nucleated RBC % (auto) Smear Tech's Comments Smear Path Review PT INR aPTT Heparin Protocol VBG pH VBG pCO2 VBG pO2 VBG HCO3 VBG O2 Saturation VBG Base Excess Sodium Potassium Chloride Carbon Dioxide Anion Gap BUN Creatinine Estim Creat Clear Calc Estimated GFR POC Glucose Random Glucose Lactic Acid Lactic Acid F/U @ 2Hr Lactic Acid F/U @ 4Hr Calcium Phosphorus Magnesium Albumin Triglycerides Beta-Hydroxybutyrate Blood Type Antibody Screen 11/27/24 11/27/24 11/27/24 19:42 19:42 19:42 WBC RBC Hgb Hct MCV MCH MCHC RDW Plt Count MPV Immature Gran % (Auto) Neut % (Auto) Lymph % (Auto) [place] % (Auto) Eos % (Auto) Baso % (Auto) Lymph # (Auto) [place] # (Auto) Eos # (Auto) Baso # (Auto) Abs Immat Gran (auto) Absolute Neuts (auto) 13.2 H Absolute Nucleated RBC Cancelled 0.080 H Nucleated RBC % (auto) Cancelled 0.5 H Smear Tech's Comments Smear Path Review PT INR aPTT Heparin Protocol VBG pH VBG pCO2 VBG pO2 VBG HCO3 VBG O2 Saturation VBG Base Excess Sodium 142 Potassium 3.8 D Chloride 96 Carbon Dioxide 23 Anion Gap 27 H BUN 87 H Creatinine 5.39 H* Estim Creat Clear Calc 14.4 Estimated GFR 11 POC Glucose Random Glucose 205 H Lactic Acid 2.5 H* Lactic Acid F/U @ 2Hr Lactic Acid F/U @ 4Hr Calcium 8.8 D Phosphorus 6.3 H Magnesium 2.2 Albumin 3.3 L Triglycerides Beta-Hydroxybutyrate Blood Type Antibody Screen 11/27/24 11/27/24 11/28/24 22:01 23:55 00:20 WBC RBC Hgb Hct MCV MCH MCHC RDW Plt Count MPV Immature Gran % (Auto) Neut % (Auto) Lymph % (Auto) [place] % (Auto) Eos % (Auto) Baso % (Auto) Lymph # (Auto) [place] # (Auto) Eos # (Auto) Baso # (Auto) Abs Immat Gran (auto) Absolute Neuts (auto) Absolute Nucleated RBC Nucleated RBC % (auto) Smear Tech's Comments Smear Path Review PT INR aPTT Heparin Protocol VBG pH VBG pCO2 VBG pO2 VBG HCO3 VBG O2 Saturation VBG Base Excess Sodium Potassium Chloride Carbon Dioxide Anion Gap BUN Creatinine Estim Creat Clear Calc Estimated GFR POC Glucose 149 H Random Glucose Lactic Acid Lactic Acid F/U @ 2Hr 2.4 H* Lactic Acid F/U @ 4Hr 1.9 Calcium Phosphorus Magnesium Albumin Triglycerides Beta-Hydroxybutyrate Blood Type Antibody Screen 11/28/24 11/28/24 11/28/24 03:08 05:04 05:17 WBC 11.4 H RBC 2.23 L Hgb 7.3 L Hct 23.6 L MCV 105.8 H MCH 32.7 MCHC 30.9 L RDW 17.0 H Plt Count 311 MPV 10.9 Immature Gran % (Auto) 3.0 H Neut % (Auto) 91.8 H Lymph % (Auto) 3.4 L [place] % (Auto) 1.4 L Eos % (Auto) 0.0 Baso % (Auto) 0.4 Lymph # (Auto) 0.4 L [place] # (Auto) 0.2 Eos # (Auto) 0.0 Baso # (Auto) 0.0 Abs Immat Gran (auto) 0.34 H Absolute Neuts (auto) 10.4 H Absolute Nucleated RBC 0.040 H Nucleated RBC % (auto) 0.4 H Smear Tech's Comments VERIFIED Smear Path Review PT INR aPTT Heparin Protocol VBG pH 7.57 H VBG pCO2 26 VBG pO2 55 VBG HCO3 24 VBG O2 Saturation 80.0 VBG Base Excess 3.3 Sodium 141 139 Potassium 5.4 H D 5.3 H Chloride 97 96 Carbon Dioxide 21 L 22 Anion Gap 28 H 26 H BUN 104 H 112 H Creatinine 6.37 H* 6.58 H* Estim Creat Clear Calc 12.2 11.8 Estimated GFR 9 8 POC Glucose Random Glucose 169 H 166 H Lactic Acid Lactic Acid F/U @ 2Hr Lactic Acid F/U @ 4Hr Calcium 8.1 L D 8.1 L Phosphorus 10.7 H Magnesium 2.2 Albumin Triglycerides 272 H Beta-Hydroxybutyrate Blood Type Antibody Screen 11/28/24 07:04 WBC RBC Hgb Hct MCV MCH MCHC RDW Plt Count MPV Immature Gran % (Auto) Neut % (Auto) Lymph % (Auto) [place] % (Auto) Eos % (Auto) Baso % (Auto) Lymph # (Auto) [place] # (Auto) Eos # (Auto) Baso # (Auto) Abs Immat Gran (auto) Absolute Neuts (auto) Absolute Nucleated RBC Nucleated RBC % (auto) Smear Tech's Comments Smear Path Review PT INR aPTT Heparin Protocol VBG pH VBG pCO2 VBG pO2 VBG HCO3 VBG O2 Saturation VBG Base Excess Sodium Potassium Chloride Carbon Dioxide Anion Gap BUN Creatinine Estim Creat Clear Calc Estimated GFR POC Glucose Random Glucose Lactic Acid Lactic Acid F/U @ 2Hr Lactic Acid F/U @ 4Hr Calcium Phosphorus Magnesium Albumin Triglycerides Beta-Hydroxybutyrate Blood Type O Positive Antibody Screen NEGATIVE Microbiology Microbiology Results: Microbiology 11/10/24 11:13 Blood - Venous Blood Culture - Final No growth after 5 days. 11/10/24 11:13 Blood - Venous Blood Culture - Final No growth after 5 days. 11/07/24 07:02 Blood - Venous Blood Culture - Final Staphylococcus aureus Coag negative Staphylococcus 11/08/24 04:10 Blood - Venous Blood Culture - Final Staphylococcus aureus 11/08/24 04:10 Blood - Venous Blood Culture - Final Staphylococcus aureus 11/07/24 07:01 Blood - Venous Blood Culture - Final Staphylococcus aureus Progress Note: A&P Assessment and plan (1) Acute hypoxemic respiratory failure: Status: Acute (2) Pneumonia due to COVID-19 virus: Status: Acute (3) Cardiac arrest: Status: Acute (4) Acute renal failure: Status: Acute (5) Subarachnoid hemorrhage: Status: Acute Plan Patient is a 69 Y M w/ hypertension, substance misuse initially presenting to ED on 11/07 w/ hypoxic respiratory failure d/t COVID, intubated; ED course c/b cardiac arrest; hospital?course c/b multiple cardiac arrests on 11/07, acute renal failure initiated on hemodialysis on 11/13, encephalopathy, c/f acute vs subacute b/l infarcts, MSSA bacteremia, and SAH N: SAH, medical management w/ BP control, anti-epileptics, electrolyte management; [facility] contacted regarding neurological care CV: multiple prior cardiac arrests; shock, likely multifactorial, norepinephrine gtt, wean as tolerated R: intubated 11/07, extubated 11/22, re-intubated 11/28 GI: NPO : acute renal failure initiated on hemodialysis on 11/13, HD catheter replaced 11/27 w/ IR H: subclavian DVT, unable to treat d/t SAH ID: COVID pneumonia s/p dexamethasone, MSSA bacteremia, s/p ceftriaxone E: to monitor hyper-/hypo-glycemia S: polysubstance misuse Quality Stroke Does the patient have a stroke diagnosis?: Yes Reason for No Anti-thrombotic by Day Two: Drug intolerance VTE Prior VTE?: No VTE Risk Level:: Medical - moderate - high VTE Device Contraindication: N/A - Device Ordered VTE Drug Contraindication: Treatment Not Tolerated
--- NOTE | 2024-11-28 09:00 | P.PNNP_ITS ---
Subjective Subjective Date of Service: 11/28/24 Interval history: Patient here with respiratory failure requiring intubation- cavitary penumonia (extubated 11/22), lactic acidosis, MSSA bacteremia, covid+, on vasopressor support. Following for renal failure requiring dialysis, started 11/13. Events noted: Patient decompensated during HD last night, became hypoxic and unresponsive requiring re-intubation, and required two vasopressors for blood pressure support. Per HD RN, new temporary HD line blood flow poor and was unable to perform full dialysis session due to decompensation. Patient receiving 1 unit of RBCs this a.m. due to low hemoglobin level this a.m. Pateint is intabated/sedated, remains anuric. Physical Exam 2 Vital Signs: Vital Signs: Last Vital Signs Temp 97.3 F 11/28/24 09:00 Pulse 100 11/28/24 09:00 Resp 30 H 11/28/24 09:00 BP 124/76 11/28/24 09:00 Pulse Ox 95 11/28/24 09:00 O2 Del Method Mechanical Ventil ation 11/28/24 09:00 O2 Flow Rate 15 11/27/24 19:00 FiO2 30 11/28/24 09:00 BMI result Body Mass Index 22.8 Const: Other: intubated/sedated. Resp: Effort & Inspection: tachypneic Auscultation: rhonchi Cardio: Rate: tachycardic Rhythm: regular rhythm Heart sounds: S1 normal heart sound present and S2 normal heart sound present GI: Palpation (GI): Soft to palpation and nontender Skin: Rashes: no rashes Extrem: General: No edema Objective Data Labs 11/28/24 05:04 11/28/24 05:04 Labs: Laboratory Results - last 24 hr 11/27/24 11/27/24 11/27/24 04:49 10:12 12:12 WBC RBC Hgb Hct MCV MCH MCHC RDW Plt Count MPV Immature Gran % (Auto) Neut % (Auto) Lymph % (Auto) [place] % (Auto) Eos % (Auto) Baso % (Auto) Lymph # (Auto) [place] # (Auto) Eos # (Auto) Baso # (Auto) Abs Immat Gran (auto) Absolute Neuts (auto) Absolute Nucleated RBC Nucleated RBC % (auto) Smear Tech's Comments Smear Path Review SEE NOTE PT INR aPTT Heparin Protocol VBG pH VBG pCO2 VBG pO2 VBG HCO3 VBG O2 Saturation VBG Base Excess Sodium Potassium Chloride Carbon Dioxide Anion Gap BUN Creatinine Estim Creat Clear Calc Estimated GFR POC Glucose 85 Random Glucose Lactic Acid 1.5 Lactic Acid F/U @ 2Hr Lactic Acid F/U @ 4Hr Calcium Phosphorus Magnesium Albumin Triglycerides Beta-Hydroxybutyrate 1.36 H Blood Type Antibody Screen Crossmatch 11/27/24 11/27/24 11/27/24 17:31 18:11 19:42 WBC 8.8 Cancelled RBC 2.63 L Hgb 8.7 L Hct 27.6 L MCV 104.9 H D MCH 33.1 H MCHC 31.5 RDW 17.1 H Plt Count 373 MPV 10.6 Immature Gran % (Auto) Neut % (Auto) Lymph % (Auto) [place] % (Auto) Eos % (Auto) Baso % (Auto) Lymph # (Auto) [place] # (Auto) Eos # (Auto) Baso # (Auto) Abs Immat Gran (auto) Absolute Neuts (auto) Absolute Nucleated RBC 0.020 H Nucleated RBC % (auto) 0.2 Smear Tech's Comments Smear Path Review PT 14.8 H INR 1.3 H aPTT Heparin Protocol 21.1 L VBG pH VBG pCO2 VBG pO2 VBG HCO3 VBG O2 Saturation VBG Base Excess Sodium Potassium Chloride Carbon Dioxide Anion Gap BUN Creatinine Estim Creat Clear Calc Estimated GFR POC Glucose 87 Random Glucose Lactic Acid Lactic Acid F/U @ 2Hr Lactic Acid F/U @ 4Hr Calcium Phosphorus Magnesium Albumin Triglycerides Beta-Hydroxybutyrate Blood Type Antibody Screen Crossmatch 11/27/24 11/27/24 11/27/24 19:42 19:42 19:42 WBC 16.3 H RBC Cancelled 2.47 L Hgb Cancelled 8.3 L Hct Cancelled MCV MCH MCHC RDW Plt Count MPV Immature Gran % (Auto) Neut % (Auto) Lymph % (Auto) [place] % (Auto) Eos % (Auto) Baso % (Auto) Lymph # (Auto) [place] # (Auto) Eos # (Auto) Baso # (Auto) Abs Immat Gran (auto) Absolute Neuts (auto) Absolute Nucleated RBC Nucleated RBC % (auto) Smear Tech's Comments Smear Path Review PT INR aPTT Heparin Protocol VBG pH VBG pCO2 VBG pO2 VBG HCO3 VBG O2 Saturation VBG Base Excess Sodium Potassium Chloride Carbon Dioxide Anion Gap BUN Creatinine Estim Creat Clear Calc Estimated GFR POC Glucose Random Glucose Lactic Acid Lactic Acid F/U @ 2Hr Lactic Acid F/U @ 4Hr Calcium Phosphorus Magnesium Albumin Triglycerides Beta-Hydroxybutyrate Blood Type Antibody Screen Crossmatch 11/27/24 11/27/24 11/27/24 19:42 19:42 19:42 WBC RBC Hgb Hct 25.7 L MCV Cancelled 104.0 H MCH Cancelled 33.6 H MCHC Cancelled RDW Plt Count MPV Immature Gran % (Auto) Neut % (Auto) Lymph % (Auto) [place] % (Auto) Eos % (Auto) Baso % (Auto) Lymph # (Auto) [place] # (Auto) Eos # (Auto) Baso # (Auto) Abs Immat Gran (auto) Absolute Neuts (auto) Absolute Nucleated RBC Nucleated RBC % (auto) Smear Tech's Comments Smear Path Review PT INR aPTT Heparin Protocol VBG pH VBG pCO2 VBG pO2 VBG HCO3 VBG O2 Saturation VBG Base Excess Sodium Potassium Chloride Carbon Dioxide Anion Gap BUN Creatinine Estim Creat Clear Calc Estimated GFR POC Glucose Random Glucose Lactic Acid Lactic Acid F/U @ 2Hr Lactic Acid F/U @ 4Hr Calcium Phosphorus Magnesium Albumin Triglycerides Beta-Hydroxybutyrate Blood Type Antibody Screen Crossmatch 11/27/24 11/27/24 11/27/24 19:42 19:42 19:42 WBC RBC Hgb Hct MCV MCH MCHC 32.3 RDW Cancelled 17.1 H Plt Count Cancelled 342 MPV Cancelled Immature Gran % (Auto) Neut % (Auto) Lymph % (Auto) [place] % (Auto) Eos % (Auto) Baso % (Auto) Lymph # (Auto) [place] # (Auto) Eos # (Auto) Baso # (Auto) Abs Immat Gran (auto) Absolute Neuts (auto) Absolute Nucleated RBC Nucleated RBC % (auto) Smear Tech's Comments Smear Path Review PT INR aPTT Heparin Protocol VBG pH VBG pCO2 VBG pO2 VBG HCO3 VBG O2 Saturation VBG Base Excess Sodium Potassium Chloride Carbon Dioxide Anion Gap BUN Creatinine Estim Creat Clear Calc Estimated GFR POC Glucose Random Glucose Lactic Acid Lactic Acid F/U @ 2Hr Lactic Acid F/U @ 4Hr Calcium Phosphorus Magnesium Albumin Triglycerides Beta-Hydroxybutyrate Blood Type Antibody Screen Crossmatch 11/27/24 11/27/24 11/27/24 19:42 19:42 19:42 WBC RBC Hgb Hct MCV MCH MCHC RDW Plt Count MPV 10.5 Immature Gran % (Auto) Cancelled 3.8 H Neut % (Auto) Cancelled 80.8 H Lymph % (Auto) Cancelled [place] % (Auto) Eos % (Auto) Baso % (Auto) Lymph # (Auto) [place] # (Auto) Eos # (Auto) Baso # (Auto) Abs Immat Gran (auto) Absolute Neuts (auto) Absolute Nucleated RBC Nucleated RBC % (auto) Smear Tech's Comments Smear Path Review PT INR aPTT Heparin Protocol VBG pH VBG pCO2 VBG pO2 VBG HCO3 VBG O2 Saturation VBG Base Excess Sodium Potassium Chloride Carbon Dioxide Anion Gap BUN Creatinine Estim Creat Clear Calc Estimated GFR POC Glucose Random Glucose Lactic Acid Lactic Acid F/U @ 2Hr Lactic Acid F/U @ 4Hr Calcium Phosphorus Magnesium Albumin Triglycerides Beta-Hydroxybutyrate Blood Type Antibody Screen Crossmatch 11/27/24 11/27/24 11/27/24 19:42 19:42 19:42 WBC RBC Hgb Hct MCV MCH MCHC RDW Plt Count MPV Immature Gran % (Auto) Neut % (Auto) Lymph % (Auto) 6.3 L [place] % (Auto) Cancelled 8.1 Eos % (Auto) Cancelled 0.8 Baso % (Auto) Cancelled Lymph # (Auto) [place] # (Auto) Eos # (Auto) Baso # (Auto) Abs Immat Gran (auto) Absolute Neuts (auto) Absolute Nucleated RBC Nucleated RBC % (auto) Smear Tech's Comments Smear Path Review PT INR aPTT Heparin Protocol VBG pH VBG pCO2 VBG pO2 VBG HCO3 VBG O2 Saturation VBG Base Excess Sodium Potassium Chloride Carbon Dioxide Anion Gap BUN Creatinine Estim Creat Clear Calc Estimated GFR POC Glucose Random Glucose Lactic Acid Lactic Acid F/U @ 2Hr Lactic Acid F/U @ 4Hr Calcium Phosphorus Magnesium Albumin Triglycerides Beta-Hydroxybutyrate Blood Type Antibody Screen Crossmatch 11/27/24 11/27/24 11/27/24 19:42 19:42 19:42 WBC RBC Hgb Hct MCV MCH MCHC RDW Plt Count MPV Immature Gran % (Auto) Neut % (Auto) Lymph % (Auto) [place] % (Auto) Eos % (Auto) Baso % (Auto) 0.2 Lymph # (Auto) Cancelled 1.0 L [place] # (Auto) Cancelled 1.3 H Eos # (Auto) Cancelled Baso # (Auto) Abs Immat Gran (auto) Absolute Neuts (auto) Absolute Nucleated RBC Nucleated RBC % (auto) Smear Tech's Comments Smear Path Review PT INR aPTT Heparin Protocol VBG pH VBG pCO2 VBG pO2 VBG HCO3 VBG O2 Saturation VBG Base Excess Sodium Potassium Chloride Carbon Dioxide Anion Gap BUN Creatinine Estim Creat Clear Calc Estimated GFR POC Glucose Random Glucose Lactic Acid Lactic Acid F/U @ 2Hr Lactic Acid F/U @ 4Hr Calcium Phosphorus Magnesium Albumin Triglycerides Beta-Hydroxybutyrate Blood Type Antibody Screen Crossmatch 11/27/24 11/27/24 11/27/24 19:42 19:42 19:42 WBC RBC Hgb Hct MCV MCH MCHC RDW Plt Count MPV Immature Gran % (Auto) Neut % (Auto) Lymph % (Auto) [place] % (Auto) Eos % (Auto) Baso % (Auto) Lymph # (Auto) [place] # (Auto) Eos # (Auto) 0.1 Baso # (Auto) Cancelled 0.0 Abs Immat Gran (auto) Cancelled 0.62 H Absolute Neuts (auto) Cancelled Absolute Nucleated RBC Nucleated RBC % (auto) Smear Tech's Comments Smear Path Review PT INR aPTT Heparin Protocol VBG pH VBG pCO2 VBG pO2 VBG HCO3 VBG O2 Saturation VBG Base Excess Sodium Potassium Chloride Carbon Dioxide Anion Gap BUN Creatinine Estim Creat Clear Calc Estimated GFR POC Glucose Random Glucose Lactic Acid Lactic Acid F/U @ 2Hr Lactic Acid F/U @ 4Hr Calcium Phosphorus Magnesium Albumin Triglycerides Beta-Hydroxybutyrate Blood Type Antibody Screen Crossmatch 11/27/24 11/27/24 11/27/24 19:42 19:42 19:42 WBC RBC Hgb Hct MCV MCH MCHC RDW Plt Count MPV Immature Gran % (Auto) Neut % (Auto) Lymph % (Auto) [place] % (Auto) Eos % (Auto) Baso % (Auto) Lymph # (Auto) [place] # (Auto) Eos # (Auto) Baso # (Auto) Abs Immat Gran (auto) Absolute Neuts (auto) 13.2 H Absolute Nucleated RBC Cancelled 0.080 H Nucleated RBC % (auto) Cancelled 0.5 H Smear Tech's Comments Smear Path Review PT INR aPTT Heparin Protocol VBG pH VBG pCO2 VBG pO2 VBG HCO3 VBG O2 Saturation VBG Base Excess Sodium 142 Potassium 3.8 D Chloride 96 Carbon Dioxide 23 Anion Gap 27 H BUN 87 H Creatinine 5.39 H* Estim Creat Clear Calc 14.4 Estimated GFR 11 POC Glucose Random Glucose 205 H Lactic Acid 2.5 H* Lactic Acid F/U @ 2Hr Lactic Acid F/U @ 4Hr Calcium 8.8 D Phosphorus 6.3 H Magnesium 2.2 Albumin 3.3 L Triglycerides Beta-Hydroxybutyrate Blood Type Antibody Screen Crossmatch 11/27/24 11/27/24 11/28/24 22:01 23:55 00:20 WBC RBC Hgb Hct MCV MCH MCHC RDW Plt Count MPV Immature Gran % (Auto) Neut % (Auto) Lymph % (Auto) [place] % (Auto) Eos % (Auto) Baso % (Auto) Lymph # (Auto) [place] # (Auto) Eos # (Auto) Baso # (Auto) Abs Immat Gran (auto) Absolute Neuts (auto) Absolute Nucleated RBC Nucleated RBC % (auto) Smear Tech's Comments Smear Path Review PT INR aPTT Heparin Protocol VBG pH VBG pCO2 VBG pO2 VBG HCO3 VBG O2 Saturation VBG Base Excess Sodium Potassium Chloride Carbon Dioxide Anion Gap BUN Creatinine Estim Creat Clear Calc Estimated GFR POC Glucose 149 H Random Glucose Lactic Acid Lactic Acid F/U @ 2Hr 2.4 H* Lactic Acid F/U @ 4Hr 1.9 Calcium Phosphorus Magnesium Albumin Triglycerides Beta-Hydroxybutyrate Blood Type Antibody Screen Crossmatch 11/28/24 11/28/24 11/28/24 03:08 05:04 05:17 WBC 11.4 H RBC 2.23 L Hgb 7.3 L Hct 23.6 L MCV 105.8 H MCH 32.7 MCHC 30.9 L RDW 17.0 H Plt Count 311 MPV 10.9 Immature Gran % (Auto) 3.0 H Neut % (Auto) 91.8 H Lymph % (Auto) 3.4 L [place] % (Auto) 1.4 L Eos % (Auto) 0.0 Baso % (Auto) 0.4 Lymph # (Auto) 0.4 L [place] # (Auto) 0.2 Eos # (Auto) 0.0 Baso # (Auto) 0.0 Abs Immat Gran (auto) 0.34 H Absolute Neuts (auto) 10.4 H Absolute Nucleated RBC 0.040 H Nucleated RBC % (auto) 0.4 H Smear Tech's Comments VERIFIED Smear Path Review PT INR aPTT Heparin Protocol VBG pH 7.57 H VBG pCO2 26 VBG pO2 55 VBG HCO3 24 VBG O2 Saturation 80.0 VBG Base Excess 3.3 Sodium 141 139 Potassium 5.4 H D 5.3 H Chloride 97 96 Carbon Dioxide 21 L 22 Anion Gap 28 H 26 H BUN 104 H 112 H Creatinine 6.37 H* 6.58 H* Estim Creat Clear Calc 12.2 11.8 Estimated GFR 9 8 POC Glucose Random Glucose 169 H 166 H Lactic Acid Lactic Acid F/U @ 2Hr Lactic Acid F/U @ 4Hr Calcium 8.1 L D 8.1 L Phosphorus 10.7 H Magnesium 2.2 Albumin Triglycerides 272 H Beta-Hydroxybutyrate Blood Type Antibody Screen Crossmatch 11/28/24 07:04 WBC RBC Hgb Hct MCV MCH MCHC RDW Plt Count MPV Immature Gran % (Auto) Neut % (Auto) Lymph % (Auto) [place] % (Auto) Eos % (Auto) Baso % (Auto) Lymph # (Auto) [place] # (Auto) Eos # (Auto) Baso # (Auto) Abs Immat Gran (auto) Absolute Neuts (auto) Absolute Nucleated RBC Nucleated RBC % (auto) Smear Tech's Comments Smear Path Review PT INR aPTT Heparin Protocol VBG pH VBG pCO2 VBG pO2 VBG HCO3 VBG O2 Saturation VBG Base Excess Sodium Potassium Chloride Carbon Dioxide Anion Gap BUN Creatinine Estim Creat Clear Calc Estimated GFR POC Glucose Random Glucose Lactic Acid Lactic Acid F/U @ 2Hr Lactic Acid F/U @ 4Hr Calcium Phosphorus Magnesium Albumin Triglycerides Beta-Hydroxybutyrate Blood Type O Positive Antibody Screen NEGATIVE Crossmatch See Detail Microbiology Microbiology Results: Microbiology 11/10/24 11:13 Blood - Venous Blood Culture - Final No growth after 5 days. 11/10/24 11:13 Blood - Venous Blood Culture - Final No growth after 5 days. 11/07/24 07:02 Blood - Venous Blood Culture - Final Staphylococcus aureus Coag negative Staphylococcus 11/08/24 04:10 Blood - Venous Blood Culture - Final Staphylococcus aureus 11/08/24 04:10 Blood - Venous Blood Culture - Final Staphylococcus aureus 11/07/24 07:01 Blood - Venous Blood Culture - Final Staphylococcus aureus Procedures Date of Service Date of Service: 11/28/24 Assessment & Plan Assessment and plan (1) Acute renal failure: Status: Acute (2) Metabolic acidosis: Status: Acute (3) Hyperkalemia: Status: Acute Plan Acute renal failure likely multifactorial with initially with severe metabolic acidosis and hyperkalemia. Septic and ischemic ATN, may have component of vacomycin-related injury as well. Dialysis TTS, though needing daily dialysis due to poor blood flow from catheter. Second temporary HD line placed yesterday, poor blood flow. Plan to have IR place permcath today. Recommend 1 unit pRBCs during dialysis. Per ICU attending, patient to be transferred to [facility] due to medical decompensation, with plan for catheter placement and dialysis once patient is transferred, as she feels patient is not stable enough to have catheter placement at [facility] at this time. Canceled permcath request in light of new plan. Discussed with Dr Yap Time Spent With Patient Time: Total time managing care of this patient today ____ minutes. Progress Note: Quality Stroke Does the patient have a stroke diagnosis?: Yes Reason for No Anti-thrombotic by Day Two: Drug intolerance
--- NOTE | 2024-11-28 09:33 | MHC.CLN ---
PT REQUIRES TF FOR NUTRITION SUPPORT R/T PROLONGED NPO STATUS PT RE- INTUBATED AND SEDATED DISCUSSED AT ROUNDS WITH MD RECOMMEND NEPRO AT MAX GOAL RATE 45ML/HR TO PROVIDE 1944KCALS (2562KCALS WITH SEDATION; 30KCALS/KG), 87G PROTEIN (1.04G/KG), 785ML TOTAL FREE WATER FROM FORMULA MONITOR TOLERANCE AND LYTES SEE FULL ASSESSMENT
--- NOTE | 2024-11-28 09:42 | PM.DS ---
DS: Providers Provider Date of Service: 11/28/24 Date of admission: 11/07/24 08:23 Date of discharge: 11/28/24 Primary care physician: Ishan Pablo MD Consults: 11/08/24 09:24 Consult to Wound Care Routine Reason for consultation: ? Great toe nail removed Has provider been notified: Yes 11/13/24 09:45 Consult to Nephrology Stat Consulting Provider: [facility] Reason for consultation: Needs hemodialysis Has provider been notified: No 11/19/24 10:14 Consult to Neurology Routine Consulting Provider: [facility] Reason for consultation: Acute and subacute infarcts after cardiac arrest Has provider been notified: No 11/22/24 06:29 Consult to Wound Care Routine Reason for consultation: medical asst injury Has provider been notified: Yes Attending physician on discharge: Irais Negro DS: Diagnosis Discharge Diagnosis (1) Acute hypoxemic respiratory failure: Status: Acute (2) Pneumonia due to COVID-19 virus: Status: Acute (3) Cardiac arrest: Status: Acute (4) Acute renal failure: Status: Acute (5) Subarachnoid hemorrhage: Status: Acute DS: Summary Hospital Course Hospital Course: Patient is a 69 Y M w/ hypertension, substance misuse initially presenting to ED on 11/07 w/ hypoxic respiratory failure d/t COVID, intubated; ED course c/b cardiac arrest; hospital?course c/b multiple cardiac arrests on 11/07, acute renal failure initiated on hemodialysis on 11/13, encephalopathy, c/f acute vs subacute b/l infarcts, MSSA bacteremia, and SAH; of note, patient s/p HD catheter placement w/ IR on 11/27, found to have subclavian DVT, started on heparin gtt; patient w/ significant clinical decline 11/27 PM, marked by worsening shock necessitating 2 vasopressors, stress-dose steroids; patient increasingly obtunded, emergently intubated; broad work-up initiated including CT H c/f acute b/l frontoparietal subarachnoid hemorrhage, though CTA H/N not suggestive of anuersym; CTA C not suggestive of pulmonary embolism, CT A/P not suggestive of acute process; [facility] contacted regarding neurological care, accepted to MICU, Dr. Emerson Time Attestation Total time managing care of this patient today: 90 mintues. Discharge Coordination Time (in mins): 30 Quality: Safe Use of Opioids Does Pt have an Active Cancer Diagnosis on the Problem List?: No Quality: Stroke Does the patient have a stroke diagnosis?: Yes Reason for No Anti-thrombotic at DC: Contraindicated Reason for No Anticoagulant at DC: Contraindicated Reason Not Initiating IV-Tpa: Not indicated Reason for No Anti-thrombotic by Day Two: Contraindicated Reason for No Statin at DC: Not indicated Physical Exam Vital Signs: Vital Signs: Last Vital Signs Temp 97.3 F 11/28/24 09:00 Pulse 100 11/28/24 09:00 Resp 30 H 11/28/24 09:00 BP 124/76 11/28/24 09:00 Pulse Ox 95 11/28/24 09:00 O2 Del Method Mechanical Ventil ation 11/28/24 09:00 O2 Flow Rate 15 11/27/24 19:00 FiO2 30 11/28/24 09:00 BMI result Body Mass Index 22.8 Const: Other: intubated, minimally sedated; no appreciable abnormal posturing; pupils equal, round, reactive bilaterally; grimaces, moves bilateral hands spontaneous, though does not withdraw to noxious stimulus HEENT: Head: Yes normal to inspection, Yes normocephalic and Yes atraumatic Eyes: General: appearance normal, both eyes and all related structures Neck: Neck: Yes normal visual inspection, Yes full ROM, Yes no meningeal signs, Yes trachea midline and Yes supple Chest: Chest palpation & inspection: normal inspection of the chest Resp: Other: diffuse rhonchi; no appreciable overt rales, wheezing Effort & Inspection: normal respiratory effort Cardio: Rate: regular rate Rhythm: abnormal rhythm GI: Inspection: Yes normal to inspection, No Abdominal wall edema and No distended Palpation (GI): Soft to palpation, not firm, nontender and no guarding Skin: General skin exam: no rashes or lesions noted Neuro: Other: as described above General: tone normal and no meningeal signs Extrem: General: Yes normal to inspection, Yes full ROM, Yes capillary refill normal and Yes no clubbing, cyanosis or edema Psych: Other: unable to assess DS: Data Data Completed and Pending Labs on day of discharge: Laboratory Results - last 24 hr 11/27/24 11/27/24 11/27/24 04:49 10:12 12:12 WBC RBC Hgb Hct MCV MCH MCHC RDW Plt Count MPV Immature Gran % (Auto) Neut % (Auto) Lymph % (Auto) [place] % (Auto) Eos % (Auto) Baso % (Auto) Lymph # (Auto) [place] # (Auto) Eos # (Auto) Baso # (Auto) Abs Immat Gran (auto) Absolute Neuts (auto) Absolute Nucleated RBC Nucleated RBC % (auto) Smear Tech's Comments Smear Path Review SEE NOTE PT INR aPTT Heparin Protocol VBG pH VBG pCO2 VBG pO2 VBG HCO3 VBG O2 Saturation VBG Base Excess Sodium Potassium Chloride Carbon Dioxide Anion Gap BUN Creatinine Estim Creat Clear Calc Estimated GFR POC Glucose 85 Random Glucose Lactic Acid 1.5 Lactic Acid F/U @ 2Hr Lactic Acid F/U @ 4Hr Calcium Phosphorus Magnesium Albumin Triglycerides Beta-Hydroxybutyrate 1.36 H Blood Type Antibody Screen Crossmatch 11/27/24 11/27/24 11/27/24 17:31 18:11 19:42 WBC 8.8 Cancelled RBC 2.63 L Hgb 8.7 L Hct 27.6 L MCV 104.9 H D MCH 33.1 H MCHC 31.5 RDW 17.1 H Plt Count 373 MPV 10.6 Immature Gran % (Auto) Neut % (Auto) Lymph % (Auto) [place] % (Auto) Eos % (Auto) Baso % (Auto) Lymph # (Auto) [place] # (Auto) Eos # (Auto) Baso # (Auto) Abs Immat Gran (auto) Absolute Neuts (auto) Absolute Nucleated RBC 0.020 H Nucleated RBC % (auto) 0.2 Smear Tech's Comments Smear Path Review PT 14.8 H INR 1.3 H aPTT Heparin Protocol 21.1 L VBG pH VBG pCO2 VBG pO2 VBG HCO3 VBG O2 Saturation VBG Base Excess Sodium Potassium Chloride Carbon Dioxide Anion Gap BUN Creatinine Estim Creat Clear Calc Estimated GFR POC Glucose 87 Random Glucose Lactic Acid Lactic Acid F/U @ 2Hr Lactic Acid F/U @ 4Hr Calcium Phosphorus Magnesium Albumin Triglycerides Beta-Hydroxybutyrate Blood Type Antibody Screen Crossmatch 11/27/24 11/27/24 11/27/24 19:42 19:42 19:42 WBC 16.3 H RBC Cancelled 2.47 L Hgb Cancelled 8.3 L Hct Cancelled MCV MCH MCHC RDW Plt Count MPV Immature Gran % (Auto) Neut % (Auto) Lymph % (Auto) [place] % (Auto) Eos % (Auto) Baso % (Auto) Lymph # (Auto) [place] # (Auto) Eos # (Auto) Baso # (Auto) Abs Immat Gran (auto) Absolute Neuts (auto) Absolute Nucleated RBC Nucleated RBC % (auto) Smear Tech's Comments Smear Path Review PT INR aPTT Heparin Protocol VBG pH VBG pCO2 VBG pO2 VBG HCO3 VBG O2 Saturation VBG Base Excess Sodium Potassium Chloride Carbon Dioxide Anion Gap BUN Creatinine Estim Creat Clear Calc Estimated GFR POC Glucose Random Glucose Lactic Acid Lactic Acid F/U @ 2Hr Lactic Acid F/U @ 4Hr Calcium Phosphorus Magnesium Albumin Triglycerides Beta-Hydroxybutyrate Blood Type Antibody Screen Crossmatch 11/27/24 11/27/24 11/27/24 19:42 19:42 19:42 WBC RBC Hgb Hct 25.7 L MCV Cancelled 104.0 H MCH Cancelled 33.6 H MCHC Cancelled RDW Plt Count MPV Immature Gran % (Auto) Neut % (Auto) Lymph % (Auto) [place] % (Auto) Eos % (Auto) Baso % (Auto) Lymph # (Auto) [place] # (Auto) Eos # (Auto) Baso # (Auto) Abs Immat Gran (auto) Absolute Neuts (auto) Absolute Nucleated RBC Nucleated RBC % (auto) Smear Tech's Comments Smear Path Review PT INR aPTT Heparin Protocol VBG pH VBG pCO2 VBG pO2 VBG HCO3 VBG O2 Saturation VBG Base Excess Sodium Potassium Chloride Carbon Dioxide Anion Gap BUN Creatinine Estim Creat Clear Calc Estimated GFR POC Glucose Random Glucose Lactic Acid Lactic Acid F/U @ 2Hr Lactic Acid F/U @ 4Hr Calcium Phosphorus Magnesium Albumin Triglycerides Beta-Hydroxybutyrate Blood Type Antibody Screen Crossmatch 11/27/24 11/27/24 11/27/24 19:42 19:42 19:42 WBC RBC Hgb Hct MCV MCH MCHC 32.3 RDW Cancelled 17.1 H Plt Count Cancelled 342 MPV Cancelled Immature Gran % (Auto) Neut % (Auto) Lymph % (Auto) [place] % (Auto) Eos % (Auto) Baso % (Auto) Lymph # (Auto) [place] # (Auto) Eos # (Auto) Baso # (Auto) Abs Immat Gran (auto) Absolute Neuts (auto) Absolute Nucleated RBC Nucleated RBC % (auto) Smear Tech's Comments Smear Path Review PT INR aPTT Heparin Protocol VBG pH VBG pCO2 VBG pO2 VBG HCO3 VBG O2 Saturation VBG Base Excess Sodium Potassium Chloride Carbon Dioxide Anion Gap BUN Creatinine Estim Creat Clear Calc Estimated GFR POC Glucose Random Glucose Lactic Acid Lactic Acid F/U @ 2Hr Lactic Acid F/U @ 4Hr Calcium Phosphorus Magnesium Albumin Triglycerides Beta-Hydroxybutyrate Blood Type Antibody Screen Crossmatch 11/27/24 11/27/24 11/27/24 19:42 19:42 19:42 WBC RBC Hgb Hct MCV MCH MCHC RDW Plt Count MPV 10.5 Immature Gran % (Auto) Cancelled 3.8 H Neut % (Auto) Cancelled 80.8 H Lymph % (Auto) Cancelled [place] % (Auto) Eos % (Auto) Baso % (Auto) Lymph # (Auto) [place] # (Auto) Eos # (Auto) Baso # (Auto) Abs Immat Gran (auto) Absolute Neuts (auto) Absolute Nucleated RBC Nucleated RBC % (auto) Smear Tech's Comments Smear Path Review PT INR aPTT Heparin Protocol VBG pH VBG pCO2 VBG pO2 VBG HCO3 VBG O2 Saturation VBG Base Excess Sodium Potassium Chloride Carbon Dioxide Anion Gap BUN Creatinine Estim Creat Clear Calc Estimated GFR POC Glucose Random Glucose Lactic Acid Lactic Acid F/U @ 2Hr Lactic Acid F/U @ 4Hr Calcium Phosphorus Magnesium Albumin Triglycerides Beta-Hydroxybutyrate Blood Type Antibody Screen Crossmatch 11/27/24 11/27/24 11/27/24 19:42 19:42 19:42 WBC RBC Hgb Hct MCV MCH MCHC RDW Plt Count MPV Immature Gran % (Auto) Neut % (Auto) Lymph % (Auto) 6.3 L [place] % (Auto) Cancelled 8.1 Eos % (Auto) Cancelled 0.8 Baso % (Auto) Cancelled Lymph # (Auto) [place] # (Auto) Eos # (Auto) Baso # (Auto) Abs Immat Gran (auto) Absolute Neuts (auto) Absolute Nucleated RBC Nucleated RBC % (auto) Smear Tech's Comments Smear Path Review PT INR aPTT Heparin Protocol VBG pH VBG pCO2 VBG pO2 VBG HCO3 VBG O2 Saturation VBG Base Excess Sodium Potassium Chloride Carbon Dioxide Anion Gap BUN Creatinine Estim Creat Clear Calc Estimated GFR POC Glucose Random Glucose Lactic Acid Lactic Acid F/U @ 2Hr Lactic Acid F/U @ 4Hr Calcium Phosphorus Magnesium Albumin Triglycerides Beta-Hydroxybutyrate Blood Type Antibody Screen Crossmatch 11/27/24 11/27/24 11/27/24 19:42 19:42 19:42 WBC RBC Hgb Hct MCV MCH MCHC RDW Plt Count MPV Immature Gran % (Auto) Neut % (Auto) Lymph % (Auto) [place] % (Auto) Eos % (Auto) Baso % (Auto) 0.2 Lymph # (Auto) Cancelled 1.0 L [place] # (Auto) Cancelled 1.3 H Eos # (Auto) Cancelled Baso # (Auto) Abs Immat Gran (auto) Absolute Neuts (auto) Absolute Nucleated RBC Nucleated RBC % (auto) Smear Tech's Comments Smear Path Review PT INR aPTT Heparin Protocol VBG pH VBG pCO2 VBG pO2 VBG HCO3 VBG O2 Saturation VBG Base Excess Sodium Potassium Chloride Carbon Dioxide Anion Gap BUN Creatinine Estim Creat Clear Calc Estimated GFR POC Glucose Random Glucose Lactic Acid Lactic Acid F/U @ 2Hr Lactic Acid F/U @ 4Hr Calcium Phosphorus Magnesium Albumin Triglycerides Beta-Hydroxybutyrate Blood Type Antibody Screen Crossmatch 11/27/24 11/27/24 11/27/24 19:42 19:42 19:42 WBC RBC Hgb Hct MCV MCH MCHC RDW Plt Count MPV Immature Gran % (Auto) Neut % (Auto) Lymph % (Auto) [place] % (Auto) Eos % (Auto) Baso % (Auto) Lymph # (Auto) [place] # (Auto) Eos # (Auto) 0.1 Baso # (Auto) Cancelled 0.0 Abs Immat Gran (auto) Cancelled 0.62 H Absolute Neuts (auto) Cancelled Absolute Nucleated RBC Nucleated RBC % (auto) Smear Tech's Comments Smear Path Review PT INR aPTT Heparin Protocol VBG pH VBG pCO2 VBG pO2 VBG HCO3 VBG O2 Saturation VBG Base Excess Sodium Potassium Chloride Carbon Dioxide Anion Gap BUN Creatinine Estim Creat Clear Calc Estimated GFR POC Glucose Random Glucose Lactic Acid Lactic Acid F/U @ 2Hr Lactic Acid F/U @ 4Hr Calcium Phosphorus Magnesium Albumin Triglycerides Beta-Hydroxybutyrate Blood Type Antibody Screen Crossmatch 11/27/24 11/27/24 11/27/24 19:42 19:42 19:42 WBC RBC Hgb Hct MCV MCH MCHC RDW Plt Count MPV Immature Gran % (Auto) Neut % (Auto) Lymph % (Auto) [place] % (Auto) Eos % (Auto) Baso % (Auto) Lymph # (Auto) [place] # (Auto) Eos # (Auto) Baso # (Auto) Abs Immat Gran (auto) Absolute Neuts (auto) 13.2 H Absolute Nucleated RBC Cancelled 0.080 H Nucleated RBC % (auto) Cancelled 0.5 H Smear Tech's Comments Smear Path Review PT INR aPTT Heparin Protocol VBG pH VBG pCO2 VBG pO2 VBG HCO3 VBG O2 Saturation VBG Base Excess Sodium 142 Potassium 3.8 D Chloride 96 Carbon Dioxide 23 Anion Gap 27 H BUN 87 H Creatinine 5.39 H* Estim Creat Clear Calc 14.4 Estimated GFR 11 POC Glucose Random Glucose 205 H Lactic Acid 2.5 H* Lactic Acid F/U @ 2Hr Lactic Acid F/U @ 4Hr Calcium 8.8 D Phosphorus 6.3 H Magnesium 2.2 Albumin 3.3 L Triglycerides Beta-Hydroxybutyrate Blood Type Antibody Screen Crossmatch 11/27/24 11/27/24 11/28/24 22:01 23:55 00:20 WBC RBC Hgb Hct MCV MCH MCHC RDW Plt Count MPV Immature Gran % (Auto) Neut % (Auto) Lymph % (Auto) [place] % (Auto) Eos % (Auto) Baso % (Auto) Lymph # (Auto) [place] # (Auto) Eos # (Auto) Baso # (Auto) Abs Immat Gran (auto) Absolute Neuts (auto) Absolute Nucleated RBC Nucleated RBC % (auto) Smear Tech's Comments Smear Path Review PT INR aPTT Heparin Protocol VBG pH VBG pCO2 VBG pO2 VBG HCO3 VBG O2 Saturation VBG Base Excess Sodium Potassium Chloride Carbon Dioxide Anion Gap BUN Creatinine Estim Creat Clear Calc Estimated GFR POC Glucose 149 H Random Glucose Lactic Acid Lactic Acid F/U @ 2Hr 2.4 H* Lactic Acid F/U @ 4Hr 1.9 Calcium Phosphorus Magnesium Albumin Triglycerides Beta-Hydroxybutyrate Blood Type Antibody Screen Crossmatch 11/28/24 11/28/24 11/28/24 03:08 05:04 05:17 WBC 11.4 H RBC 2.23 L Hgb 7.3 L Hct 23.6 L MCV 105.8 H MCH 32.7 MCHC 30.9 L RDW 17.0 H Plt Count 311 MPV 10.9 Immature Gran % (Auto) 3.0 H Neut % (Auto) 91.8 H Lymph % (Auto) 3.4 L [place] % (Auto) 1.4 L Eos % (Auto) 0.0 Baso % (Auto) 0.4 Lymph # (Auto) 0.4 L [place] # (Auto) 0.2 Eos # (Auto) 0.0 Baso # (Auto) 0.0 Abs Immat Gran (auto) 0.34 H Absolute Neuts (auto) 10.4 H Absolute Nucleated RBC 0.040 H Nucleated RBC % (auto) 0.4 H Smear Tech's Comments VERIFIED Smear Path Review PT INR aPTT Heparin Protocol VBG pH 7.57 H VBG pCO2 26 VBG pO2 55 VBG HCO3 24 VBG O2 Saturation 80.0 VBG Base Excess 3.3 Sodium 141 139 Potassium 5.4 H D 5.3 H Chloride 97 96 Carbon Dioxide 21 L 22 Anion Gap 28 H 26 H BUN 104 H 112 H Creatinine 6.37 H* 6.58 H* Estim Creat Clear Calc 12.2 11.8 Estimated GFR 9 8 POC Glucose Random Glucose 169 H 166 H Lactic Acid Lactic Acid F/U @ 2Hr Lactic Acid F/U @ 4Hr Calcium 8.1 L D 8.1 L Phosphorus 10.7 H Magnesium 2.2 Albumin Triglycerides 272 H Beta-Hydroxybutyrate Blood Type Antibody Screen Crossmatch 11/28/24 07:04 WBC RBC Hgb Hct MCV MCH MCHC RDW Plt Count MPV Immature Gran % (Auto) Neut % (Auto) Lymph % (Auto) [place] % (Auto) Eos % (Auto) Baso % (Auto) Lymph # (Auto) [place] # (Auto) Eos # (Auto) Baso # (Auto) Abs Immat Gran (auto) Absolute Neuts (auto) Absolute Nucleated RBC Nucleated RBC % (auto) Smear Tech's Comments Smear Path Review PT INR aPTT Heparin Protocol VBG pH VBG pCO2 VBG pO2 VBG HCO3 VBG O2 Saturation VBG Base Excess Sodium Potassium Chloride Carbon Dioxide Anion Gap BUN Creatinine Estim Creat Clear Calc Estimated GFR POC Glucose Random Glucose Lactic Acid Lactic Acid F/U @ 2Hr Lactic Acid F/U @ 4Hr Calcium Phosphorus Magnesium Albumin Triglycerides Beta-Hydroxybutyrate Blood Type O Positive Antibody Screen NEGATIVE Crossmatch See Detail Discharge Plan Discharge Anticipated Discharge Date/Time: 11/28/24 09:54 Patient Disposition: Xfer Acute Care Hospital Discharge Diagnosis: Subarachnoid Hemorrhage, Shock Referrals: Ishan Pablo MD [Primary Care Provider, Internal Medicine] - 1 Week Discharge Medications: Continued clonazepam 1 mg tablet 1 mg PO TID amlodipine 5 mg tablet 5 mg PO DAILY dextroamphetamine-amphetamine 20 mg tablet 1 tab PO BID Discharge Orders: Discharge Order (Routine); Ordered 11/28/24 Ordered By: Irais Negro Activity on Discharge: As tolerated Stand Alone Forms: Patient Portal Discharge page Print Language: [place] Care Plan Goals: Transfer to [facility] for evaluation of possible neurological care for subarachnoid hemorrhage. Health Concerns: As described below. Plan of Treatment: Patient is a 69 Y M w/ hypertension, substance misuse initially presenting to ED on 11/07 w/ hypoxic respiratory failure d/t COVID, intubated; ED course c/b cardiac arrest; hospital?course c/b multiple cardiac arrests on 11/07, acute renal failure initiated on hemodialysis on 11/13, encephalopathy, c/f acute vs subacute b/l infarcts, MSSA bacteremia, and SAH N: SAH, medical management w/ BP control, anti-epileptics, electrolyte management; [facility] contacted regarding neurological care CV: multiple prior cardiac arrests; shock, likely multifactorial, norepinephrine gtt, wean as tolerated R: intubated 11/07, extubated 11/22, re-intubated 11/28 GI: NPO : acute renal failure initiated on hemodialysis on 11/13, HD catheter replaced 11/27 w/ IR H: subclavian DVT, unable to treat d/t SAH ID: COVID pneumonia s/p dexamethasone, MSSA bacteremia, s/p ceftriaxone E: to monitor hyper-/hypo-glycemia S: polysubstance misuse Assessment: As described above.
--- NOTE | 2024-11-28 10:05 | MHC.CM.PN ---
Pt with worsening condition overnight including reintubation and CT of head w/+ bleed. Pt transferred to [facility] for neurosurgical intervention. to contact family
--- NOTE | 2024-11-28 10:39 | PC.NURSE ---
Addendum entered by Johanna Sanders RN 11/28/24 13:14: [place] [facility] [place] [facility] approx. @ 1300. Nurse-Nurse report given. RBC transfusing approx. 109cc left in bag Original Note: [facility] @ 0700 Neuro: Sedated/intubated, on propofol gtt per JUN. positive cough, gag, and pain response. unable to follow commands, Flaccid extremities. (passive ROM performed).? Respiratory: Ventilatory support.? Rhoncurous Bl throughout.? Cardiac: Afib on tele, Levophed 2x gtt and Amiodarone gtt-per JUN. GI/: LBM 11/26, OG tube Clamp. Anuric, Skin: Impaired skin integrity- see skin assessment (reposition maintained) Temp: Afebrile Lines: HD catch to BL IJ, peripheral IVs x3. left HD cath does not have blood returned awaiting for removal. Plan tx to [facility]
[2024-11-28 11:32] LABS: Glucose, Whole Blood 139 mg/dL (60-115)
--- NOTE | 2024-12-18 07:48 | P.CDIM_ITS ---
PROVIDER RESPONSE TEXT: To clarify, the appropriate diagnosis supported by the clinical indicators: Right subclavian DVT QUERY TEXT: PHYSICIAN'S DOCUMENTATION REQUEST Date of Query: 12/15/2024 07:09 AM EDT Patient Name: Josse Mcdermott Admit Date: 11/07/2024 Dear Irais Negro MD, A review of the medical record indicates additional documentation may be needed. Please review below and update the documentation accordingly. Clinical Indicators: Per Discharge Summary 11/28/24: HD catheter replaced 11/27 w/ IR subclavian DVT, unable to treat d/t SAH Based on the above, could you clarify the laterality that supports the above abnormalities and additional evaluation, monitoring, and/or treatment rendered: Left subclavian DVT Right subclavian DVT Other (explain) Clinically unable to determine (explain) Thank you, Fern Mendes RN Use of terms such as suspected, likely, concern for, or probable (associated with a specific diagnosis that is being evaluated, monitored, or treated as if it exists) are acceptable and can be coded in the inpatient setting, when documented at the time of discharge. Please use your independent medical judgment in providing your response. THIS QUERY IS PART OF THE PERMANENT MEDICAL RECORD
== END 2024-11-28 13:16 | disposition short-term general hospital (02) | DRG 870 ==
LOC: HO.ED 07:54 → HO.EDOVER 08:30 → HO.ICU 09:09
PROVIDERS: Internal Medicine Critical Care Medicine; Nurse Practitioner Family; Physician Assistant Medical; Radiology Diagnostic Radiology; Registered Nurse Community Health; Admitting Provider Internal Medicine Pulmonary Disease; Emergency Provider Emergency Medicine; PCP Family Medicine; Visit Provider Internal Medicine Critical Care Medicine
DX: A41.9 Sepsis, unspecified organism (principal); I46.9 Cardiac arrest, cause unspecified; U07.1 COVID-19; N17.0 Acute kidney failure with tubular necrosis; J96.01 Acute respiratory failure with hypoxia; J18.9 Pneumonia, unspecified organism; K83.1 Obstruction of bile duct; R57.0 Cardiogenic shock; I60.9 Nontraumatic subarachnoid hemorrhage, unspecified; I63.9 Cerebral infarction, unspecified; G93.49 Other encephalopathy; G93.1 Anoxic brain damage, not elsewhere classified; F19.139 Other psychoactive substance abuse with withdrawal, unspecified; R64 Cachexia; I82.B11 Acute embolism and thrombosis of right subclavian vein; E83.39 Other disorders of phosphorus metabolism; D64.9 Anemia, unspecified; I95.3 Hypotension of hemodialysis; E87.5 Hyperkalemia; Z68.22 Body mass index [BMI] 22.0-22.9, adult; R65.20 Severe sepsis without septic shock; J98.4 Other disorders of lung; I10 Essential (primary) hypertension; B95.61 Methicillin susceptible Staphylococcus aureus infection as the cause of diseases classified elsewhere; Z79.899 Other long term (current) drug therapy
CPT/HCPCS: 36415; 36556; 36600; 70450; 70496; 70498; 70551; 71045; 71250; 71275; 73552; 73590; 74177; 76705; 76937; 80048; 80053; 80202; 80307; 82010; 82040; 82140; 82272; 82550; 82784; 82803; 82947; 83010; 83605; 83615; 83735; 83880; 84100; 84478; 84484; 85007; 85025; 85027; 85610; 85730; 86160; 86334; 86704; 86705; 86706; 86780; 86850; 86900; 86901; 86923; 87040; 87077; 87147; 87186; 87205; 87340; 87389; 87635; 87637; 90999; 92610; 93005; 93306; 94002; 94003; 94799; 97163; 97167; 99284; 99499; C1752; J0168; J0282; J0283; J0613; J0616; J0618; J0692; J0696; J1100; J1160; J1163; J1171; J1308; J1644; J1939; J1953; J1956; J2003; J2250; J2543; J2598; J2704; J2720; J2919; J2997; J3010; J3373; J3374; J3475; J3480; P9016; P9047; Q5106; Q9957; Q9967

== ENCOUNTER → 2024-11-07 06:21 | Outpatient (BNV) | payer OTHER, SELFPAY | PROVIDERS: Admitting Provider Internal Medicine Pulmonary Disease; Emergency Provider Emergency Medicine; Visit Provider Internal Medicine | DX: I48.91 Unspecified atrial fibrillation (principal) | CPT/HCPCS: 93010 ==

== ENCOUNTER 2024-11-07 08:23 | Outpatient (BNV) | payer OTHER, SELFPAY | END 2024-11-15 16:25 | PROVIDERS: Admitting Provider Internal Medicine Pulmonary Disease; Emergency Provider Emergency Medicine; PCP Family Medicine; Visit Provider Radiology Body Imaging | DX: R91.8 Other nonspecific abnormal finding of lung field (principal); Z46.59 Encounter for fitting and adjustment of other gastrointestinal appliance and device | CPT/HCPCS: 71045 ==

== ENCOUNTER 2024-11-07 08:23 | Outpatient (BNV) | payer OTHER, SELFPAY | END 2024-11-08 14:36 | PROVIDERS: Admitting Provider Internal Medicine Pulmonary Disease; Emergency Provider Emergency Medicine; Visit Provider Radiology Diagnostic Radiology | DX: J96.00 Acute respiratory failure, unspecified whether with hypoxia or hypercapnia (principal); R91.8 Other nonspecific abnormal finding of lung field | CPT/HCPCS: 71250 ==

== ENCOUNTER 2024-11-07 08:23 | Outpatient (BNV) | payer OTHER, SELFPAY | END 2024-11-28 00:01 | PROVIDERS: Admitting Provider Internal Medicine Pulmonary Disease; Emergency Provider Emergency Medicine; PCP Family Medicine; Visit Provider Radiology Diagnostic Radiology | DX: N17.9 Acute kidney failure, unspecified (principal); R09.02 Hypoxemia; I60.9 Nontraumatic subarachnoid hemorrhage, unspecified; R91.8 Other nonspecific abnormal finding of lung field | CPT/HCPCS: 70450; 70496; 70498; 71275; 74177 ==

== ENCOUNTER 2024-11-07 08:23 | Outpatient (BNV) | payer OTHER, SELFPAY | END 2024-11-13 08:50 | PROVIDERS: Admitting Provider Internal Medicine Pulmonary Disease; Emergency Provider Emergency Medicine; PCP Family Medicine; Visit Provider Radiology Diagnostic Radiology | DX: J18.9 Pneumonia, unspecified organism (principal) | CPT/HCPCS: 71045 ==

== ENCOUNTER 2024-11-07 08:23 | Outpatient (BNV) | payer OTHER, SELFPAY | END 2024-11-08 07:00 | PROVIDERS: Admitting Provider Internal Medicine Pulmonary Disease; Emergency Provider Emergency Medicine; Visit Provider Internal Medicine | DX: I46.9 Cardiac arrest, cause unspecified (principal); I35.8 Other nonrheumatic aortic valve disorders | CPT/HCPCS: 93306 ==

== ENCOUNTER 2024-11-07 08:23 | Outpatient (BNV) | payer OTHER, SELFPAY | END 2024-11-27 20:10 | PROVIDERS: Admitting Provider Internal Medicine Pulmonary Disease; Emergency Provider Emergency Medicine; PCP Family Medicine; Visit Provider Radiology Diagnostic Radiology | DX: Z46.82 Encounter for fitting and adjustment of non-vascular catheter (principal); J18.1 Lobar pneumonia, unspecified organism | CPT/HCPCS: 71045 ==

== ENCOUNTER 2024-11-07 08:23 | Outpatient (BNV) | payer OTHER, SELFPAY | END 2024-11-10 10:15 | PROVIDERS: Admitting Provider Internal Medicine Pulmonary Disease; Emergency Provider Emergency Medicine; PCP Family Medicine; Visit Provider Radiology Diagnostic Radiology | DX: R16.0 Hepatomegaly, not elsewhere classified (principal) | CPT/HCPCS: 76705 ==

== ENCOUNTER 2024-11-07 08:23 | Outpatient (BNV) | payer OTHER, SELFPAY | END 2024-11-23 17:05 | PROVIDERS: Admitting Provider Internal Medicine Pulmonary Disease; Emergency Provider Emergency Medicine; PCP Family Medicine; Visit Provider Radiology Diagnostic Radiology | DX: J90 Pleural effusion, not elsewhere classified (principal); J81.1 Chronic pulmonary edema; Z49.01 Encounter for fitting and adjustment of extracorporeal dialysis catheter | CPT/HCPCS: 71045 ==

== ENCOUNTER 2024-11-07 08:23 | Outpatient (BNV) | payer OTHER, SELFPAY | END 2024-11-26 10:01 | PROVIDERS: Admitting Provider Internal Medicine Pulmonary Disease; Emergency Provider Emergency Medicine; PCP Family Medicine; Visit Provider Radiology Vascular & Interventional Radiology | DX: J18.9 Pneumonia, unspecified organism (principal); R91.8 Other nonspecific abnormal finding of lung field | CPT/HCPCS: 71045 ==

== ENCOUNTER 2024-11-07 08:23 | Outpatient (BNV) | payer OTHER, SELFPAY | END 2024-11-18 11:25 | PROVIDERS: Admitting Provider Internal Medicine Pulmonary Disease; Emergency Provider Emergency Medicine; PCP Family Medicine; Visit Provider Radiology Vascular & Interventional Radiology | DX: G93.1 Anoxic brain damage, not elsewhere classified (principal); S89.92XA Unspecified injury of left lower leg, initial encounter | CPT/HCPCS: 70551; 73552; 73590 ==

== ENCOUNTER → 2024-11-07 08:23 | Outpatient (BNV) | payer OTHER, SELFPAY | PROVIDERS: Admitting Provider Internal Medicine Pulmonary Disease; Emergency Provider Emergency Medicine; PCP Family Medicine; Visit Provider Psychiatry & Neurology Neurology | DX: G93.1 Anoxic brain damage, not elsewhere classified (principal) | CPT/HCPCS: 99222 ==

== ENCOUNTER → 2024-11-07 08:23 | Outpatient (BNV) | payer OTHER, SELFPAY | PROVIDERS: Admitting Provider Internal Medicine Pulmonary Disease; Emergency Provider Emergency Medicine; Visit Provider Nurse Practitioner Family | DX: I46.9 Cardiac arrest, cause unspecified (principal) | CPT/HCPCS: 36556; 99499 ==

== ENCOUNTER → 2024-11-07 08:23 | Outpatient (BNV) | payer OTHER, SELFPAY | PROVIDERS: Admitting Provider Internal Medicine Pulmonary Disease; Emergency Provider Emergency Medicine; Visit Provider Internal Medicine Pulmonary Disease | DX: I46.9 Cardiac arrest, cause unspecified (principal); J96.01 Acute respiratory failure with hypoxia; N17.9 Acute kidney failure, unspecified; F19.10 Other psychoactive substance abuse, uncomplicated; U07.1 COVID-19 | CPT/HCPCS: 99291; 99292 ==

== ENCOUNTER → 2024-11-07 08:23 | Outpatient (BNV) | payer OTHER, SELFPAY | PROVIDERS: Admitting Provider Internal Medicine Pulmonary Disease; Emergency Provider Emergency Medicine; PCP Family Medicine; Visit Provider Nurse Practitioner Family | DX: N17.9 Acute kidney failure, unspecified (principal); E87.20 Acidosis, unspecified; E87.5 Hyperkalemia | CPT/HCPCS: 90935; 99223 ==